=== PATIENT | female | born 1965 | race Caucasian/White ===

== ENCOUNTER → 2017-10-19 16:07 | Outpatient (REF) | payer OTHER, SELFPAY ==
--- NOTE | 2017-10-19 15:45 | SKI_PTH ---
PATIENT: Kayce Posadas LOC: N U#:[id number] AGE/SX: 59/F ROOM: RE10/19/[address]: Riley Yoo DO : 1965 BED: DIS: SPEC #: [id number] RECD: 10/20/17 17:34 STATUS: MAIRA RESharon #: [id number] PEGGY: 10/19/17 15:[address]: Riley Yoo DEPT: Surgical Specimen RECD BY: Afua Navas ENTERED: 10/20/17 17:35 SP TYPE: DESIRE MCKENNA DR: Annita Quiñones Tissues: 1 - SKIN BIOPSY(SHAVE/PUNCH) Procedures: SKIN LEVEL 4 Comments: [id number]
== END ==
LOC: LBN 16:07
PROVIDERS: PCP Nurse Practitioner Family; Visit Provider Otolaryngology Otolaryngology/Facial Plastic Surgery
DX: D22.30 Melanocytic nevi of unspecified part of face (principal)
CPT/HCPCS: 88305

== ENCOUNTER → 2017-10-21 12:27 | Outpatient (CLI) | payer OTHER, SELFPAY ==
[2017-10-21 12:50] LABS: Abs Immature Grans 0.01 k/cumm (0.0-0.09); Absolute Basophil Count 0.03 k/cumm (0.0-0.2); Absolute Lymphocyte Count 2.46 k/cumm (1.2-3.4); Absolute Monocyte Count 0.45 k/cumm (0.11-0.7); Absolute Neutrophil Count 3.53 k/cumm (1.2-6.7); Basophils % 0.4; HCT 44.4 % (36.0-46.0); HGB 14.9 g/dL (12.0-15.5); Immature Grans % 0.1; Lymphocytes % 36.8; Mean Corp. HGB Concentration 33.6 g/dL (32.0-36.0); Mean Corpuscular Hemoglobin 32.2 pg (27.0-33.0); Mean Corpuscular Volume 95.9 fL (80-95); Mean Platelet Volume 11.3 fL (8.0-11.0); Monocytes % 6.7; Platelet Count 220 x1000/uL (130-400); RBC 4.63 m/cumm (4.00-5.20); RBC Distribution Width 13.7 % (11.7-14.6); White Blood Cell Count 6.68 k/cumm (4.4-10.8)
[2017-10-21 13:07] LABS: ALT 18 U/L (12-78); AST 14 U/L (15-37); Albumin 3.9 g/dL (3.4-5.0); Alkaline Phosphatase 65 U/L (46-116); Anion Gap 9.8 mmol/L (3-11); BUN 9 mg/dL (7-18); Bilirubin, Total 0.2 mg/dL (0.2-1.0); CO2 28.2 mmol/L (21.0-32.0); Calcium 8.9 mg/dL (8.5-10.1); Chloride 104 mmol/L (98-107); Creatine Kinase 58 U/L (26-192); Glucose 103 mg/dL (70-100); Potassium 3.7 mmol/L (3.5-5.1); Sodium 142 mmol/L (136-145); Total Protein 7.5 g/dL (6.4-8.2)
[2017-10-21 13:10] LABS: Troponin I < 0.02 ng/mL (0.00-0.06)
== END ==
PROVIDERS: PCP Nurse Practitioner Family; Visit Provider Nurse Practitioner Family
DX: R07.9 Chest pain, unspecified (principal); I95.1 Orthostatic hypotension; R53.83 Other fatigue; J18.9 Pneumonia, unspecified organism; R51 Headache; F41.8 Other specified anxiety disorders; J45.20 Mild intermittent asthma, uncomplicated; R00.2 Palpitations
CPT/HCPCS: 36415; 80053; 82550; 84484; 85025

== ENCOUNTER → 2017-10-24 01:07 | Outpatient (CLI) | payer OTHER, SELFPAY ==
--- NOTE | 2017-10-24 08:57 | DI.REPORT_ITS ---
SYMPTOM/DIAGNOSIS: CHEST PAIN R07.9, PALPITATIONS R00.2, FATIGUE R53.83 PA AND LATERAL CHEST: Comparison is made with 29 September 2017. The cardiac and mediastinal contours have a normal appearance. The lungs are well inflated and clear. No infiltrate, effusion or pneumothorax is seen. There are minimal degenerative changes of the thoracic spine. IMPRESSION: Negative chest x-ray.
== END ==
PROVIDERS: PCP Nurse Practitioner Family; Visit Provider Nurse Practitioner Family
DX: R07.9 Chest pain, unspecified (principal); R00.2 Palpitations; R53.83 Other fatigue
CPT/HCPCS: 71046

== ENCOUNTER → 2017-10-24 02:42 | Outpatient (CLI) | payer OTHER, SELFPAY ==
--- NOTE | 2017-10-28 13:49 | HOLTER_ITS ---
DATE OF DICTATION: October 28, 2017 INDICATION: Chest pain/palpitations. 48-hour monitoring period. Baseline sinus rhythm. Average heart rate 80 bpm. Rare ventricular ectopy. Ventricular ectopy isolated; one ventricular triplet. No non-sustained VT. Rare isolated PAC's. No significant pauses or bradyarrhythmias. Patient diary entries of racing heart and chest pressure all correspond to sinus rhythm.
== END ==
PROVIDERS: PCP Nurse Practitioner Family; Visit Provider Nurse Practitioner Family
DX: R07.89 Other chest pain (principal); R00.2 Palpitations; I49.1 Atrial premature depolarization; I49.3 Ventricular premature depolarization
CPT/HCPCS: 93225

== ENCOUNTER → 2017-10-27 08:36 | Outpatient (CLI) | payer OTHER, SELFPAY | PROVIDERS: PCP Nurse Practitioner Family; Visit Provider Nurse Practitioner Family | DX: R07.89 Other chest pain (principal); R00.2 Palpitations; I49.1 Atrial premature depolarization; I49.3 Ventricular premature depolarization | CPT/HCPCS: 93226 ==

== ENCOUNTER → 2017-10-28 09:15 | Outpatient (CLI) | payer OTHER, SELFPAY | PROVIDERS: PCP Nurse Practitioner Family; Visit Provider Internal Medicine Cardiovascular Disease | DX: R07.89 Other chest pain (principal); R00.2 Palpitations; I49.1 Atrial premature depolarization; I49.3 Ventricular premature depolarization | CPT/HCPCS: 93227 ==

== ENCOUNTER → 2017-11-01 14:15 | Outpatient (CLI) | payer OTHER, SELFPAY | PROVIDERS: PCP Nurse Practitioner Family; Visit Provider Nurse Practitioner Adult Health | DX: G56.01 Carpal tunnel syndrome, right upper limb (principal) | CPT/HCPCS: 99213 ==

== ENCOUNTER 2017-11-18 02:00 | Outpatient (CLI) | payer OTHER, SELFPAY ==
[2017-11-18] MEDS: Inhaler, Assist Device 1 EACH MC (08:41)
[2017-11-18] MEDS: Albuterol HFA 18 GM 200 PUFF INH IH (08:43)
--- NOTE | 2017-11-18 11:30 | PFT_ITS ---
PULMONARY FUNCTION TEST REPORT DATE OF SERVICE: November 18, 2017 REQUESTING PROVIDER: Annita Quiñones APRN Spirometry shows mild obstructive airways disease with no significant bronchodilator response. Lung volumes show no evidence of restriction. Diffusion capacity mildly reduced, even when corrected to alveolar volume. Airways resistance normal. IMPRESSION: Mild obstructive airways disease with no significant bronchodilator response; this is associated with mild diffusion defect. Clinical correlation recommended. EVELINE/roger SEE SCANNED DOCUMENT IN THE EMR FOR DATA AND GRAPHS
== END 2017-11-18 02:20 ==
PROVIDERS: PCP Nurse Practitioner Family; Visit Provider Nurse Practitioner Family
DX: J98.8 Other specified respiratory disorders (principal)
CPT/HCPCS: 94060; 94150; 94726; 94729

== ENCOUNTER 2017-12-01 00:56 | Outpatient (CLI) | payer OTHER, SELFPAY ==
--- NOTE | 2017-12-01 13:15 | DI.MAMMO_ITS ---
SYMPTOM/DIAGNOSIS: SCREENING, MAMMO Z12.31 MAMMOGRAM: Mammograms were interpreted according to the usual protocol including computer analysis with CAD system, tomosynthesis and C view imaging. The breast tissue is extremely radiodense which lowers the sensitivity of the study. There is no evidence of a dominant mass. There are no suspicious calcifications. SUMMARY: No evidence of malignancy, Category 1, breast density category D. SA ASSESSMENT OF FINDINGS: Negative. Category 1. Patient will receive a letter notifying them of these results. BI-RADS category D. The breasts are extremely dense, which lowers the sensitivity of mammography.
== END 2017-12-01 01:16 ==
PROVIDERS: PCP Nurse Practitioner Family; Visit Provider Nurse Practitioner Family
DX: Z12.31 Encounter for screening mammogram for malignant neoplasm of breast (principal)
CPT/HCPCS: 77063; 77067

== ENCOUNTER 2018-07-17 17:44 | Emergency (ER) | payer OTHER, SELFPAY ==
[2018-07-17 18:10] VITALS: BP 150/84; PULSE 66; RESP 16; TEMP 36.6; O2SAT 96
--- NOTE | 2018-07-17 19:25 | W.ED.GENAD ---
Discharge Plan Disposition Patient Disposition: HOME Condition: Improving Discharge Details Chief Complaint: FlankPain Clinical Impression: Colitis, Cystitis Primary Care Provider: Annita Quiñones ED Provider: Keiry Marr Home Meds and New Rx's Prescriptions: New amoxicillin-pot clavulanate [Augmentin] 875-125 mg tablet 1 tab PO BID Qty: 14 RF: 0 Continued albuterol sulfate 8.5 GM HFA aerosol inhaler 1 - 2 puff Inhalation Q4H PRN RF: 0 venlafaxine [Effexor XR] 75 MG capsule,extended release 24hr 75 mg PO DAILY RF: 0 Discharge Instructions Instructions: Amoxicillin/Clavulanate Potassium (By mouth), Colitis (ED), Interstitial Cystitis (ED) Additional Instructions: Continue to encourage hydration. Please stick with clear liquid diet for the next 48 hours until evaluated by her primary care. Please call primary care tomorrow to schedule appointment within the next 2 days. On your CAT scan, you have findings suggestive of colitis, this is also supported by your mucousy bowel movements. There is inflammation of your bladder assist with interstitial. Augmentin will cover for infection. You have findings of cyst on your right kidney, cyst in your right ovary, as well as a small lesion in the liver. Discussed this further with your primary care. You also need follow-up with urology, I have asked her youth care worker to help follow-up with urology. If you develop fever/chills, increased pain, inability stay hydrated or other new/worsening symptoms please seek care urgently once again Referrals: Annita Quiñones [Primary Care Provider] - Gautam Clement MD [ [facility] ST[facility]FF PHYSICIAN] - Discharge Data Discharge Date/Time-TO BE ENTERED AT DEPARTURE: 07/17/18 22:25 Medical Decision Making Patient is a 53-year-old female presenting today with chief complaint of right flank pain and diffuse abdominal pain. She reports the pain began several weeks ago. She reports that she was seen on June 28 in the emergency department in [place] at which time she was diagnosed with a cyst on the kidney with a kidney infection. States she had a CT scan as well as laboratory evaluation. At that point she was put on cefepime. Patient fernando in [place] but is here primarily. It returned on the and has not been evaluated since. She reports that initially the pain has improved but now the pain is back and is worse than it had been previously. She is endorsing dysuria and difficulty peeing. States that she is also having mucousy bowel movements. Endorses nausea and vomiting. Denies any known fevers but states that she has been feeling warm intermittently. At this point, the patient appears nontoxic. Her exam is fairly nonspecific as she has diffuse discomfort without any focal findings. She does endorse right CVA tenderness. no peritoneal findings. Vital signs within normal limits. Patient has history of asthma, depression, hyperlipidemia, chronic pain. She is status post hysterectomy. Concern for possible infection given the patient's history, will get urinalysis, concern for nephritis, cystitis versus other urologic or abdominal complaints. Will obtain CT scan and laboratory evaluation. Discussed splinting the patient is in agreement. Will give Toradol to help with discomfort Labs significant for elevated lipase of 455. This is not correlate clinically. No leukocytosis. UA without suggestion of infection. CT reviewed by radiologist: ABDOMEN: Liver: Sub-5 mm hypoattenuating lesion in the right hepatic lobe, too small to further characterize. The liver is otherwise within normal limits. Gallbladder and bile ducts: The gallbladder is partially distended, within normal limits. Pancreas: Normal. No ductal dilation. Spleen: Normal. No splenomegaly. Adrenals: Normal. No mass. Kidneys and ureters: Right renal cyst measuring 2.1 cm. The kidneys and ureters are within normal limits. Stomach and bowel: No evidence of enteritis or small bowel obstruction. Diverticulosis with no focal inflammation to suggest acute diverticulitis. There is diffuse wall thickening of the colon with sparing of the right colon and most severe in the sigmoid colon that may be due in part to underdistention but is suspicious for nonspecific colitis. Appendix: No evidence of appendicitis. PELVIS: Bladder: Mild wall thickening of the urinary bladder may represent cystitis/UTI. Reproductive: Fat and soft tissue attenuation well-circumscribed ovoid lesion in the right pelvis measuring 4.5 x 2.8 x 3.6 cm (series 4 image 65) in keeping with a ovarian dermoid. The left ovary is within normal limits. Hysterectomy. ABDOMEN and PELVIS: Intraperitoneal space: No free fluid or pneumoperitoneum. Bones/joints: No acute fracture. No dislocation. Soft tissues: Unremarkable. Vasculature: Normal. No abdominal aortic aneurysm. Lymph nodes: Normal. No enlarged lymph nodes. Other findings: No acute findings in the lower chest. IMPRESSION: 1. Diffuse colon wall thickening, possibly due in part to underdistention, but suspicious for nonspecific colitis. Diverticulosis without evidence of acute diverticulitis. 2. Right ovarian dermoid. If there is clinical concern for torsion, ultrasound of the pelvis may be considered. 3. Mild circumferential wall thickening in the urinary bladder can be seen in the setting of cystitis/UTI. Cyst was noted to the patient. I did relate this was again. We also discussed the right ovarian cyst. Denies concern for torsion at this time the pain is been going on for so many weeks and patient is not particularly tender of the right lower side. Pain is more consistent with cystitis she is increasingly tender of the lower central abdomen. Patient has been endorsing mucousy stools. This may go along with the colitis. Her urine does not suggest a UTI, cystitis more likely. Patient has discussed the small finding on the liver and advised follow-up care regarding this. Patient is therefore diagnosed with cystitis enteritis. She does have a slightly elevated lipase at 4435. Patient is not tender in the left upper quadrant. She denies any recent alcohol consumption. No findings to suggest pancreatitis on the CT scan. This elevation is significant enough to suggest pancreatitis given the patient's history and physical exam findings. Discussed case with Dr. Buitrago. She relates that pancreatitis is unlikely given history and physical exam findings. However, she advised treating the patient conservatively and having her be on a clear liquid diet for the next 48 hours until reevaluated by her primary care physician. She has been advised with the patient on Augmentin to cover for the enteritis and any possible urinary action may be contributing to her symptoms. I discussed plan with the patient. She is given very strict return precautions. Advised patient to follow-up with primary care in the next 48 hours, also asked youth care worker to help facilitate this. Patient discharged home with prescription for Augmentin and dietary restrictions. Her questions and concerns were addressed and she is in agreement this plan HPI General Mode of arrival: ambulatory. Date/Time Provider Initiated Documentation: 07/17/18 19:15. Limitations to Documentation: no limitations. Information obtained by: patient and RN notes reviewed. History of Present Illness 53 year old F presents to the emergency department with the chief complaint of Right flank pain, abdominal pain and dysuria, described as moderate, with intensity rated at 8. Quality is described as aching, and is localized to the back and abdomen. Patient reports no radiation. Patient started experiencing this month(s) (1) and it has been constant. No relieving factors improve symptom(s), No exacerbating factors reported . Patient notes loss of appetite and nausea/vomiting; denies chest pain, cough, fever/chills, malaise, rash, shortness of breath and weakness. Patient did receive the following treatments prior to arrival, other (antibiotics for UTI) Related Data Home Medications Medication Instructions Recorded Confirmed albuterol sulfate 1 - 2 puff INHALATION Q4H PRN 07/30/14 08/17/17 inhaler venlafaxine [Effexor XR] 75 mg PO DAILY 10/17/16 08/17/17 amoxicillin-pot clavulanate 1 tab PO BID #14 tab 07/17/18 [Augmentin] Previous Rx's Medication Instructions Recorded amoxicillin-pot clavulanate 1 tab PO BID #14 tab 07/17/18 [Augmentin] Allergies Allergy/AdvReac Type Severity Reaction Status Date / Time hydrocodone bitartrate Allergy Mild Itching Unverified 11/01/17 13:55 [From Vicodin] Sulfa (Sulfonamide Allergy Mild Itching Unverified 11/01/17 13:55 Antibiotics) Bleach (Sodium Hypochlorite) AdvReac Unverified 11/01/17 13:55 hay fever AdvReac Mild Headache Uncoded 08/17/17 19:55 General Stated Complaint: FlankPain SANDHYA: 3 Review of Systems Constitutional Reports as per HPI, Denies chills, Reports fatigue, Denies fever(s) and Denies headache(s) ENT Denies headache(s) Cardiovascular Reports as per HPI, Denies chest pain and Denies dyspnea Respiratory Reports as per HPI, Denies cough and Denies dyspnea Gastrointestinal Reports as per HPI Genitourinary Reports as per HPI, Reports urinary frequency, Denies genital lesions, Reports dysuria, Reports flank pain (right), Denies urinary incontinence, Reports urinary urgency, Denies vaginal discharge, Denies vaginal odor and Reports other (patient s/p hysterectomy) Musculoskeletal Reports as per HPI and Reports back pain (flank pain) Integumentary/Breasts Reports as per HPI and Denies rash Neurologic Reports as per HPI and Denies headache(s) Endocrine Reports fatigue [facility] Medical History Asthma Back pain Depression Dyspareunia Generalized headaches Hyperlipidemia Menorrhagia Neuralgia of left lower extremity Shoulder pain Surgical History Colonoscopy - IV Sedation (11/18/14) Family History Father Colon cancer Social History Smoking/Tobacco Use Status: Current every day Drug use: Never Do you feel safe at home: Yes Do you feel safe in your relationship?: Yes Exam Const General: cooperative, healthy appearing, comfortable, no acute distress and well developed Nutritional Appearance: average body habitus and well nourished Orientation: alert and awake HENCT Head: normal to inspection Mouth: moist mucous membranes Resp Effort & Inspection: normal respiratory effort, able to speak in complete sentences and no respiratory distress Auscultation: clear to auscultation bilaterally, no rales, no rhonchi and no wheezes Cardio Rate: regular rate Rhythm: regular rhythm Heart Sounds: S1 normal and S2 normal GI Inspection: no edema, non-distended, no incisions and no visible herniation Palpation: soft, no hepatosplenomegaly, no aortic enlargement, not firm, no guarding, no hepatosplenomegaly, not rigid and tender (diffusely mildly tender, worse over bladder) with no rebound tenderness Percussion: normal to percussion Auscultation: normal bowel sounds Back/Spine/Pelvis Back: CVA tenderness (right) Skin General skin exam: no rashes or lesions noted Trauma: no lacerations or abrasions Neuro General: alert and awake Cognition: normal cognition Speech: speech normal Gait: normal gait Extrem General: normal to inspection, no pedal edema and no calf tenderness Psych Appearance: grossly normal and well kempt Mental Status: mental status grossly normal Speech and Movement: speech and movement normal Course Vital Signs Temperature 36.6 C 07/17/18 18:10 Pulse 66 07/17/18 18:10 Respiratory Rate 16 07/17/18 18:10 Blood Pressure 150/84 H 07/17/18 18:10 Pulse Oximetry 96 07/17/18 18:10 Temperature 36.6 C 07/17/18 18:10 Temperature Source Skin 07/17/18 18:10 Pulse 66 07/17/18 18:10 Respiratory Rate 16 07/17/18 18:10 Blood Pressure 150/84 H 07/17/18 18:10 Blood Pressure Position Sitting 07/17/18 18:10 Pulse Oximetry 96 07/17/18 18:10 Oxygen Delivery Method Room Air 07/17/18 18:10 Oxygen Flow Rate 0 07/17/18 18:10 Pain Level 8 07/17/18 18:10
[2018-07-17 19:28] LABS: Abs Immature Grans 0.02 k/cumm (0.0-0.09); Absolute Basophil Count 0.04 k/cumm (0.0-0.2); Absolute Eosinophil Count 0.39 k/cumm (0.0-0.7); Absolute Lymphocyte Count 3.05 k/cumm (1.2-3.4); Absolute Monocyte Count 0.93 k/cumm (0.11-0.7); Absolute Neutrophil Count 4.98 k/cumm (1.2-6.7); Basophils % 0.4; Eosinophils % 4.1; HCT 37.9 % (36.0-46.0); HGB 12.8 g/dL (12.0-15.5); Immature Grans % 0.2; Lymphocytes % 32.4; Mean Corp. HGB Concentration 33.8 g/dL (32.0-36.0); Mean Corpuscular Hemoglobin 31.7 pg (27.0-33.0); Mean Corpuscular Volume 93.8 fL (80-95); Monocytes % 9.9; Platelet Count 263 x1000/uL (130-400); RBC 4.04 m/cumm (4.00-5.20); RBC Distribution Width 13.4 % (11.7-14.6); White Blood Cell Count 9.41 k/cumm (4.4-10.8)
--- NOTE | 2018-07-17 19:36 | ED.GENADUL_ITS ---
Discharge Plan Disposition Patient Disposition: HOME Condition: Improving Discharge Details Chief Complaint: FlankPain Clinical Impression: Colitis, Cystitis Primary Care Provider: Annita Quiñones ED Provider: Keiry Marr Home Meds and New Rx's Prescriptions: New amoxicillin-pot clavulanate [Augmentin] 875-125 mg tablet 1 tab PO BID Qty: 14 RF: 0 Continued albuterol sulfate 8.5 GM HFA aerosol inhaler 1 - 2 puff Inhalation Q4H PRN RF: 0 venlafaxine [Effexor XR] 75 MG capsule,extended release 24hr 75 mg PO DAILY RF: 0 Discharge Instructions Instructions: Amoxicillin/Clavulanate Potassium (By mouth), Colitis (ED), Interstitial Cystitis (ED) Additional Instructions: Continue to encourage hydration. Please stick with clear liquid diet for the next 48 hours until evaluated by her primary care. Please call primary care tomorrow to schedule appointment within the next 2 days. On your CAT scan, you have findings suggestive of colitis, this is also supported by your mucousy bowel movements. There is inflammation of your bladder assist with interstitial. Augmentin will cover for infection. You have findings of cyst on your right kidney, cyst in your right ovary, as well as a small lesion in the liver. Discussed this further with your primary care. You also need follow-up with urology, I have asked her date night caregiver to help follow-up with urology. If you develop fever/chills, increased pain, inability stay hydrated or other new/worsening symptoms please seek care urgently once again Referrals: Annita Quiñones [Primary Care Provider] - Gautam Clement MD [ [facility] STAFF PHYSICIAN] - Discharge Data Discharge Date/Time-TO BE ENTERED AT DEPARTURE: 07/17/18 22:25 Medical Decision Making Patient is a 53-year-old female presenting today with chief complaint of right flank pain and diffuse abdominal pain. She reports the pain began several weeks ago. She reports that she was seen on June 28 in the emergency department in [place] at which time she was diagnosed with a cyst on the kidney with a kidney infection. States she had a CT scan as well as laboratory evaluation. At that point she was put on cefepime. Patient fernando in [place] but is here primarily. It returned on the and has not been evaluated since. She reports that initially the pain has improved but now the pain is back and is worse than it had been previously. She is endorsing dysuria and difficulty peeing. States that she is also having mucousy bowel movements. Endorses nausea and vomiting. Denies any known fevers but states that she has been feeling warm intermittently. At this point, the patient appears nontoxic. Her exam is fairly nonspecific as she has diffuse discomfort without any focal findings. She does endorse right CVA tenderness. no peritoneal findings. Vital signs within normal limits. Patient has history of asthma, depression, hyperlipidemia, chronic pain. She is status post hysterectomy. Concern for possible infection given the patient's history, will get urinalysis, concern for nephritis, cystitis versus other urologic or abdominal complaints. Will obtain CT scan and laboratory evaluation. Discussed splinting the patient is in agreement. Will give Toradol to help with discomfort Labs significant for elevated lipase of 455. This is not correlate clinically. No leukocytosis. UA without suggestion of infection. CT reviewed by radiologist: ABDOMEN: Liver: Sub-5 mm hypoattenuating lesion in the right hepatic lobe, too small to further characterize. The liver is otherwise within normal limits. Gallbladder and bile ducts: The gallbladder is partially distended, within normal limits. Pancreas: Normal. No ductal dilation. Spleen: Normal. No splenomegaly. Adrenals: Normal. No mass. Kidneys and ureters: Right renal cyst measuring 2.1 cm. The kidneys and ureters are within normal limits. Stomach and bowel: No evidence of enteritis or small bowel obstruction. Diverticulosis with no focal inflammation to suggest acute diverticulitis. There is diffuse wall thickening of the colon with sparing of the right colon and most severe in the sigmoid colon that may be due in part to underdistention but is suspicious for nonspecific colitis. Appendix: No evidence of appendicitis. PELVIS: Bladder: Mild wall thickening of the urinary bladder may represent cystitis/UTI. Reproductive: Fat and soft tissue attenuation well-circumscribed ovoid lesion in the right pelvis measuring 4.5 x 2.8 x 3.6 cm (series 4 image 65) in keeping with a ovarian dermoid. The left ovary is within normal limits. Hysterectomy. ABDOMEN and PELVIS: Intraperitoneal space: No free fluid or pneumoperitoneum. Bones/joints: No acute fracture. No dislocation. Soft tissues: Unremarkable. Vasculature: Normal. No abdominal aortic aneurysm. Lymph nodes: Normal. No enlarged lymph nodes. Other findings: No acute findings in the lower chest. IMPRESSION: 1. Diffuse colon wall thickening, possibly due in part to underdistention, but suspicious for nonspecific colitis. Diverticulosis without evidence of acute diverticulitis. 2. Right ovarian dermoid. If there is clinical concern for torsion, ultrasound of the pelvis may be considered. 3. Mild circumferential wall thickening in the urinary bladder can be seen in the setting of cystitis/UTI. Cyst was noted to the patient. I did relate this was again. We also discussed the right ovarian cyst. Denies concern for torsion at this time the pain is been going on for so many weeks and patient is not particularly tender of the right lower side. Pain is more consistent with cystitis she is increasingly tender of the lower central abdomen. Patient has been endorsing mucousy stools. This may go along with the colitis. Her urine does not suggest a UTI, cystitis more likely. Patient has discussed the small finding on the liver and advised follow-up care regarding this. Patient is therefore diagnosed with cystitis enteritis. She does have a slightly elevated lipase at 4435. Patient is not tender in the left upper quadrant. She denies any recent alcohol consumption. No findings to suggest pancreatitis on the CT scan. This elevation is significant enough to suggest pancreatitis given the patient's history and physical exam findings. Discussed case with Dr. Buitrago. She relates that pancreatitis is unlikely given history and physical exam findings. However, she advised treating the patient conservatively and having her be on a clear liquid diet for the next 48 hours until reevaluated by her primary care physician. She has been advised with the patient on Augmentin to cover for the enteritis and any possible urinary action may be contributing to her symptoms. I discussed plan with the patient. She is given very strict return precautions. Advised patient to follow-up with primary care in the next 48 hours, also asked date night caregiver to help facilitate this. Patient discharged home with prescription for Augmentin and dietary restrictions. Her questions and concerns were addressed and she is in agreement this plan HPI General Mode of arrival: ambulatory . Date/Time Provider Initiated Documentation: 07/17/18 19:15 . Limitations to Documentation: no limitations . Information obtained by: patient and RN notes reviewed . History of Present Illness 53 year old F presents to the emergency department with the chief complaint of Right flank pain, abdominal pain and dysuria, described as moderate, with intensity rated at 8. Quality is described as aching, and is localized to the back and abdomen. Patient reports no radiation. Patient started experiencing this month(s) (1) and it has been constant. No relieving factors improve symptom(s), No exacerbating factors reported . Patient notes loss of appetite and nausea/vomiting; denies chest pain, cough, fever/chills, malaise, rash, shortness of breath and weakness. Patient did receive the following treatments prior to arrival, other (antibiotics for UTI) Related Data Home Medications Medication Instructions Recorded Confirmed albuterol sulfate 1 - 2 puff INHALATION Q4H PRN 07/30/14 08/17/17 inhaler venlafaxine [Effexor XR] 75 mg PO DAILY 10/17/16 08/17/17 amoxicillin-pot clavulanate 1 tab PO BID #14 tab 07/17/18 [Augmentin] Previous Rx's Medication Instructions Recorded amoxicillin-pot clavulanate 1 tab PO BID #14 tab 07/17/18 [Augmentin] Allergies Allergy/AdvReac Type Severity Reaction Status Date / Time hydrocodone bitartrate Allergy Mild Itching Unverified 11/01/17 13:55 [From Vicodin] Sulfa (Sulfonamide Allergy Mild Itching Unverified 11/01/17 13:55 Antibiotics) Bleach (Sodium Hypochlorite) AdvReac Unverified 11/01/17 13:55 hay fever AdvReac Mild Headache Uncoded 08/17/17 19:55 General Stated Complaint: FlankPain SANDHYA: 3 Review of Systems Constitutional Reports as per HPI, Denies chills, Reports fatigue, Denies fever(s) and Denies headache(s) ENT Denies headache(s) Cardiovascular Reports as per HPI, Denies chest pain and Denies dyspnea Respiratory Reports as per HPI, Denies cough and Denies dyspnea Gastrointestinal Reports as per HPI Genitourinary Reports as per HPI, Reports urinary frequency, Denies genital lesions, Reports dysuria, Reports flank pain (right), Denies urinary incontinence, Reports urinary urgency, Denies vaginal discharge, Denies vaginal odor and Reports other (patient s/p hysterectomy) Musculoskeletal Reports as per HPI and Reports back pain (flank pain) Integumentary/Breasts Reports as per HPI and Denies rash Neurologic Reports as per HPI and Denies headache(s) Endocrine Reports fatigue [facility] Medical History Asthma Back pain Depression Dyspareunia Generalized headaches Hyperlipidemia Menorrhagia Neuralgia of left lower extremity Shoulder pain Surgical History Colonoscopy - IV Sedation (11/18/14) Family History Father Colon cancer Social History Smoking/Tobacco Use Status: Current every day Drug use: Never Do you feel safe at home: Yes Do you feel safe in your relationship?: Yes Exam Const General: cooperative, healthy appearing, comfortable, no acute distress and well developed Nutritional Appearance: average body habitus and well nourished Orientation: alert and awake HENOH Head: normal to inspection Mouth: moist mucous membranes Resp Effort & Inspection: normal respiratory effort, able to speak in complete sentences and no respiratory distress Auscultation: clear to auscultation bilaterally, no rales, no rhonchi and no wheezes Cardio Rate: regular rate Rhythm: regular rhythm Heart Sounds: S1 normal and S2 normal GI Inspection: no edema, non-distended, no incisions and no visible herniation Palpation: soft, no hepatosplenomegaly, no aortic enlargement, not firm, no guarding, no hepatosplenomegaly, not rigid and tender (diffusely mildly tender, worse over bladder) with no rebound tenderness Percussion: normal to percussion Auscultation: normal bowel sounds Back/Spine/Pelvis Back: CVA tenderness (right) Skin General skin exam: no rashes or lesions noted Trauma: no lacerations or abrasions Neuro General: alert and awake Cognition: normal cognition Speech: speech normal Gait: normal gait Extrem General: normal to inspection, no pedal edema and no calf tenderness Psych Appearance: grossly normal and well kempt Mental Status: mental status grossly normal Speech and Movement: speech and movement normal Course Vital Signs Temperature 36.6 C 07/17/18 18:10 Pulse 66 07/17/18 18:10 Respiratory Rate 16 07/17/18 18:10 Blood Pressure 150/84 H 07/17/18 18:10 Pulse Oximetry 96 07/17/18 18:10 Temperature 36.6 C 07/17/18 18:10 Temperature Source Skin 07/17/18 18:10 Pulse 66 07/17/18 18:10 Respiratory Rate 16 07/17/18 18:10 Blood Pressure 150/84 H 07/17/18 18:10 Blood Pressure Position Sitting 07/17/18 18:10 Pulse Oximetry 96 07/17/18 18:10 Oxygen Delivery Method Room Air 07/17/18 18:10 Oxygen Flow Rate 0 07/17/18 18:10 Pain Level 8 07/17/18 18:10
[2018-07-17 19:42] LABS: ALT 25 U/L (12-78); AST 15 U/L (15-37); Albumin 3.5 g/dL (3.4-5.0); Alkaline Phosphatase 72 U/L (46-116); Anion Gap 10.1 mmol/L (3-11); BUN 11 mg/dL (7-18); Bilirubin, Total 0.2 mg/dL (0.2-1.0); CO2 24.9 mmol/L (21.0-32.0); CREATININE 0.79 mg/dL (0.55-1.02); Calcium 8.6 mg/dL (8.5-10.1); Chloride 105 mmol/L (98-107); Glucose 97 mg/dL (70-100); Potassium 3.6 mmol/L (3.5-5.1); Sodium 140 mmol/L (136-145)
[2018-07-17] MEDS: Ketorolac 15 MG/ML VIAL IVP (19:45)
[2018-07-17 19:46] LABS: Bilirubin Negative (Negative); Blood Negative (Negative); Clarity Clear; Glucose Negative (Negative); Ketones Negative (Negative); Leukocyte Esterase Negative (Negative); Nitrite Negative (Negative); Specific Gravity 1.015 (1.005-1.025); Urobilinogen 0.2 EU/dL (Up TO 0.2)
[2018-07-17 19:58] LABS: Lipase 455 U/L (73-393)
--- NOTE | 2018-07-17 20:30 | DI.CT_ITS ---
SYMPTOMS/DIAGNOSIS: DIFFUSE PAIN, WORSE LOWER RIGHT, FLANK PAIN CT OF THE ABDOMEN AND PELVIS: Images were performed from the lung bases through the ischial tuberosities after IV and without oral contrast. The lung bases are clear. The liver shows a few tiny hypodensities, too small to characterize. The gallbladder, spleen, pancreas and adrenals are unremarkable. There is a cyst at the lower pole of the right kidney. There is no evidence of stones or hydronephrosis. There is diverticulosis of the sigmoid region without definite diverticulitis. There is no bowel dilatation. There is a question of mild wall thickening versus underdistention of the descending colon. There is no free air or free fluid. The patient is status post hysterectomy. The bladder is unremarkable. There is a right-sided well-circumscribed ovoid lesion in the pelvis measuring 4.5 x 2.8 x 3.6 cm, containing fat. The findings likely indicate a dermoid. The left ovary appears normal. IMPRESSION: 1. Right ovarian dermoid. There are no findings to suggest torsion. 2. Question of underdistention versus mild wall thickening of the descending colon. 3. Prominent diverticulosis without evidence of diverticulitis.
[2018-07-17] MEDS: Omnipaque 350 MG/ML 100 ML BTL IJ (20:32)
--- NOTE | 2018-07-17 21:14 | DI.VRAD_ITS ---
EXAM: CT Abdomen and Pelvis With Contrast EXAM DATE/TIME: 07/17/2018 7:35 PM CLINICAL HISTORY: 53 years old, female; Abdominal pain; Localized; Right lower quadrant (rlq); Patient HX: Diffuse pain, worse lower right; Additional info: Also endorsing flank pain TECHNIQUE: Imaging protocol: Axial computed tomography images of the abdomen and pelvis with intravenous contrast. Coronal and sagittal reformatted images were created and reviewed. COMPARISON: No relevant prior studies available. FINDINGS: ABDOMEN: Liver: Sub-5 mm hypoattenuating lesion in the right hepatic lobe, too small to further characterize. The liver is otherwise within normal limits. Gallbladder and bile ducts: The gallbladder is partially distended, within normal limits. Pancreas: Normal. No ductal dilation. Spleen: Normal. No splenomegaly. Adrenals: Normal. No mass. Kidneys and ureters: Right renal cyst measuring 2.1 cm. The kidneys and ureters are within normal limits. Stomach and bowel: No evidence of enteritis or small bowel obstruction. Diverticulosis with no focal inflammation to suggest acute diverticulitis. There is diffuse wall thickening of the colon with sparing of the right colon and most severe in the sigmoid colon that may be due in part to underdistention but is suspicious for nonspecific colitis. Appendix: No evidence of appendicitis. PELVIS: Bladder: Mild wall thickening of the urinary bladder may represent cystitis/UTI. Reproductive: Fat and soft tissue attenuation well-circumscribed ovoid lesion in the right pelvis measuring 4.5 x 2.8 x 3.6 cm (series 4 image 65) in keeping with a ovarian dermoid. The left ovary is within normal limits. Hysterectomy. ABDOMEN and PELVIS: Intraperitoneal space: No free fluid or pneumoperitoneum. Bones/joints: No acute fracture. No dislocation. Soft tissues: Unremarkable. Vasculature: Normal. No abdominal aortic aneurysm. Lymph nodes: Normal. No enlarged lymph nodes. Other findings: No acute findings in the lower chest. IMPRESSION: 1. Diffuse colon wall thickening, possibly due in part to underdistention, but suspicious for nonspecific colitis. Diverticulosis without evidence of acute diverticulitis. 2. Right ovarian dermoid. If there is clinical concern for torsion, ultrasound of the pelvis may be considered. 3. Mild circumferential wall thickening in the urinary bladder can be seen in the setting of cystitis/UTI. Dictated and Authenticated by: nAnita Bales MD. Ordering:SHANTA Ricci MD
[2018-07-17 21:53] VITALS: BP 133/76; PULSE 56; RESP 14; TEMP 36.7; O2SAT 98
[2018-07-17] MEDS: Amoxicillin 875/Clav. 125 TAB PO (22:19)
--- NOTE | 2018-07-19 08:32 | PDOC.ERCMPRO ---
Care Management Progress Note 07/18-Dr. Delilah Buitrago requested assistance with a Urology f/u w/in 2 weeks for cystitis/R flank pain. Requested PCP (Ishmael) f/u as soon as possible. Referrals faxed to Urology and C this am.
== END 2018-07-17 22:25 | disposition home or self-care (01) ==
PROVIDERS: Student in an Organized Health Care Education/Training Program; Emergency Provider Physician Assistant; PCP Nurse Practitioner Family
DX: K52.9 Noninfective gastroenteritis and colitis, unspecified (principal); N30.00 Acute cystitis without hematuria; K57.30 Diverticulosis of large intestine without perforation or abscess without bleeding
CPT/HCPCS: 36415; 80053; 83690; 96374; 99285; 74177; 81003; 85025; 99284; J1885; J3490

== ENCOUNTER 2018-07-28 00:43 | Outpatient (CLI) | payer OTHER, SELFPAY ==
--- NOTE | 2018-07-28 07:27 | DI.US_ITS ---
SYMPTOM/DIAGNOSIS: RUQ ABD PAIN, R10.11 ABDOMEN ULTRASOUND: Comparison is made with CT of the abdomen and pelvis dated 07/17/18. The aorta is normal in diameter. There is no evidence of ascites. There is slightly increased liver echogenicity consistent with mild fatty infiltration. The gallbladder is unremarkable. No stones, wall thickening or biliary dilatation is seen. The pancreas and spleen appear normal. There is a small cyst at the lower pole of the right kidney. There is no evidence of hydronephrosis. IMPRESSION: Mild fatty infiltration of the liver. No gallbladder abnormality or biliary dilatation is seen.
== END 2018-07-28 01:03 ==
PROVIDERS: PCP Nurse Practitioner Family; Visit Provider Nurse Practitioner Family
DX: R10.11 Right upper quadrant pain (principal); K76.0 Fatty (change of) liver, not elsewhere classified
CPT/HCPCS: 76700

== ENCOUNTER 2018-08-08 10:21 | Outpatient (REF) | payer OTHER, SELFPAY ==
[2018-08-09 10:49] LABS: Hepatitis A Antibody IgM Negative (NEGAT); Hepatitis B Core Antibody Negative (NEGAT); Hepatitis B surface Ag Negative (NEGAT); Hepatitis C Ab w Rflx HCV PCR Negative (NEGAT)
== END 2018-08-08 10:41 ==
LOC: NCHCN 10:21
PROVIDERS: PCP Nurse Practitioner Family; Visit Provider Nurse Practitioner Family
DX: K76.0 Fatty (change of) liver, not elsewhere classified (principal); R10.31 Right lower quadrant pain; Z87.42 Personal history of other diseases of the female genital tract; R30.0 Dysuria
CPT/HCPCS: 86704; 86709; 86803; 87340

== ENCOUNTER 2018-10-03 07:31 | Emergency (ER) | payer OTHER, SELFPAY ==
[2018-10-03 07:35] VITALS: BP 126/79; PULSE 75; RESP 16; TEMP 36.6; O2SAT 99
[2018-10-03 07:44] LABS: Bilirubin Negative (Negative); Blood Negative (Negative); Clarity Sl Cloudy (Clear); Glucose Negative (Negative); Ketones Negative (Negative); Leukocyte Esterase Negative (Negative); Nitrite Negative (Negative); Specific Gravity 1.015 (1.005-1.025); Urobilinogen 0.2 EU/dL (Up TO 0.2)
--- NOTE | 2018-10-03 07:44 | ED.GENADUL_ITS ---
Discharge Plan Disposition Patient Disposition: HOME Condition: Stable Discharge Details Chief Complaint: FlankPain Clinical Impression: Abdominal pain, Ovarian cyst, Back pain Primary Care Provider: Annita Quiñones ED Provider: Keiry Marr Home Meds and New Rx's Prescriptions: New cyclobenzaprine 10 mg tablet 10 mg PO TID PRN (Reason: muscle spasm) Qty: 5 RF: 0 Continued albuterol sulfate 8.5 GM HFA aerosol inhaler 1 - 2 puff Inhalation Q4H PRN RF: 0 venlafaxine [Effexor XR] 75 MG capsule,extended release 24hr 75 mg PO DAILY RF: 0 ibuprofen 800 mg Tablet 800 mg PO TID RF: 0 ranitidine HCl 150 mg Tablet 150 mg PO DAILY RF: 0 Discharge Instructions Instructions: Ovarian Cyst (ED), Abdominal Pain (ED), Back Pain (ED) Additional Instructions: Your imaging and labs are reassuring today. You have a stable cyst on your right ovary. Please continue with tylenol and/or motrin as needed for discomfort. May try heating pad. You may use the muscle relaxer as prescribed for your muscle tightness, do not drive while taking this medication. You have a follow up appointment with primary care on at 1:15PM. Please keep upcoming appointments with urology and gynecology. If you develop fevers/chills, increased pain, inability to stay hydrated or other new/worsening symptoms please seek care urgently once again. Referrals: Annita Quiñones [Primary Care Provider] - Medical Decision Making Patient is a 53 year old female, known to myself, presenting today with c/c of right flank pain and RLQ pain. States that pain began suddenly this AM when he awoke. Has been here for similar episodes historically, last such episode was 2 months ago. Patient is unclear if this is the same as previous episode. Was previously diagnosed with ovarian cyst, cystitis, colitis. No evidence of UTI at that time, no hx of stones. She has no CVA tenderness today, pain is primarily over the right SI joint and RLQ pain. Pain over McBurney's point. Has been asymptomatic since last episode. Was seen by PCP and has referrals to [facility] and urology. States that these appointment are upcoming. CT reviewed by radiologist, found to be negative Reassessed the patient, she continues to endorse severe pain. States toradol was only minimally helpful. She has no peritoneal findings. With the known cyst, concerned for possible torsion or rupture or cyst, will obtain US. Will give oral Tylenol for pain. US reviewed by radiologist. Patient has a known dermoid cyst unchanged from previous studies, no evidence of acute pathology. Contacted patients PCP and arranged for f/u appointment for reevaluation in 2 days. Discussed findings with patient and family. Advised that she appears to have a stable cyst. I advised that this may be muscular basis it is worse with movement. She is requesting a muscle relaxer as she was also recently diagnosed with a muscular strain at [facility] where she was prescribed Percocet. I will not refill any narcotics. As she has known injury, and this lower back pain may be muscular in nature, will prescribed short course of Flexeril. Encouraged gentle stretching and frequent ambulation. She was given strict return precautions. All of her questions and concerns were addressed, she is in agreement with this plan. HPI General Mode of arrival: ambulatory . Date/Time Provider Initiated Documentation: 10/03/18 07:43 . Limitations to Documentation: no limitations . Information obtained by: patient and RN notes reviewed . History of Present Illness 53 year old F presents to the emergency department with the chief complaint of back and abdominal pain, described as moderate, with intensity rated at 8. Quality is described as stabbing, and is localized to the back and abdomen. Patient started experiencing this hour(s) and it has been constant. No relieving factors improve symptom(s), Movement worsens symptoms . Patient notes loss of appetite and nausea/vomiting (nausea, no vomiting); denies chest pain, cough, fever/chills, headaches, rash, shortness of breath and weakness. Patient did receive the following treatments prior to arrival, none Related Data Home Medications Medication Instructions Recorded Confirmed albuterol sulfate 1 - 2 puff INHALATION Q4H PRN 07/30/14 10/03/18 inhaler venlafaxine [Effexor XR] 75 mg PO DAILY 10/17/16 10/03/18 cyclobenzaprine 10 mg PO TID PRN #5 tab 10/03/18 ibuprofen 800 mg PO TID 10/03/18 10/03/18 ranitidine HCl 150 mg PO DAILY 10/03/18 10/03/18 Previous Rx's Medication Instructions Recorded cyclobenzaprine 10 mg PO TID PRN #5 tab 10/03/18 Allergies Allergy/AdvReac Type Severity Reaction Status Date / Time hydrocodone bitartrate Allergy Mild Itching Unverified 11/01/17 13:55 [From Vicodin] Sulfa (Sulfonamide Allergy Mild Itching Unverified 11/01/17 13:55 Antibiotics) Bleach (Sodium Hypochlorite) AdvReac Unverified 11/01/17 13:55 hay fever AdvReac Mild Headache Uncoded 08/17/17 19:55 General Stated Complaint: FlankPain SANDHYA: 3 Review of Systems Constitutional Reports as per HPI, Denies chills, Denies fatigue, Denies fever(s) and Denies he adache(s) ENT Denies headache(s) Cardiovascular Reports as per HPI, Denies chest pain and Denies dyspnea Respiratory Reports as per HPI, Denies cough and Denies dyspnea Gastrointestinal Reports as per HPI, Reports abdominal pain, Denies melena, Denies diarrhea, Reports nausea, Denies vomiting and Denies hematemesis Genitourinary Denies hematuria, Denies dysuria, Denies pelvic pain, Reports flank pain, Denies urinary incontinence, Denies urinary urgency, Denies vaginal discharge and Denies vaginal odor Musculoskeletal Reports as per HPI and Reports back pain Integumentary/Breasts Reports as per HPI and Denies rash Neurologic Reports as per HPI and Denies headache(s) Endocrine Denies fatigue PFSH Family History Father Colon cancer Social History Smoking/Tobacco Use Status: Current every day Drug use: Never Do you feel safe at home: Yes Do you feel safe in your relationship?: Yes Exam Const General: cooperative, healthy appearing, comfortable, no acute distress and well developed Nutritional Appearance: average body habitus and well nourished Orientation: alert and awake HENMT Head: normal to inspection Mouth: moist mucous membranes Resp Effort & Inspection: normal respiratory effort, able to speak in complete sentences and no respiratory distress Auscultation: clear to auscultation bilaterally, no rales, no rhonchi and no wheezes Cardio Rate: regular rate Rhythm: regular rhythm Heart Sounds: S1 normal and S2 normal GI Inspection: normal to inspection and non-distended Palpation: soft, no hepatosplenomegaly, not firm, no guarding, no hernias, not rigid and tender in the RLQ and at McBurney's point; obturator sign negative, psoas sign negative and with no rebound tenderness Percussion: normal to percussion Auscultation: normal bowel sounds Back/Spine/Pelvis Back: no CVA tenderness Sacroiliac joints: on the right tender to palpation Skin General skin exam: no rashes or lesions noted Trauma: no lacerations or abrasions Neuro General: alert and awake Cognition: normal cognition Speech: speech normal Gait: normal gait Extrem General: normal to inspection, normal capillary refill, no pedal edema, no calf tenderness and normal gait Psych Appearance: grossly normal and well kempt Mental Status: mental status grossly normal Speech and Movement: speech and movement normal Course Vital Signs Temperature 36.6 C 10/03/18 07:35 Pulse 75 10/03/18 07:35 Respiratory Rate 16 10/03/18 07:35 Blood Pressure 126/79 10/03/18 07:35 Pulse Oximetry 99 10/03/18 07:35 Temperature 36.6 C 10/03/18 07:35 Temperature Source Temporal Artery Scan 10/03/18 07:35 Pulse 75 10/03/18 07:35 Respiratory Rate 16 10/03/18 07:35 Respiratory Effort Non-Labored 10/03/18 07:39 Blood Pressure 126/79 10/03/18 07:35 Blood Pressure Position Sitting 10/03/18 07:35 Pulse Oximetry 99 10/03/18 07:35 Oxygen Delivery Method Room Air 10/03/18 07:35 Oxygen Flow Rate 0 10/03/18 07:35 Pain Level 8 10/03/18 07:39
[2018-10-03] MEDS: Normal Saline 1,000 ML 1000 ML IV (08:23)
[2018-10-03] MEDS: Ketorolac 15 MG/ML VIAL IVP (08:23)
[2018-10-03] MEDS: Ondansetron 4 MG/2 ML VIAL IVP (08:24)
[2018-10-03] MEDS: Normal Saline Flush 10 ML SYR IVP (08:24)
[2018-10-03 08:34] LABS: Abs Immature Grans 0.01 k/cumm (0.0-0.09); Absolute Basophil Count 0.03 k/cumm (0.0-0.2); Absolute Eosinophil Count 0.34 k/cumm (0.0-0.7); Absolute Lymphocyte Count 2.13 k/cumm (1.2-3.4); Absolute Monocyte Count 0.52 k/cumm (0.11-0.7); Absolute Neutrophil Count 3.86 k/cumm (1.2-6.7); Basophils % 0.4; Eosinophils % 4.9; HCT 42.3 % (36.0-46.0); HGB 14.2 g/dL (12.0-15.5); Immature Grans % 0.1; Lymphocytes % 30.9; Mean Corp. HGB Concentration 33.6 g/dL (32.0-36.0); Mean Corpuscular Hemoglobin 31.8 pg (27.0-33.0); Mean Corpuscular Volume 94.6 fL (80-95); Mean Platelet Volume 12.1 fL (8.0-11.0); Monocytes % 7.5; Neutrophils % 56.2; Platelet Count 223 x1000/uL (130-400); RBC 4.47 m/cumm (4.00-5.20); RBC Distribution Width 14.2 % (11.7-14.6); White Blood Cell Count 6.89 k/cumm (4.4-10.8)
[2018-10-03 08:50] LABS: ALT 24 U/L (12-78); AST 12 U/L (15-37); Albumin 3.7 g/dL (3.4-5.0); Alkaline Phosphatase 74 U/L (46-116); BUN 16 mg/dL (7-18); Bilirubin, Total 0.1 mg/dL (0.2-1.0); CREATININE 0.67 mg/dL (0.55-1.02); Calcium 8.9 mg/dL (8.5-10.1); Chloride 107 mmol/L (98-107); Glucose 99 mg/dL (70-100); Lipase 127 U/L (73-393); Potassium 4.1 mmol/L (3.5-5.1); Sodium 143 mmol/L (136-145); Total Protein 7.3 g/dL (6.4-8.2)
[2018-10-03] MEDS: Omnipaque 350 MG/ML 50 ML BTL PO (08:57)
[2018-10-03] MEDS: Breeza Beverage 473 ML BTL PO ×2 (08:57→08:58)
--- NOTE | 2018-10-03 10:12 | DI.CT_ITS ---
SYMPTOM/DIAGNOSIS: RLQ PAIN, MAX MCBURNEY'S POINT. CT ABDOMEN AND PELVIS: CT scan of the abdomen and pelvis was performed following oral and intravenous contrast material. Dependent atelectatic changes are seen in the lung bases. The liver is normal in size. There is a tiny hypodensity seen in the inferior aspect of the liver. These are too small for further characterization but likely reflects a small cyst. The portal, superior mesenteric and splenic veins are patent. The gallbladder is negative. There is no biliary ductal dilatation. The pancreas is unremarkable as are the spleen and adrenal glands. The kidneys show normal and symmetric enhancement. There is a simple cyst in the inferior pole of the right kidney. No nephrolithiasis or obstructive uropathy is identified. The urinary bladder is intact. The reproductive organs are unremarkable as visualized. There is diverticulosis in the sigmoid colon but no evidence of acute diverticulitis. The bowel shows no evidence of obstruction or inflammation. No findings to suggest acute appendicitis are present. The abdominal aorta is of normal caliber. No significant abdominal or pelvic adenopathy, ascites or pneumoperitoneum is seen. No acute osseous abnormality is identified. . There is again seen a 4.8 cm fat and soft tissue mass in the right adnexa consistent with the patient's known dermoid. IMPRESSION: No evidence of an acute abdomen to account for the patient's symptoms. The findings were discussed with the Emergency Department on the date of the examination.
[2018-10-03] MEDS: Omnipaque 350 MG/ML 100 ML BTL IJ (10:14)
--- NOTE | 2018-10-03 10:38 | DI.US_ITS ---
SYMPTOM/DIAGNOSIS: RLQ PAIN, KNOWN RT OVARIAN CYSTS, ? TORSION PELVIC ULTRASOUND: Transabdominal and transvaginal examination was performed. The patient is status post hysterectomy. The left ovary was visualized and measures 2.8 x 1.7 x 1.7 cm. There is blood flow noted. No evidence of torsion. A left ovarian cyst is seen and is simple, and measures 2.5 cm maximally. There is a complex right adnexal mass measuring 4.6 x 3.6 x 3.4 cm. This is consistent with the patient's known right ovarian dermoid. Peripheral vascularity is seen in the right ovary. No hydronephrosis is identified. IMPRESSION: Complex right adnexal mass which appears stable and is consistent with the patient's known right ovarian dermoid. 2. Status post hysterectomy The findings were discussed with Keiry Marr in the Emergency Department on the date of the examination
[2018-10-03] MEDS: Acetaminophen 500 MG TAB 1000 MG PO (10:43)
[2018-10-03 12:26] VITALS: BP 129/58; PULSE 84; RESP 14; TEMP 36.7; O2SAT 97
== END 2018-10-03 12:38 | disposition home or self-care (01) ==
PROVIDERS: Emergency Provider Physician Assistant; PCP Nurse Practitioner Family
DX: R10.9 Unspecified abdominal pain (principal); D27.1 Benign neoplasm of left ovary; M54.5 Low back pain
CPT/HCPCS: 80053; 83690; 74177; 76830; 76856; 81003; 85025; J1885; J2405; J3490; Q9967

== ENCOUNTER 2018-10-13 12:07 | Outpatient (REF) | payer OTHER, SELFPAY ==
[2018-10-13 21:59] LABS: Vitamin B12 429 pg/mL (193-986)
== END 2018-10-13 12:27 ==
LOC: NCHCN 12:07
PROVIDERS: PCP Nurse Practitioner Family; Visit Provider Nurse Practitioner Family
DX: G47.00 Insomnia, unspecified (principal); M19.049 Primary osteoarthritis, unspecified hand; K76.0 Fatty (change of) liver, not elsewhere classified; Z87.42 Personal history of other diseases of the female genital tract; G47.62 Sleep related leg cramps; R53.83 Other fatigue; M54.89 Other dorsalgia; K30 Functional dyspepsia; Z00.00 Encounter for general adult medical examination without abnormal findings
CPT/HCPCS: 82607; 83735

== ENCOUNTER → 2018-10-27 08:23 | Outpatient (BNVA) | payer OTHER, SELFPAY | PROVIDERS: PCP Nurse Practitioner Family; Visit Provider Urology | DX: R10.2 Pelvic and perineal pain (principal) | CPT/HCPCS: 99203; 99214 ==

== ENCOUNTER 2020-07-21 10:58 | Outpatient (REF) | payer OTHER, SELFPAY ==
[2020-07-21 13:24] LABS: Abs Immature Grans 0.01 10^3/uL (0.0-0.06); Absolute Basophil Count 0.06 10^3/uL (0.0-0.2); Absolute Eosinophil Count 0.39 10^3/uL (0.0-0.7); Absolute Lymphocyte Count 2.34 10^3/uL (1.2-3.4); Absolute Monocyte Count 0.55 10^3/uL (0.1-0.8); Absolute Neutrophil Count 2.98 10^3/uL (1.2-6.7); Basophils % 0.9; Eosinophils % 6.2; HCT 39.2 % (36.0-46.0); HGB 13.2 g/dL (11.2-15.7); Immature Grans % 0.2; MCH 31.4 pg (27.0-33.0); MCHC 33.7 % (32.0-36.0); MCV 93.3 fL (80-95); MPV 11.9 fL (8.0-11.0); Monocytes % 8.7; Nucleated RBC 0 %; Platelet Count 298 10^3/uL (130-400); RDW 13.4 % (11.7-14.6); RDW-SD 45.8 fL; WBC 6.33 10^3/uL (4.4-10.8)
[2020-07-21 13:42] LABS: Iron 158 ug/dL (50-170); Total Iron Binding Capacity 285 ug/dL (250-450); Transferrin Sat 55 % (15-50)
[2020-07-21 14:06] LABS: ALT 25 U/L (14-59); AST 23 U/L (15-37); Albumin 3.9 g/dL (3.4-5.0); Alkaline Phosphatase 77 U/L (46-116); Anion Gap 11.7 mmol/L (3-11); BUN 21 mg/dL (7-18); Bilirubin, Total 0.4 mg/dL (0.2-1.0); CO2 25.3 mmol/L (21.0-32.0); CREATININE 0.8 mg/dL (0.55-1.02); Calcium 9.1 mg/dL (8.5-10.1); Calculated LDL 158 mg/dL (<100); Chloride 105 mmol/L (98-107); Cholesterol 246 mg/dL (<200); Ferritin 96 ng/mL (8-252); Glucose 94 mg/dL (74-106); HDL Cholesterol 55 mg/dL (40-60); Potassium 4.3 mmol/L (3.5-5.1); Sodium 142 mmol/L (136-145); TSH (W/Ref FT4) 1.14 uIU/mL (0.36-3.74); Total Protein 7.3 g/dL (6.4-8.2); Triglyceride 165 mg/dL (<150); Vitamin B12 346 pg/mL (193-986)
[2020-07-22 09:51] LABS: Hepatitis C Ab w Rflx HCV PCR Negative (Negative)
[2020-07-22 10:07] LABS: HIV-1/2 Ag & Ab Screen Negative (Negative)
== END 2020-07-21 10:59 | disposition home or self-care (01) ==
LOC: NCHCN 10:58
PROVIDERS: PCP Nurse Practitioner Family; Visit Provider Nurse Practitioner Family
DX: Z00.00 Encounter for general adult medical examination without abnormal findings (principal); R07.9 Chest pain, unspecified; K30 Functional dyspepsia; R53.83 Other fatigue; K76.0 Fatty (change of) liver, not elsewhere classified; R06.83 Snoring; Z11.4 Encounter for screening for human immunodeficiency virus [HIV]; Z11.59 Encounter for screening for other viral diseases; G47.62 Sleep related leg cramps; E78.89 Other lipoprotein metabolism disorders
CPT/HCPCS: 80053; 80061; 86803; 87389; 82607; 82728; 83540; 83550; 83735; 84443; 85025

== ENCOUNTER 2020-07-24 03:25 | Outpatient (RCR) | payer OTHER, SELFPAY ==
--- NOTE | 2020-07-24 07:45 | HOLTER_ITS ---
APPROVED REPORT Conclusion This a 48-hour monitor ordered for indication of chest pain. Patient was in normal sinus rhythm for the majority the recording with an average heart rate of 84 bp m. There were no episodes of ventricular tachycardia. There were 3 episodes of supraventricular tachyca rdia with the longest lasting 16 beats. Symptoms were not reported during these events. There were rare episodes of ectopy. There were no episodes of atrial fibrillation, no pauses greater than 3 seconds and no evidence of hi gh degree heart block. There was 1 patient report event which was associated with sinus rhythm.
== END 2020-08-04 23:59 | disposition home or self-care (01) ==
LOC: RT 03:25
PROVIDERS: PCP Nurse Practitioner Family; Visit Provider Nurse Practitioner Family
DX: R07.9 Chest pain, unspecified (principal); I47.1 Supraventricular tachycardia
CPT/HCPCS: 93227; 93225; 93226

== ENCOUNTER 2020-08-07 02:04 | Outpatient (CLI) | payer OTHER, SELFPAY ==
--- NOTE | 2020-08-07 | DI.US_ITS ---
Exam(s) US ABDOMEN EXAM: US ABDOMEN CLINICAL HISTORY: FATTY LIVER DISEASE,K76.0 TECHNIQUE: Ultrasound abdomen performed using standard protocol. COMPARISON: US US ABDOMEN from 07/28/2018 FINDINGS: ABDOMINAL AORTA AND IVC: Visualized portions normal caliber. PANCREAS: Normal where visualized. LIVER: Fatty liver. Hepatopedal flow in the Portal Vein. The liver measures 14.3 cm in length. GALLBLADDER: No evidence of cholelithiasis. No evidence of wall thickening. No pericholecystic fluid identified. BILIARY SYSTEM: Common bile duct measures < 7 mm. No intrahepatic biliary ductal dilation. MORSE'S SIGN: Negative. KIDNEYS: Kidneys are symmetric in size. No evidence of renal calculi. No evidence of hydronephrosis. There is a 2.7 x 2.5 cm simple cyst in the lower pole of the right kidney. SPLEEN: Not enlarged. ASCITES: None seen. IMPRESSION: Fatty liver. DATA REPOSITORY:
--- NOTE | 2020-08-07 08:20 | DI.MAMMO_ITS ---
Exam(s) MAMMO SCREENING EXAM: MAMMO SCREENING CLINICAL HISTORY: SCREENING, Z12.31, TECHNIQUE: Bilateral full field digital CC and MLO mammographic images were obtained with 3D tomosyn thesis and utilizing computer aided detection (CAD). COMPARISON: Available for comparison. FINDINGS: Masses/Architectural Distortion: There is a 4 mm irregular nodule in the upper right breast seen on t he MLO view. This area should be further evaluated with spot compression view and a right breast ult rasound. Microcalcifications: No suspicious pleomorphic-type are seen. Skin Thickening/Nipple Retraction: None. IMPRESSION: 1. 4 mm irregular nodule in the upper right breast on the MLO view. 2. Spot compression view and right breast ultrasound are recommended for further evaluation. BI-RADS Category 0 - Assessment Incomplete: Need additional imaging evaluation Breast Density - Category C - Heterogeneously dense Breast density category C or D implies that the patient has dense breast tissue. Dense breast tissue is very common and is not abnormal but dense breast tissue can make it harder to find cancer on a ma mmogram. Also, dense breast tissue may increase their breast cancer risk. This information about the result of the mammogram report was provided to the patient to raise their awareness. Use this report when you speak with the patient about their risks for breast cancer, which includes their family hist ory. At that time, you may recommend for more screening tests (Ultrasound or MRI) as they might be us eful based on their risk. A negative radiographic report should not delay biopsy if a dominant or clinically suspicious mass is present. Up to ten percent of cancers are not identified on mammography. A negative report may reinforce clinical impression. Adenosis and dense breasts may obscure an underlying neoplasm. False positive reports average 6 to 10%. Patient will receive a letter notifying them of these results.
--- NOTE | 2020-08-07 09:10 | DI.CTLCSR_ITS ---
Exam(s) CT CHEST LUNG CANCER SCREEN EXAM: CT CHEST LUNG CANCER SCREEN CLINICAL HISTORY: SCREENING FOR LUNG CA, TOBACCO USE DISORDER, F17.209,CURRENT SMOKER,F17.210 TECHNIQUE: Imaging Protocol: Axial computed tomography images with coronal and sagittal reformatted images were created and reviewed COMPARISON: No exams were available for comparison FINDINGS: Tracheobronchial tree: Patent where visualized. Pulmonary parenchyma: No consolidation or dominant measurable mass. Mild centrilobular emphysematous changes. Dependent atelectasis is seen in the lung bases. Lung Nodules: There is a 4 mm faint ground-glass nodule in the posterior aspect of the right upper lo be. Mediastinum and [place]: No dominant adenopathy or fluid collection. Pleura: No effusion or pneumothorax. Heart: The heart is not dilated. No coronary artery calcifications are seen. No pericardial effusion . Aorta: Thoracic aorta non-dilated. 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 Upper abdomen: Unremarkable. Soft Tissues: Unremarkable. Thyroid gland: Unremarkable. Bones: Within normal limits. IMPRESSION: 4 mm ground-glass nodule in the posterior aspect of the right upper lobe. Lung RADS Cat 2 - Benign Appearance / Behavior: Nodules with a very low likelihood of becoming a clin ically active cancer due to size or lack of growth Lung-RADS 1.0 CATEGORIES: Category 0 - Prior chest CT exam(s) being located for comparison. Category 1 - Annual screening in 12 months. No nodules or definitely benign nodules. Category 2 - Annual screening in 12 months. Benign appearance. Nodules with low likelihood of becomin g active cancer. Category 3 - 6-month follow-up. Probably benign. Short-term follow-up suggested. Nodules with low lik elihood of becoming active cancer. Category 4A - 3-month follow-up and CT/PET if >8 mm in size. Suspicious finding. Findings which requi re additional testing. Category 4B - Findings which require additional testing and tissue sampling. Suspicious finding. Modifier S- Potentially clinically significant finding. (Non lung cancer) RADIATION DOSE DELIVERED: 81mGy.cm Total DLP 81mGy.cm Total DLP CTDIvol DATA REPOSITORY: All CT scans at this facility are submitted to the National Radiology Data Registry (NRDR) Dose Index Registry (DIR) with the [employer] ([employer]). RADIATION OPTIMIZATION: All CT scans at this facility use at least one of these dose optimization te chniques: automated exposure control; mA and/or kV adjustment per patient size (includes targeted exa ms where dose is matched to clinical indication); or iterative reconstruction.
== END 2020-08-07 02:24 ==
PROVIDERS: PCP Nurse Practitioner Family; Visit Provider Nurse Practitioner Family
DX: Z12.2 Encounter for screening for malignant neoplasm of respiratory organs (principal); F17.210 Nicotine dependence, cigarettes, uncomplicated; R91.1 Solitary pulmonary nodule; Z12.31 Encounter for screening mammogram for malignant neoplasm of breast; R92.8 Other abnormal and inconclusive findings on diagnostic imaging of breast; K76.0 Fatty (change of) liver, not elsewhere classified; N28.1 Cyst of kidney, acquired
CPT/HCPCS: 71271; 77063; 77067; 76700

== ENCOUNTER 2020-08-18 10:26 | Outpatient (REF) | payer OTHER, SELFPAY ==
--- NOTE | 2020-08-18 08:45 | SKI_PTH ---
PATIENT: Kayce Posadas LOC: [facility]#:[id number] AGE/SX: 55/F ROOM: RE08/18/[address]: Annita Quiñones : 1965 BED: DIS: 08/18/2020 SPEC #: [id number] RECD: 08/18/20 17:12 STATUS: MAIRA RESharon #: [id number] PEGGY: 08/18/20 08:[address]: Annita Quiñones DEPT: Surgical Specimen RECD BY: Afua Navas Tissues: 1 - SKIN BIOPSY(SHAVE/PUNCH) Procedures: SKIN LEVEL 4 Comments: [id number]
== END 2020-08-18 10:27 | disposition home or self-care (01) ==
LOC: NCHCN 10:26
PROVIDERS: PCP Nurse Practitioner Family; Visit Provider Nurse Practitioner Family
DX: L82.1 Other seborrheic keratosis (principal)
CPT/HCPCS: 88142; 88305

== ENCOUNTER 2020-08-26 01:58 | Outpatient (CLI) | payer OTHER, SELFPAY ==
--- NOTE | 2020-08-26 | DI.US_ITS ---
Exam(s) MG MAMMO SCREEN CALL BACK UNI US BREAST RT LIMITED EXAM: US BREAST RT LIMITED CLINICAL HISTORY: F/U MAMMO, UPPER BREAST RT IRREGULAR NODULE TECHNIQUE: Ultrasound performed using standard protocol. COMPARISON: US US ABDOMEN from 08/07/2020 FINDINGS: Additional mammographic views of the right breast and right breast ultrasound are interpreted in conj unction. These examinations were obtained to evaluate new possibly spiculated area of nodularity see n in the 12 o'clock position in the right breast on recent mammogram. Spot compression views confirm a small spiculated mass. Breast ultrasound shows a 3 millimeter in diameter indistinct hypoechoic l esion with posterior acoustic shadowing corresponding in location to the mammographically identified abnormality at the 12 o'clock position about 7 cm from the nipple. No gross increased vascularity se en on Doppler evaluation. IMPRESSION: Suspicious right breast mass, biopsy recommended to evaluate the possibility of malignancy. The mass is identified ultrasonographically and biopsy may be accomplished with ultrasound guidance. BI-RADS Cat 4 - Suspicious Abnormality: Biopsy should be considered Breast Density - Category B - Scattered areas of fibroglandular density DATA REPOSITORY:
== END 2020-08-26 02:18 ==
PROVIDERS: PCP Nurse Practitioner Family; Visit Provider Nurse Practitioner Family
DX: Z12.31 Encounter for screening mammogram for malignant neoplasm of breast (principal); R92.8 Other abnormal and inconclusive findings on diagnostic imaging of breast; N63.15 Unspecified lump in the right breast, overlapping quadrants
CPT/HCPCS: 76642; 77063; 77067

== ENCOUNTER 2021-09-23 00:44 | Outpatient (CLI) | payer OTHER, SELFPAY ==
--- NOTE | 2021-09-23 | DI.US_ITS ---
Exam(s) US ABDOMEN LIMITED EXAM: US ABDOMEN LIMITED CLINICAL HISTORY: POST PRANDIAL ABD PAIN AND NAUSEA, R10, K91.0 TECHNIQUE: Ultrasound abdomen performed using standard protocol. COMPARISON: CT CT CHEST LUNG CANCER SCREEN from 08/07/2020 FINDINGS: LIVER: Normal size and echogenicity. No focal liver lesions are seen.. GALLBLADDER: No evidence of cholelithiasis. No evidence of wall thickening. No pericholecystic fluid identified. MORSE'S SIGN: Negative. BILIARY SYSTEM: No intrahepatic or extrahepatic biliary ductal dilation. RIGHT KIDNEY: Normal size. No evidence of renal calculi. No evidence of hydronephrosis. No suspicious renal mass. No cyst identified. PANCREAS: Normal where visualized. ABDOMINAL AORTA AND IVC: Visualized portions normal caliber. ASCITES: None seen. IMPRESSION: Normal sonographic appearance of the right upper quadrant. DATA REPOSITORY:
--- OUTSIDE RECORDS SUMMARY | 2021-09-23 00:46 | XMS_ITS | Clinical Summary ---
:1965 Author Organization [facility] [place] [address] Care Team Providers Name Role Phone Annita Quiñones AMARIS Primary Care Provider [phone] Allergies Active Allergy Reactions Severity Noted Date Comments Bleach (Sodium Hypochlorite) Rash 11/01/2017 Hydrocodone Bitartrate Rash Low 11/01/2017 Hydrocodone-Acetaminophen 10/16/2020 Oxycodone-Acetaminophen Itching 11/02/2012 Sulfa (Sulfonamide Antibiotics) Itching 3 Medications Medication Sig Dispensed Refills Start Date End Date Status albuterol (PROVENTIL Inhale 2 puffs 0 Active HFA;VENTOLIN HFA) 90 into the lungs mcg/actuation HFA every 4 hours as Aerosol Inhaler needed. Use with spacer loratadine (CLARITIN) daily. 0 10/07/2015 Active 10 mg Tablet omeprazole (PRILOSEC) TAKE ONE CAPSULE 3 07/20/2018 Active 20 mg Capsule, Delayed BY MOUTH EVERY DAY Release(E.C.) ibuprofen Take 1 tablet by 0 11/01/2018 Ac tive (ADVIL;MOTRIN) 600 mg mouth every 6 Tablet hours as needed for Pain. Additional Information Patient not taking. Reported on 09/22/2021 acetaminophen (TYLENOL) 325 Take 2 tablets by mouth 30 tablet 1 11/01/2018 Active mg Tablet every 6 hours as needed for Pain. acetaminophen (Tylenol) 500 Take 1,000 mg by mouth 0 Active mg Tablet every 6 hours as needed for Pain. propranoloL (Inderal) 10 mg 20 mg 2 times daily. 0 0 10/23/2020 Active Tablet anastrozole (Arimidex) 1 mg Take 1 mg by mouth 0 Active Tablet daily. losartan (Cozaar) 50 mg Take 50 mg by mouth 0 2021 Active Tablet daily. venlafaxine (EFFEXOR-XR) 150 0 08/25/2021 Active mg Capsule, Sust. Release 24 hr MAGNESIUM ORAL Take by mouth. For leg 0 Active cramps zolpidem (AMBIEN) 10 mg TAKE 1 TABLET BY MOUTH 0 Active Tablet EVERY NIGHT AT BEDTIME NEEDED rosuvastatin (Crestor) 10 mg Take 10 mg by mouth 0 0 04/23/2021 Active Tablet daily. emollient combination no.111 Apply topically. Apply 0 Active (REMEDY PHYTOPLEX MOISTURIZER to area of radiation TOP) twice a day but no less than 2 hours before a treatment. 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 bx 09/05/20 IDCA er/pr 90% + grade 1 09/30/20: MRI 6 mm known malignancy in th e right breast, left neg, nodes neg. Surgery 10/16/20: lumpectomy revealed a 4 mm grade 1 IDCA and sentinel node 0/4 nodes + Moderate post op pain partially controll ed with tramadol. 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 01/22/2015 Peroneal tendonitis 10/28/2014 Left foot pain 10/28/2014 Asthma 11/08/2013 Superficial peroneal nerve neuropathy 11/02/2012 Encounters Date Type Specialty Care Team Description 09/22/2021 Ancillary Radiation Oncology Myra Cali, Malign ant neoplasm Appointment MD of central port ion of right breast in female, estroge n receptor positi ve 09/22/2021 Notes Only Radiation Oncology Justa Garcia, SOIL ENGINEER 09/16/2021 Telephone Radiation Oncology Aldo Pyle 09/15/2021 Orders Only Radiation Oncology Myra Cali, Malign ant neoplasm MD of central port ion of right breast in female, estroge n receptor positi ve 09/08/2021 Ancillary Procedure Radiology Myra Cali, Ira hernandez cancer MD screening by mammogram 08/31/2021 Office Visit Radiation Oncology Myra Cali, Breast cancer screening by mammogram; Hormone recepto r positive malignant neoplasm of right breast 08/07/2021 Telephone Radiation Oncology Erika Wilkins, RN 07/30/2021 Ancillary Procedure Radiology Annita Quiñones APRN from Last 3 Months Family History Patient is adopted Medical History Relation Comments Breast Cancer Cousin maternal cousin; d o f same age 40 Colorectal Cancer Father Relation Status Comments Cousin Father Social History Tobacco Use Types Packs/Day Years Used Date Current Every Day Smoker Cigarettes 0.5 25 Smokeless Tobacco: Never Used Tobacco Cessation: Ready to Quit: Yes; C ounseling Given: No Comments: smoking about a pack a week Alcohol Use Standard Drinks/Week Comments Yes 5 (1 standard drink = 0.6 oz pure alcoho l) Financial Resource Strain Answer Date Recorded How hard is it for you to pay for the very basics like Not v mu hard 08/31/2021 food, housing, medical care, and heating? Food Insecurity Answer Date Recorded Within the past 12 months, you worried that your food would Never true 08/31/2021 run out before you got money to buy more. Within the past 12 months, the food you bought just didn't N ever true 08/31/2021 last and you didn't have money to get more. Transportation Needs Answer Date Recorded In the past 12 months, has lack of transportation kept you f rom No 08/31/2021 medical appointments or from getting medications? In the past 12 months, has lack of transportation kept you f rom No 08/31/2021 meetings, work, or getting things needed for daily living? Housing Stability Answer Date Recorded In the last 12 months, was there a time when you were Patien t refused 08/31/2021 not able to pay the mortgage or rent on time? In the last 12 months, how many places have you lived? 2 08/31/2021 In the last 12 months, was there a time when you did No 08/31/[address] to sleep or slept in a long term (including now)? Sex Assigned at Date Recorded Not on file Last Filed Vital Signs Vital Sign Reading Time Taken Comments Blood Pressure 120/66 08/31/2021 8:55 AM EDT Pulse 57 08/31/2021 8:55 AM EDT Temperature 36.5 ??C (97.7 ??F) 08/31/2021 8:55 AM EDT Respiratory Rate 16 08/31/2021 8:55 AM EDT Oxygen Saturation 95% 08/31/2021 8:55 AM EDT Inhaled Oxygen Concentration - - Weight 69.9 kg (154 lb) 08/31/2021 8:55 AM EDT with edilma es Height 167.6 cm (5' 6) 11/05/2020 2:49 PM EDT Body Mass Index 24.86 11/05/2020 2:49 PM EDT Plan of Treatment Health Maintenance Due Date Last Done Comments Covid-19 Vaccine (#1) 1969 Pneumococcal Vaccine: At-Risk 5-64yrs (1 - PCV) 1970 HIV screen 1982 Hepatitis C Screening 1982 Tdap adult 06/07/1983 Tetanus vaccine 06/07/1983 HPV test 1994 PAP Smear 1994 Breast Cancer Share Decision Needed 2004 Colonoscopy 2009 Breast Cancer screening 2014 Zoster vaccine (1 of 2) 2014 Advance Directive 06/07/2019 Influenza (Flu) vaccine (1 of 1 - Influenza standard 11/05/2021 series) Medical Devices Implanted Type Area Testing Coordinator Device Shelf Model / Serial / Identifier Expiration Lot Date Breast Clip-09/05/2020 Breast Right: / Implanted: 09/05/2020 by Adry Loving MD (Quantity n ot on file) Clip Breast [id number] / Description: [employer]TR[employer] SYED Procedures Procedure Name Priority Date/Time Associated Comments Diagnosis CT RAD ONC CHEST INTERP Routine 09/22/2021 3:09 PM Malignant n eoplasm Results for this ONLY EDT of central portion procedure are in of right breast in the resul ts female, estrogen section. receptor positive REQUEST FOR 2ND READ Routine 09/08/2021 10:08 Breast cancer Re sults for this MAMMO INTERPERTATION AM EDT screening by procedu re are in AND CONSULATATION mammogram the result s section. FILM LIBRARY STORAGE Routine 07/30/2021 12:00 Res ults for this ONLY MAMMO AM EDT procedure are i n the results section. LAB SCAN 07/30/2021 12:00 Results for this AM EDT procedure are i n the results section. SURGICAL PATHOLOGY SCAN 07/30/2021 12:00 Results for this AM EDT procedure are i n the results section. SURGICAL PATHOLOGY SCAN 07/30/2021 12:00 Results for this AM EDT procedure are i n the results section. from Last [address] Rad Onc Chest Interp Only (09/22/2021 3:09 PM EDT) Anatomical Region Laterality Modality Chest Computed Tomography Specimen (Source) Anatomical Location Collection Method / Collectio n Time Received Time / Laterality Volume Impressions 09/22/2021 3:17 PM EDT Limited chest CT for radiation planning. Surgical clips and soft tissue scarring at the right axilla. Clips deep to the right breast with asym metric soft tissue in the region of the clips. Thank you for letting us participate in the care of this patient. ??If you are a health care provider and have any questi ons regarding this report, please contact the number below. ??For patients who have questions please contact the health healthcare science specialist that requested your imaging first. ? Electronically signed by: Sue Merida MD , [facility] ([phone]), at 09/22/2021 3:17 PM Narrative 09/22/2021 3:17 PM EDT EXAMINATION: CT RAD ONC CHEST INTERP ONLY CLINICAL HISTORY: 56 y/o f w/breast ca, R, IDC, low gr, ER+MT+, Her2-, pT1a pN0, s/p lumpectomy & SNB, followed by @ leas t 1 injection of faslodex & then started on anastrozole. TECHNIQUE: Limited CT chest without the use of oral or IV contrast enhancement, performed for the purposes of localizati on for radiation treatment. No sagittal or coronal imaging provided. COMPARISON: None FINDINGS: Chest: Lungs and airways: No nodule. No mass. Soft tissue structures: No pathologicall y enlarged axillary, internal mammary, hilar nor mediastinal lymph nodes. Surgical clips and soft tissue scarring at the right axilla. Clips deep to the right breast with asym metric soft tissue in the region of the clips. No muscular asymmetry. Heart, pleura, pericardium: No pleural e ffusion. No pericardial effusion. Imaged segments of the upper abdomen edilma w no suprarenal masses. Osseous structures: No suspicious lesion s Procedure Note Sue Merida MD - 09/22/2021 EXAMINATION: CT RAD ONC CHEST INTERP ONL Y CLINICAL HISTORY: 56 y/o f w/breast ca, R, IDC, low gr, ER+MT+, Her2-, pT1a pN0, s/p lumpectomy & SNB, followed by @ leas t 1 injection of faslodex & then started on anastrozole. TECHNIQUE: Limited CT chest without the use of oral or IV contrast enhancement, performed for the purposes of localizati on for radiation treatment. No sagittal or coronal imaging provided. COMPARISON: None FINDINGS: Chest: Lungs and airways: No nodule. No mass. Soft tissue structures: No pathologicall y enlarged axillary, internal mammary, hilar nor mediastinal lymph nodes. Surgical clips and soft tissue scarring at the right axilla. Clips deep to the right breast with asym metric soft tissue in the region of the clips. No muscular asymmetry. Heart, pleura, pericardium: No pleural e ffusion. No pericardial effusion. Imaged segments of the upper abdomen edilma w no suprarenal masses. Osseous structures: No suspicious lesion s IMPRESSION Limited chest CT for radiation planning. Surgical clips and soft tissue scarring at the right axilla. Clips deep to the right breast with asym metric soft tissue in the region of the clips. Thank you for letting us participate in the care of this patient. If you are a health care provider and have any questi ons regarding this report, please contact the number below. For patients w ho have questions please contact the health healthcare science specialist that requested your imaging first. Electronically signed by: Sue Merida MD , [facility] ([phone]), at 09/22/2021 3:17 PM Myra Cali MD IMG OUTSIDE INTERPRETATION O RDERABLES Request for 2nd read Mammo Interpertation and Consulatation (09/08/2021 10:08 AM EDT) Anatomical Region Laterality Modality SO Specimen (Source) Anatomical Location Collection Method / Collectio n Time Received Time / Laterality Volume Narrative 09/08/2021 11:17 AM EDT EXAMINATION: REQUEST FOR 2ND READ MAMMO INTERPERTATION AND CONSULATATION CLINICAL HISTORY: S/p Right lumpectomy & SNB Oct 2020. ??Post treatment mmg.; Sending Institution [place], [place]; Date of exam 07-30-2021; Patient unable to have xrt until now. Re eval prior to starting xrt. TECHNIQUE: CC and MLO views were obtaine d of each breast using C-view 2-D mammography as well as 3-D tomosynthesis . Computer aided detection was used. COMPARISON: This is compared with prior images. FINDINGS: The breasts are heterogeneousl y dense, which may obscure small masses. Right: There are expected post treatment changes in the right breast. There are no suspicious microcalcifications, cady s, or areas of distortion. Left : There are no suspicious microcalc ifications, masses, or areas of distortion. The pattern is stable. CONCLUSION: No mammographic evidence of malignancy. RECOMMENDATION: Routine annual screening . BI-RADS CATEGORY 2: BENIGN FINDINGS. Thank you for letting us participate in the care of this patient. ??If you are a health care provider and have any questi ons regarding this report, please contact the number below. ??For patients who have questions please contact the health healthcare science specialist that requested your imaging first. ? Electronically signed by: Katharina Yeung MD, [facility] ([phone]), at 09/08/2021 11:17 AM Procedure Note Katharina Castillo MD - 2 EXAMINATION: REQUEST FOR 2ND READ MAMMO INTERPERTATION AND CONSULATATION CLINICAL HISTORY: S/p Right lumpectomy & SNB Oct 2020. Post treatment mmg.; Sending Institution [place], [place]; Date of exam 07-30-2021; Patient unable to have xrt until now. Re eval prior to starting xrt. TECHNIQUE: CC and MLO views were obtaine d of each breast using C-view 2-D mammography as well as 3-D tomosynthesis . Computer aided detection was used. COMPARISON: This is compared with prior images. FINDINGS: The breasts are heterogeneousl y dense, which may obscure small masses. Right: There are expected post treatment changes in the right breast. There are no suspicious microcalcifications, cady s, or areas of distortion. Left : There are no suspicious microcalc ifications, masses, or areas of distortion. The pattern is stable. CONCLUSION: No mammographic evidence of malignancy. RECOMMENDATION: Routine annual screening . BI-RADS CATEGORY 2: BENIGN FINDINGS. Thank you for letting us participate in the care of this patient. If you are a health care provider and have any questi ons regarding this report, please contact the number below. For patients w ho have questions please contact the health healthcare science specialist that requested your imaging first. Electronically signed by: Katharina Yeung MD, [facility] ([phone]), at 09/08/2021 11:17 AM Myra Cali MD IMG OUTSIDE INTERPRETATION O RDERABLES SCAN DOC: SURGICAL PATHOLOGY (07/30/2021 12:00 AM EDT)Only the most recent of2 resultswithin the time period is included. Narrative This result has an attachment that is no t available. Unknown MEDIA MGR SCAN EXT ORDR/RSLT SCAN DOC: LAB (07/30/2021 12:00 AM EDT) Narrative This result has an attachment that is no t available. Unknown MEDIA MGR SCAN EXT ORDR/RSLT Film Library- Storage Only Mammo (07/30/2021 12:00 AM EDT) Specimen (Source) Anatomical Location Collection Method / Collectio n Time Received Time / Laterality Volume Narrative [facility] - 09/08/2021 10:02 AM EDT This exam is auto-finalizing. It's purpo se is for storage only. Annita Quiñones APRN IMG FILM LIBRARY ORDERABLES Performing Organization Address City/State/ZIP Code Phon e Number RAD [place], [place] from Last 3 Months Insurance Payer Benefit Plan / Subscriber ID Effective Dates Phone Addre ss Type Group [facility] [id number] 2017-Prese [phone] [address] [place] [address] Advance Directives Latest Code Status on File Code Status Date Activated Date Inactivated Comments Full Code 11/01/2018 8:33 AM 11/01/2018 3:54 PM Does patient have capacity to make decision: Yes Care Teams Heavy Equipment Field Mechanic Relationship Specialty Start Date End Date Annita Quiñones APRN PCP - General 01/09/14 [address] [place], [place] [address]
--- OUTSIDE RECORDS SUMMARY | 2021-09-23 00:46 | XMS_ITS | Encounter Summary ---
:1965 Author Organization [facility] [place] [address] Care Team Providers Name Role Phone Annita Quiñones Rory GLEZ Primary Care Provider [phone] Encounter Details Date Type Department Care Team Description 04/29/2021 [facility] [address] [phone] Social History Tobacco Use Types Packs/Day Years Used Date Current Every Day Smoker Cigarettes 0.5 25 Smokeless Tobacco: Never Used Comments: counseling offered 10/3020 she declined. she is slowing down from 1 pack/day Alcohol Use Standard Drinks/Week Comments Yes 5 [...] place to sleep or slept in a half-way (including now)? Sex Assigned at Date Recorded Not on file documented as of this encounter Miscellaneous Notes Telephone Encounter - Cha Abdul RN - 04/29/2021 5:06 PM EST Message left on identifiable voice mail regarding intent of call which is to follow up and confirm that she has connected with radiation oncology as well as medical oncology at [facility] in [place] where she has been referred to. I left our clinic contact information along with request for call back with update regarding statusof this referral. documented in this encounter Plan of Treatment Not on filedocumented as of this encounter Visit Diagnoses Not on filedocumented in this encounter Care Teams Underwriting Clerk Relationship Specialty Start Date End Date Annita Quiñones APRN PCP - General 01/09/14 [address] [place] [address] documented as of this encounter
--- OUTSIDE RECORDS SUMMARY | 2021-09-23 00:46 | XMS_ITS | Encounter Summary ---
:1965 Author Organization [facility] [address] Care Team Providers Name Role Phone Annita Quiñones AMARIS Primary Care Provider [phone] Reason for Referral Consultation (Routine) - Closed Specialty Diagnoses / Procedures Referred By Contact Refer red To Contact Radiation Oncology Diagnoses Malignant neoplasm of central portion of right breast in female, estrogen receptor positive Myra Cali MD [facility] Rad Onc Office Procedures Simulation for Radiation Therapy Planning [address] [place] [phone] Fax: Referral ID Status Reason Start Date Expiration Date Visits V isits Requested Authorized [id number] Closed Consult, 09/22/2021 12/04/2021 1 1 Test & Treat Encounter Details Date Type Department Care Team Description 09/15/2021 Orders Only Radiation Oncology at Yari Cali MD Malignant neoplasm of [facility] central portion of [address] [place] [address] DR right breast in [place], [place] RADIATION ONCOL OGY female, estrogen [phone] [place] [address] receptor positive [phone] Social History Tobacco Use Types Packs/Day Years Used Date Current Every Day Smoker Cigarettes 0.5 25 Smokeless Tobacco: Never Used Comments: smoking about a pack a week [...] place to sleep or slept in a custodial (including now)? Sex Assigned at Date Recorded Not on file documented as of this encounter Plan of Treatment Scheduled Orders Name Type Priority Associated Diagnoses Order S chedule Simulation for Procedures Routine Malignant neoplasm of [place] red: 09/15/2021 Radiation Therapy central portion of Planning right breast in female, estrogen receptor positive documented as of this encounter Visit Diagnoses Diagnosis Malignant neoplasm of central portion of right breast in female, estrogen receptor positive documented in this encounter Care Teams Preprint Analyst Relationship Specialty Start Date End Date Annita Quiñones APRN PCP - General 01/09/14 [address] [place] [address] documented as of this encounter
--- OUTSIDE RECORDS SUMMARY | 2021-09-23 00:46 | XMS_ITS | Encounter Summary ---
:1965 Author Organization [facility] [place] [address] Care Team Providers Name Role Phone Ishmael Annita Valadez APRN Primary Care Provider [phone] Encounter Details Date Type Department Care Team Description 07/30/2021 Ancillary Procedure Radiology Library at [facility], [facility] [address] [place] [address] [place] [address] [phone] Social History Tobacco Use Types Packs/Day Years [...] place to sleep or slept in a halfway (including now)? Sex Assigned at Date Recorded Not on file documented as of this encounter Plan of Treatment Not on filedocumented as of this encounter Procedures Procedure Name Priority Date/Time Associated Diagnosis Comme nts FILM LIBRARY Routine 07/30/2021 12:00 AM Results for this STORAGE ONLY MAMMO EDT procedure are in the results section. documented in this encounter Results Film Library- Storage Only Mammo (07/30/2021 12:00 AM EDT) Specimen (Source) Anatomical Location Collection Method / Collectio n Time Received Time / Laterality Volume Narrative RAD - 09/08/2021 10:02 AM EDT This exam is auto-finalizing. It's purpo se is for storage only. Annita Quiñones APRN IMRadha FILM LIBRARY ORDERABLES Performing Organization Address City/State/ZIP Code Phon e Number [place], [place] documented in this encounter Visit Diagnoses Not on filedocumented in this encounter Care Teams Bank Messenger Relationship Specialty Start Date End Date Annita Quiñones APRN PCP - General 01/09/14 [address] [place] [address] documented as of this encounter
--- OUTSIDE RECORDS SUMMARY | 2021-09-23 00:46 | XMS_ITS | Encounter Summary ---
:[address] [facility] Address [address] [place] [address] Care Team Providers Name Role Phone Vivek Ash MD Primary Care Provider Encounter Details Date Type Department Care Team Description 10/19/[address] [facility] Damian Bruno, [address] [place] [address] (Wo rk) Social History Tobacco Use Types Packs/Day Years Used Date Never Assessed Sex Assigned at Date Recorded Not on file documented as of this encounter Plan of Treatment Not on filedocumented as of this encounter Procedures Procedure Name Priority Date/Time Associated Diagnosis Comme [facility] SURGICAL PATHOLOGY Routine 10/19/2017 21:13 Resul ts for this EDT procedure are i n the results section. documented in this encounter Results SURGICAL PATHOLOGY (10/19/2017 21:13 EDT) Pathology Report: SURGICAL PATHOLOGY REPORT [facility] Reports generated via electronic interface contain daxa ginal data; LABORATORY however they are lacking the format of the original re port. SERVICES Caution should be taken when reading/interpreting unfo rmatted reports. Name: ? KAYCE POSADAS ? Accession #: ? [id number] ? : ? 1965 (Age: 52 ) ??F ? Collect Date: ? 10/19/2017 ? Location: ? [facility] ? Receive Date: ? 10/21/19 18 ? Provider: DAMIAN BRUNO DO Copy to: PAULINE MCKINNON LACE STRIPPER ? Final Pathologic Diagnosis: SKIN OF CHEEK, LEFT LATERAL, SHAVE BIOPSY: - Melanocytic nevus, interdermal type. - Lesion extends to peripheral edge and base of biops y specimen. Document reviewed and electronically signed by: MICH ORTEGA MD Report ??Date: 10/21/2017 16:51 By the signature above, the attending physician certif ies that he/she has personally conducted a gross and/or microscopic examin ation of the described specimens and rendered or confirmed the above diagnosi s. Specimen(s) Received: Left lateral cheek Clinical History: Left lateral cheek, raised skin mass; clinical diagnos is code: ??D49.2 Gross Description: ? Received in formalin labelled with proper patient identification (initials P, S) and left lateral cheek is a shave biopsy of a brown fleshy, granular papule (1.2 x 1.1 x 0.3 cm). The specime n is inked, trisected and submitted in 1. LUCINA Pollock (ASCP) 10/21/2017 8:11 AM End of Report Specimen Performing Organization Address City/State/ZIP Code Phon e Number [facility] [address] [place] [address] SERVICES documented in this encounter Visit Diagnoses Not on filedocumented in this encounter Care Teams Job Developer For Deaf Adults Relationship Specialty Start Date End Date Vivek Ash MD PCP - General 01/04/14 documented as of this encounter
--- OUTSIDE RECORDS SUMMARY | 2021-09-23 00:46 | XMS_ITS | Encounter Summary ---
:1965 Author Organization [facility] [place] [address] Care Team Providers Name Role Phone Annita Quiñones Rory GLEZ Primary Care Provider [phone] Encounter Details Date Type Department Care Team Description 11/21/2020 [facility] [address] [phone] Social History Tobacco Use [...] place to sleep or slept in a jail (including now)? Sex Assigned at Date Recorded Not on file documented as of this encounter Miscellaneous Notes Telephone Encounter - Cha Abdul RN - 11/21/2020 11:57 AM EDT Message left on identifiable voice mail regarding intent of call to discuss if she would like a referral sent to radiation oncology in [place] along with clinic contact information and request for callback. documented in this encounter Plan of Treatment Not on filedocumented as of this encounter Visit Diagnoses Not on filedocumented in this encounter Care Teams Store Clerk Checker Relationship Specialty Start Date End Date Annita Quiñones APRN PCP - General 01/09/14 [address] [place] [address] documented as of this encounter
--- OUTSIDE RECORDS SUMMARY | 2021-09-23 00:46 | XMS_ITS | Encounter Summary ---
:1965 Author Organization [facility] [place] [address] Care Team Providers Name Role Phone Annita Quiñones Rory GLEZ Primary Care Provider [phone] Encounter Details Date Type Department Care Team Description 05/06/2021 [facility] [address] [phone] Social History Tobacco Use [...] place to sleep or slept in a prison (including now)? Sex Assigned at Date Recorded Not on file documented as of this encounter Miscellaneous Notes Telephone Encounter - Cha Abdul RN - 05/06/2021 3:55 PM EST Message left on identifiable voice mail regarding intent of call to confirm that referrals to cancercenter in [place] have been done. I requested call back to confirm or to let us know if she was unable to connect with them along with our clinic contact information. documented in this encounter Plan of Treatment Not on filedocumented as of this encounter Visit Diagnoses Not on filedocumented in this encounter Care Teams Roll Bucker Relationship Specialty Start Date End Date Annita Quiñones APRN PCP - General 01/09/14 [address] [place] [address] documented as of this encounter
--- OUTSIDE RECORDS SUMMARY | 2021-09-23 00:46 | XMS_ITS | Encounter Summary ---
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, estrogen receptor positive Myra Cali MD [facility] Rad Onc Office Procedures Simulation for Radiation Therapy Planning [facility] [address] [place] [address] [place] [phone] Fax: Referral ID Status Reason Start Date Expiration Date Visits V isits Requested Authorized [id number] Closed Consult, 09/22/2021 12/04/2021 1 1 Test & Treat Encounter Details Date Type Department Care Team Description 09/22/2021 Ancillary Radiation Oncology Myra Cali, Malign ant neoplasm [facility]ment at [facility] of central portion [address] [place] [address] [facility] of right breast in [place], [place] CENTER female, estrogen [phone] RADIATION receptor positive [phone] [place] [address] Social History Tobacco Use Types Packs/Day Years [...] place to sleep or slept in a snf (including now)? Sex Assigned at Date Recorded Not on file documented as of this encounter Patient Instructions Patient InstructionsCha Abdul RN - 09/22/2021 2:30 PM EDT Information for Patients receiving radiation therapy to the Breast Approximately two weeks after your first treatment, you may begin to experience side effects caused by the radiation. These effects may continue throughout the treatment period and not start improving until 1-2 weeks after treatment is completed. Your doctor will tell you which side effects you are most likely to experience, when you will notice them and how long they might last. It is important to follow the appropriate instructions to minimize your discomfort. Skin Care Wash skin in the treatment field with lukewarm water and mild or moisturizing, unscented soap daily.Blot skin dry with a soft towel. Do not apply any ointment, salve, deodorant, perfume, cologne, cosmetic or self- remedy to the treatment area while you are undergoing radiation and for 1-2 weeks following treatment. An all natural deodorant with no aluminum can be used if necessary. Moisturizing cream will be provided for you. This may be used in the treatment area once daily beginning on your first treatment day. Do not apply 2 hours before your radiation treatments. As dryness/redness develop you can use this more often. Do not rub or scratch the skin in the treatment field. This includes shaving unless you use an electric razor. If your skin becomes dry or itchy, tell your nurse or doctor. If necessary, your doctor may order a medication specifically for this problem. Do not use hot water bottles, heating lights, electric heating pads, or hot packs to the treatment area. Keep treated areas out of the sun throughout the treatment period. Be careful of sun exposure to thetreatment field for one year following treatment. Please use SPF> 30 to all exposed areas of skinand limit sun exposure. Avoid tight fitting clothes. We would prefer that you wear a cotton t-shirt instead of a bra. If youare unable to go without a bra please wear a soft cotton bra without underwire. Examine your skin in the treatment area daily and watch for changes. If you cannot reach the whole treatment field ask a family member to look at it and apply cream as needed. Be careful to keep the area under your breast clean and dry as this area can get irritated first. You will meet with your nurse and doctor weekly. They will check your skin and help you with any side effects you are having. Please ask to see the nurse if you have concerns in between these days. During the last weeks of treatment you may notice some peeling of skin and/or a moist reaction. Be sure to let us know if this happens so we can provide you with further skin care instructions.. Continue to stay active, walk daily, eat healthy foods and drink several glasses of water each day. Fatigue You may notice that you feel unusually tired towards the end of treatment. This is not unusual. We recommend that you pace your activities and plan for rest periods to avoid becoming over-tired. Feel free to direct any questions or concerns you may have related to your treatment to your nurse or doctor. [facility] Radiation Oncology Our normal business hours are: Tuesday - Tuesday 8 AM to 5 PM [place], [place], [place] For emergent situations after hours please call for either location and ask for the Radiation Oncologist college of education dean. documented in this encounter Progress Notes Myra Cali MD - 09/22/2021 2:30 PM EDT Here for sim. inter 07/30/21 B mmgs: Neg. Sim: Breast bd immobilization; flat bbs on R breast lumpectomy scar; CT through chest; 3D xrt planned. She tolerated sim well, w/o problem. Tx Plan: 3D xrt. Start xrt 1-2 wks. documented in this encounter Plan of Treatment Not on filedocumented as of this encounter Visit Diagnoses Diagnosis Malignant neoplasm of central portion of right breast in female, estrogen receptor positive documented in this encounter Care Teams Burner Shaft Relationship Specialty Start Date End Date Annita Quiñones APRN PCP - General 01/09/14 [address] [place] [address] documented as of this encounter
--- OUTSIDE RECORDS SUMMARY | 2021-09-23 00:46 | XMS_ITS | Encounter Summary ---
:1965 Author Organization [facility] [place] [address] Care Team Providers Name Role Phone Annita Quiñones AMARIS Primary Care Provider [phone] Encounter Details Date Type Department Care Team Description 09/22/2021 Notes Only [facility] [address] [place] [phone] Social History Tobacco Use Types Packs/Day Years [...] place to sleep or slept in a usp (including now)? Sex Assigned at Date Recorded Not on file documented as of this encounter Progress Notes Justa Garcia, SHUTTLE VAN DRIVER - 09/22/2021 3:16 PM EDT Reason for Referral: Brief assessment of social and emotional needs. Met with pt after her sim todayto introduce myself and role of social sciences department chair to assess/address barriers to getting to and through treatments; address support needs and connect with community services and resources as needed. Family/Social Supports: Pt identified her of 12 years as her primary support. Pt has 4 children - 3 daughters and a son. Three children are in the area and a daughter is in [place]. Pt mentioned her lives near her also. Pt indicated she has a good support system. Living Situation/Daily Activities/Transportation: Pt lives in [place] from July to December and [place] in [place]. She and her have done this for a number of years. She manages her daily chores and activities. She does not expect any issues with transportation. Work/Finances/Insurance: Pt works ~ 35 hours in a [employer]. Her works family partner. She indicated they are able to manage their financial obligations. Pt has [facility] for insurance. Advance Directives: Pt has not completed her advance directive and did not want information re this.Her new PCP has asked her about this. Utilization of Community Resources: None at this time. Adjustment to Illness/Mental Health Concerns: Pt indicated she is coping as best she can. She has support from her family and friends. Offered support. Identified Needs: Pt did not identify any specific needs at this time. Referrals: None at this time. Social Work Interventions: Brief assessment Supportive Counseling Plan: Informed pt of SHUTTLE VAN DRIVER availability and contact information. Will follow to assess/address psychosocial needs. JOHN Reyes, HEAD [employer], OSW-C [facility] documented in this encounter Plan of Treatment Not on filedocumented as of this encounter Visit Diagnoses Not on filedocumented in this encounter Care Teams Desktop Support Manager Relationship Specialty Start Date End Date Annita Quiñones APRN PCP - General 01/09/14 [address] [place] [address] documented as of this encounter
--- OUTSIDE RECORDS SUMMARY | 2021-09-23 00:46 | XMS_ITS | Encounter Summary ---
:1965 Author Organization [facility] [place] [address] Care Team Providers Name Role Phone Annita Quiñones Rory GLEZ Primary Care Provider [phone] Encounter Details Date Type Department Care Team Description 08/07/2021 Telephone [place] [facility] [place] Castan[place] RN [address] [phone] Social History Tobacco Use [...] place to sleep or slept in a care home (including now)? Sex Assigned at Date Recorded Not on file documented as of this encounter Miscellaneous Notes Telephone Encounter - Erika Wilkins RN - 08/07/2021 2:59 PM EDT Radiation Oncology Nurse Telephone Note [facility] [place], [place] ----- Message from Lexis Ziegler sent at 08/04/2021 9:22 AM EDT ----- Kayce has a referral to here from [facility] Hemology Onc. She was to go to [place] and start treatment last fall and then there was a problem with her insurance, Joslyn from [facility] Hem/Onc wanted to know what the status of that referral was, I told her that we wouldcheck into this and get back to her as soon as we could. Best call back number [phone] Telephone call to Francie Aragon. She states she is the patient's daughter and also happens to work at Dr Rivas's office. She explained that her mother goes to [place] each winter, usually the beginning of December and thencomes back to [place] for the [place]. She wishes to confirm that our office received the referral for radiation treatments so she can haveradiation treatments this summer. She was informed we did. I also informed her that Dr Cali' primary nurse has tried to call her with no luck in reaching her. She confirmed that [phone] (M) is her correct number. She also sharedher 's number [phone], [place]. I informed her that I will relay this information to Dr Cali and her team. documented in this encounter Plan of Treatment Not on filedocumented as of this encounter Visit Diagnoses Not on filedocumented in this encounter Care Teams Assembly Riveter Relationship Specialty Start Date End Date Annita Quiñones APRN PCP - General 01/09/14 [address] [place] [address] documented as of this encounter
--- OUTSIDE RECORDS SUMMARY | 2021-09-23 00:46 | XMS_ITS | Encounter Summary ---
:1965 [place] [address] Care Team Providers Name Role Phone Annita Quiñones AMARIS Primary Care Provider [phone] Encounter Details Date Type Department Care Team Description 09/08/2021 Ancillary Procedure Radiology Library Myra Cali, Breast cancer [place] [facility] [place] screening by [facility] mammogra [facility] [address] [place] RADIATION [id number] ONCOLOGY [phone] [place] [address] Social History Tobacco Use Types Packs/Day Years [...] place to sleep or slept in a group home (including now)? Sex Assigned at Date Recorded Not on file documented as of this encounter Plan of Treatment Not on filedocumented as of this encounter Procedures Procedure Name Priority Date/Time Associated Comments Diagnosis REQUEST FOR 2ND READ Routine 09/08/2021 10:08 Breast cancer Re sults for this MAMMO INTERPERTATION AM EDT screening by procedu re are in AND CONSULATATION mammogram the result s section. documented in this encounter Results Request for 2nd read Mammo Interpertation and Consulatation (09/08/2021 10:08 AM EDT) Anatomical Region Laterality Modality SO Specimen (Source) Anatomical Location Collection Method / Collectio n Time Received Time / Laterality Volume Narrative 09/08/2021 11:17 AM EDT EXAMINATION: REQUEST FOR 2ND READ MAMMO INTERPERTATION AND CONSULATATION CLINICAL HISTORY: S/p Right lumpectomy & SNB Oct 2020. ??Post treatment mmg.; [facility] [place], [place]; Date of exam 07-30-2021; Patient unable [...] who have questions please contact the health manager long term care that requested your imaging first. ? Electronically signed by: Katharina Yeung MD, [facility] ([phone]), at 09/08/2021 11:17 AM Procedure Note Katharina Castillo MD - 2 EXAMINATION: REQUEST FOR 2ND READ MAMMO INTERPERTATION AND CONSULATATION CLINICAL HISTORY: S/p Right lumpectomy & SNB Oct 2020. Post treatment mmg.; [facility] [place], [place]; Date of exam 07-30-2021; Patient unable [...] ho have questions please contact the health manager long term care that requested your imaging first. Electronically signed by: Katharina Yeung MD, [facility] ([phone]), at 09/08/2021 11:17 AM Myra Cali MD IMG OUTSIDE INTERPRETATION O RDERABLES documented in this encounter Visit Diagnoses Diagnosis Breast cancer screening by mammogram documented in this encounter Care Teams Pump Tender Relationship Specialty Start Date End Date Annita Quiñones APRN PCP - General 01/09/14 [address] [place] [address] documented as of this encounter
--- OUTSIDE RECORDS SUMMARY | 2021-09-23 00:46 | XMS_ITS | Encounter Summary ---
:1965 Author Organization [facility] [place] [address] Care Team Providers Name Role Phone Annita Quiñones AMARIS Primary Care Provider [phone] Reason for Referral Consultation (Routine) - Closed Specialty Diagnoses / Procedures Referred By Contact Refer red To Contact Radiation Oncology Diagnoses Hormone receptor positive malignant neoplasm of right breast Myra Cali MD [facility] [place] [address] Referral ID Status Reason Start Date Expiration Date Visits V isits Requested Authorized [id number] Closed Consult, 11/25/2020 05/24/2021 1 1 Test & Treat Encounter Details Date Type Department Care Team Description 11/25/2020 Orders Only Radiation Oncology at Yari Cali MD Hormone receptor [facility] [place] [address] neoplasm of right [place], [place] RADIATION ONCOL OGY breast [address] [place] [address] [phone] Social History Tobacco Use Types Packs/Day Years [...] of this encounter Plan of Treatment Scheduled Referrals Name Type Priority Associated Diagnoses Order S chedule Referral to Outpatient Referral Routine Hormone receptor Orde red: Radiation Oncology positive malignant neoplasm of right breast documented as of this encounter Visit Diagnoses Diagnosis Hormone receptor positive malignant neop lasm of right breast documented in this encounter Care Teams Extrusion Die Corrector Relationship Specialty Start Date End Date Annita Quiñones APRN PCP - General 01/09/14 [address] [place] [address] documented as of this encounter
--- OUTSIDE RECORDS SUMMARY | 2021-09-23 00:46 | XMS_ITS | Encounter Summary ---
:1965 Author Organization [facility] Address [address] [place] [address] Care Team Providers Name Role Phone Vivek Ash MD Primary Care Provider Encounter Details Date Type Department Care Team Description 08/18/2020 Lab Requisition [facility] Annita Quiñones En counter for other Pathology & H, ROTATING EQUIPMENT SPECIALIST general examination Laboratory Medicine [address] [facility] [address] [place] [phone] Social History Tobacco Use Types Packs/Day Years Used Date Never Assessed Sex Assigned at Date Recorded Not on file documented as of this encounter Plan of Treatment Not on filedocumented as of this encounter Procedures Procedure Name Priority Date/Time Associated Diagnosis Comme nts SURGICAL PATHOLOGY Today 08/18/2020 8:45 EDT Encounter for o ther Results for this general examination procedur e are in the results section. documented in this encounter Results SURGICAL PATHOLOGY (08/18/2020 8:45 EDT) Final Diagnosis A. SKIN OF BACK, MID UPPER, PUNCH BIOPSY: [facility] - Seborrheic keratosis. CENTER LABORATORY SERVICES Attestation By the signature [facility] Electronica lly below, the attending CENTER signed by Jed, physician certifies LABORATORY Brook Caal MD on that they have 1) SERVICES 08/19/2020 at 1459 personally conducted a gross and/or microscopic examination of the described specimen(s), and/or personally interpreted the results of laboratory testing of the described specimen(s), and 2) personally rendered or confirmed the above diagnosis. Microscopic The stratum corneum [facility] Description is thickened by CENTER laminated LABORATORY orthohyperkeratosis. SERVICES The epidermis is hyperplastic with papillomatosis and acanthosis. There is formation of horn pseudocysts. The keratinocytes have a basaloid appearance with round regular nuclei and a moderate amount of cytoplasm. Clinical History Skin lesion; 4 mm [facility] size; itches; pain CENTER upper midback LABORATORY SERVICES Gross Description A. [facility] Received in formalin kannan d with proper patient identification (initials P, S) and skin Bx mid upper back is an ovoid 0.5 cm skin excised to depth of 0.4 cm. The skin surface is dusky brown jade. Th CENTER e margin is inked. Bisected and entirely submitted in A1. LABORATORY SERVICES LUCINA RODGERS(ASCP) 08/19/2020 7:57 Performing Lab [facility] Scanned Images [facility] Specimen Tissue - Skin (tissue) specimen (specime n) Performing Organization Address City/State/ZIP Code Phon e Number [facility] [address] [place] [address] SERVICES documented in this encounter Visit Diagnoses Diagnosis Encounter for other general examination documented in this encounter Care Teams Machinist Mechanic Relationship Specialty Start Date End Date Vivek Ash MD PCP - General 01/04/14 documented as of this encounter
--- OUTSIDE RECORDS SUMMARY | 2021-09-23 00:46 | XMS_ITS | Encounter Summary ---
:1965 Author Organization [facility] Address [address] [place] [address] Care Team Providers Name Role Phone Vivek Ash MD Primary Care Provider Encounter Details Date Type Department Care Team Description 07/21/2020 Lab Requisition [facility] Outr Resulting Lab, Pathology & Laboratory Provider [facility] [address] [place] [address] Social History Tobacco Use Types Packs/Day Years Used Date Never Assessed Sex Assigned at Date Recorded Not on file documented as of this encounter Plan of Treatment Not on filedocumented as of this encounter Procedures Procedure Name Priority Date/Time Associated Diagnosis Comme nts HEPATITIS C AB W Routine 07/21/2020 10:30 Results for this REFLEX TO HCV RNA EDT procedure are in BY PCR the results section. documented in this encounter Results HEPATITIS C AB W REFLEX TO HCV RNA BY PCR (07/21/2020 10:30 EDT) Pathologist Sig nature Hep C Antibody Negative Negative [facility] SERVICES Specimen Blood - Venous blood (substance) Performing Organization Address City/State/ZIP Code Phon e Number [facility] [address] [place] [address] SERVICES documented in this encounter Visit Diagnoses Not on filedocumented in this encounter Care Teams Contact Center Team Lead Relationship Specialty Start Date End Date Vivek Ash MD PCP - General 01/04/14 documented as of this encounter
--- OUTSIDE RECORDS SUMMARY | 2021-09-23 00:46 | XMS_ITS | Encounter Summary ---
:1965 Author Organization [facility] [place] [address] Care Team Providers Name Role Phone Annita Quiñones AMARIS Primary Care Provider [phone] Encounter Details Date Type Department Care Team Description 11/05/2020 Notes Only Care Management Anitra Bahena, ENGINEER [place] [address] Social History Tobacco Use Types Packs/Day Years [...] place to sleep or slept in a fpc (including now)? Sex Assigned at Date Recorded Not on file documented as of this encounter Progress Notes Shruti Anitra Escobar, ENGINEER OF SYSTEM DEVELOPMENT - 11/05/2020 3:10 PM EDT I'm able to meet with pt for brief check in today while she is present for consultation with Dr. Keating. Pt is again accompanied by , Lay[place]. Pt presents with stable mood and some tense, tired affect. She is alert and conversant with normal speech and volume. She makes intermittent eye contact and engages in conversation, providing hesitant, concise answers to questions about her psychosocial health. Pt reports post-op pain wasn't adequately managed with tylenol or tramadol, and that while she was able to push through it she felt uncomfortable and distressed. 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 Her boss has been understanding about her rec overy and restricted her to cook cashier food prep work only, but she has been pushing it a little with cleaning and stocking and has noticed consequent fatigue. Pt again reports that she works only because she goescrazy without it -- in other words, there is no pressing financial needs that compels her to do it. Pt also reports that she continues to experience difficulty sleeping, sometimes getting up to 4-5 hours a night with frequent awakenings. She finds this exhausting but does not know what could help. This issue pre-existed bc dx. Pt has now informed both daughters about dx and reports the daughter she was worried about has takenthe news better than pt expected. This was a relief for pt. Pt continues to deny having concerns regarding any issues such as income/finances, insurance, transportation, or basic needs that could impact her ability to fully engage with next steps for treatment.She continues to decline connection to counseling resources for stress and mental health related to a djustment to illness, though voices interest in collateral support, specifically massage. I will continue to be available to pt throughout course of treatment, and she is encouraged to contact me with any changes to psychosocial status for which I can be of service. Completed today: Brief assessment Supportive Counseling Other: holistic health support (massage) documented in this encounter Plan of Treatment Not on filedocumented as of this encounter Visit Diagnoses Not on filedocumented in this encounter Care Teams Diver Helper Relationship Specialty Start Date End Date Annita Quiñones APRN PCP - General 01/09/14 [address] [place] [address] documented as of this encounter
--- OUTSIDE RECORDS SUMMARY | 2021-09-23 00:46 | XMS_ITS | Encounter Summary ---
:1965 Author Organization [facility] [place] [address] Care Team Providers Name Role Phone Annita Quiñones Rory GLEZ Primary Care Provider [phone] Reason for Visit Reason Onset Date Comments Other 02/12/2021 AI start Encounter Details Date Type Department Care Team Description 02/12/2021 Telephone Hematology and Oncology Elsa Hoffman, Other (AI start) [place] [facility] [place] [facility] [place] [address] Social History Tobacco Use Types Packs/Day [...] place to sleep or slept in a fdc (including now)? Sex Assigned at Date Recorded Not on file documented as of this encounter Miscellaneous Notes Telephone Encounter - Elsa Hoffman RN - 02/12/2021 7:43 AM EST Kerri Keating MD Sent: TueFebruary 12, 2021 ??7:30 AM To: [facility] [place], [place] Hem Onc Triage Breast Letrozole Thanks ordered, and can be taken once/ day, no drug interactions with her other meds. Calcium 1500 mg daily, vit D 1000 IU/ day and 150 min/ week of moderate exercise recommended to preserve bone density. Sent: TueFebruary 12, 2021 ??7:40 PM To: Elsa Hoffman RN; Ad[facility] Bell Yes, as long as she gets a dexa within the next year, here or there, she's ok. Thank you Call placed to patient and message left. Follow up with [facility] message. documented in this encounter Plan of Treatment Not on filedocumented as of this encounter Visit Diagnoses Not on filedocumented in this encounter Care Teams Sort Line Worker Relationship Specialty Start Date End Date Annita Quiñones APRN PCP - General 01/09/14 [address] [place] [address] documented as of this encounter
--- OUTSIDE RECORDS SUMMARY | 2021-09-23 00:46 | XMS_ITS | Encounter Summary ---
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 Myra Cali MD [facility] [place] [address] Referral ID Status Reason Start Date Expiration Date Visits V isits Requested Authorized [id number] Closed Consult, 02/20/2021 08/19/2021 1 1 Test & Treat Encounter Details Date Type Department Care Team Description 02/20/2021 Orders Only Radiation Oncology at [facility]Yari fajardo MD Hormone receptor [facility] positive malignant [facility] DR neoplasm of right [facility] [place] [address] [place] [address] [phone] Social History Tobacco Use Types Packs/Day Years [...] Treatment Scheduled Referrals Name Type Priority Associated Order Schedule Diagnoses Referral to Outpatient Referral Routine Hormone receptor Orde red: Hematology and positive malignant 021 Oncology neoplasm of right breast documented as of this encounter Visit Diagnoses Diagnosis Hormone receptor positive malignant neop lasm of right breast documented in this encounter Care Teams Dietary Assistant Relationship Specialty Start Date End Date Annita Quiñones, AMARIS PCP - General 01/09/14 [address] [place] [address] documented as of this encounter
--- OUTSIDE RECORDS SUMMARY | 2021-09-23 00:46 | XMS_ITS | Encounter Summary ---
:[address] [facility] Address [address] [place] [address] Care Team Providers Name Role Phone Unavailable Primary Care Provider Unavailable Encounter Details Date Type Department Care Team Description 08/08/2000 Results Only [facility] [place] Pedro MD conversion [address] [place] [address] Social History Tobacco Use Types Packs/Day Years Used Date Never Assessed Sex Assigned at Date Recorded Not on file documented as of this encounter Plan of Treatment Not on filedocumented as of this encounter Procedures Procedure Name Priority Date/Time Associated Diagnosis Comme nts CYTOPATHOLOGY Routine 08/08/2000 0:00 EDT Results for this procedure are i n the results section . documented in this encounter Results CYTOPATHOLOGY (08/08/2000 0:00 EDT) Pathology Report: CYTOPATHOLOGY REPORT [facility] Reports generated via electronic interface contain daxa ginal data; however they are lacking the format of the original re port. Caution should be taken when reading/interpreting unfo rmatted reports. Name: ? KAYEC PICKARD ? Accession #: ? [id number] : ? 1965 (Age: 35) ??F ?Collect Date: ? 06/2000 Location: ? [facility] ? Receive Date : ? 08/10/2000 Provider: ?NILTON FULLER MD Copy to: ? Specimen/Source: ?ThinPrep Pap Test, Cervix/ Endocervix Last Menstrual Period: ? 06/06/99 ? SPECIMEN ADEQUACY ? Satisfactory for evaluation. GENERAL CATEGORIZATION ? Within Normal Limits ? Document reviewed and electronically signed by: ? LIBRA Meza(ASCP) ? Report Date: ??08/11/2000 15:01 End of Report Specimen Performing Organization Address City/State/ZIP Code Phon e Number [facility] [address] [phone] SERVICES [facility] [address] [place] [address] documented in this encounter Visit Diagnoses Not on filedocumented in this encounter
--- OUTSIDE RECORDS SUMMARY | 2021-09-23 00:46 | XMS_ITS | Encounter Summary ---
:1965 Author Organization [facility] Address [address] [place] [address] Care Team Providers Name Role Phone Vivek Ash MD Primary Care Provider Encounter Details Date Type Department Care Team Description 01/01/2014 Results Only [facility] [place] Pauline Reese, [facility] [address] [place], [place] [phone] (Wo rk) Social History Tobacco Use Types Packs/Day Years Used Date Never Assessed Sex Assigned at Date Recorded Not on file documented as of this encounter Plan of Treatment Not on filedocumented as of this encounter Procedures Procedure Name Priority Date/Time Associated Diagnosis Comme nts PAP TEST- RESULT Routine 01/01/2014 0:00 EDT Resu lts for this ONLY procedure are i n the results section. documented in this encounter Results PAP TEST- RESULT ONLY (01/01/2014 0:00 EDT) Pathology Report: CYTOPATHOLOGY REPORT [facility] Reports generated via electronic interface contain daxa ginal data; SERVICES however they are lacking the format of the original re port. Caution should be taken when reading/interpreting unfo rmatted reports. Name: ? KAYCE POSADAS ? Accession #: ? [id number] ? : ? 1965 (Age: 48) ??F ?Collect Da te: ? 01/01/2014 ? Location: ? [facility] ? Receive Date: ? 014 ? Provider: PAULINE MCKINNON [facility] Copy to: ? Final Report SPECIMEN ADEQUACY ? Satisfactory for Evaluation - transformation zone component absent GENERAL CATEGORIZATION ? Negative for Intraepithelial Lesion or Malignan cy INTERPRETATION ? Shift in fei present suggestive of bacterial vaginosis. Treatment History: Hysterectomy: Partial r/t dyspareun ia Specimen/Source: ??Pap Test, Source Not Provided, [employer] Imaging System with manual evaluation Document reviewed and electronically signed by: ? Henrry Torres, CT(ASCP) ? Report ??Date: 01/09/2014 10:33 HPV with Pap Test ? Date Ordered: ? 01/09/2014 ? Status: ?? Signed Out ?Date Complete: ? 01/11/2014 ? By: ??S [email or web address] Interface ? Date Reported: ? 01/11/2014 ? Interpretation RESULT: Negative for HPV. No E6 or E7 mRNA is detected from HPV types 16,18,31,3 3,35, 39,45,51,52,56,58,59,66, and 68 by forensic accountant media kike amplification. Test not validated for this type of specimen or collec tion method. The sensitivity and specificity of the test in this situation are unknown. The results should be interpret ed with caution. Comments Document reviewed and electronically signed by: ? System Interface ? Report date: 01/11/2014 By the signature above, the attending physician certif ies that he/she has personally conducted a gross and/or microscopic examin ation of the described specimens and rendered or confirmed the above diagnosi s. End of Report Specimen Performing Organization Address City/State/ZIP Code Phon e Number [facility] [address] [place] [address] SERVICES documented in this encounter Visit Diagnoses Not on filedocumented in this encounter Care Teams Silk Blocker Relationship Specialty Start Date End Date Vivek Ash MD PCP - General 01/04/14 documented as of this encounter
--- OUTSIDE RECORDS SUMMARY | 2021-09-23 00:47 | XMS_ITS | Encounter Summary ---
:1965 Author Organization [facility] [place] [address] Care Team Providers Name Role Phone Annita Quiñones AMARIS Primary Care Provider [phone] Reason for Visit Auth/Cert Specialty Diagnoses / Procedures Referred By Contact Refer red To Contact Diagnoses ovarian mass Procedures PRO LAP, RMV ADNEXAL STRUCTURE LAPAROSCOPY, REMOVAL OF ADNEXA (WRVU 11.35) Referral ID Status Reason Start Date Expiration Date Visits Requ ested Visits Authorized [id number] 1 1 Encounter Details Date Type Department Care Team Description 11/01/2018 Hospital Encounter Same Day Program at Malika Mercer MD Simple ovarian cyst [facility] [address] [place] [phone] Social History Tobacco Use Types Packs/Day Years Used Date Current Every Day Smoker Cigarettes 0.5 25 Smokeless Tobacco: Never Used Alcohol Use Standard Drinks/Week Comments Yes 5 [...] place to sleep or slept in a mcc (including now)? Sex Assigned at Date Recorded Not on file documented as of this encounter Last Filed Vital Signs Vital Sign Reading Time Taken Comments Blood Pressure 135/75 11/01/2018 1:15 PM EDT Pulse 70 11/01/2018 12:00 PM EDT Temperature 36.4 ??C (97.5 ??F) 11/01/2018 11:00 AM EDT Respiratory Rate 16 11/01/2018 1:15 PM EDT Oxygen Saturation 98% 11/01/2018 1:15 PM EDT Inhaled Oxygen Concentration - - Weight - - Height - - Body Mass Index - - documented in this encounter Discharge Instructions Patient InstructionsNela Matthews MD - 11/01/2018 11:35 AM EDT Images from the original note were not included. PATIENT DISCHARGE INSTRUCTIONS Appointments: You will be called to schedule a post-operative appointment Gynecology phone number: [phone] Call your doctor if you develop: --A fever over 101 degrees --Severe pain --Heavy vaginal bleeding --Increasing pain, redness, or discharge at your incisions Activity level: No heavy lifting, pushing or pulling for 2 weeks. You should be able to resume your usual activities of daily living (eating, drinking, washing and walking). You can walk or climb stairs as long as you are not straining. You should avoid more vigorous exercise for at least 6 weeks. Complete recover may take 3-6 weeks, and sometimes longer. Diet: You may resume your regular diet. Be sure you drink plenty of fluids. Please use colace 100-200mg twice daily for the entire time that you are taking pain medication to keep your bowel movements soft and regular. If you are constipated or have not had a bowel movement in 3 days, please use milk of magnesia (or miralax) as directed over the counter. Driving: Do not drive until you are off of all narcotic medications and you are not feeling pain Shower/Bath: You may take a shower anytime. Do not soak in a tub for 2 weeks, this may cause your stitches to dissolve too early. Wound Care: You can take the bandage off of your belly button tomorrow. Your skin incisions are closed with stitches that dissolve over about 4 weeks and skin glue, which will wash off after several days. Please do not peal the glue off before that time. Special Physician Instructions: Pain medications include ibuprofen (brand names include Motrin or Advil), Tylenol and oxycodone. 1. Please use ibuprofen 600 mg every 6 hours with food and Tylenol 650 mg every 6 hours around the clock for the next several days and then after that use it only as needed. Please use the oxycodone every 4-6 hours as needed for pain that breaks through the ibuprofen and Tylenol documented in this encounter Medications at Time of Discharge Medication Sig Dispensed Refills Start Date End Date ibuprofen (ADVIL;MOTRIN) Take 1 tablet by 0 11/01 600 mg Tablet mouth every 6 hours as needed for Pain. acetaminophen (TYLENOL) Take 2 tablets by 30 tablet 1 11/01 325 mg Tablet mouth every 6 hours as needed for Pain. omeprazole (PRILOSEC) 20 TAKE ONE CAPSULE BY 3 mg Capsule, Delayed MOUTH EVERY DAY Release(E.C.) loratadine (CLARITIN) 10 daily. 0 10/07/2015 mg Tablet albuterol (PROVENTIL Inhale 2 puffs into 0 HFA;VENTOLIN HFA) 90 the lungs every 4 mcg/actuation HFA Aerosol hours as needed. Inhaler Use with spacer oxyCODONE (ROXICODONE) 5 Take 1 tablet by 10 tablet 0 11/0110/01/2020 mg Tablet mouth every 4 hours as needed for Pain. ranitidine (ZANTAC) 150 mg TAKE ONE TABLET BY 3 0 07/20/2018 10/01/2020 Tablet MOUTH EVERY DAY venlafaxine (EFFEXOR-XR) daily. 0 10/07/2015 08/31/2021 75 mg Capsule, Sust. Release 24 hr documented as of this encounter Progress Notes Shanon Hurley RN - 11/01/2018 1:52 PM EDT Pt reports previously reported itching has almost completely subsided. Shanon Hurley RN - 11/01/2018 1:49 PM EDT Pt reports narcotic related itching. Denies any difficulty breathing. No facial swelling or changes to VS. Pt reports itching subsides when she takes PO benadryl with narcotics in the past. documented in this encounter H&P Notes Neva Mercer MD - 11/01/2018 8:32 AM EDT Inpatient [facility] - Admission Interval Note I have reviewed the pre-procedure H&P completed by Nela Matthews on 10/09/2018. (X) Condition unchanged since H&P originally performed. Interval Note: S: Kayce Posadas feels well today. No complaints / concerns. Has continued to have intermittent pain O: BP 115/61 (BP Location (NBP): Left arm) Pulse 60 Temp 36.3 ??C (97.3 ??F) (Temporal) Resp 15 SpO2 100% Gen: Sitting in bed, appears comfortable CV: Normal rate, regular rhythm, normal S1 and S2, no murmurs / rubs / gallops Resp: Clear to auscultation bilaterally, no wheezes / crackles Abd: Soft, nontender, nondistended Ext: Warm, well perfused, nontender A/P: 53 y.o. female presents for planned laparoscopic BSO and removal of adnexal mass for adnexal mass. No interval changes in history or physical exam. Will proceed with planned procedure. Nela Matthews MD PGY4 11/01/2018 I have seen the patient, discussed the plan of care with the resident as well as the patient, and agree with documentation as above. The plan for surgery was reviewed, all questions were answered, and patient indicated that she feels comfortable proceeding with the planned procedure, laparoscopic BSO.We reviewed her informed consent and specifically discussed: 1) Possibility of needing to convert to an open procedure if scar tissue is extensive and encasing her ovary 2) I recommend against incurring significant extra time or surgical risk to remove her left ovary, which is normal. She agrees with this approach. 3) In the unlikely event that cancer is found, she would want a full staging surgery if that were available. Neva Mercer MD documented in this encounter Miscellaneous Notes Op Note - Neva Mercer MD - 11/01/2018 12:13 PM EDT [facility] [place] Patient Name: Kayce Posadas : [id number] MR#: [id number] Case Date: 11/01/2018 Surgeon: Surgeon(s) and Role: * Neva Mercer MD - Primary * Nela Matthews MD - Resident * Debbie Cho MD - Resident ?? Preoperative diagnosis: 1) Right ovarian mass ?? Postoperative diagnosis: 1) Right ovarian mass 2) Significant intraabdominal adhesions ?? Procedure(s) (LRB): LAPAROSCOPY, REMOVAL OF ADNEXA (WRVU 11.35) (N/A) Laparoscopic right salpingo-oophorectomy ?? Anesthesia: General ?? Findings: 1) Right ovary enlarged by benign-appearing mass containing yellow, mucinous cyst fluid 2) Sigmoid colon adherent to the left pelvic sidewall and left lateral vaginal cuff. Omentum adherent to sigmoid, pelvic sidewall, and vaginal cuff. 3) Unable to visualize left ovary 4) Uterus surgically absent 5) No other intraabdominal pathology seen ?? Complications: none Intake: IV Fluids: 400 cc ?? Output: Estimated Blood Loss: 5 mL Urine Output:: 350 mL Drains: dye to gravity, removed at case close ?? Specimens removed during surgery: Right ovary and tube containing cystic mass Order Name Source Comment Collection Info Order Time SPECIMEN TO PATHOLOGY ? ovarian mass Right Ovary excision 11/01/2018 10:54 AM Time specimen removed from patient: 10:54 AM ? Number of tissue samples (in container) 1 ? Disposition: awakened from anesthesia, extubated and taken to the recovery room in a stable condition, having suffered no apparent untoward event. ?? Condition: doing well without problems ?? (Please see the Surgical Encounter Summary for any Implant and Specimen details pertinent to this patient.) HPI/Surgical Indications: 53 yo woman with complex right adnexal mass, likely dermoid on imaging. She was symptomatic with intermittent pain and desired surgical removal. Plan for BSO as long as left adnexa was easily surgically accessible given its normal appearance on ultrasound. Procedure Description: She was taken to the OR where general anesthesia was obtained without difficulty. The patient was placed in the dorsal lithotomy position with Yellofin Stirrups. The patient was prepared and draped in the usual sterile fashion. A Time Out was performed and all members of the team were in agreement to proceed. A Dye catheter was inserted and a spongestick was placed in the vagina. Sterile gloves were changed and attention was then turned to the abdomen. A vertical skin incision was made across the umbilical folds. A 5 mm Optiview trocar was inserted into the abdomen under directvisualization with the laparoscope. The pneumoperitoneum was established with CO2 gas to a pressure of 15 mmHg. An intraabdominal survey revealed surgically absent uterus, adhesions of the colon to the left pelvic side-wall, a right adnexal mass and otherwise normal appearing abdomen. A 12 mm trochar was inserted into the LLQ and a 5mm trocar into the RLQ under direct visualization with laparoscope. Trendelenburg position was obtained to facilitate pelvic exposure. The right ovary and fallopian tube was elevated away from the pelvic sidewall with an atraumatic grasper. The right ureter was clearly identified. The right infundibulopelvic ligament was grasped adjacent to the ovary, and the LigaSure was used to ligate and divide the left IP ligament. Vascular pedicles were noted to be dry. The adnexa was placed in the pelvis and attention turned to the left side. The left ovary was not visible due to adhesions of the bowel to the pelvic sidewall. Some adhesions between the sigmoid colon and left pelvic sidewall were taken down with laparoscopic scissors and Ligasure but the ovary still was not visible. It had appeared normal on ultrasound and CT scan. It was determined that extensive lysis of adhesions with increased risk of bowel injury would have to be undertaken to remove the left ovary and as it was thought to be normal, and according to discussion with patient preoperatively, the decision was made to leave it in situ. The right ovary and tube were placed in a laparoscopic bag and brought out through the 12 mm port. The cyst was punctured and drained in the bag and the bag was removed intact. There was no spillage ofcyst contents into the abdomen. The fascia of the 12 mm port was closed with a 0-Vicryl using the Savage- Samira. The pneumoperitoneum was deflated and all instruments removed from the abdomen and the vagina. The skin was closed with 4-0 Monocryl and Dermabond. The umbilical incision was oozing and a pressure dressing was applied. The patient tolerated the procedure well. The dye was removed at the end of the procedure. Counts were correct times two. The patient was taken to the Recovery Room in stable condition. Dr. Mercer, attending vp compliance was present and scrubbed for the entire procedure without intervening responsibility. Nela Matthews MD PGY4 11/01/2018 Infection Bundle used? N/A I was present and I participated during the entire procedure. Neva Mercer MD Brief Op Note - Neva Mercer MD - 11/01/2018 11:15 AM EDT Brief Operative Note Patient Name: Kayce Posadas : [id number] MR#: [id number] Case Date: 11/01/2018 Surgeon: Surgeon(s) and Role: * Neva Mercer MD - Primary * Nela Matthews MD - Resident * Debbie Cho MD - Resident Preoperative diagnosis: 1) Right ovarian mass Postoperative diagnosis: 1) Right ovarian mass 2) Significant intraabdominal adhesions Procedure(s) (LRB): LAPAROSCOPY, REMOVAL OF ADNEXA (WRVU 11.35) (N/A) Laparoscopic right salpingo-oophorectomy Anesthesia: General Findings: 1) Right ovary enlarged by benign-appearing mass containing yellow, mucinous cyst fluid 2) Sigmoid colon adherent to the left pelvic sidewall and left lateral vaginal cuff. Omentum adherent to sigmoid, pelvic sidewall, and vaginal cuff. 3) Unable to visualize left ovary 4) No other intraabdominal pathology seen Complications: none Intake: IV Fluids: 400 cc Output: Estimated Blood Loss: 5 mL Urine Output:: 350 mL Drains: dye to gravity, removed at case close Specimens removed during surgery: Right ovary and tube containing cystic mass Order Name Source Comment Collection Info Order Time SPECIMEN TO PATHOLOGY ovarian mass Right Ovary excision 11/01/2018 10:54 AM Time specimen removed from patient: 10:54 AM Number of tissue samples (in container) 1 Disposition: awakened from anesthesia, extubated and taken to the recovery room in a stable condition, having suffered no apparent untoward event. Condition: doing well without problems Attestation: Case Date: 11/01/2018 I was present and I participated during the entire procedure (does not need to include opening and closing). (Please see the Surgical Encounter Summary for any Implant and Specimen details pertinent to this patient.) Neva Mercer MD documented in this encounter Plan of Treatment Not on filedocumented as of this encounter Procedures Procedure Name Priority Date/Time Associated Diagnosis Comme nts SURGICAL PATHOLOGY Routine 11/01/2018 10:54 AM Re sults for this REPORT EDT procedure are i n the results section. SPECIMEN TO Routine 11/01/2018 10:54 AM Results for this PATHOLOGY EDT procedure are i n the results section. LAPAROSCOPY, 11/01/2018 9:43 AM Adnexal mass REMOVAL OF ADNEXA EDT (WRVU 11.35) documented in this encounter Results Surgical Pathology Report (11/01/2018 10:54 AM EDT) Component Value Ref Test Analysis Performed At [facility] Method Time Signature Surgical [id number] ? Location: [facility]; [facility]; [facility] Pathology [place] Report The signing pathologist has (i) examined the relevant preparation(s) for the [facility] specimen(s) and (ii) rendered or confirmed the diagnosis(es) . H[facility] . ?Surgic al Pathology DIAGNOSIS Right ovary, salpingo-oophorectomy: - Mature cystic teratoma with struma. - Benign fallopian tube. Electronically signed by: ??Mavis MARINELLI, Alva Bishop Verified: ??11/08/2018 ?Pathologist Performed at: ??-[facility] [place], [place], [place] CLINICAL INFORMATION Specimen Submitted: A - Right Ovary Clinical History and Diagnosis: Ovarian mass SPECIMEN PROCESSING A - Labeled/Fixative: Right ovary, fresh. Quantity/Size/Weight: ??Multiple, 3 x 2.5 x 2.5 cm, 15 g (ov erall). Tissue Description: Incised, collapsed cystic ovary and attached fallopian tube. RIGHT OVARY ?? Size: 3.5 x 2.5 x 2.2 cm. ?? Outer Surface: [place], disrupted, smooth. ?? Cut Surface: The largest cystic compartment is variably smooth and velvety and contains abundant grumous white materia l. At one aspect is a firm multicystic structure variably white, p ink, red-brown and yellow in color, measuring 2.5 x 1.8 x 1.5 cm; cut sections reve al more grumous material, opaque gelatinous material, and yellow adipose-like tissue. Right Fallopian Tube: 3 x 0.5 cm, fimbriated, purple, tortuo us. Sections/Processing: [employer] sections in 10 cassettes as follows: ?A1: ??Fallopian tube ?A2-A5: ??Cystic ovarian tissue ?A6-A9: ??Solid ovarian tissue ?A10: ??Remaining ovarian tissue ??ams Specimen (Source) Anatomical Collection Method Collection Time Re ceived Time Location / / Volume Laterality 11/01/2018 10:54 AM EDT Neva E Sylvie MD PATHOLOGY/CYTOLOGY ORDERABLE S Performing Organization Address City/State/[place] [address] Specimen to Pathology (11/01/2018 10:54 AM EDT) Specimen Anatomical Collection Method Collection Time Receive d Time (Source) Location / / Volume Laterality AP Specimen 11/01/2018 10:54 11/01/2018 AM EDT 10:54 AM EDT Narrative [facility] - 11/01/2018 10:54 AM EDT Specimen requisition ordered. ??Separate Pathology report to follow Neva Mercer MD PATHOLOGY/CYTOLOGY ORDERABLE S Performing Organization Address City/[facility]/[place] [address] documented in this encounter Visit Diagnoses Diagnosis Simple ovarian cyst Other and unspecified ovarian cyst documented in this encounter Administered Medications Inactive Administered Medications - up to 3 most recent administrations Medication Order MAR Action Action Date Dose Rate Site acetaminophen (TYLENOL) tablet Given 11/01/2018 11:46 AM EDT 650 mg 650 mg 650 mg, Oral, EVERY 6 HOURS PRN, Starting on Tue11/01/18 at 1140, Until Tue11/01/18 at 1554, Pain, If multiple pain medications ordered, use acetaminophen first., Routine diphenhydrAMINE (BENADRYL) 25 mg capsule Given 11/01/2018 12:15 PM EDT 25 mg 1 dose, Starting on Tue11/01/18 at 1205, Until Tue11/01/18 at 1215, Shanon Hurley.: cabinet override HYDROmorphone (DILAUDID) injection 0.2 m g Given 11/01/2018 12:20 PM EDT 0.2 mg 0.2 mg, Intravenous, ONCE PRN, 1 dose, Starting on Tue11/01/18 at 1140, Until Tue11/01/18 at 1220, Pain, Severe pain (7-10), - If not controled by oral pain medication., Routine lactated ringers infusion New Bag 11/01/2018 9:11 AM EDT 1,000 mL, at 100 mL/hr, Intravenous, CONTINUOUS, Starting on Tue11/01/18 at 0815, Until Tue11/01/18 at 1341, Day of Surgery (Day of Procedure) New Bag 11/01/2018 8:45 AM EDT 1,000 mLs 100 mL/hr ondansetron (ZOFRAN) injection 4 mg Given 11/01/2018 12:38 PM EDT 4 mg 4 mg, Intravenous, EVERY 30 MIN PRN, Starting on Tue11/01/18 at 1143, Until Tue11/01/18 at 1341, Nausea, May repeat 4 mg once in 30 minutes. If multiple antiemetics ordered, use ondansetron first and if ineffective use prochlorperazine second and if ineffective use promethazine, PACU Recovery oxyCODONE (ROXICODONE) immediate release Given 11/01/2018 12:17 PM EDT 5 mg tablet 5 mg 5 mg, Oral, EVERY 3 HOURS PRN, Starting on Tue11/01/18 at 1140, Until Tue11/01/18 at 1554, Pain, - If multiple pain medications ordered, use acetaminophen first. - If pain not relieved by acetaminophen first, administer oxycodone. - Initial dose 5 mg. - If pain control not adequate in 60 minutes, give additional 5 mg., Routine phenazopyridine (PYRIDIUM) tablet 200 mg Given 11/01/2018 7:58 AM EDT 200 mg 200 mg, Oral, ONCE, On Tue11/01/18 at 0815, 1 dose, Day of Surgery (Day of Procedure) documented in this encounter Active and Recently Administered Medications Times are shown in EDT. Scheduled Medication Order 10/30/2018 10/31/2018 11/01/2018 phenazopyridine (PYRIDIUM) tablet 200 mg (COMPLETED) 0758 (Given - Provider: Kathy Limon, MARTITA) 200 mg, Oral, ONCE, 1 dose, Tue11/01/18 at 0815, Day of Surgery (Day of Procedure), Routine Continuous Medication Order 10/30/2018 10/31/2018 11/01/2018 lactated ringers infusion (CANCELED) 0845 (New Bag - Provider: Kathy Limon, RN)0911 (New Bag - Provider: Laura Wang CRNA)1135 (Stopped - Provider: Laura Wang CRNA) 1,000 mL, at 100 mL/hr, Intravenous, CON TINUOUS, Starting Tue11/01/18 at 0815, Until Tue11/01/18 at 1341, Day of Surgery (Day of Procedure) lactated ringers infusion 1200 ( Due) 1,000 mL, at 100 mL/hr, Intravenous, CON TINUOUS, Starting Tue11/01/18 at 1200, Until Tue11/01/18 at 1554 PRN Medication Order 10/30/2018 10/31/2018 11/01/2018 acetaminophen (TYLENOL) tablet 650 mg 1146 (Given - Provider: Alley Penn RN) 650 mg, Oral, EVERY 6 HOURS PRN, Startin g Tue11/01/18 at 1140, Until Tue11/01/18 at 1554, Pain, If multiple pain medications ordered, use acetaminophen first., Routine BUpivacaine (PF) (MARCAINE) 0.25 % (2.5 mg/mL) injection (CANCEL ED) 1116 (Given - Provider: Neva Mercer MD) ONCE PRN, Starting Tue11/01/18 at 1116, Until Tue11/01/18 at 1554, Intra- Operative (Intra-Procedure), Routine HYDROmorphone (DILAUDID) injection 0.2 mg (COMPLETED) 1220 (Given - Provider: Shanon Hurley RN) 0.2 mg, Intravenous, ONCE PRN, 1 dose, S tarting Tue11/01/18 at 1140, Until Discontinued, Pain, Severe pain (7-10), - If not controled by oral pain medication., Routine ondansetron (ZOFRAN) injection 4 mg (CANCELED) 1238 (Given - Provider: Shanon Hurley RN) 4 mg, Intravenous, EVERY 30 MIN PRN, Sta rting Tue11/01/18 at 1143, Until Tue11/01/18 at 1341, Nausea, May repeat 4 mg once in 30 minutes. If multiple antiemetics ordered, use ondansetron first and if ineffective use prochlorperazine second and if ineffective use promethazine, PACU Recovery oxyCODONE (ROXICODONE) immediate release tablet 5 mg 1217 (Given - Provider: Shanon Hurley RN) 5 mg, Oral, EVERY 3 HOURS PRN, Starting Tue11/01/18 at 1140, Until Tue11/01/18 at 1554, Pain, - If multiple pain medications ordered, use acetaminophen first. - If pain not relieved by acetaminophen fir st, administer oxycodone. - Initial dose 5 mg. - If pain control not adequate in 60 minutes, give additional 5 mg., Routine No Frequency Medication Order 10/30/2018 10/31/2018 11/01/2018 diphenhydrAMINE (BENADRYL) 25 mg capsule (COMPLETED) 1215 (Given - Provider: Shanon Hurley RN) 1 dose, Starting 11/01/18 at 1205, Un til Susanne 11/02/18 at 0014, Shanon Hurley.: cabinet override documented in this encounter Care Teams Head Silverman Relationship Specialty Start Date End Date Annita Quiñnoes, [employer] MACHINE OPERATOR PCP - General 01/09/14 [address] [place] [address] documented as of this encounter
--- OUTSIDE RECORDS SUMMARY | 2021-09-23 00:47 | XMS_ITS | Encounter Summary ---
:1965 Author Organization [facility] [place] [address] Care Team Providers Name Role Phone Annita Quiñones AMARIS Primary Care Provider [phone] Encounter Details Date Type Department Care Team Description 10/01/2020 Patient Outreach Hematology and Oncology Nicolle Guerrero[facility] [place] [address] Social History Tobacco Use Types Packs/Day [...] documented as of this encounter Progress Notes Chacha Guerrero RN - 10/01/2020 1:54 PM EDT Comprehensive Breast Program (CBP) Nurse Navigator Note Kayce Posadas is a 55 y.o. female with right breast cancer. I met with the patient and her , Layton, before her surgical oncology consultation. Cheyenne is interested in partial mastecotmy and understands radiation usually follows. They plan to return to [place] (they live in [place] ) around 12/10. 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 SPECIFIC TEACHIN. Breast Cancer Treatment Handbook (Marely Jurado, 2017) was sent via mail. 2. Information from our Shared Decision-Marking Program on Early-Stage Breast Cancer previously provided. 3. She understands she will meet with a medical oncologist and a radiation oncologist after surgery. 4. Contact phone number for questions or concerns in the immediate post- operative period. 5. Comprehensive Breast Program Binder provided. 6. Post Breast Surgery Exercises handout created by physical therapists at [facility] to begin after partial mastectomy and continue until she is back to her baseline. 7. Breast Cancer Treatment Process care map provided and reviewed. 8. Things to Consider...What I Wish I Knew advice from breast cancer patients handout provided. 9. Contact information for the General Surgery Clinic Nurses was given and the Doctor dispute resolution specialist systemexplained. Fifteen minutes was spent in education and providing support. Cheyenne has our contact information. She may schedule surgery on way out (in 4L) today. Pre-op MRI: Yes Abnormalities detected No (other than index lesion) documented in this encounter Plan of Treatment Not on filedocumented as of this encounter Visit Diagnoses Not on filedocumented in this encounter Care Teams Sanding Machine Operator Or Tender Relationship Specialty Start Date End Date Annita Quiñones APRN PCP - General 01/09/14 [address] [place] [address] documented as of this encounter
--- OUTSIDE RECORDS SUMMARY | 2021-09-23 00:47 | XMS_ITS | Encounter Summary ---
:1965 Author Organization [place] [address] Care Team Providers Name Role Phone Annita Quiñones AMARIS Primary Care Provider [phone] Reason for Referral Diagnostic Test (Routine) - Closed Specialty Diagnoses / Procedures Referred By Contact Refer red To Contact Radiology Diagnoses Malignant neoplasm of right female breast, unspecified estrogen receptor status, unspecified site of breast Mata Mcduffie MD [facility] Rad Mri Procedures MRI Breast wwo Contrast [place], [place] [id number] [place] [id number] Referral ID Status Reason Start Date Expiration Date Visits V isits Requested Authorized [id number] Closed Specialty 09/24/2020 03/23/2021 1 1 Service Requested Reason for Visit Diagnostic Test (Routine) - Closed Specialty Diagnoses / Procedures Referred By Contact Refer red To Contact Radiology Diagnoses Malignant neoplasm of right female breast, unspecified estrogen receptor status, unspecified site of breast Mata Mcduffie MD [facility] Rad Mri Procedures MRI Breast wwo Contrast [facility] [place] [address] [place] [address] Referral ID Status Reason Start Date Expiration Date Visits V isits Requested Authorized [id number] Closed Specialty 09/24/2020 03/23/2021 1 1 Service Requested Encounter Details Date Type Department Care Team Description 09/30/2020 Hospital Encounter MRI at [facility] FroyVincew Malignant neoplasm [facility] MD Ortiz of right female [facility] breast, unspecified [place], [place] Center estrogen receptor [id number] [place], [place] status, unspecified [phone] site of breast Social History Tobacco Use Types Packs/Day Years [...] on file documented as of this encounter Medications at Time of Discharge [...] Take 1 tablet by 10 tablet 0 11/0310/01/2020 mg Tablet mouth every 4 hours as needed for Pain. oxyCODONE (ROXICODONE) 5 Take 1 tablet by 10 tablet 0 11/0110/01/2020 mg Tablet mouth every 4 hours as needed for Pain. ranitidine (ZANTAC) 150 mg TAKE ONE TABLET BY 3 0 07/20/2018 10/01/2020 Tablet MOUTH EVERY DAY venlafaxine (EFFEXOR-XR) daily. 0 10/07/2015 08/31/2021 75 mg Capsule, Sust. Release 24 hr documented as of this encounter Progress Notes Tere Douglass RN - 09/25/2020 7:59 AM EDT MRI PRE-SEDATION ASSESSMENT NOTE NAME: Kayce Posadas AGE: 55 y.o. : 1965 [address] [facility] [address] Female [phone] (home) Telephone Information: Annita Quiñones APRN No primary care provider on file. Allergies Allergen Reactions ??? Percocet [Oxycodone-Acetaminophen] Itching ??? Sulfa (Sulfonamide Antibiotics) Itching Date/Time of call: September 25, 2020/8:00 AM/ PREVIOUS MRI SCAN? yes HEIGHT: WEIGHT: 65.8kg SCHEDULED SCAN: MRI BREAST WWO CONTRAST BILAT [[id number]] Order Questions Answers Where will study be performed? [facility] Radiology [120] Reason for exam and clinical history: new breast cancer Stat read required? No Does patient require sedation? None SUBJECTIVE: claustrophobia CAN YOU LAY FLAT? yes AIRWAY/BREATHING ISSUES? no DO YOU HAVE ANY INVOLUNTARY MOVEMENTS? No DO YOU HAVE ANY PAIN? no DO YOU TAKE PAIN MED ON A DAILY BASIS? no ASSESSMENT: apprpriate for PO sedation PLAN: valium 5-10mg PO ( LH ) You must have a dedicated driver present when you check in. This patient has been informed that they require a dedicated driver to drive them home after this procedure. In the absence of a dedicated driver, IR will not be able to sedate for your scan. Pt verbalized understanding of these instructions during the pre-procedure education via phone. XX Yes [place] of dedicated driver: Phone number: PRIOR SCAN DATE/S SEDATION TYPE SUCCESSFUL 09/05/14 non-DH MRI Valium per pt ?10 mg Per pt, yes I was out 12/05/14 MRI L-spine Valium 10 mg PO yes ? Revised 08/02/17 documented in this encounter Plan of Treatment Not on filedocumented as of this encounter Procedures Procedure Name Priority Date/Time Associated Diagnosis Comme nts MRI BREAST WWO Routine 09/30/2020 5:53 PM Malignant neoplasm R esults for this CONTRAST BILAT EDT of right female procedure are in breast, unspecified the resu lts estrogen receptor section. status, unspecified site of breast documented in this encounter Results MRI Breast wwo Contrast Bilat (09/30/2020 5:53 PM EDT) Anatomical Region Laterality Modality Breast N/A Magnetic Resonance Specimen (Source) Anatomical Location Collection Method / Collectio n Time Received Time / Laterality Volume Impressions 10/01/2020 8:16 AM EDT Known malignancy 12:00 radian 8.5 cm from the nipple measuring 0.6 cm with no evidence of multifocal, contralateral di sease and no evidence of adenopathy. RECOMMENDATION: Follow-up with surgical and oncologic referral. LEFT BREAST BIRADS BI-RADS Category 2: B enign Findings RIGHT BREAST BIRADS BI-RADS Category 6: Known Biopsy-Proven Malignancy I have personally reviewed the image(s) and the resident's interpretation and agree with the findings, Adry calderon MD at 10/01/2020 8:16 AM Thank you for letting us participate in the care of this patient. ??If you are a health care provider and have any questi ons regarding this report, please contact the number below. ??For patients who have questions please contact the health early breastfeeding care specialist that requested your imaging first. ? Narrative 10/01/2020 8:16 AM EDT BILATERAL BREAST MRI CLINICAL INDICATION: Breast staging. Right breast 0.5 cm mass at 12:00 and 7 cm from the nipple. TECHNIQUE: Multiplanar sequences were obtained pre- and post- Dotarem enhancement, to include SPGR weighted dynamic run-off an d subtraction sequences obtained after the intravenous administration of 13 ccs of Dotarem. Computer algorithm analysis for lesion detection and kinetic contras t enhancement curve analysis was performed, using [employer] software. COMPARISON STUDIES: Compared and/or correlated with prior st udies. FINDINGS: Background Enhancement Pattern (first po st Dotarem image): None/Minimal (<25% breast) Amount of Fibroglandular Tissue: Extreme fibroglandular tissue LEFT Breast: Scattered enhancing foci co rresponding to T2 hyperintense areas within the left breast. Small 1 cm cyst in the central breast at 12:00 and 6 cm from the nipple. RIGHT Breast: Known malignancy in the ri ght upper central breast measuring 0.6 cm at 12:00 and 8.5 cm from the nipple , with clip and postbiopsy enhancement seen 1 cm anterior to the mass. Addition al scattered enhancing foci corresponding to a T2 hyperintense areas within the right breast. RIGHT BREAST LESION #1: 0.6 cm Mass Upper central 12 O'Clock 8.5 cm from the nipple by MRI Mass/post surgical change: Shape: Irregu lar Margins: Not circumscribed - Irregular Enhancement: Heterogeneous Kin etics: Initial upslope: Slow Delayed phase: [place]out Lymph Node Basins/Other: There is no iwona dence of internal mammary or axillary adenopathy.. No significant abnormalitie s are seen in the chest wall or skin.. Mata Mcduffie MD IMG MRI ORDERABLES documented in this encounter Visit Diagnoses Diagnosis Malignant neoplasm of right female breas t, unspecified estrogen receptor status, unspecified site of breast documented in this encounter Administered Medications Inactive Administered Medications - up to 3 most recent administrations Medication Order MAR Action Action Date Dose Rate Site diazePAM (Valium) tablet 5 mg Given 09/30/2020 4:19 PM EDT 5 mg 5 mg, Oral, EVERY 30 MIN PRN, 2 doses, Starting on Tue09/30/20 at 1125, Until Tue10/01/20 at 0435, Anxiety, Angio/IR (Day of Procedure), Routine documented in this encounter Care Teams Web Feeder Relationship Specialty Start Date End Date Annita Quiñones APRN PCP - General 01/09/14 [address] [place] [address] documented as of this encounter
--- OUTSIDE RECORDS SUMMARY | 2021-09-23 00:47 | XMS_ITS | Encounter Summary ---
:1965 Author Organization [facility] [place] [address] Care Team Providers Name Role Phone Annita Quiñones Rory GLEZ Primary Care Provider [phone] Reason for Visit Diagnostic Test (Routine) - Closed Specialty Diagnoses / Procedures Referred By Contact Refer red To Contact Radiology Diagnoses Malignant neoplasm of right female breast, unspecified estrogen receptor status, unspecified site of breast Mata Mcduffie MD [facility] Rad Mri Procedures [facility] [place] [address] [place] [address] Referral ID Status Reason Start Date Expiration Date Visits V isits Requested Authorized [id number] Closed Specialty 09/24/2020 03/23/2021 1 1 Service Requested Encounter Details Date Type Department Care Team Description 09/30/2020 Hospital Encounter MRI at [facility] Mata Mcduffie [facility] [place] [address] [place], [place] [address] (Wo rk) Social History Tobacco Use Types [...] place to sleep or slept in a chcf (including now)? Sex Assigned at Date Recorded [...] 24 hr documented as of this encounter Plan of Treatment Not on filedocumented as of this encounter Procedures Procedure Name Priority Date/Time Associated Diagnosis Comme nts MRI BREAST WWO Routine 09/30/2020 5:53 PM Malignant neoplasm R esults for this CONTRAST BILAT EDT of right female procedure are in breast, unspecified the resu lts estrogen receptor section. status, unspecified site of breast documented in this encounter Visit Diagnoses Not on filedocumented in this encounter Administered Medications Inactive Administered Medications - up to 3 most recent administrations Medication Order MAR Action Action Date Dose Rate Site gadoterate meglumine (Dotarem) Given 09/30/2020 5:26 PM EDT 13 m Ls (0.5 mMol/mL) injection solution 0-100 mL 0-100 mL, Intravenous, ONCE PRN, 1 dose, Starting on Tue09/30/20 at 1726, Until Tue09/30/20 at 1726, Per Protocol, Radiology Contrast, Routine documented in this encounter Care Teams Produce Specialist Relationship Specialty Start Date End Date Annita Quiñones APRN PCP - General 01/09/14 [address] [place] [address] documented as of this encounter
--- OUTSIDE RECORDS SUMMARY | 2021-09-23 00:47 | XMS_ITS | Encounter Summary ---
:1965 Author Organization [facility] [place] [address] Care Team Providers Name Role Phone Annita Quiñones AMARIS Primary Care Provider Reason for Visit Auth/Cert Specialty Diagnoses / Procedures Referred By Contact Refer red To Contact Diagnoses right breast cancer Procedures PRO MASTECTOMY PARTIAL PRO BX/REMV, LYMPH NODE, DEEP AXILL PRO INTRAOP SENTINEL LYMPH ID W/DYE INJECTION MASTECTOMY PARTIAL (WRVU 10.13) BIOPSY OR EXCISION OF LYMPH NODE(S), OPEN, DEEP AXILLARY NODE(S) (WRVU 6.43) INTRAOPERATIVE ID (MAPPING) SENTINEL LYMPH NODE,INCLUDES INJECTION (WRVU 2.5) MODIFIER WITH NEEDLE LOC., LESION #1 MODIFIER SENTINEL NODE EXCISION Referral ID Status Reason Start Date Expiration Date Visits Requ ested Visits Authorized [id number] 1 1 Encounter Details Date Type Department Care Team Description 10/16/2020 Hospital Encounter Mammography at [facility] Mata Mcduffie Malignant neoplasm [facility] MD Ortiz of right female Drive [facility] breast, unspecified [place], [place] Center estrogen receptor [address] [place], [place] status, unspecified [phone] site of breast Social History Tobacco Use Types Packs/Day Years Used Date Current Every Day Smoker Cigarettes 0.5 25 Smokeless Tobacco: Never Used Alcohol Use Standard Drinks/Week Comments Yes 5 (1 standard drink = 0.6 oz pure alcoho l) Financial Resource Strain Answer Date Recorded How hard is it for you to pay for the very basics like Not jj dobbins hard 08/31/2021 food, housing, medical care, and [...] place to sleep or slept in a senior care (including now)? Sex Assigned at Date Recorded [...] hours as needed. Inhaler Use with spacer venlafaxine (EFFEXOR-XR) daily. 0 10/07/2015 08/31/2021 75 mg Capsule, Sust. Release 24 hr documented as of this encounter Plan of Treatment Not on filedocumented as of this encounter Procedures Procedure Name Priority Date/Time Associated Diagnosis Comme nts MAMMO SENTINEL NODE Routine 10/16/2020 11:17 AM Malignant neop lasm Results for this INJECTION EDT of right female procedure ar e in breast, unspecified the resu lts estrogen receptor section. status, unspecified site of breast documented in this encounter Results Mammo [place] Node Injection (10/16/2020 11:17 AM EDT) Anatomical Region Laterality Modality Breast N/A Mammography Specimen (Source) Anatomical Location Collection Method / Collectio n Time Received Time / Laterality Volume Impressions 10/16/2020 11:47 AM EDT Successful needle localization of the right breast surgical clip which is located between the middle and distal th ick with mass at the middle thick. SENTINEL LYMPH NODE INJECTION: Technique: Using sterile technique the r ight breast was injected with less than 1.5 microCuries of Tc-99m ??sulfur collo id administered as split intra-dermal and parenchymal injections. No images were o btained. Impression: Injection for sentinel node biopsy without imaging. The radiotracer injection was administer ed under the supervision of authorized user Dr. Vivek Toney. I have personally reviewed the image(s) and the resident's interpretation and agree with the findings, Karen Marley MD at 10/16/2020 11:47 AM Thank you for letting us participate in the care of this patient. ??If you are a health care provider and have any questi ons regarding this report, please contact the number below. ??For patients who have questions please contact the health point of care specialist that requested your imaging first. ? Electronically signed by: Luz Flower, [facility] ([phone]), at 10/16/2020 11:47 AM Narrative 10/16/2020 11:47 AM EDT NEEDLE LOCALIZATION OF ??RIGHT CLINICAL HISTORY: PLEASE EEDLE LOCALIZE RIGHT BREAST CANCER Mass 12:00 radian 7 cm from the nipple Technique:Informed consent was confirmed and a timeout procedure was performed per protocol. Using sterile technique and local anesth etic ??(less than 5 cc's of 1% lidocaine) a needle localization of the clip and ma ss in the Right breast was performed from the cranial approach with mammograp hic guidance. The wire was deployed. After confirming satisfactory positionin g in orthogonal views the wire was deployed and a final image was obtained. There were no complications. Images were annotated on PACS for the op erating surgeon. Procedural attestation: Resident: Sravanthi Roberts MD Mata Mcduffie MD IMG MAMMO ORDERABLES documented in this encounter Visit Diagnoses Diagnosis Malignant neoplasm of right female breas t, unspecified estrogen receptor status, unspecified site of breast documented in this encounter Administered Medications Inactive Administered Medications - up to 3 most recent administrations Medication Order MAR Action Action Date Dose Rate Site technetium (Tc-99m) sulfur Given 10/16/2020 11:15 AM EDT 1.5 mCi colloid injection 0-18 mCi 0-18 mCi, Intradermal, ONCE PRN, 1 dose, Starting on Susanne 10/16/20 at 1125, Until Susanne 10/16/20 at 1115, Per Protocol, Radiology Contrast, Routine documented in this encounter Care Teams Cellar Pumper Relationship Specialty Start Date End Date Annita Quiñones APRN PCP - General 01/09/14 [address] [place] [address] documented as of this encounter
--- OUTSIDE RECORDS SUMMARY | 2021-09-23 00:47 | XMS_ITS | Encounter Summary ---
:1965 Author Organization [facility] [place] [address] Care Team Providers Name Role Phone Annita Quiñones APRN Primary Care Provider [phone] Encounter Details Date Type Department Care Team Description 08/26/2020 Ancillary Procedure Radiology Library at [place], [facility] PRESS OPERATOR [employer] [facility] [address] [place] [address] [place] [address] [phone] Social History Tobacco Use Types Packs/Day Years [...] place to sleep or slept in a mcfp (including now)? Sex Assigned at Date Recorded Not on file documented as of this encounter Plan of Treatment Not on filedocumented as of this encounter Procedures Procedure Name Priority Date/Time Associated Diagnosis Comme nts FILM LIBRARY Routine 08/26/2020 12:05 AM Results for this STORAGE ONLY MAMMO EDT procedure are in the results section. documented in this encounter Results Film Library- Storage Only Mammo (08/26/2020 12:05 AM EDT) Specimen (Source) Anatomical Location Collection Method / Collectio n Time Received Time / Laterality Volume Narrative NIKO - 08/27/2020 2:12 PM EDT This exam is auto-finalizing. It's purpo se is for storage only. Annita Quiñones APRN IMRadha FILM LIBRARY ORDERABLES Performing Organization Address City/State/ZIP Code Phon e Number [place], [place] documented in this encounter Visit Diagnoses Not on filedocumented in this encounter Care Teams Moto Mix Operator Relationship Specialty Start Date End Date Annita Quiñones APRN PCP - General 01/09/14 [address] [place] [address] documented as of this encounter
--- OUTSIDE RECORDS SUMMARY | 2021-09-23 00:47 | XMS_ITS | Encounter Summary ---
:1965 Author Organization [facility] [place] [address] Care Team Providers Name Role Phone IshmaelJazzmine loerahryn Rory GLEZ Primary Care Provider [phone] Reason for Visit Reason Onset Date Comments Breast Pain 10/17/2020 Encounter Details Date Type Department Care Team Description 10/17/2020 Telephone General Surgery at [facility] Shanon Hurley, [place] [address] Social History Tobacco Use Types Packs/Day [...] place to sleep or slept in a [place] (including now)? Sex Assigned at Date Recorded Not on file documented as of this encounter Miscellaneous Notes Telephone Encounter - Shanon Hurley RN - 10/17/2020 1:21 PM EDT Ms. Posadas is s/p right partial mastectomy 10/16/[address] Mata Mcduffie. Nursing Triage - Phone Note CALLER: Kayce Cuauhtemoc Learning Needs Assessment Reviewed: CHIEF COMPLAINT: Right axilla pain and nausea SUBJECTIVE- Ms. Posadas called the General Surgery Clinic today, reporting severe incisional pain at the right axilla. She reports mild swelling. Denies redness. Denies fever. For post operative pain management, she has been alternating 600mg of ibuprofen and 500-650mg tylenol. She is using ice packsto the right axilla, as well, per discharge instructions. Ms. Posadas also reports she has not been able to eat or drink since surgery. She has been taking sips of water and eating crackers, but continues to feel nauseous. She has not taken her prescribed omeprazole today. I explained she may be feeling nauseous due to taking ibuprofen on an empty stomach. PERTINENT PAST SURGICAL HISTORY: Right breast cancer System Review: Fever: Denies GI/: Nausea Symptom onset: Location: Right breast pain Duration: Ongoing since surgery Characteristics: Burning and aching Severity: Severe INTERVENTION/PLAN/ FOLLOW UP: Disposition: Called prescription for tramadol to patient's pharmacy Teaching: Encouraged patient to take her prescribed omeprazole and to slowly advance diet with sips of water and light bland diet. Continue ice packs PRN. May call environmental compliance officer General Surgery resident or go to the ER with worsening symptoms. Patient able to verbalize teaching plan: Yes Worsening symptoms: Increasing pain, redness, fever, drainage. Patient able to verbalize worsening symptom plan: Yes Resource in decision making: Discussed plan with Dr. Mcduffie PCP: Annita Quiñones APRN documented in this encounter Plan of Treatment Not on filedocumented as of this encounter Visit Diagnoses Not on filedocumented in this encounter Care Teams Law Enforcement Officer Relationship Specialty Start Date End Date Annita Quiñones APRN PCP - General 01/09/14 [address] [place] [address] documented as of this encounter
--- OUTSIDE RECORDS SUMMARY | 2021-09-23 00:47 | XMS_ITS | Encounter Summary ---
:1965 Author Organization [facility] [place] [address] Care Team Providers Name Role Phone Annita Quiñones AMARIS Primary Care Provider Reason for Visit Reason Comments Radiation Consult Consultation (Routine) - Closed Specialty Diagnoses / Procedures Referred By Contact Refer red To Contact Radiation Oncology Diagnoses Breast cancer S/P R PART MAST SURG 10/16 Mata Mcduffie MD Fariss, Myra Mazariegos MD [place] [address] [place] [address] [place] [address] Phone: Fax: Referral ID Status Reason Start Date Expiration Date Visits Requ ested Visits Authorized [id number] Closed 10/08/2020 10/08/2021 1 1 Encounter Details Date Type Department Care Team Description 11/03/2020 Office Visit Radiation Oncology at Yari Cali MD Malignant neoplasm of [facility] central portion of [facility] [address] right female breast, [place], [place] RADIATION ONCOL OGY unspecified estrogen [id number] [place] [address] receptor status [phone] Social History Tobacco Use Types Packs/Day Years Used Date Current Every Day Smoker Cigarettes 0.5 25 Smokeless Tobacco: Never Used Tobacco Cessation: Ready to Quit: Yes; C ounseling Given: No Comments: counseling offered 10/3020 she declined. she [...] place to sleep or slept in a skilled nursing (including now)? Sex Assigned at Date Recorded Not on file documented as of this encounter Last Filed Vital Signs Vital Sign Reading Time Taken Comments Blood Pressure 132/88 11/03/2020 8:00 AM EDT Pulse 62 11/03/2020 8:00 AM EDT Temperature 36.1 ??C (97 ??F) 11/03/2020 8:00 AM EDT Respiratory Rate 16 11/03/2020 8:00 AM EDT Oxygen Saturation 99% 11/03/2020 8:00 AM EDT Inhaled Oxygen Concentration - - Weight 67.3 kg (148 lb 6.4 oz) 11/03/2020 8:00 AM EDT Height - - Body Mass Index 25.47 10/16/2020 11:52 AM EDT documented in this encounter Patient Instructions Patient InstructionsMyra Cali MD - 11/03/2020 9:00 AM EDT If you decide to pursue radiotherapy in [place], you can call to request referral to a radiation oncologist. documented in this encounter Progress Notes Erika Wilkins RN - 11/03/2020 9:00 AM EDT RADIATION ONCOLOGY NURSING INITIAL NURSING ASSESSMENT IDENTIFICATION: Kayce Posadas is a 55 y.o. year-old female with breast ca PRESENTING SYMPTOMS/CHIEF COMPLAINT: pain right axilla/flank region : 09/13 REVIEW OF SYSTEMS: Review of Systems - Oncology REVIEW OF SYSTEMS 11/03/2020 Constitutional Fatigue, lack of energy, Hot flashes, Drowsiness, Pain Ear / nose / throat / mouth None of the above Eyes None of the above Respiratory None of the above Cardiovascular Chest pain, Swelling of arms Gastrointestinal Nausea, vomiting, Appetite problems, Feeling bloated Skin, hair None of the above Musculoskeletal Back pain, Reduced range of motion Neurological None of the above Hematologic / Lymphatic Sore or swollen lymph nodes, glands, Night sweats Genitourinary None of the above C/O swelling & pain right axilla/flank region Some nausea, no vomiting. Some improvement since the surgery. Back pain is chronic. 3 compacted discs reduced ROM related to right arm S/P breast surgery. IN THE PAST 12 MONTHS HAVE YOU: Fallen more than one time? No Injured yourself as result of the fall? No Experienced difficulty with walking/problems with balance? No Do you use any assistive devices? No Any history of collagen vascular diseases:No Any Implanted Devices/Hardware: No If yes please put alert in ARIA patient summary Prior Radiotherapy: No Prior Chemotherapy: No Prior Hormone Therapy: No Other: Patient denies history of Scleroderma and Lupus LEARNING ASSESSMENT REVIEWED: No ADVANCED DIRECTIVE: Not discussed today. PAIN ASSESSMENT: [7] out of 10 *eD-H Adult PCS Flow Sheet if 4 or above See above explanation SOCIAL ASSESSMENT: See EDH social assessment information entered. Support Systems: lives with , [place] Barriers to treatment: lives locally in [place] Referrals/Interventions: neonatal social worker visit on per routine. RADIATION SPECIFIC TEACHING: [facility] Radiation Therapy and You Provided by Dr Cali Site specific teaching :breast PLAN: Per Dr Cali Myra Cali MD - 11/03/2020 9:00 AM EDT Images from the original note were not included. CC: Referred by Dr. Mcduffie for eval for xrt for breast ca. HPI: Cheyenne is a 55 y/o f who presented w/R breast abnlty on screening mmg. DH interp 08/07/20 B screening mmg & 08/26/20 dx'ic R mmg & R breast US: 0.5 cm R breast mass @12:00, 7 cm from nipple. 09/05/20 US guided core needle bx R breast mass @ 12:00, 7 cm from nipple. Path: IDC, DCIS, ER+SC+, Her2-. 09/30/20 MRI B breasts: Known malignancy 12:00 radian 8.5 cm from the nipple measuring 0.6 cm with no evidence of multifocal, contralateral disease and no evidence of adenopathy. 10/16/20 NLOC R breast lumpectomy w/incision @ 12:00, specimen mmg, clip placement into cavity & SNB. Path: IDC, gr 1, 4 mm, RM-, 4 R axillary sentinel lymph nodes (all neg, 0/4), pT1a pN0. Subjective: + residual soreness R axilla despite tramadol & tylenol. Swelling in R axilla @ surgsite lessening w/use of warm compresses. No hand/arm swelling. ROM R arm around shoulder improving. 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 Accompanied by . Past Medical History: Diagnosis Date ??? Allergic state ??? Anxiety ??? Asthma ??? Depression ??? Headache(784.0) ??? Malignant neoplasm of right breast in female, estrogen receptor positive 09/10/2020 ??? Spondylosis of lumbar region without myelopathy or radiculopathy 01/22/2015 No lupus/scleroderma. No prior xrt. Past Surgical History: Procedure Laterality Date ??? HYSTERECTOMY ??? LAPAROSCOPY diagnostic, lysis of adhesions ??? MAMMO US BIOPSY RIGHT Right 09/05/2020 Mammo Us Biopsy Right 09/05/2020 Adry Loving MD [facility] RAD MAMMOGRAPHY ??? PRO BX/REMV, LYMPH NODE, DEEP AXILL Right 10/16/2020 BIOPSY OR EXCISION OF LYMPH NODE(S), OPEN, DEEP AXILLARY NODE(S) (WRVU 6.43) performed by Mata Mcduffie MD at [facility] OSC ??? PRO INTRAOP SENTINEL LYMPH ID W/DYE INJECTION Right 10/16/2020 INTRAOPERATIVE ID (MAPPING) SENTINEL LYMPH NODE,INCLUDES INJECTION (WRVU 2.5) performed by Mata Mcduffie MD at [facility] ??? PRO LAP, RMV ADNEXAL STRUCTURE N/A 11/01/2018 LAPAROSCOPY, REMOVAL OF ADNEXA (WRVU 11.35) performed by Neva Mercer MD at [facility] MAIN OR ??? PRO MASTECTOMY PARTIAL Right 10/16/2020 MASTECTOMY PARTIAL (WRVU 10.13) performed by Mata Mcduffie MD at [facility] Your Medications Accurate as of November 03, 2020 9:15 AM. If you have any questions, ask your nurse or doctor. Continued medications, unchanged Dose Details * acetaminophen 500 mg Tab Commonly known as: Tylenol Take 1,000 mg by mouth every 6 hours as needed for Pain. 1,000 mg Refills: 0 * acetaminophen 325 mg Tab Commonly known as: Tylenol Take 2 tablets by mouth every 6 hours as needed for Pain. 650 mg Quantity: 30 tablet Refills: 1 albuteroL 90 mcg/actuation Hfaa Inhale 2 puffs into the lungs every 4 hours as needed. Use with spacer 2 puff Refills: 0 ibuprofen 600 mg Tab Commonly known as: Advil Take 1 tablet by mouth every 6 hours as needed for Pain. 600 mg Refills: 0 lidocaine 5 % Oint Commonly known as: Xylocaine as needed (to right axilla region for pain). Refills: 0 loratadine 10 mg Tab Commonly known as: Claritin daily. Refills: 0 melatonin 3 mg Tab Take by mouth nightly. Refills: 0 omeprazole 20 mg Cpdr Commonly known as: PriLOSEC TAKE ONE CAPSULE BY MOUTH EVERY DAY Refills: 3 propranoloL 10 mg Tab Commonly known as: Inderal 2 times daily. Refills: 0 traMADoL 50 mg Tab Commonly known as: Ultram Take 1 tablet by mouth every 6 hours as needed for Pain. 50 mg Quantity: 20 tablet Refills: 0 traZODone 50 mg Tab Commonly known as: Desyrel Take 50 mg by mouth nightly. 50 mg Refills: 0 venlafaxine XR 75 mg Cp24 Commonly known as: Effexor-XR daily. Refills: 0 * This list has 2 medication(s) that are the same as other medications prescribed for you. Read thedirections carefully, and ask your doctor or other care provider to review them with you. FHx: + ca - melanoma & blood ca in fa P&SHx: + cigs - decreased to half ppd & trying to stop Physical Exam Constitutional: General: She is not in acute distress. Comments: BP 132/88 Pulse 62 Temp 36.1 ??C (97 ??F) Resp 16 Wt 67.3 kg (148 lb 6.4 oz) SpO2 99% BMI 25.47 kg/m?? HENT: Head: Normocephalic. Eyes: General: No scleral icterus. Right eye: No discharge. Left eye: No discharge. Extraocular Movements: Extraocular movements intact. Conjunctiva/sclera: Conjunctivae normal. Pulmonary: Effort: Pulmonary effort is normal. No respiratory distress. Breath sounds: No stridor. Chest: Breasts: Right: No inverted nipple, mass, nipple discharge, skin change or tenderness. Left: No inverted nipple, mass, nipple discharge, skin change or tenderness. Abdominal: General: There is no distension. Palpations: Abdomen is soft. There is no mass. Tenderness: There is no abdominal tenderness. There is no guarding or rebound. Musculoskeletal: General: Normal range of motion. Cervical back: Normal range of motion and neck supple. No tenderness. Right lower leg: No edema. Left lower leg: No edema. Lymphadenopathy: Head: Right side of head: No submental, submandibular, preauricular, posterior auricular or occipital adenopathy. Left side of head: No submental, submandibular, preauricular, posterior auricular or occipital adenopathy. Cervical: No cervical adenopathy. Upper Body: Right upper body: No supraclavicular or axillary adenopathy. Left upper body: No supraclavicular or axillary adenopathy. Skin: General: Skin is warm and dry. Neurological: Mental Status: She is alert and oriented to person, place, and time. Coordination: Coordination normal. Gait: Gait normal. Psychiatric: Mood and Affect: Mood normal. Behavior: Behavior normal. Thought Content: Thought content normal. Judgment: Judgment normal. A: Breast ca, R, IDC, gr 1, ER+SC+, Her2-, s/p lumpectomy & SNB, pT1a pN0. P: Xrt to R breast rec'd to increase likelihood of cure. Xrt would be given in 20 fxs. Possible side effects of xrt to breast discussed, w/acute/immediate side effects including: Pinkening, soreness & peeling of skin in treated area; swelling of treated breast; soreness of treated breast; cough; shortness of breath; tiredness. Acute/immediate side effects usually temporary. Late/fci side effects to breast discussed include: Treated breast may shrink, become firmer & sit higher on chest; achiness/stiffness of chest wall on treated side; rib fracture on treated side; CT after xrt may show scarring w/in small volume of lung on treated side; very small risk of radio therapy associated 2nd malignancy. Risk of occurrence of late/roasterman side effects small. Need for CTsim prior to xrt discussed. She likely will proceed w/xrt, however, plans to return to [place] of December for the winter & is considering pursuing xrt in [place]. She will let me know if she would like referral to a radiation oncologist in [place]. 11/05/20 Dr. Keating, eval for systemic tx. 11/05/20 Dr. Mcduffie, postop check. 75 mins in encounter. documented in this encounter Plan of Treatment Not on filedocumented as of this encounter Visit Diagnoses Diagnosis Malignant neoplasm of central portion of right female breast, unspecified estrogen receptor status documented in this encounter Care Teams Aerophysics Engineer Relationship Specialty Start Date End Date Annita Quiñones APRN PCP - General 11/5/14 [address] [place] [address] documented as of this encounter
--- OUTSIDE RECORDS SUMMARY | 2021-09-23 00:47 | XMS_ITS | Encounter Summary ---
:1965 Author Organization [facility] [place] [address] Care Team Providers Name Role Phone Annita Quiñones AMARIS Primary Care Provider [phone] Encounter Details Date Type Department Care Team Description 09/05/2020 Hospital Encounter Mammography at [facility] Diflorio Abnormal finding on [facility] breast [address] Barbie Escobar MD [facility] [id number] CENTER [phone] DIAGNOSTIC RADIOLOGY [place], [place] [address] Social History Tobacco Use Types Packs/Day Years [...] to sleep or slept in a senior living (including now)? Sex Assigned at Date Recorded [...] Procedure Name Priority Date/Time Associated Comments Diagnosis MAMMO DIAGNOSTIC Routine 09/05/2020 3:08 PM Abnormal finding o n Results for this WITHOUT CAD RIGHT EDT breast imaging procedur e are in the results section. documented in this encounter Results Mammo Diagnostic Without Cad Right (09/05/2020 3:08 PM EDT) Anatomical Region Laterality Modality Breast Right Mammography Specimen (Source) Anatomical Location Collection Method / Collectio n Time Received Time / Laterality Volume Impressions 09/09/2020 10:53 AM EDT Concordant malignant result RECOMMENDATION: Definitive surgical management and breas t MRI to exclude multifocal disease. I phoned these results and recommendations to the patient on 09/09/2020 at 1050 hours. REVIEW PATH CONFERENCE?: No Thank you for letting us participate in the care of this patient. ??If you are a health care provider and have any questi ons regarding this report, please contact the number below. ??For patients who have questions please contact the health rn acute care that requested your imaging first. ? Electronically signed by: Adry richards MD, [facility] ([phone]), at 09/09/2020 10:53 AM Narrative 09/09/2020 10:53 AM EDT RIGHT BREAST ULTRASOUND GUIDED AUTOMATED CORE BIOPSY CLINICAL HISTORY: abnormal u/s. Right br east mass 12:00 radian 7 cm from the nipple measuring 0.5 cm PROCEDURAL DETAILS: Informed consent was obtained and a time out procedure was performed per protocol. Using local anesthetic (less t fonseca 5 cc of 1% lidocaine), sterile technique, and ultrasound guidance the l esion in the left breast was localized and sampled. Multiple satisfactory core biopsy specim ens were obtained using a 14-gauge automated device. A [employer]green 14G marker clip was jonathan vito. The clip was in correct position based on the true lateral view, projecti ng 8 cm from the nipple. The craniocaudal view, however, is slightly rotated and is under compressed due to mild post procedure bleeding. COMPLICATIONS: None. PROCEDURAL ATTESTATION: Resident: None I performed the procedure without a resi dent. IMAGING DIFFERENTIAL DIAGNOSIS: Invasive ductal carcinoma PATHOLOGIC DIAGNOSIS: Invasive ductal carcinoma Barbie Rubio MD IMG MAMMO ORDERABLES documented in this encounter Visit Diagnoses Diagnosis Abnormal finding on breast imaging Other (abnormal) findings on radiologica l examination of breast documented in this encounter Care Teams Exhibit Artist Relationship Specialty Start Date End Date Annita Quiñones, DIRECTOR ENTERPRISE DATA ARCHITECTURE PCP - General 01/09/14 [address] [place] [address] documented as of this encounter
--- OUTSIDE RECORDS SUMMARY | 2021-09-23 00:47 | XMS_ITS | Encounter Summary ---
:1965 Author Organization [facility] Address [facility] [place] [address] Care Team Providers Name Role Phone Annita Quiñones AMARIS Primary Care Provider [phone] Reason for Visit Auth/Cert Specialty Diagnoses / [...] Expiration Date Visits Requ ested Visits Authorized [id number] 1 1 Encounter Details Date Type Department Care Team Description 10/16/2020 Hospital Encounter Outpatient Surgery Mata Mcduffie, [place] Kerri Ervin MD [facility] [place] [address] [place] [address] [phone] Social History Tobacco Use Types Packs/Day Years [...] place to sleep or slept in a residential (including now)? Sex Assigned at Date Recorded Not on file documented as of this encounter Last Filed Vital Signs Vital Sign Reading Time Taken Comments Blood Pressure 118/74 10/16/2020 6:04 PM EDT Pulse 74 10/16/2020 6:04 PM EDT Temperature 36.3 ??C (97.3 ??F) 10/16/2020 5:15 PM EDT Respiratory Rate 20 10/16/2020 6:04 PM EDT Oxygen Saturation 96% 10/16/2020 6:04 PM EDT Inhaled Oxygen Concentration - - Weight 65.8 kg (145 lb) 10/16/2020 11:52 AM EDT Height 162.6 cm (5' 4) 10/16/2020 11:52 AM EDT Body Mass Index 24.89 10/16/2020 11:52 AM EDT documented in this encounter Discharge Instructions Patient InstructionsLisset Quezada MD - 10/16/2020 2:34 PM EDT Instructions following Breast Surgery Wound Care: Your incisions were closed with skin glue and dissolvable stitches. You may shower tomorrow morning. Do not scrub area vigorously for the next 1 week. Do not soak incision(s) under water for the next 2 weeks (i.e. soaking in bath or swimming) as this may promote a wound infection. You may remove dressing if it becomes saturated/wet and replace with dry gauze as needed for seepage/comfort. ICE: You may apply ice to incision during the first 48 hours following surgery to help limit swelling, bruising, and discomfort. You may also find wearing a bra for the first two days following surgerywill help with discomfort, although this is not absolutely necessary. Your stitches will dissolve and do not need to be removed. Activity: As tolerated by your comfort level. Call Doctor for: Please call if you notice worsening redness or drainage from incision(s) lasting longer than 5 days after your surgery, any foul-smelling drainage from the incision, pain not controlled by pain medications, persistent nausea and vomiting, or for any fevers greater than 101.3 F. The number for questions is [phone] before 5 PM week. Pain Medication: Please use ibuprofen (motrin, advil) 600 mg three times per day with food and tylenol 650 mg every 8 hours between the ibuprofen doses. Follow-up: Follow-up appointment will be scheduled with in 1-2 weeks. Scheduled Appointments: The following appointment with Dr. Raymond has been scheduled on your behalf: Future Appointments Date Time Provider Department Center 11/03/2020 8:[address] D[facility] Tran [facility] 11/03/2020 9:00 AM Myra Cali MD [facility] 11/05/2020 3:00 PM Kerri Keating MD [facility] 11/05/2020 4:30 PM Mata Mcduffie MD [facility] SURG [facility] Please call [phone] (clinic number) if any changes need to be made to your appointment time. documented in this encounter Medications at Time [...] documented as of this encounter Progress Notes Terrence Jimenez RN - 10/16/2020 6:05 PM EDT Discharge instructions reviewed with pt and , verbalized understanding and has no questions at present. has her dc instructions. 1811-- pt ambulated to the bathroom then out to private car, assisted by nursing staff Kayce Rivera RN - 10/14/2020 4:11 PM EDT During this call the patient was questioned regarding any international travel or travel on a cruiseship in the last 14 days. Patient denies fever, cough, SOB or other illness in the last 14 days. Patient also questioned regarding any exposure to a COVID positive person, a person awaiting results from testing or a person in quarantine. Patient denies any positive responses to the above questions forthemselves or their escort for the day of procedure. Patient informed of procedure to be followed upon arrival to the [facility]. That being, COVID questions will be asked again, temperature will be taken, patient and caregiver/driver/sales workers will be given a mask to wear the entire time they are in the [facility] building. documented in this encounter H&P Notes Lisset Quezada MD - 10/16/2020 2:32 PM EDT Patient Name: Kayce Posadas Patient Age: 55 y.o. Birthdate: 1965 Admit date: 10/16/2020 Attending Physician: Mata Mcduffie MD Surgical Oncology Preoperative H&P: Patient Name: Kayce Posadas Patient : 1965 Today's Date: 10/16/2020 Kayce Posadas is a 55 y.o. female with right breast cancer who presents today for right lumpectomy and SLNB. No changes since last seen. Past Medical History: Diagnosis Date ??? Allergic state ??? Anxiety ??? Asthma ??? Depression ??? Headache(784.0) ??? Malignant neoplasm of right breast in female, estrogen receptor positive 09/10/2020 ??? Spondylosis of lumbar region without myelopathy or radiculopathy 01/22/2015 Past Surgical History: Procedure Laterality Date ??? HYSTERECTOMY ??? LAPAROSCOPY diagnostic, lysis of adhesions ??? MAMMO US BIOPSY RIGHT Right 09/05/2020 Mammo Us Biopsy Right 09/05/2020 Adry Loving MD [facility] RAD MAMMOGRAPHY ??? PRO LAP, RMV ADNEXAL STRUCTURE N/A 11/01/2018 LAPAROSCOPY, REMOVAL OF ADNEXA (WRVU 11.35) performed by Neva Mercer MD at [facility] MAIN OR Family History Adopted: Yes Problem Relation Age of Onset ??? Colorectal Cancer Father ??? Breast Cancer Cousin 40 maternal cousin; d of same age 40 Social History Socioeconomic History ??? Marital status: Spouse name: Not on file ??? Number of children: Not on file ??? Years of education: Not on file ??? Highest education level: Not on file Occupational History ??? Not on file Tobacco Use ??? Smoking status: Current Every Day Smoker Packs/day: 0.50 Years: 25.00 Pack years: 12.50 Types: Cigarettes ??? Smokeless tobacco: Never Used Vaping Use ??? Vaping Use: Every day Substance and Sexual Activity ??? Alcohol use: Yes Alcohol/week: 5.0 standard drinks Types: 5 Cans of beer per week ??? Drug use: No ??? Sexual activity: Yes Partners: Male Other Topics Concern ??? Do You live alone? Not Asked ??? Tobacco in Home Not Asked Social History Narrative ??? Not on file Social Determinants of Health Financial Resource Strain: ??? Difficulty of Paying Living Expenses: Not on file Food Insecurity: ??? Worried About Running Out of Food in the Last Year: Not on file ??? Ran Out of Food in the Last Year: Not on file Transportation Needs: No Transportation Needs ??? Lack of Transportation (Medical): No ??? Lack of Transportation (Non-Medical): No Physical Activity: ??? Days of Exercise per Week: Not on file ??? Minutes of Exercise per Session: Not on file Allergies Allergen Reactions ??? Bleach (Sodium Hypochlorite) ??? Hydrocodone-Acetaminophen ??? Percocet [Oxycodone-Acetaminophen] Itching ??? Sulfa (Sulfonamide Antibiotics) Itching ??? Hydrocodone Bitartrate Rash Review of systems: As per HPI, otherwise non-contributory. Exam: General: NAD Resp: CTAB CV: normal rate, regular rhythm A/P: Kayce Posadas is a 55 y.o. female with breast cancer who presents for right lumpectomy and SLNB. - Proceed to OR. The risks, benefits and indications were reviewed with the patient and there remains an indication for surgery. Consent signed. - Preoperative abx ordered Lisset Quezada MD Plastic Surgery Resident P# [id number] documented in this encounter Miscellaneous Notes Op Note - Mata Mcduffie MD - 10/16/2020 3:12 PM EDT [facility] Operative Note Patient Name: Kayce Posadas : [id number] MR#: [id number] Case Date: 10/16/2020 Surgeon: Surgeon(s) and Role: * Mata Mcduffie MD - Primary * Lisset Quezada MD - Resident Preoperative diagnosis: right breast cancer Postoperative diagnosis: right breast cancer Procedure(s) (LRB): MASTECTOMY PARTIAL (WRVU 10.13) (Right) BIOPSY OR EXCISION OF LYMPH NODE(S), OPEN, DEEP AXILLARY NODE(S) (WRVU 6.43) (Right) INTRAOPERATIVE ID (MAPPING) SENTINEL LYMPH NODE,INCLUDES INJECTION (WRVU 2.5) (Right) MODIFIER WITH NEEDLE LOC., LESION #1 (Right) MODIFIER SENTINEL NODE EXCISION (Right) Anesthesia: General Estimated Blood Loss: 5 mL Specimens removed during surgery: Order Name Source Comment Collection Info Order Time SPECIMEN TO PATHOLOGY right breast cancer Right Breast Partial Mastectomy excision Yes 10/16/2020 3:14 PM Time specimen removed from patient: 3:13 PM Number of tissue samples (in container) 1 SPECIMEN TO PATHOLOGY Count [id number] RIGHT breast cancer Right Axillary [place] Lymph Node #1 excision 10/16/2020 3:57 PM Time specimen removed from patient: 3:56 PM Number of tissue samples (in container) 1 SPECIMEN TO PATHOLOGY Count 7000 RIGHT Breast Cancer Right Axillary [place] Lymph Node #2 excision 10/16/2020 4:02 PM Time specimen removed from patient: 4:02 PM Number of tissue samples (in container) 1 SPECIMEN TO PATHOLOGY Count 824 RIGHT Breast Cancer Right Axillary [place] Lymph Node #3 excision 10/16/2020 4:13 PM Time specimen removed from patient: 4:13 PM Number of tissue samples (in container) 1 SPECIMEN TO PATHOLOGY Count 758 Background 73 RIGHT Breast Cancer Right Axillary [place] Lymph Node #4 excision 10/16/2020 4:25 PM Time specimen removed from patient: 4:24 PM Number of tissue samples (in container) 1 SPECIMEN TO PATHOLOGY Blue gutierrez true superficial margin [place] gutierrez true cranial margin RIGHT Breast Cancer Right Breast Superficial/Cranial margin excision 10/16/2020 4:39 PM Time specimen removed from patient: 4:38 PM Number of tissue samples (in container) 1 Drains: * No LDAs found * Surgical Closure: Primary Closure - skin incision is completely closed without any wires, lea, drains or other devices Disposition: awakened from anesthesia, extubated and taken to the recovery room in a stable condition, having suffered no apparent untoward event. Condition: doing well without problems (Please see the Surgical Encounter Summary for any Implant and Specimen details pertinent to this patient.) HPI/Surgical Indications: Patient with RIGHT breast IDC and negative clinical nodes. Procedure Description: Kayce Posadas was admitted through Same-Day Surgery. She was brought up to Radiology where wire localization was performed and technesium was injected in the RIGHT breast. She was then brought to the Operating Room and laid supine on the operating table. The correct site and allergies were reviewedwith the patient prior to sedation. Venodynes were placed on bilateral lower extremities for DVT prophylaxis. Anesthesia was administered and a LMA was placed. The RIGHT breast was prepped and draped in sterile fashion. Time-out confirmed the patient's identity, the correct surgical site, and the administration of prophylactic antibiotics. Once this had been confirmed, attention was turned to the RIGHT breast. 10cc Lidocaine 1% and Marcaine 0.5% mixed 1:1 was injected into the area and an incision was made at 12:00 along Amber lines. Skin flaps were raised circumferentially. The wire was brought into the wound and a core of tissue circumferential was widely excised. The tissue was inked on the anatomic margins and sent to Radiology where the lesion and clip were confirmed to be in the surgical specimen. Given radiographically close margin, we took an additional [id number] surperficial/cranial margin The wound was irrigated and hemostasis was achieved with electrocautery. Clips were placed in in all anatomic areas of the excision cavity in order to identify it's boundaries. 10cc Lidocaine 1% and Marcaine 0.5% mixed 1:1 was put into the cavity. The wound was closed in 2 layers: 3-0 vicryl interrupted deep dermal sutures followed by 4-0 running monocryl. Attention was then turned to the axilla. 8cc Lidocaine 1% and Marcaine 0.5% mixed 1:1 was injected into the area. A transverse incision was made and the tissue was dissected down through the clavipectoral fascia. Multiple sentinel lymph nodes were identified by the gamma probe. This was excised and clips were placed on the lymphatic channels to prevent seroma formation. These sentinel nodes had ex vivo counts listed above. The remaining count within the axilla was less than 10% of hottest node. Satisfied that all sentinel nodes were removed, the wound was irrigated and hemostasis was achieved with electrocautery. The wound was closed in 2 layers: 3-0 vicryl interrupted deep dermal sutures followedby 4-0 running monocryl. The surgical areas were cleaned and dried. Surgical glue was applied to the wounds and allowed to dry. A sterile compressive dressing was applied. All counts were correct. The patient awoke from anesthesia, was extubated and brought the recovery room in stable condition. There were no apparent complications. Infection Bundle used? No Attestation: Case Date: 10/16/2020 I was present and I participated during the entire procedure (does not need to include opening and closing). Mata Mcduffie MD 10/16/2020 documented in this encounter Plan of Treatment Not on filedocumented as of this encounter Procedures Procedure Name Priority Date/Time Associated Comments Diagnosis SPECIMEN TO PATHOLOGY Routine 10/16/2020 4:39 PM Results for this EDT procedure are i n the results section. SPECIMEN TO PATHOLOGY Routine 10/16/2020 4:25 PM Results for this EDT procedure are i n the results section. SPECIMEN TO PATHOLOGY Routine 10/16/2020 4:14 PM Results for this EDT procedure are i n the results section. SPECIMEN TO PATHOLOGY Routine 10/16/2020 4:02 PM Results for this EDT procedure are i n the results section. SPECIMEN TO PATHOLOGY Routine 10/16/2020 3:57 PM Results for this EDT procedure are i n the results section. SURGICAL PATHOLOGY Routine 10/16/2020 3:14 PM Res ults for this REPORT EDT procedure are i n the results section. SPECIMEN TO PATHOLOGY Routine 10/16/2020 3:14 PM Results for this EDT procedure are i n the results section. MODIFIER SENTINEL NODE 10/16/2020 2:44 PM right breast EXCISION EDT cancer MODIFIER WITH NEEDLE 10/16/2020 2:44 PM right breast LOC., LESION #1 EDT cancer INTRAOPERATIVE ID 10/16/2020 2:44 PM right breast (MAPPING) SENTINEL EDT cancer LYMPH NODE,INCLUDES INJECTION (WRVU 2.5) BIOPSY OR EXCISION OF 10/16/2020 2:44 PM right breast LYMPH NODE(S), OPEN, EDT cancer DEEP AXILLARY NODE(S) (WRVU 6.43) MASTECTOMY PARTIAL 10/16/2020 2:44 PM right breast (WRVU 10.13) EDT cancer documented in this encounter Results Specimen to Pathology (10/16/2020 4:39 PM EDT) Specimen Anatomical Collection Method Collection Time Receive d Time (Source) Location / / Volume Laterality AP Specimen 10/16/2020 4:39 PM 1 4:39 EDT PM EDT Narrative [facility] [place] 10/16/2020 4:39 PM EDT Specimen requisition ordered. ??Separate Pathology report to follow Mata Mcduffie MD PATHOLOGY/CYTOLOGY ORDERABLE S Performing Organization Address City/[facility]/[place] [address] Specimen to Pathology (10/16/2020 4:25 PM EDT) Specimen Anatomical Collection Method Collection Time Receive d Time (Source) Location / / Volume Laterality AP Specimen 10/16/2020 4:25 PM 1 4:25 EDT PM EDT Narrative [facility] 10/16/2020 4:25 PM EDT Specimen requisition ordered. ??Separate Pathology report to follow Mata Mcduffie MD PATHOLOGY/CYTOLOGY ORDERABLE S Performing Organization Address City/[facility]/[place] [address] Specimen to Pathology (10/16/2020 4:14 PM EDT) Specimen Anatomical Collection Method Collection Time Receive d Time (Source) Location / / Volume Laterality AP Specimen 10/16/2020 4:14 PM 1 4:14 EDT PM EDT Narrative [facility] 10/16/2020 4:14 PM EDT Specimen requisition ordered. ??Separate Pathology report to follow Mata Mcduffie MD PATHOLOGY/CYTOLOGY ORDERABLE S Performing Organization Address City/[facility]/[place] [address] Specimen to Pathology (10/16/2020 4:02 PM EDT) Specimen Anatomical Collection Method Collection Time Receive d Time (Source) Location / / Volume Laterality AP Specimen 10/16/2020 4:02 PM 1 4:02 EDT PM EDT Narrative [facility] [place] 10/16/2020 4:02 PM EDT Specimen requisition ordered. ??Separate Pathology report to follow Mata Mcduffie MD PATHOLOGY/CYTOLOGY ORDERABLE S Performing Organization Address City/[facility]/[place] [address] Specimen to Pathology (10/16/2020 3:57 PM EDT) Specimen Anatomical Collection Method Collection Time Receive d Time (Source) Location / / Volume Laterality AP Specimen 10/16/2020 3:57 PM 3:57 EDT PM EDT Narrative [facility] OR - 10/16/2020 3:57 PM EDT Specimen requisition ordered. ??Separate Pathology report to follow Mata Mcduffie MD PATHOLOGY/CYTOLOGY ORDERABLE S Performing Organization Address City/[facility]/[place] [address] Surgical Pathology Report (10/16/2020 3:14 PM EDT) Component Value Ref Test Analysis Performed At [facility] Range Method Time Signature Surgical [id number] ? Location: [facility] The signing pathologist has (i) examined the relevant preparation(s) for the [facility] specimen(s) and (ii) rendered or confirmed the diagnosis(es) . HOSPITAL LABORATORY . ?Surgic al Pathology DIAGNOSIS A - Right breast, partial mastectomy: ??- No residual invasive or in-situ carcinoma in this ?specimen (see Synoptic Report and Discussion). ??- Biopsy site ??changes ??and clip present. B - Right axillary sentinel lymph node #1, excision: ??- One lymph node negative for malignancy (0/1). C - Right ??axillary sentinel lymph node #2, excision: ??- One lymph node negative for malignancy (0/1). D - ??Right axillary sentinel lymph node #3, excision: ??- One lymph node negative for malignancy (0/1). E - ??Right axillary sentinel lymph node #4, excision: ??- One lymph node negative for malignancy (0/1). F - ??Right breast superficial/cranial margin, excision: ??- Benign breast tissue. Electronically signed by: ?Abigail Duval DO Verified: ??10/24/2020 14:21 ??Pathologist Performed at: ??-[facility] Dept. of Pathology, [place], [place] SYNOPTIC Specimen ? Procedure: ??Excision (less than total mastecto my) ? Specimen Laterality: ??Right Tumor ? Histologic Type: ??Invasive ductal carcinoma ? Glandular (Acinar) / Tubular Differentiation: ? ?Score 1 ? Nuclear Pleomorphism: ??Score 1 ? Mitotic Rate: ??Score 1 ? Overall Grade: ??Grade 1 (scores of 3, 4 or 5) ? Tumor Size: ??4 Millimeters (mm) ? Ductal Carcinoma In Situ (DCIS): ??Not identifi ed ? Lymphovascular Invasion: ??Not identified ? Treatment Effect in the Breast: ??No known pr esurgical therapy Margins ? Invasive Carcin bina Margins: ??Cannot be assessed - No residual invasive ?carcinoma in this specimen Lymph Nodes ? Regional Lymph Nodes: ??Uninvolved by tumor juan ls ?Total Number of Lymph Nodes Examined: ??4 ?Number of [place] Nodes Examined: ??4 Pathologic Stage Classification (pTNM, AJCC 8th Edition) ? Primary Tumor (pT): ??pT1a ? Regional Lymph Nodes Modifier: ??(sn): [place] node(s) evaluated. ? Regional Lymph Nodes (pN): ??pN0 ? [facility] e[facility] April 2019 Annual Release [place], [place], and HER2 studies (performed on prior biopsy, [id number]): . SYNOPTIC [place]: Positive (>90%, strong) [place]: Positive (>90%, strong) HER2 FISH: Negative DISCUSSION The prior biopsy is reviewed ( ??[id number]) ??which shows a 0.4 cm low grade invasive ductal carcinoma. Findings from the prior biopsy are used for staging purposes in the Synoptic Report. SPECIMEN(S) SUBMITTED A - Right Breast Partial Mastectomy, excision (1) B - Right axillary sentinel lymph node #1 C - Right ??axillary sentinel lymph node #2 D - ??Right axillary sentinel lymph node #3 E - ??Right axillary sentinel lymph node #4 F - ??Right breast superficial/cranial margin CLINICAL INFORMATION Right breast cancer SPECIMEN PROCESSING A - Labeled/Fixative: Right breast partial mastectomy, fresh . Quantity/Size/Weight: Single, 6.3 x 5.9 x 1.6 cm ,36 g. SPECIMEN DESCRIPTION Resection Specimen: Intact, partial mastectomy. Specimen radiograph: Radiograph shows bi opsy clip, localized wire, and a small adjacent mammographic density/residual mass. Specimen Description: Accord ing to the established protocol the ink designations are red (medial), yellow (l ateral), orange (superior), green (inferior), black (posterior) and blue (anterior). Tissue Sections: The specimen is serially sectio yeimi perpendicular to the long axis from lateral-yellow to medial-red into IX slices, each averaging 0.4 cm in thickness. LESION ??Description: 2.9 x 2.8 x 2.5 cm hemorrhagic biopsy site. A discrete mass is not appreciated grossly. ??Location: I through VII. ??Nearest Margin(s): Less than 0.1 cm, posterior-black. ??Other Margin(s): Less than 0.1 cm, anterior ?-blue. ??Other Margin(s): Less than 0.1 cm, inferior-green. ??Other Margin(s): Less than 0.1 cm, lateral-yellow. ??Other Margin(s): 1.0 cm, superior-orange. ??Other Margin(s): To 0.8 cm, medial-red. ??Wire/clip: Wire present in slice clip identified in sl ice V Other: By 1.0 x 0.8 area of hemorrhage is located directly adjacent to the mass and slices I through IV Parenchyma: Yellow orange fibroadipose tissue Sections/Processing: Consumer Experience Consultant sections in 6 cassettes as follows: ?A1: ??Slice I, lesion, labor service representative, closest lateral /yellow margin ?A2: ??Slice II lesion, labor service representative, closest posterior/black and inferior/green ? margins ?A3: ??Slice III, lesion, labor service representative, closest ant erior/glue margin ?A4: ??Slice III, lesion, labor service representative, area of hemor rhage ?A5: ??Slice V, lesion, labor service representative, area of hemorrhage and adjacent mass ?A6: ??Slice IX, no lesion, labor service representative ?A7-A8: IV, lesion, labor service representative ?A9-A10: Slice V, lesion, labor service representative ?A11-A12:Slice , lesion, labor service representative ?A12-A14: Slice VII, lesion, labor service representative ?A15-A16: Slice VIII, lesion, bisected and submitted en tirely Ischemic Time: 2.0 hours . SPECIMEN PROCESSING B - Labeled/Fixative: Right axillary sentinel lymph node #1, fresh. Quantity/Size: Single, 3.0 x 2.0 x 0.6 cm. Tissue Description: Fatty ti ssue containing a single lymph node. Lymph node measures 2.0 x 1.0 x 0.5 cm Sections/Processing: Lymph node submitted whole in 1 cassette labeled B1. C - Labeled/Fixative: Right axillary sentinel lymph node #2, fresh. Quantity/Size: Single, 3.0 x 1.2 x 0.9 cm. Tissue Description: [place] lymph node with attached orange-yellow adipose tissue Sections/Processing: Serially sectioned and entirely submitted in 2 cassettes lab eled C1-C2. D - Labeled/Fixative: Right axillary sentinel lymph node #3, fresh. Quantity/Size: Single, 2.8 x 1.7 x 1.0 cm. Tissue Description: [place] lymph node with attached orange-yellow adipose tissue Sections/Processing: Submitted en toto in 3 cassettes labeled D1-D3. E - Labeled/Fixative: Right axillary sentinel lymph node #4, fresh. Quantity/Size: Single, 2.2 x 1.0 x 0.4 cm. Tissue Description: Red-pink lymph node and attached orange-yellow adipose tissue Sections/Processing: Submitted en toto in 2 cassettes labeled E1-E2. F - Labeled/Fixative: Right breast superficial/cranial macey n, fresh. Quantity/Size: Single, 3.2 x 1.8 x 0.8 cm. Tissue Description: Small pi brian of yellow-orange fibroadipose tissue with blue orange and red inked surfaces. No grossly apparent lesions or defects present on outer cut surfaces. Sections/Processing: Serially sectioned perpendic ular to long axis and submitted entirely in 6 cassettes labeled F1-F6. ??baa Specimen (Source) Anatomical Collection Method Collection Time Re ceived Time Location / / Volume Laterality 10/16/2020 3:14 PM EDT Mata Mcduffie MD PATHOLOGY/CYTOLOGY ORDERABLE S Performing Organization Address City/State/[place] [address] Specimen to Pathology (10/16/2020 3:14 PM EDT) Specimen Anatomical Collection Method Collection Time Receive d Time (Source) Location / / Volume Laterality AP Specimen 10/16/2020 3:14 PM 3:14 EDT PM EDT Narrative [facility] - 10/16/2020 3:14 PM EDT Specimen requisition ordered. ??Separate Pathology report to follow Mata Mcduffie MD PATHOLOGY/CYTOLOGY ORDERABLE S Performing Organization Address City/[facility]/ZIP [facility] [place] [address] documented in this encounter Visit Diagnoses Not on filedocumented in this encounter Administered Medications Inactive Administered Medications - up to 3 most recent administrations Medication Order MAR Action Action Date Dose Rate Site acetaminophen (Tylenol) tablet Given 10/16/2020 5:47 PM EDT 1,00 0 mg 1,000 mg 1,000 mg, Oral, ONCE, 1 dose, On Susanne 10/16/20 at 1800, Maximum dose of acetaminophen is 4000 mg from all sources in 24 hours. When ordered for pain, acetaminophen should be given even when other ordered pain medications are indicated. , Routine acetaminophen (Tylenol) tablet 650 mg Given 10/16/2020 12:01 PM EDT 650 mg 650 mg, Oral, ONCE, 1 dose, On Susanne 10/16/20 at 1215, Maximum dose of acetaminophen is 4000 mg from all sources in 24 hours. When ordered for pain, acetaminophen should be given even when other ordered pain medications are indicated. , Day of Surgery (Day of Procedure), Routine oxyCODONE (Roxicodone) tablet 2.5 mg Given 10/16/2020 5:47 PM EDT 2.5 mg 2.5 mg, Oral, EVERY 4 HOURS PRN, Starting on Susanne 10/16/20 at 1741, Until Susanne 10/16/20 at 2014, Pain, Routine documented in this encounter Active and Recently Administered Medications Times are shown in EDT. Scheduled Medication Order 10/14/2020 10/15/2020 10/16/2020 acetaminophen (Tylenol) tablet 1,000 mg (COMPLETED) 1747 (Given - Provider: Terrence Jimenez RN) 1,000 mg, Oral, ONCE, 1 dose, On Susanne 10/05 04/27 at 1800, Maximum dose of acetaminophen is 4000 mg from all sources in 24 hours. When ordered for pain, acetaminophen should be given even when other ordered pain medications are indicated. , Routine acetaminophen (Tylenol) tablet 650 mg (COMPLETED) 1201 (Given - Provider: Edelmira Miranda RN) 650 mg, Oral, ONCE, 1 dose, On Susanne at 1215, Maximum dose of acetaminophen is 4000 mg from all sources in 24 hours. When ordered for pain, acetaminophen should be given even when other ordered pa in medications are indicated. , Day of Surgery (Day of Procedure ), Routine ceFAZolin (Ancef) 2 g in dextrose 5% 100 mL infusion (COMPLETED) 1452 (Given - Provider: Lelo Hill CRNA) 2 g, Intravenous, EVERY 3 HOURS, 1 dose, First dose on Susanne 10/16/20 at 1215, Administer over 30 Minutes, Intra-Operative (Intra-Procedure), Indication for (Active or Suspected): Prophylaxis Continuous Medication Order 10/14/2020 10/15/2020 10/16/2020 lactated ringers infusion (CANCELED) 1445 (New Bag - Provider: Lelo Hill CRNA)1650 (Anesthesia Volume Adjustment - Provider: Lelo Hill CRNA) 1,000 mL, at 100 mL/hr, Intravenous, CON TINUOUS, Starting on Susanne 10/16/20 at 1215, Until Susanne 10/16/20 at 1808, Day of Surgery (Day of Procedure) PRN Medication Order 10/14/2020 10/15/2020 10/16/2020 BUpivacaine (pf) (Marcaine) (5 mg/mL) 0.5% injection (CANCELED) 151 (Given - Provider: Mata Mcduffie MD - Comment: 0.5% Bupivacaine plain mixed 1:1 with 1% Lidocaine plain, 3 ml total given)1542 (Given - Provider: Mata Mcduffie MD - Comment: 0.5% Bupivacaine plain mixed 1:1 with 1% Lido ONCE PRN, Starting on Susanne 10/16/20 at 151 1, Until Susanne 10/16/20 at 2013, Intra- Operative (Intra-Procedure), Routine joanne ne plain, 5 ml total given) lidocaine (pf) (Xylocaine) (10 mg/mL) 1% injection (CANCELED) 151 (Given - Provider: Mata Mcduffie MD - Comment: 0.5% Bupivacaine plain mixed 1:1 with 1% Lidocaine plain, 3 ml total given)1542 (Given - Provider: Mata Mcduffie MD - Comment: 0.5% Bupivacaine plain mixed 1:1 with 1% Lido ONCE PRN, Starting on Susanne 10/16/20 at 151 1, Until Susanne 10/16/20 at 2013, Intra- Operative (Intra-Procedure), Routine joanne ne plain, 5 ml total given) oxyCODONE (Roxicodone) tablet 2.5 mg 174 (Given - Provider: Terrence Jimenez RN) 2.5 mg, Oral, EVERY 4 HOURS PRN, Startin g on Susanne 10/16/20 at 1741, Until Susanne 10/16/20 at 2013, Pain, Routine documented in this encounter Care Teams Braille Duplicating Machine Operator Relationship Specialty Start Date End Date Annita Quiñones APRN PCP - General 01/09/14 [address] [place] [address] documented as of this encounter
--- OUTSIDE RECORDS SUMMARY | 2021-09-23 00:47 | XMS_ITS | Encounter Summary ---
:1965 Author Organization [facility] [address] Care Team Providers Name Role Phone Annita Quiñones AMARIS Primary Care Provider [phone] Encounter Details Date Type Department Care Team Description 10/28/2020 Telephone General Surgery at [facility] Kecia Khan, [place] [address] Social History Tobacco Use Types Packs/Day [...] place to sleep or slept in a longterm (including now)? Sex Assigned at Date Recorded Not on file documented as of this encounter Miscellaneous Notes Telephone Encounter - Kecia Kahn RN - 10/28/2020 11:31 AM EDT Nursing Triage - Phone Note CALLER: Kayce Mcdonnell RN CHIEF COMPLAINT: swelling SUBJECTIVE- I am having some swelling where my lymph nodes were removed the size of a golf ball PERTINENT PAST SURGICAL HISTORY: Case Date: 10/16/2020 ?? Surgeon: Surgeon(s) and Role: * Mata Mcduffie MD - Primary * Lisset Quezada MD - Resident ?? Preoperative diagnosis: right breast cancer ?? Postoperative diagnosis: right breast cancer ?? Procedure(s) (LRB): MASTECTOMY PARTIAL (WRVU 10.13) (Right) BIOPSY OR EXCISION OF LYMPH NODE(S), OPEN, DEEP AXILLARY NODE(S) (WRVU 6.43) (Right) INTRAOPERATIVE ID (MAPPING) SENTINEL LYMPH NODE,INCLUDES INJECTION (WRVU 2.5) (Right) MODIFIER WITH NEEDLE LOC., LESION #1 (Right) MODIFIER SENTINEL NODE EXCISION (Right) ? Anesthesia: General ?? Estimated Blood Loss: 5 mL ?? NURSING ASSESSMENT: Called and spoke with Cheyenne. She states that on Tuesday night she started to develop some swelling in her right axilla where lymph nodes were removed. She denies fevers,SOB, chest pain,chills or nausea. She notes some mild redness around the are and it is the size of a baseball. She has some mild redness around her incision. No discharge and her pain is low and manageable. She says otherwise her incision looks well. INTERVENTION/PLAN/ FOLLOW UP: I asked Cheyenne if she would be willing to come into for evaluation today or tomorrow and she is unable to to due to work. I asked her to send us a photo of the area and to apply warm compresses's for 15 minutes at a time. I instructed her to go to the ED if she develops fever, chills, nausea, increasing pain and redness in the area. She agrees to this plan. Patient able to verbalize teaching plan: Y Patient able to verbalize worsening symptom plan: Y Resource in decision making: PCP: Annita Quiñones APRN documented in this encounter Plan of Treatment Not on filedocumented as of this encounter Visit Diagnoses Not on filedocumented in this encounter Care Teams Admissions Specialist Relationship Specialty Start Date End Date Annita Quiñones APRN PCP - General 01/09/14 [address] [place] [address] documented as of this encounter
--- OUTSIDE RECORDS SUMMARY | 2021-09-23 00:47 | XMS_ITS | Encounter Summary ---
:1965 Author Organization [facility] [place] [address] Care Team Providers Name Role Phone Annita Quiñones AMARIS Primary Care Provider [phone] Encounter Details Date Type Department Care Team Description 09/05/2020 Hospital Encounter Mammography at [facility] Jonathan Abnormal finding on [facility] , MD Katharina breast imaging [facility] [id number] DIAGNOSTIC [phone] [place] [address] Social History Tobacco Use Types Packs/Day Years [...] Priority Date/Time Associated Diagnosis Comme nts MAMMO US BIOPSY Routine 09/05/2020 2:47 PM Abnormal finding on Results for this RIGHT EDT breast imaging procedure are in the results section. SURGICAL PATHOLOGY Routine 09/05/2020 2:40 PM Res ults for this REPORT EDT procedure are i n the results section. SPECIMEN TO Routine 09/05/2020 2:40 PM Results f or this PATHOLOGY EDT procedure are i n the results section. documented in this encounter Results Mammo Us Biopsy Right (09/05/2020 2:47 PM EDT) Anatomical Region Laterality Modality Breast Right Mammography Specimen (Source) Anatomical Location Collection Method / Collectio n Time Received Time / Laterality Volume Impressions 09/09/2020 10:52 AM EDT Concordant malignant result RECOMMENDATION: Definitive [...] who have questions please contact the health plant health care technician that requested your imaging first. ? Narrative 09/09/2020 10:52 AM EDT RIGHT BREAST ULTRASOUND GUIDED AUTOMATED [...] obtained using a 14-gauge automated device. A [employer] [place] 14G marker clip was jonathan vito. The [...] ductal carcinoma PATHOLOGIC DIAGNOSIS: Invasive ductal carcinoma Katharina Castillo MD Radha MAMMO ORDERABLES Surgical Pathology Report (09/05/2020 2:40 PM EDT) Component Value Ref Test Analysis Performed At [facility] Range Method Time Signature Surgical [id number] ? Location: [address] [place] [address] Pathology IDAMAY Report The signing pathologist has (i) examined the relevant preparation(s) for the [facility] specimen(s) and (ii) rendered or confirmed the diagnosis(es) . HOSPITAL LAB[facility]ORY . ?[facility] [employer] RESULTS TEST: HER2 (ERBB2) FISH and Immunohistochemistry (IHC), Felipa zavaleta (A1) Immunohistochemistry Studies HER2 immunoreactivity: Negative (score 1+) FISH Studies: METHOD: Fluorescence in situ hybridization (FISH) with chromosome 17 centromere (17p11.1-q11.1) probe and a locus specific probe for the HER2 gene locus (17q11.2- q12). SAMPLE ANALYZED: A1-6 RESULT: ?NEGATIVE FOR HER2/ZOË AMPLIFICATION ? TOTAL # SIGNALS/TOTAL # NUCLEI COUNTED FOR H ER2 PROBE = 81 ? TOTAL # SIGNALS/TOTAL # NUCLEI COUNTED FOR CEP-17 PROBE = 79 ? HER2 TO CEP- 17 RATIO = 1.0 ?(NORMAL RANGE <2.0) ? TOTAL # NUCLEI COUNTED = 40 ? AVERAGE # HER2 signals/cell = 2.0 Interpretation: ??Paraffin-embedded tissue sections were s ubmitted for HER2 (ERBB2) gene amplification analysis by FISH. ??Direct analysis was performed using the Path[employer] The[employer]ion Kit. ??Slide adequacy and signal enumeration were evaluated and satisfactory for both contr ol and patient slides. ??A signal ratio derived from the HER2 probe and the CEP-17 c entromere probe of ?2.0 is considered positive for HER2 gene amplification. The 2013 ASCO/CAP guideline recommendation for HER2 testing in breast cancer states that samples with a HER2 to CEP-17 ratio of les s than 2.0 are non-amplified. Specimens with a HER2 to CE P-17 range of ?2.0 are considered amplified. This test is approved by the U.S. FDA for clinical diagnosti c use. Reference: Delma HASSAN, et al. Recommendations for human epidermal growth factor receptor 2 testing in breas t cancer: [place] Society of Clinical Oncology/College of [employer] Pathologists cl inical practice guideline update. J Clin Oncol. 2013 Jan 05. Delma HASSAN et al. Human Epide rmal Growth Factor Receptor 2 Testing in Breast Cancer: [place] Society of Clinica l Oncology/College of [employer] Pathologists Clinical Practice Guideline Focused Update. Arch Pathol Lab Med. 2018 August 03/J Clin Oncol. 2017August 03. . RESULTS ? *Diagnostic linton for hormone receptors (ASCO/CAP GUIDELINES, 2020): ?Negative immunoreactivity: <1% tumor cells with immuno staining ?Positive immunoreactivity: >=1% tumor cells with immun ostaining ??Low Positive: 1-10% tumor cells with immunostaining* *There are limited data on t he overall benefit of endocrine therapies for patients with low level (1-10%) ER e xpression, but they currently suggest possible benefit, so patients are considered eligible for endocrine treatment. There are data that suggest invasive cancers wi th these results are heterogeneous in both behavior and biology and often have gene expression profiles more similar to ER-negative cancers. [id number] Overexpression Assessment ?------- ?----- Interpretation ?Score ?Criteria ?------- ?----- Negative ?(0) ?No staining observe d or membrane ? staining that is incomplete and is ? faint/barely perceptible and within ?10% ? of tumor cells Negative ?(1+) ? Incomplete mem brane staining that is ? faint/barely perceptible and within >10% ? of tumor cells Equivocal ? (2+ ) ? Weak to moderate complete membrane staining ? observed within >10% of tumor cells Positive ?(3+) ? Circumferential membrane staining that ? is complete, intense, and within >10% of ? tumor cells Diagnostic categories have b een adjusted to reflect treatment guidelines (ASCO/CAP guidelines 2018) Immunohistochemical assays w ere performed on paraffin-embedded tissue sections fixed in 10% neutral buffered for branden for 6-72 hours using the polymer system technique with appropriate positive a nd negative controls. The assays were performed according to the crop roller ' s ins tructions using Anti-ER (SP1), Anti-NE (16), and Anti-HER2 (4B5) antibodies. These tests were developed and their per formance characteristics determined by [facility]. They may not have been cleared or approved by the US Food and Drug Adm inistration. The FDA does not require such tests to go through premarket FDA revie w. These tests are used for clinical purposes and should not be regarded as investig ational or for research. This laboratory is certified under the Clinical Laborato ry Improvement Amendments (CLIA) as qualified to perform high complexity clinical laboratory testing. Reviewed by: Michael Cerna MD Electronically signed by: ?Eryn MARINELLI, Michael Perez Verified: ??09/16/2020 9:20 ?? Pathologist Performed at: ??-[facility] Dept. of Pathology, [place], [place] ? Addendum ADDENDUM DISCUSSION Immunohistochemistry Studies Specimen: Right breast, core needle biopsy (A1) . ADDENDUM DISCUSSION ER immunoreactivity: Positive (>90% cancer cells with immuno staining) Stain intensity: Strong NE immunoreactivity: Positive (>90% cancer cells with immuno staining) Stain intensity: Strong HER2 FISH: separate report to follow ? *Diagnostic linton for hormone receptors (ASCO/CAP GUIDELINES, 2020): ?Negative immunoreactivity: <1% tumor cells with immuno staining ?Positive immunoreactivity: >=1% tumor cells with immun ostaining ??Low Positive: 1-10% tumor cells with immunostaining* *There are limited data on t he overall benefit of endocrine therapies for patients with low level (1-10%) ER e xpression, but they currently suggest possible benefit, so patients are considered eligible for endocrine treatment. There are data that suggest invasive cancers wi th these results are heterogeneous in both behavior and biology and often have gene expression profiles more similar to ER-negative cancers. Immunohistochemical assays w ere performed on paraffin-embedded tissue sections fixed in 10% neutral buffered for branden for 6-72 hours using the polymer system technique with appropriate controls. The assays were performed according to the crop roller ? 's instructions using Anti-ER (SP1) and Anti-NE (16) antibodie s. These tests were developed and their per formance characteristics determined by [facility]. They may not have been cleared or approved by the US Food and Drug Adm inistration. The FDA does not require such tests to go through premarket FDA revie w. These tests are used for clinical purposes and should not be regarded as investig ational or for research. This laboratory is certified under the Clinical Laborato ry Improvement Amendments (CLIA) as qualified to perform high complexity clinical laboratory testing. Electronically signed by: ?Eryn MARINELLI, Michael Perez Verified: ??09/10/2020 9:58 ?? Pathologist Performed at: ??-[facility] Dept. of Pathology, [place], [place] ?Surgic al Pathology DIAGNOSIS Needle biopsies: ?Right breast Diagnosis: ?- Invasive ductal carcinoma ? 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 of Pathology, [place], [place] DISCUSSION Studies for ER, NE, and HER2 have been ordered; result s will be issued in an addendum. SPECIMEN(S) SUBMITTED A - Right breast needle core biopsy CLINICAL INFORMATION Mass 1. IDC 2. ILC . SPECIMEN PROCESSING A - Labeled/Fixative: Right breast needle core biopsy, forma elina. Quantity/Size: Three, 0.6-1.0 x 0.2 x 0.2 cm Tissue Description: Yellow-white fibrofatty needle core biop sies. Sections/Processing: Entirely submitted in 1 cassette labele d A1. Ischemic Time: 3 minutes ??sona Specimen (Source) Anatomical Collection Method Collection Time Re ceived Time Location / / Volume Laterality 09/05/2020 2:40 PM EDT Adry Loving MD PATHOLOGY/CYTOLOGY ORDERABLE S Performing Organization Address City/State/[place] [address] Specimen to Pathology (09/05/2020 2:40 PM EDT) Specimen Anatomical Collection Method Collection Time Receive d Time (Source) Location / / Volume Laterality AP Specimen 09/05/2020 2:40 PM 2:40 EDT PM EDT Narrative [facility] - 09/05/2020 2:40 PM EDT Specimen requisition ordered. ??Separate Pathology report to follow Adry Loving MD PATHOLOGY/CYTOLOGY ORDERABLE S Performing Organization Address City/[facility]/[place] [address] documented in this encounter Visit Diagnoses Diagnosis Abnormal finding on breast imaging Other (abnormal) findings on radiologica l examination of breast documented in this encounter Administered Medications Inactive Administered Medications - up to 3 most recent administrations Medication Order MAR Action Action Date Dose Rate Site lidocaine (Xylocaine) 1% (10 mg/mL) Given 09/05/2020 2:30 PM EDT 10 mg injection 10 mg 10 mg, Intradermal, ONCE, 1 dose, On Tue09/05/20 at 1500, Routine documented in this encounter Care Teams Sociology Adjunct Instructor Relationship Specialty Start Date End Date Annita Quiñones APRN PCP - General 01/09/14 [address] [place] [address] documented as of this encounter
--- OUTSIDE RECORDS SUMMARY | 2021-09-23 00:47 | XMS_ITS | Encounter Summary ---
:1965 [place] [address] Care Team Providers Name Role Phone Annita Quiñones AMARIS Primary Care Provider [phone] Reason for Visit Auth/Cert Specialty Diagnoses / Procedures Referred By Contact Refer red To Contact Diagnoses ovarian mass Procedures PRO LAP, RMV ADNEXAL STRUCTURE LAPAROSCOPY, REMOVAL OF ADNEXA (WRVU 11.35) Referral ID Status Reason Start Date Expiration Date Visits Requ ested Visits Authorized [id number] 1 1 Encounter Details Date Type Department Care Team Description 11/01/2018 Anesthesia Event Main Operating Room Gualberto Sinclair MD [facility] [place] [address] [place] [address] [phone] Anesthesia Record Procedure Summary Procedure Name Responsible Anesthesia Start Anesthesia Stop Time Anesthesiologist Time Chad ALVAREZ Kiran, MD 11/01/18 0942 11/01/18 1 142 REMOVAL OF ADNEXA (WRVU 11.35) (N/A Uterus) Events Date Time Event Comment 11/01/2018 0825 0942 AN Verify 0942 Start 0942 An Start Data 0943 An Induction 0955 An Intubation 0956 Anesthesia Ready 0957 Quick Note OG placed for de compression, D/C at end of case 0958 Quick Note NO antibiotics p er surgical team 1129 Extubation/LMA Out Extubation cr iteria met. Extubated to O2 1130 an stop data 1142 Recovery or ICU Handoff Patient care was transferred to the destination unit staff after review of the patient's medica l history, current anesthetic/surgi francisco javier status and plan, according to the Provider Handoff Checklist. 1142 Stop Name Total Midazolam 2 mg fentaNYL 200 mcg IV Lidocaine 60 mg Propofol 200 mg Rocuronium 50 mg Ondansetron 4 mg Dexamethasone 4 mg Neostigmine 3 mg Glycopyrrolate 0.6 mg Ketorolac 30 mg lactated ringers infusion 400 mL Agents Name O2 Air N2O Sevoflurane (et) Blood No blood administrations on file. Lines, Drains, and Airways Type Details Placement Removal Incision 11/01/18; 1013; abdomen; 11/01/18 1013 by laparoscopic puncture; Wendy Valles, multiple trocar sites to RN abdomen PIV 11/01/18; 0844; median 11/01/18 0844 by 11/01/18 1319 by cubital vein (antecubital Kathy Hackett RN O lsonShanon RN fossa), left; [id number] catheter system; 20 gauge, 1 in length; distraction, tolerated well, appears comfortable; no longer indicated; 11/01/18; 1319 ETT Mask Ventilation: Easy 11/01/18 0955 by 11/01/18 1129 by (1); ETT Type: Cuffed, Laura Wang Marshal l, Laura, Oral; ETT Size: 7 mm; CREW CAR DRIVER CREW CAR DRIVER Arriaga Blade: 2; Notes: Asleep, Stylette; Attempts: 1; Laryngoscopy Grade: 1; ETT Placement Verified By: Auscultation, Capnometry, Visual; Secured at Teeth: 22 cm; Inserted by: CREW CAR DRIVER PIV 11/01/18; 0957; metacarpal 11/01/18 0957 by 10/06 10/23 1319 by vein (top of hand), right; Laura Wang Ols onShanon, RN 18 gauge; no longer CREW CAR DRIVER indicated; 11/01/18; 1319 Urethral Catheter 11/01/18; 1012; Need for 11/01/18 1012 by 10/06 10/23 1112 by intraoperative urine Wendy Valles, Alie Busch output monitoring; RN E, RN Physician order; indwelling double lumen coude tip catheter; latex, silicone coated; 14; inserted at this facility; 1; 10; 1; none; drainage bag to dependent drainage; urethral catheter removed; inserted on sterile field by Debbie Cho MD ; 11/01/18; 1112 documented in this encounter Social History Tobacco Use Types Packs/Day Years [...] on file documented as of this encounter OR Notes Anesthesia Postprocedure Evaluation - Gualberto Bonilla MD - 11/01/2018 3:44 PM EDT Department of Anesthesiology Post-procedure Note Patient: Kayce Posadas Procedure Summary Date: 11/01/18 Room / Location: [facility] OR [address] [place] [address] MAIN OR Anesthesia Start: 941 Anesthesia Stop: 1142 Procedure: LAPAROSCOPY, REMOVAL OF ADNEXA (WRVU 11.35) (N/A Uterus) Diagnosis: Adnexal mass (ovarian mass) Surgeon: Neva Mercer MD Responsible Provider: Gualberto Bonilla MD Anesthesia Type: general ASA Status: 2 All Anesthesia Providers: Anesthesiologist: Gualberto Bonilla MD CREW CAR DRIVER: Laura Wang CRNA Vitals Value Taken Time BP 135/75 11/01/2018 1:15 PM Temp Pulse 70 11/01/2018 12:00 PM Resp 16 11/01/2018 1:15 PM SpO2 98 % 11/01/2018 1:15 PM Pain Level 3 11/01/2018 1:30 PM Patient Location: PACU/[facility] Level of Consciousness: Awake and Alert Pain Management: Satisfactory Analgesia PONV: None Cardiovascular Status: At Baseline and Hemodynamically Stable Respiratory Status: At Baseline and Room Air Postoperative Fluid Status: Intravascular EUvolemia Possible Anesthetic Complications: NONE apparent at time of evaluation Final Primary Anesthesia Type: General (The anesthetic type performed was the same as planned.) Comments: Some itching from IV pain medications, PO benadryl ordered. Gualberto Bonilla MD Anesthesia Preprocedure Evaluation - Gualberto Bonilla MD - 10/31/2018 5:34 PM EDT Images from the original note were not included. Pre-Anesthesia Evaluation for: Kayce Keyquette a 53 y.o. female. Procedure(s): LAPAROSCOPY, REMOVAL OF ADNEXA (WRVU 11.35) Patient Active Problem List Diagnosis ??? Spondylosis of lumbar region without myelopathy or radiculopathy ??? Peroneal tendonitis ??? Left foot pain ??? Asthma ??? Superficial peroneal nerve neuropathy Past Medical History: Diagnosis Date ??? Allergic state ??? Anxiety ??? Asthma ??? Depression ??? Headache(784.0) ??? Spondylosis of lumbar region without myelopathy or radiculopathy 01/22/2015 Past Surgical History: Procedure Laterality Date ??? HYSTERECTOMY ??? LAPAROSCOPY diagnostic, lysis of adhesions Social History Tobacco Use ??? Smoking status: Current Every Day Smoker Packs/day: 0.50 Years: 25.00 Pack years: 12.50 Types: Cigarettes ??? Smokeless tobacco: Never Used Substance Use Topics ??? Alcohol use: Yes Alcohol/week: 5.0 standard drinks Types: 5 Cans of beer per week Social History Substance and Sexual Activity Drug Use No Allergies Allergen Reactions ??? Percocet [Oxycodone-Acetaminophen] Itching ??? Sulfa (Sulfonamide Antibiotics) Itching Medications: MAR and/or home medications have been reviewed. Physical Exam: There were no vitals filed for this visit. There is no height or weight on file to calculate BMI. Airway Assessment: Mallampati: II TM distance: >3 FB Neck ROM: full Cardiovascular Assessment: Rhythm: regular Rate: normal Pulmonary Assessment: breath sounds clear to auscultation Dental Assessment: Misc Assessment: Patient is wearing No contact(s). IV access: Peripheral line Anesthesia Plan: ASA 2 general, with a(n) intravenous induction Kayce Posadas is a 53 y.o. 67 kg female presenting for laparoscopy and removal of RIGHT adnexa. Pt has a PMH of asthma (mild intermittent), current 1 pk/d smoker, GERD (well- controlled on PPI), and depression. Symptomatic right adnexal cyst recently found. Anesthetic History: No prior anesthetic documentation available. Labs were reviewed. Type and Screen: No results found for: ABORH Allergies: -- Percocet (Oxycodone-Acetaminophen) -- Itching -- Sulfa (Sulfonamide Antibiotics) -- Itching NPO Status: Appropriate Anesthetic Plan: GA with ETT Standard ASA monitoring Adequate IV access Gualberto Bonilla MD PhD #[id number] Region - Other Informed Consent: Anesthetic plan and risks discussed with patient. Plan discussed with CREW CAR DRIVER. PAT Clinic Note documented in this encounter Plan of Treatment Not on filedocumented as of this encounter Visit Diagnoses Not on filedocumented in this encounter Administered Medications Inactive Administered Medications - up to 3 most recent administrations Medication Order MAR Action Action Date Dose Rate Site dexamethasone (DECADRON) injection Given 11/01/2018 10:01 AM EDT 4 mg PRN, Starting on Tue11/01/18 at 1001, Until Tue11/01/18 at 1142, Anesthesia Intra-op, Routine fentaNYL 50 mcg/mL multi-dose injection Given 11/01/2018 11:32 AM EDT 50 mcg PRN, Starting on Tue11/01/18 at 0945, Until Tue11/01/18 at 1142, Anesthesia Intra-op, Routine Given 11/01/2018 10:21 AM EDT 50 mcg Given 11/01/2018 9:45 AM EDT 100 mcg glycopyrrolate (ROBINUL) multi-dose Given 11/01/2018 11:13 AM ED T 0.6 mg injection PRN, Starting on Tue11/01/18 at 1113, Until Tue11/01/18 at 1142, Anesthesia Intra-op, Routine ketorolac (TORADOL) injection Given 11/01/2018 11:15 AM EDT 30 mg PRN, Starting on Tue11/01/18 at 1115, Until Tue11/01/18 at 1142, Anesthesia Intra-op, Routine lactated ringers infusion New Bag 11/01/2018 9:11 AM EDT 1,000 mL, at 100 mL/hr, Intravenous, CONTINUOUS, Starting on Tue11/01/18 at 0815, Until Tue11/01/18 at 1341, Day of Surgery (Day of Procedure) New Bag 11/01/2018 8:45 AM EDT 1,000 mLs 100 mL/hr lidocaine (PF) (XYLOCAINE) 100 mg/5 mL (2 %) Given 9 9:51 AM EDT 60 mg injection PRN, Starting on Tue11/01/18 at 0951, Until Tue11/01/18 at 1142, Anesthesia Intra-op, Routine midazolam (PF) (VERSED) multi-dose injec tion Given 11/01/2018 9:37 AM EDT 2 mg PRN, Starting on Tue11/01/18 at 0937, Until Tue11/01/18 at 1142, Anesthesia Intra-op, Routine neostigmine (BLOXIVERZ) injection Given 11/01/2018 11:13 AM EDT 3 mg PRN, Starting on Tue11/01/18 at 1113, Until Tue11/01/18 at 1142, Anesthesia Intra-op, Routine ondansetron (ZOFRAN) injection Given 11/01/2018 10:01 AM EDT 4 mg PRN, Starting on Tue11/01/18 at 1001, Until Tue11/01/18 at 1142, Anesthesia Intra-op, Routine propofol (DIPRIVAN) 10 mg/mL bolus injection Given 9:51 AM EDT 200 mg (Anesthesia) PRN, Starting on Tue11/01/18 at 0951, Until Tue11/01/18 at 1142, Anesthesia Intra-op rocuronium (ZEMURON) multi-dose injectio n Given 11/01/2018 9:51 AM EDT 50 mg PRN, Starting on Tue11/01/18 at 0951, Until Tue11/01/18 at 1142, Anesthesia Intra-op, Routine documented in this encounter Care Teams Wheel Alignment Technician Relationship Specialty Start Date End Date Annita Quiñones, MUSCULOSKELETAL PHYSIOTHERAPIST PCP - General 01/09/14 [address] [place] [address] documented as of this encounter
--- OUTSIDE RECORDS SUMMARY | 2021-09-23 00:47 | XMS_ITS | Encounter Summary ---
:1965 Author Organization [facility] [place] [address] Care Team Providers Name Role Phone Annita Quiñones APRN Primary Care Provider [phone] Encounter Details Date Type Department Care Team Description 08/07/2020 Ancillary Procedure Radiology Library Annita Quiñones Canceled (D-SCHED at [facility] ERROR / CORRECTION ) [facility] [address] [place] [phone] Social History Tobacco Use Types Packs/Day Years [...] place to sleep or slept in a nursing home (including now)? Sex Assigned at Date Recorded Not on file documented as of this encounter Plan of Treatment Not on filedocumented as of this encounter Visit Diagnoses Not on filedocumented in this encounter Care Teams Master Fisher Relationship Specialty Start Date End Date Annita Quiñones APRN PCP - General 01/09/14 [address] [place] [address] documented as of this encounter
--- OUTSIDE RECORDS SUMMARY | 2021-09-23 00:47 | XMS_ITS | Encounter Summary ---
:1965 Author Organization [facility] Address [facility] [place] [address] Care Team Providers Name Role Phone Annita Quiñones AMARIS Primary Care Provider [phone] Encounter Details Date Type Department Care Team Description 09/05/2020 Notes Only Radiology at [facility] Audra Thomas MD [facility], [place] [address] DIAGNOSTIC RADIOLOGY [phone] [place] [id number] (Wo rk) Social History Tobacco Use Types [...] place to sleep or slept in a fci (including now)? Sex Assigned at Date Recorded Not on file documented as of this encounter Progress Notes Audra Thomas MD - 09/05/2020 9:29 AM EDT Pre-procedure note for needle breast biopsies performed in radiology. Procedure date: Today Procedure type: right breast ultrasound guided biopsy Allergies: Percocet [oxycodone-acetaminophen] and Sulfa (sulfonamide antibiotics) Medications: Current Outpatient Medications: ??? oxyCODONE (ROXICODONE) 5 mg Tablet, Take 1 tablet by mouth every 4 hours as needed for Pain., Disp: 10 tablet, Rfl: 0 ??? oxyCODONE (ROXICODONE) 5 mg Tablet, Take 1 tablet by mouth every 4 hours as needed for Pain., Disp: 10 tablet, Rfl: 0 ??? ibuprofen (ADVIL;MOTRIN) 600 mg Tablet, Take 1 tablet by mouth every 6 hours as needed for Pain., Disp: , Rfl: ??? acetaminophen (TYLENOL) 325 mg Tablet, Take 2 tablets by mouth every 6 hours as needed for Pain., Disp: 30 tablet, Rfl: 1 ??? omeprazole (PRILOSEC) 20 mg Capsule, Delayed Release(E.C.), TAKE ONE CAPSULE BY MOUTH EVERY DAY,Disp: , Rfl: 3 ??? ranitidine (ZANTAC) 150 mg Tablet, TAKE ONE TABLET BY MOUTH EVERY DAY, Disp: , Rfl: 3 ??? venlafaxine (EFFEXOR-XR) 75 mg Capsule, Sust. Release 24 hr, , Disp: , Rfl: ??? loratadine (CLARITIN) 10 mg Tablet, , Disp: , Rfl: ??? albuterol (PROVENTIL HFA;VENTOLIN HFA) 90 mcg/actuation HFA Aerosol Inhaler, Inhale 2 puffs intothe lungs every 4 hours as needed. Use with spacer, Disp: , Rfl: Anticoagulation status: none stopped on: N/A Imaging reviewed and procedural plan approved by Dr. AUDRA THOMAS MD documented in this encounter Plan of Treatment Not on filedocumented as of this encounter Visit Diagnoses Not on filedocumented in this encounter Care Teams Inbound Telemarketer Relationship Specialty Start Date End Date Annita Quiñones APRN PCP - General 01/09/14 [address] [place] [address] documented as of this encounter
--- OUTSIDE RECORDS SUMMARY | 2021-09-23 00:47 | XMS_ITS | Encounter Summary ---
:1965 Author Organization [facility] [place] [address] Care Team Providers Name Role Phone Annita Quiñones SECTION CHIEF Primary Care Provider [phone] Reason for Visit Reason Comments Follow-up Consultation (Routine) - Closed Specialty Diagnoses / Procedures Referred By Contact Refer red To Contact General Surgery Diagnoses Breast cancer R IDC (MRI done 09/30) (DC) Annita Quiñones, Mata Mcduffie MD Procedures [facility] SECTION CHIEF [facility] Dr JOSE G HAGAN [address] [address] Referral ID Status Reason Start Date Expiration Date Visits Requ ested Visits Authorized [id number] Closed 10/01/2020 10/01/2021 1 1 Encounter Details Date Type Department Care Team Description 10/01/2020 Office Visit General Surgery at [facility] Mal ignant neoplasm of [facility] right breast in [facility] fem danyell, estrogen [address] Dr receptor positive, [place] [phone] [place] [id number] breast Social History Tobacco Use Types Packs/Day [...] Sign Reading Time Taken Comments Blood Pressure 144/90 10/01/2020 1:16 PM EDT Pulse 66 10/01/2020 1:16 PM EDT Temperature - - Respiratory Rate 16 10/01/2020 1:16 PM EDT Oxygen Saturation 100% 10/01/2020 1:16 PM EDT Inhaled Oxygen Concentration - - Weight 66.2 kg (146 lb) 10/01/2020 1:16 PM EDT Height 165 cm (5' 4.96) 10/01/2020 1:16 PM EDT Body Mass Index 24.32 10/01/2020 1:16 PM EDT documented in this encounter H&P Notes Mata Mcduffie MD - 10/01/2020 1:45 PM EDT Surgical Oncology New Visit Note Reason for Visit: Kayce Posadas is a 55 y.o. female seen at the request Annita Quñiones for evaluation of RIGHT breast cancer . HPI: Patient presents for evaluation of recently discovered RIGHT breast cancer found on screening mammogram. She denies any palpable masses, nipple discharge. Overall she feels quite well. Weight is stable and appetite is good. Denies fatigue. No headaches. No chest pain or SOB. No abd pain or blood in the stool. No new bony pain or tenderness. Is active with house and yard work. No regular scheduled exercise. Active Ambulatory Problems Diagnosis Date Noted ??? Superficial peroneal nerve neuropathy 11/02/2012 ??? Asthma 11/08/2013 ??? Peroneal tendonitis 10/28/2014 ??? Left foot pain 10/28/2014 ??? Spondylosis of lumbar region without myelopathy or radiculopathy 01/22/2015 ??? Malignant neoplasm of right breast in female, estrogen receptor positive 09/10/2020 Resolved Ambulatory Problems Diagnosis Date Noted ??? No Resolved Ambulatory Problems Past Medical History: Diagnosis Date ??? Allergic state ??? Anxiety ??? Depression ??? Headache(784.0) Past Surgical History: Procedure Laterality Date ??? HYSTERECTOMY ??? LAPAROSCOPY diagnostic, lysis of adhesions ??? MAMMO US BIOPSY RIGHT Right 09/05/2020 Mammo Us Biopsy Right 09/05/2020 Adry Loving MD [facility] RAD MAMMOGRAPHY ??? PRO LAP, RMV ADNEXAL STRUCTURE N/A 11/01/2018 LAPAROSCOPY, REMOVAL OF ADNEXA (WRVU 11.35) performed by Neva Mercer MD at [facility] MAIN OR Current Outpatient Medications: ??? acetaminophen (TYLENOL) 325 mg Tablet, Take 2 tablets by mouth every 6 hours as needed for Pain., Disp: 30 tablet, Rfl: 1 ??? omeprazole (PRILOSEC) 20 mg Capsule, Delayed Release(E.C.), TAKE ONE CAPSULE BY MOUTH EVERY DAY,Disp: , Rfl: 3 ??? venlafaxine (EFFEXOR-XR) 75 mg Capsule, Sust. Release 24 hr, , Disp: , Rfl: ??? loratadine (CLARITIN) 10 mg Tablet, , Disp: , Rfl: ??? albuterol (PROVENTIL HFA;VENTOLIN HFA) 90 mcg/actuation HFA Aerosol Inhaler, Inhale 2 puffs intothe lungs every 4 hours as needed. Use with spacer, Disp: , Rfl: ??? ibuprofen (ADVIL;MOTRIN) 600 mg Tablet, Take 1 tablet by mouth every 6 hours as needed for Pain.(Patient not taking: Reported on 10/01/2020), Disp: , Rfl: DRUG ALLERGIES: Allergies as of 10/01/2020 - Review Complete 10/01/2020 Allergen Reaction Noted ??? Percocet [oxycodone-acetaminophen] Itching 11/02/2012 ??? Sulfa (sulfonamide antibiotics) Itching 11/02/2012 SOCIAL HISTORY: Social History Socioeconomic History ??? Marital status: [...] of Exercise per Session: Not on file Family History Adopted: Yes Problem Relation Age of Onset ??? Colorectal Cancer Father ??? Breast Cancer Cousin 40 maternal cousin; d of same age 40 REVIEW OF SYSTEMS: A 12 point complete review of systems was obtained from the patient and confirmedby me. It was negative except for what was stated in the HPI. She otherwise denies high blood pressure, heart disease, lung disease, diabetes, and infectious diseases. PHYSICAL EXAMINATION: Constitutional: This is a 55 y.o. female in no apparent distress BP 144/90 (BP Location (NBP): Right arm) Pulse 66 Resp 16 Ht 165 cm (5' 4.96) Wt 66.2 kg (146 lb) SpO2 100% BMI 24.32 kg/m?? Body mass index is 24.32 kg/m??. Eyes: anicteric, extra ocular movements are intact Neuro: No focal deficits. Hearing and speech intact Psych: the patient is alert and oriented. Normal affect. Breast Exam: breasts appear normal, no suspicious masses, no skin or nipple changes or axillary nodes. Heart: Regular rate and rhythm, S1 S2. No peripheral edema Lungs: Clear bilaterally with good air intake Nodes: No palpable lymph nodes in the groin or neck. Abdomen: Soft, non-tender, non-distended. There are normal active bowel sounds, no hepatosplenomegaly. Musculoskeletal: The patient has normal gait, range of motion, and muscle strength Skin: warm, dry, good turgor, non-icteric. DATA REVIEWED: 1) Imaging reviewed by me with the radiologist: MRI: IMPRESSION Known malignancy 12:00 radian 8.5 cm from the nipple measuring 0.6 cm with no evidence of multifocal, contralateral disease and no evidence of adenopathy. ?? RECOMMENDATION: Follow-up with surgical and oncologic referral. 2) Pathology DIAGNOSIS Needle biopsies: ?Right breast Diagnosis: ?- Invasive ductal carcinoma ?Low grade, modified SBR score = 4 ? 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 female with RIGHT breast IDC, 0.6cm lesion, ER+/WY+/HER2 negative We discussed the treatment options of her cancer which include partial mastectomy with radiation versus mastectomy. We discussed the differences and local recurrence as well as the postoperative recovery. The patient is interested in partial mastectomy. We also discussed staging with sentinel lymph node biopsy. The patient had multiple questions which were answered to their satisfaction. The patient would like to proceed with plan as follows: Plan: 1) RIGHT breast partial mastectomy with needle loc, lymphatic mapping, SLNB. I explained the implications, indications and alternatives to the proposed treatment plan as well as the risks, including infection, bleeding/hematoma, need for additional surgery, lymphedema, DVT/PE. Consent form has been signed. Same day surgery, out patient. 2) Imaging ordered 3) Medical clearances 4) Consultations (e.g. med/rad onc) 5) Other fup plan details, such as present at DMT, discuss with referring MD, etc Mata Mcduffie MD, MPH Surgical Oncology documented in this encounter Plan of Treatment Not on filedocumented as of this encounter Visit Diagnoses Diagnosis Malignant neoplasm of right breast in fe male, estrogen receptor positive, unspecified site of breast documented in this encounter Care Teams Editor Farm Journal Relationship Specialty Start Date End Date Annita Quiñones APRN PCP - General 01/09/14 [address] [place] [address] documented as of this encounter
--- OUTSIDE RECORDS SUMMARY | 2021-09-23 00:47 | XMS_ITS | Encounter Summary ---
:1965 Author Organization [facility] [place] [address] Care Team Providers Name Role Phone Annita Quiñones Rory GLEZ Primary Care Provider [phone] Reason for Visit Reason Onset Date Comments Medication Refill 11/03/2018 Encounter Details Date Type Department Care Team Description 11/03/2018 Telephone Obstetrics and Gynecology Leigh Dyer Medication [place] [facility] [place] [place] [phone] Social History Tobacco Use Types Packs/Day [...] this encounter Miscellaneous Notes Telephone Encounter - Adry Dyer RN - 11/03/2018 10:28 AM EDT Patients daughter Radha called, verbal authorization to speak with her by patient. Patient is havingcontinued pain that is not being relieved by tylenol and ibuprofen and coming into the long holiday weekend patient does not want to be without additional pain medication just in case she needs it. Patient would like to request additional oxycodone for pain relief. Advised that I would forward this information to the provider and get back to her. documented in this encounter Plan of Treatment Not on filedocumented as of this encounter Visit Diagnoses Not on filedocumented in this encounter Care Teams Title I Director Relationship Specialty Start Date End Date Annita Quiñones APRN PCP - General 01/09/14 [address] [place] [address] documented as of this encounter
--- OUTSIDE RECORDS SUMMARY | 2021-09-23 00:47 | XMS_ITS | Encounter Summary ---
:1965 Author Organization [facility] [place] [address] Care Team Providers Name Role Phone Annita Quiñones APRN Primary Care Provider [phone] Encounter Details Date Type Department Care Team Description 08/26/2020 Ancillary Procedure Radiology Library [place], [facility] [place] FIELD ARTILLERY OPERATIONS SPECIALIST [facility] [address] [place] [address] [place] [address] [phone] Social History Tobacco Use Types Packs/Day Years [...] Priority Date/Time Associated Diagnosis Comme nts FILM Routine 08/26/2020 12:00 AM Results for this LIBRARY-STORAGE EDT procedure ar e in ONLY US BREAST the results section. documented in this encounter Results Film Library Storage Only US Breast (08/26/2020 12:00 AM EDT) Specimen (Source) Anatomical Location Collection Method / Collectio n Time Received Time / Laterality Volume Narrative [facility] - 08/27/2020 2:10 PM EDT This exam is auto-finalizing. It's purpo se is for storage only. Annita Quiñones APRN IMRadha FILM LIBRARY ORDERABLES Performing Organization Address City/State/ZIP Code Phon e Number [place], [place] documented in this encounter Visit Diagnoses Not on filedocumented in this encounter Care Teams Ripshear Operator Relationship Specialty Start Date End Date Annita Quiñones APRN PCP - General 01/09/14 [address] [place] [address] documented as of this encounter
--- OUTSIDE RECORDS SUMMARY | 2021-09-23 00:47 | XMS_ITS | Encounter Summary ---
:1965 Author Organization [facility] [place] [address] Care Team Providers Name Role Phone Pauline Mckinnon AMARIS Primary Care Provider [phone] Encounter Details Date Type Department Care Team Description 08/27/2020 Telephone Hematology and Oncol ligia [place] [facility] [place] [address] Social History Tobacco Use Types Packs/Day [...] this encounter Miscellaneous Notes Telephone Encounter - Diana Santizo - 08/27/2020 10:11 AM EDT Kayce Posadas 1965 [id number] Referring provider: PAULINE MCKINNON Date of Referral: 08/27/20 Please review outside breast imaging dated: 08/26/20 Reason for exam and clinical history: RIGHT BREAST MASS Category:4 Questions to be answered:BX, MORE IMAGING Sending Institution: [facility] Patient would like treatment at:[facility] Call pt at: documented in this encounter Plan of Treatment Not on filedocumented as of this encounter Visit Diagnoses Not on filedocumented in this encounter Care Teams Refrigerating Engineer Head Relationship Specialty Start Date End Date Pauline Mckinnon APRN PCP - General 01/09/14 [address] [place] [address] documented as of this encounter
--- OUTSIDE RECORDS SUMMARY | 2021-09-23 00:47 | XMS_ITS | Encounter Summary ---
:1965 Author Organization [facility] [place] [address] Care Team Providers Name Role Phone Annita Quiñones AMARIS Primary Care Provider [phone] Reason for Visit Auth/Cert Specialty Diagnoses / [...] Expiration Date Visits Requ ested Visits Authorized [id number] 1 1 Encounter Details Date Type Department Care Team Description 10/16/2020 Surgery Outpatient Surgery [facility] Kerri Ervin MD (WRVU 10.13) [facility] [place] [address] [place] [address] [phone] Social History Tobacco Use Types Packs/Day Years [...] Sign Reading Time Taken Comments Blood Pressure 123/77 10/16/2020 11:52 AM EDT Pulse 71 10/16/2020 11:52 AM EDT Temperature 35.8 ??C (96.4 ??F) 10/16/2020 11:52 AM EDT Respiratory Rate 18 10/16/2020 11:52 AM EDT Oxygen Saturation 96% 10/16/2020 11:52 AM EDT Inhaled Oxygen Concentration - - [...] 101.3 F. The number for questions is [phone] before 5 PM week. Pain Medication: Please [...] AM [facility] 11/03/2020 9:00 AM Myra Cali MD [facility] 11/05/2020 3:00 PM Kerri Keating MD [facility] 11/05/2020 4:30 PM Mata Mcduffie MD [facility] Please call [phone] (clinic number) if any changes need to [...] again, temperature will be taken, patient and caregiver/cdl truck driver will be given a mask to wear [...] Us Biopsy Right 09/05/2020 Adry Loving MD [facility] RAD MAMMOGRAPHY ??? PRO LAP, RMV ADNEXAL STRUCTURE N/A 11/01/2018 LAPAROSCOPY, REMOVAL OF ADNEXA (WRVU 11.35) performed by Neva Mercer MD at [facility] MAIN OR Family History Adopted: Yes Problem [...] Lisset Quezada MD Plastic Surgery Resident P# [phone] documented in this encounter Miscellaneous Notes Op Note - Mata Mcduffie MD - 10/16/2020 3:12 PM EDT [facility] Operative Note Patient Name: Kayce Posadas : [id number] MR#: [id number] Case Date: 10/16/2020 Surgeon: Surgeon(s) and Role: [...] Count 2817 RIGHT breast cancer Right Axillary [place] Lymph Node #1 excision 10/16/2020 3:57 PM Time specimen removed from patient: 3:56 PM Number of tissue samples (in container) 1 SPECIMEN TO PATHOLOGY Count 7000 RIGHT Breast Cancer Right Axillary [place] Lymph Node #2 excision 10/16/2020 4:02 PM Time specimen removed from patient: 4:02 PM Number of tissue samples (in container) 1 SPECIMEN TO PATHOLOGY Count 824 RIGHT Breast Cancer Right Axillary [place] Lymph Node #3 excision 10/16/2020 4:13 PM Time specimen removed from patient: 4:13 PM Number of tissue samples (in container) 1 SPECIMEN TO PATHOLOGY Count 758 Background 73 RIGHT Breast Cancer Right Axillary [place] Lymph Node #4 excision 10/16/2020 4:25 PM Time specimen removed from patient: 4:24 PM Number of tissue samples (in container) 1 SPECIMEN TO PATHOLOGY Blue gutierrez true superficial margin Ellerbe gutierrez true cranial margin RIGHT Breast Cancer [...] and negative clinical nodes. Procedure Description: Kayce M Cuauhtemoc was admitted through Same-Day Surgery. She was [...] radiographically close margin, we took an additional [id number] surperficial/cranial margin The wound was irrigated and [...] PM 1 4:39 EDT PM EDT Narrative [facility] - 10/16/2020 4:39 PM EDT Specimen requisition ordered. ??Separate Pathology report to follow Mata Mcduffie MD PATHOLOGY/CYTOLOGY ORDERABLE S Performing Organization Address City/State/[place] [address] Specimen to Pathology (10/16/2020 4:25 PM EDT) Specimen Anatomical Collection Method Collection Time Receive d Time (Source) Location / / Volume Laterality AP Specimen 10/16/2020 4:25 PM 1 4:25 EDT PM EDT Narrative [facility] - 10/16/2020 4:25 PM EDT Specimen requisition ordered. ??Separate Pathology report to follow Mata Mcduffie MD PATHOLOGY/CYTOLOGY ORDERABLE S Performing Organization Address City/State/[place] [address] Specimen to Pathology (10/16/2020 4:14 PM EDT) Specimen Anatomical Collection Method Collection Time Receive d Time (Source) Location / / Volume Laterality AP Specimen 10/16/2020 4:14 PM 1 4:14 EDT PM EDT Narrative [facility] - 10/16/2020 4:14 PM EDT Specimen requisition ordered. ??Separate Pathology report to follow Mata Mcduffie MD PATHOLOGY/CYTOLOGY ORDERABLE S Performing Organization Address City/[facility]/[place] [address] Specimen to Pathology (10/16/2020 4:02 PM EDT) Specimen Anatomical Collection Method Collection Time Receive d Time (Source) Location / / Volume Laterality AP Specimen 10/16/2020 4:02 PM 1 4:02 EDT PM EDT Narrative [facility] - 10/16/2020 4:02 PM EDT Specimen requisition ordered. ??Separate Pathology report to follow Mata Mcduffie MD PATHOLOGY/CYTOLOGY ORDERABLE S Performing Organization Address [facility]/[place] [address] Specimen to Pathology (10/16/2020 3:57 PM EDT) Specimen Anatomical Collection Method Collection Time Receive d Time (Source) Location / / Volume Laterality AP Specimen 10/16/2020 3:57 PM 3:57 EDT PM EDT Narrative [facility] - 10/16/2020 3:57 PM EDT Specimen requisition ordered. ??Separate Pathology report to follow Mata Mcduffie MD PATHOLOGY/CYTOLOGY ORDERABLE S Performing Organization Address City/[facility]/[place] [address] Surgical Pathology Report (10/16/2020 3:14 PM EDT) Component Value Ref Test Analysis Performed At [facility] Range Method Time Signature Surgical [id number] ? Location: [facility] Report The signing pathologist has (i) examined the relevant preparation(s) for the [facility] specimen(s) and (ii) rendered or confirmed [...] DO Verified: ??10/24/2020 14:21 ??Pathologist Performed at: ??-[facility] Dept. of Pathology, [place], [place] SYNOPTIC Specimen ? Procedure: ??Excision (less [...] of Lymph Nodes Examined: ??4 ?Number of [place] Nodes Examined: ??4 Pathologic Stage Classification (pTNM, AJCC 8th Edition) ? Primary Tumor (pT): ??pT1a ? Regional Lymph Nodes Modifier: ??(sn): [place] node(s) evaluated. ? Regional Lymph Nodes (pN): ??pN0 ? CAP eCC April 2019 Annual Release ER, WY, and HER2 studies (performed on prior biopsy, [id number]): . SYNOPTIC ER: Positive (>90%, strong) WY: Positive (>90%, strong) HER2 FISH: Negative DISCUSSION The prior biopsy is reviewed ( ??[id number]) ??which shows a 0.4 cm low grade [...] IV Parenchyma: Yellow orange fibroadipose tissue Sections/Processing: [employer] sections in 6 cassettes as follows: ?A1: ??Slice I, lesion, account service representative, closest lateral /yellow margin ?A2: ??Slice II lesion, account service representative, closest posterior/black and inferior/green ? margins ?A3: ??Slice III, lesion, account service representative, closest ant erior/glue margin ?A4: ??Slice III, lesion, account service representative, area of hemor rhage ?A5: ??Slice V, lesion, account service representative, area of hemorrhage and adjacent mass ?A6: ??Slice IX, no lesion, account service representative ?A7-A8: IV, lesion, account service representative ?A9-A10: Slice V, lesion, account service representative ?A11-A12:Slice , lesion, account service representative ?A12-A14: Slice VII, lesion, account service representative ?A15-A16: Slice VIII, lesion, bisected [...] x 1.2 x 0.9 cm. Tissue Description: [place]-narayan lymph node with attached orange-yellow adipose tissue Sections/Processing: Serially sectioned and entirely submitted in 2 cassettes lab eled C1-C2. D - Labeled/Fixative: Right axillary sentinel lymph node #3, fresh. Quantity/Size: Single, 2.8 x 1.7 x 1.0 cm. Tissue Description: [place]-narayan lymph node with attached orange-yellow adipose tissue [...] MD PATHOLOGY/CYTOLOGY ORDERABLE S Performing Organization Address City/[facility]/[place] [address] Specimen to Pathology (10/16/2020 3:14 PM EDT) Specimen Anatomical Collection Method Collection Time Receive d Time (Source) Location / / Volume Laterality AP Specimen 10/16/2020 3:14 PM 3:14 EDT PM EDT Narrative [facility] - 10/16/2020 3:14 PM EDT Specimen requisition ordered. ??Separate Pathology report to follow Mata Mcduffie MD PATHOLOGY/CYTOLOGY ORDERABLE S Performing Organization Address City/[facility]/ZIP [facility] [place] [address] documented in this encounter [...] Day of Surgery (Day of Procedure), Routine BUpivacaine (pf) (Marcaine) (5 Given 10/16/2020 3:42 PM 2.5 mLs 19- Surgical Site mg/mL) 0.5% injection EDT ONCE PRN, Starting on Susanne 10/16/20 at 1511, Until Susanne 10/16/20 at 2013, Intra-Operative (Intra-Procedure), Routine Given 10/16/2020 3:11 PM EDT 1.5 mLs 19- S urgical Site lidocaine (pf) (Xylocaine) (10 Given 10/16/2020 3:42 PM 2.5 mLs 19- Surgical Site mg/mL) 1% injection EDT ONCE PRN, Starting on Susanne 10/16/20 at 1511, Until Susanne 10/16/20 at 2013, Intra-Operative (Intra-Procedure), Routine Given 10/16/2020 3:11 PM EDT 1.5 mLs 19- S urgical Site oxyCODONE (Roxicodone) tablet 2.5 mg Given 10/16/2020 5:47 PM EDT 2.5 mg 2.5 mg, Oral, EVERY 4 HOURS PRN, Starting on Susanne 10/16/20 at 1741, Until Susanne 10/16/20 at 2013, Pain, Routine documented in this encounter Active [...] (pf) (Marcaine) (5 mg/mL) 0.5% injection (CANCELED) 1511 (Given - Provider: Mata Mcduffie MD - Comment: 0.5% Bupivacaine plain mixed 1:1 with 1% Lidocaine plain, 3 ml total given)1542 (Given - Provider: Mata Mcduffie MD - Comment: 0.5% Bupivacaine plain mixed 1:1 with 1% Lido ONCE PRN, Starting on Susanne 10/16/20 at 151 1, Until Susanne 10/16/20 at 2014, Intra- Operative (Intra-Procedure), Routine joanne ne plain, 5 ml total given) lidocaine (pf) (Xylocaine) (10 mg/mL) 1% injection (CANCELED) 1511 (Given - Provider: Mata Mcduffie MD - [...] total given) oxyCODONE (Roxicodone) tablet 2.5 mg 1747 (Given - Provider: Terrence Jimenez RN) 2.5 mg, Oral, EVERY 4 HOURS PRN, Startin g on Susanne 10/16/20 at 1741, Until Susanne 10/16/20 at 2013, Pain, Routine documented in this encounter Care Teams Welder Metal Fab Relationship Specialty Start Date End Date Annita Quiñones, SHELL TRIM TOOL SETTER PCP - General 01/09/14 [address] [place] [address] documented as of this encounter
--- OUTSIDE RECORDS SUMMARY | 2021-09-23 00:47 | XMS_ITS | Encounter Summary ---
:1965 Author Organization [facility] Address [facility] [place] [address] Care Team Providers Name Role Phone Annita Quiñones AMARIS Primary Care Provider [phone] Encounter Details Date Type Department Care Team Description 10/02/2020 Orders Only General Surgery at M[facility] Mc[facility]ffie Mal ignant neoplasm of [facility] [place] female breast, [facility] uns pecified estrogen Drive Dr receptor status, [place] [address] [place] [address] unspecified site of [phone] breast (Primary Dx) (Work) Social History Tobacco Use Types Packs/Day Years [...] place to sleep or slept in a detention (including now)? Sex Assigned at Date Recorded Not on file documented as of this encounter Progress Notes Lolita Mcguire - 10/02/2020 7:18 AM EDT [id number] documented in this encounter Plan of Treatment Not on filedocumented as of this encounter Results Mammo Specimen Right (10/16/2020 3:40 PM EDT) Anatomical Region Laterality Modality Breast Right Mammography Specimen (Source) Anatomical Location Collection Method / Collectio n Time Received Time / Laterality Volume Impressions 10/16/2020 4:04 PM EDT Positive specimen x-ray as described. Results phoned to the operating surgeon intraoperatively. Thank you for letting us participate in the care of this patient. ??If you are a health care provider and have any questi ons regarding this report, please contact the number below. ??For patients who have questions please contact the health customer care coordinator that requested your imaging first. ? Narrative 10/16/2020 4:04 PM EDT EXAMINATION: Specimen x-ray INDICATION: Intraoperative specimen imag e for adequacy of lesion and/or clip removal TECHNIQUE: A single projection specimen x-ray from the right breast is obtained superimposed on alphanumeric grid COMPARISON: This is correlated with preo perative imaging FINDINGS: The biopsy clip, localization wire, and small adjacent mammographic density/residual mass are within the spe cimen. The 2D margin approximates the mammographic asymmetry/residual mass. Mata Mcduffie MD IMG MAMMO ORDERABLES Mammo [place] Node Injection (10/16/2020 11:17 AM EDT) Anatomical [...] who have questions please contact the health customer care coordinator that requested your imaging first. ? Narrative 10/16/2020 11:47 AM EDT NEEDLE LOCALIZATION [...] MD Mata Mcduffie MD IMG MAMMO ORDERABLES Mammo Needle Localization Right (10/16/2020 11:16 AM EDT) Anatomical Region Laterality Modality Breast Right [...] who have questions please contact the health customer care coordinator that requested your imaging first. ? Narrative 10/16/2020 11:47 AM EDT NEEDLE LOCALIZATION [...] estrogen receptor status, unspecified site of breast - Primary Malignant neoplasm of right female breas t, unspecified estrogen receptor status, unspecified site of breast Malignant neoplasm of right female breas t, unspecified estrogen receptor status, unspecified site of breast Malignant neoplasm of right female breas t, unspecified estrogen receptor status, unspecified site of breast documented in this encounter Care Teams Monument Setter Relationship Specialty Start Date End Date Annita Quiñones APRN PCP - General 01/09/14 [address] [place] [address] documented as of this encounter
--- OUTSIDE RECORDS SUMMARY | 2021-09-23 00:47 | XMS_ITS | Encounter Summary ---
:1965 Author Organization [facility] [place] [address] Care Team Providers Name Role Phone Annita Quiñones AMARIS Primary Care Provider [phone] Reason for Visit Reason Comments Follow-up Encounter Details Date Type Department Care Team Description 11/05/2020 Office Visit General Surgery at [facility] Mal ignant neoplasm of [facility] [place] breast in [facility] fem danyell, estrogen Drive Dr receptor positive, [place] [phone] [place] [phone] breast Social History Tobacco Use Types Packs/Day [...] documented as of this encounter Progress Notes Mata Mcduffie MD - 11/05/2020 4:30 PM EDT Patient returns for postoperative follow-up after RIGHT PM + SLNB. She reports doing well without complications. Pain controlled. Incision intact without erythema. Seroma in axilla. Pathology reviewed - DIAGNOSIS A - Right breast, partial mastectomy: ?? - No residual invasive or in-situ carcinoma in this ? specimen (see Synoptic Report and Discussion). ?? - Biopsy site ??changes ??and clip present. B - Right axillary sentinel lymph node #1, excision: ?? - One lymph node negative for malignancy (0/1). C - Right ??axillary sentinel lymph node #2, excision: ?? - One lymph node negative for malignancy (0/1). D - ??Right axillary sentinel lymph node #3, excision: ?? - One lymph node negative for malignancy (0/1). E - ??Right axillary sentinel lymph node #4, excision: ?? - One lymph node negative for malignancy (0/1). F - ??Right breast superficial/cranial margin, excision: ?? - Benign breast tissue. 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 Negative margins and negative sentinel nodes - Referral radiation oncology - Medical oncology - discussion endocrine therapy and chemo - RTC in 6month with new baseline RIGHT documented in this encounter Plan of Treatment Scheduled Orders Name Type Priority Associated Diagnoses Order S chedule Mammo Diagnostic Cad Imaging Routine Malignant neoplasm o f Expected: 05/14/2021 and Elías Right right breast in female, (A pproximate), estrogen receptor Expires: 0 11/13/2021 positive, unspecified site of breast documented as of this encounter Visit Diagnoses Diagnosis Malignant neoplasm of right breast in 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
--- OUTSIDE RECORDS SUMMARY | 2021-09-23 00:47 | XMS_ITS | Encounter Summary ---
:1965 Author Organization [facility] [place] [address] Care Team Providers Name Role Phone Annita Quiñones AMARIS Primary Care Provider [phone] Reason for Visit Auth/Cert Specialty Diagnoses / [...] Expiration Date Visits Requ ested Visits Authorized [id number] 1 1 Encounter Details Date Type Department Care Team Description 10/16/2020 Hospital Encounter [facility]ammography [place] [facility]ata Mcduffie Malignant neoplasm [facility] MD Ortiz of right female Drive [facility] breast, unspecified [place], [place] Center estrogen receptor [phone] [place], [place] status, unspecified [phone] site of breast Social History Tobacco Use [...] Priority Date/Time Associated Diagnosis Comme nts MAMMO SPECIMEN Routine 10/16/2020 3:40 PM Malignant neoplasm R esults for this RIGHT EDT of right female procedure ar e in breast, unspecified the resu lts estrogen receptor section. status, unspecified site of breast documented in this encounter Results Mammo Specimen Right (10/16/2020 [...] who have questions please contact the health date night caregiver that requested your imaging first. ? Electronically signed by: Barbie holm MD, [facility] ([phone]), at 10/16/2020 4:04 PM Narrative 10/16/2020 4:04 PM EDT EXAMINATION: Specimen [...] mass. Mata Mcduffie MD IMG MAMMO ORDERABLES documented in this encounter Visit Diagnoses Diagnosis Malignant neoplasm of right female breas t, unspecified estrogen receptor status, unspecified site of breast documented in this encounter Care Teams Tobacco Sizer Relationship Specialty Start Date End Date Annita Quiñones APRN PCP - General 01/09/14 [address] [place] [address] documented as of this encounter
--- OUTSIDE RECORDS SUMMARY | 2021-09-23 00:47 | XMS_ITS | Encounter Summary ---
:1965 Author Organization [facility] [address] Care Team Providers Name Role Phone Annita Quiñones AMARIS Primary Care Provider [phone] Encounter Details Date Type Department Care Team Description 09/10/2020 Telephone Gastroenterology at [facility] Zelda Spann [facility] [place] [address] Social History Tobacco Use Types Packs/Day [...] this encounter Miscellaneous Notes Telephone Encounter - Zelda Spann - 09/10/2020 2:09 PM EDT Left VM for patient to call GI clinic to schedule appt from referral Sending letter, unable to contact pt documented in this encounter Plan of Treatment Not on filedocumented as of this encounter Visit Diagnoses Not on filedocumented in this encounter Care Teams Health Plan Advisor Relationship Specialty Start Date End Date Annita Quiñones APRN PCP - General 01/09/14 [address] [place] [address] documented as of this encounter
--- OUTSIDE RECORDS SUMMARY | 2021-09-23 00:47 | XMS_ITS | Encounter Summary ---
:1965 Author Organization [facility] [place] [address] Care Team Providers Name Role Phone Annita Quiñones AMARIS Primary Care Provider [phone] Reason for Referral Diagnostic Test (Routine) - Closed Specialty Diagnoses / Procedures Referred By Contact Refer red To Contact Radiology Diagnoses Malignant neoplasm of right female breast, unspecified estrogen receptor status, unspecified site of breast Mata Mcduffie MD [facility] Rad Mri Procedures MRI Breast wwo Contrast Bilat [facility] [place] [address] [place] [address] Referral ID Status Reason Start Date Expiration Date Visits V isits Requested Authorized [id number] Closed Specialty 09/24/2020 03/23/2021 1 1 Service Requested Encounter Details Date Type Department Care Team Description 09/09/2020 Orders Only General Surgery at Mata Mcduffie Mal ignant [place] [facility], Replaced By [facility] uns pecified estrogen Drive receptor status, [place] [address] [place] [address] unspecified site of [phone] breast (Work) Social History Tobacco Use Types Packs/Day [...] on filedocumented as of this encounter Results MRI Breast wwo Contrast [...] who have questions please contact the health skin care therapist that requested your imaging first. ? Narrative [...] t enhancement curve analysis was performed, using [email or web address] software. COMPARISON STUDIES: Compared and/or correlated with [...] skin.. Mata Mcduffie MD IMG MRI ORDERABLES (ABNORMAL) Comprehensive metabolic panel (non-fasting) (09/30/2020 3:02 PM EDT) athologist Signature Glucose Lvl 97 65 - 199 [facility] mg/dL [facility] Comment: Diabetes: >=200 mg/dL plus symp toms BUN 13 8 - 18 mg/dL [facility] Creatinine 0.64 (L) 0.70 - 1.20 mg/dL [facility] Sodium 142 135 - 145 mmol/L [facility] Potassium 4.0 3.5 - 5.0 mmol/L [facility] Comment: Please note: ??Patients with WBC >100,00 0 may have falsely elevated Potassium levels. ??For accurate Potassium quantif ication in these patients send serum separator tube (gold top) for subsequent determinations. ??Contact the Clinical Chemistry Laboratory if there are any qu estions. Chloride 107 98 - 107 mmol/L [facility] CO2 22 22 - 31 mmol/L [facility] Anion Gap 13 5 - 15 mmol/L [facility] Calcium 9.4 8.5 - 10.5 mg/dL [facility] Total Protein 7.0 6.1 - 8.0 gm/dL [facility] Albumin 4.4 3.2 - 5.2 gm/dL [facility] AST 15 0 - 30 unit/L [facility] ALT 13 0 - 30 unit/L [facility] Alk Phos 73 35 - 105 unit/L [facility] Total Bilirubin <0.2 (L) 0.2 - 1.3 mg/dL [facility] Estimated GFR 100 >=60 mL/min/1.73 m?? [facility] Comment: This patient? s estimated glomerular filtration rate (eGFR) is between 100 mL/min/1.73 m2 (patients with less muscl e mass) and 116 mL/min/1.73 m2 (patients with more muscle mass) as dete rmined by the CKD-EPI equation. Assessment of eGFR is not appropriate wh en creatinine concentrations are rapidly changing. For clinical decisions where creatinine clearance will affect therapy, a 24-hour urine creatinine melly genoveva may be advised. Assignment of CKD stage 1 - 5 for patien ts with an eGFR near the transition point between stages may be based on cli nical assessment of muscle mass and symptoms in addition to eGFR. Specimen Anatomical Collection Method Collection Time Receive d Time (Source) Location / / Volume Laterality Blood 09/30/2020 3:02 PM 3:11 EDT PM EDT Resulting Agency Comment Spec In Lab Mata Mcduffie MD CHEMISTRY ORDERABLES Performing Organization Address City/State/ZIP [place] [address] documented in this encounter Visit Diagnoses Diagnosis Malignant neoplasm of right female breas t, unspecified estrogen receptor status, unspecified site of breast Malignant neoplasm of right female breas t, unspecified estrogen receptor status, unspecified site of breast documented in this encounter Care Teams Rehabilitation Case Coordinator Relationship Specialty Start Date End Date Annita Quiñones APRN PCP - General 01/09/14 [address] [place] [address] documented as of this encounter
--- OUTSIDE RECORDS SUMMARY | 2021-09-23 00:47 | XMS_ITS | Encounter Summary ---
:1965 [place] [address] Care Team Providers Name Role Phone Annita Quiñones AMARIS Primary Care Provider [phone] Reason for Visit Auth/Cert Specialty Diagnoses / [...] Expiration Date Visits Requ ested Visits Authorized [id number] 1 1 Encounter Details Date Type Department Care Team Description 10/16/2020 Anesthesia Event Outpatient Surgery Bere England MD [facility] [place] [address] [place] Kerri NoelRhea Lelo Hill CRNA [facility] [place] [address] [facility] [place] [address] Anesthesia Record Procedure Summary Procedure Name Responsible Anesthesia Start Anesthesia Stop Anesthesiologist Time Time MASTECTOMY PARTIAL Bernice England MD 10/16/20 1445 10/16/20 1720 (WRVU 10.13) (Right Breast) Events Date Time Event Comment 10/16/2020 1328 1445 AN Verify 1445 Start 1445 An Start Data 1449 An Induction 1451 An Intubation 1452 Anesthesia Ready 1539 Break/Relief In I assumed care f or Break Relief before which we: 1. Identifie d the patient 2. Identified the responsible provider(s) 3. Reviewed the pertinent medica l history 4. Discussed the surgical plan an d course 5. Reviewed intra-op anesthesia manag ement and issues during anesthesia 6. Se t expectations for the relief (and/or post-pro cedure) period 7. Allowed opportunity for questions and acknowledgement of understanding Lelo Hill CRNA 1540 Quick Note ETCO2 sample elina argentina switched ETCO2 went from 22 to 49 - 1600 Break/Relief Out 1706 Extubation/LMA Out 1713 an stop data 1714 Recovery or ICU Handoff Patient care was transferred to the destination unit staff after review of the patient's medica l history, current anesthetic/surgi francisco javier status and plan, according to the Provider Handoff Checklist. 1720 Stop Name Total Midazolam 2 mg fentaNYL 200 mcg IV Lidocaine 50 mg Propofol 270 mg ePHEDrine 40 mg Ondansetron 8 mg Dexamethasone 8 mg ceFAZolin (Ancef) 2 g in dextrose 5% 100 mL infusion 2 g Dexmedetomidine 14 mcg Propofol INF 348.74 mg ketorolac (Toradol) (30 mg/mL) injection 15 mg lactated ringers infusion 900 mL Agents Name O2 Air N2O Sevoflurane (et) Blood No blood administrations on file. Lines, Drains, and Airways Type Details Placement Removal Incision 11/01/18; 1013; abdomen; 11/01/18 1013 by laparoscopic puncture; Wendy Valles RN multiple trocar sites to abdomen Incision 10/16/20; 1512; Right; 10/16/20 1512 by breast Gwen Keating RN Incision 10/16/20; 1530; Right; 10/16/20 1530 by axilla Gwen Keating RN PIV 10/16/20; 1226; cephalic 10/16/20 1226 by 1805 by vein (lateral side of arm), Miranda, Edelmira M, RN Jimenez, Genice F, RN left; [id number] catheter system; 20 gauge; Miranda; intradermal injection; no longer indicated, catheter/device intact; 10/16/20; 180 Supraglottic Mask Ventilation: Not 10/16/20 1451 by 10/16/20 1706 by Attempted (0); LMA Type: Lelo Hill L, FISH FRYER Lelo Hill, iGel; LMA Size: 3; Inserted FISH FRYER by: CHRISTOPHER Hill documented in this encounter Social History Tobacco [...] encounter OR Notes Anesthesia Postprocedure Evaluation - Bernice England MD - 10/16/2020 5:20 PM EDT Department of Anesthesiology Post-procedure Note Patient: Kayce Posadas Procedure Summary Date: 10/16/20 Room / Location: [address] [facility] Anesthesia Start: 1445 Anesthesia Stop: 1720 Procedures: MASTECTOMY PARTIAL (WRVU 10.13) (Right Breast) BIOPSY OR EXCISION OF LYMPH NODE(S), OPEN, DEEP AXILLARY NODE(S) (WRVU 6.43) (Right Axilla) INTRAOPERATIVE ID (MAPPING) SENTINEL LYMPH NODE,INCLUDES INJECTION (WRVU 2.5) (Right ) MODIFIER WITH NEEDLE LOC., LESION #1 (Right ) MODIFIER SENTINEL NODE EXCISION (Right ) Diagnosis: (right breast cancer) Surgeons: Mata Mcduffie MD Responsible Provider: Bernice England MD Anesthesia Type: general ASA Status: 2 All Anesthesia Providers: Anesthesiologist: Michael Montgomery MD; Bernice England MD FISH FRYER: Lelo Hill CRNA Vitals Value Taken Time BP 118/86 10/16/20 1715 Temp 36.3 ??C (97.3 ??F) 10/16/20 1715 Pulse 81 10/16/20 1715 Resp 16 10/16/20 1715 SpO2 99 % 10/16/20 1715 Pain Level Patient Location: PACU/[facility] Level of Consciousness: Awake and Alert Pain Management: Satisfactory Analgesia PONV: None Cardiovascular Status: At Baseline and Hemodynamically Stable Respiratory Status: At Baseline and Room Air Postoperative Fluid Status: Intravascular EUvolemia Possible Anesthetic Complications: NONE apparent at time of evaluation Final Primary Anesthesia Type: General (The anesthetic type performed was the same as planned.) Comments: BERNICE ENGLAND MD Anesthesia Preprocedure Evaluation - Michael Montgomery MD - 10/16/2020 1:26 PM EDT Pre-Anesthesia Evaluation for: Kayce Posadas a 55 y.o. female. Procedure(s): MASTECTOMY PARTIAL (WRVU 10.13) BIOPSY OR EXCISION OF LYMPH NODE(S), OPEN, DEEP AXILLARY NODE(S) (WRVU 6.43) INTRAOPERATIVE ID (MAPPING) SENTINEL LYMPH NODE,INCLUDES INJECTION (WRVU 2.5) MODIFIER WITH NEEDLE LOC., LESION #1 MODIFIER SENTINEL NODE EXCISION Patient Active Problem List Diagnosis ??? Malignant neoplasm of right breast in female, estrogen receptor positive 09/05/20 dx [place]: ER/AL+/HER2- right breast IDC and DCIS ??? Spondylosis of lumbar region without myelopathy [...] Us Biopsy Right 09/05/2020 Adry Loving MD [facility] RAD MAMMOGRAPHY ??? PRO LAP, RMV ADNEXAL STRUCTURE N/A 11/01/2018 LAPAROSCOPY, REMOVAL OF ADNEXA (WRVU 11.35) performed by Neva Mercer MD at [facility] MAIN OR Social History Tobacco Use ??? Smoking status: Current Every Day Smoker Packs/day: 0.50 Years: 25.00 Pack years: 12.50 Types: Cigarettes ??? Smokeless tobacco: Never Used Substance Use Topics ??? Alcohol use: Yes Alcohol/week: 5.0 standard drinks Types: 5 Cans of beer per week Social History Substance and Sexual Activity Drug Use No Allergies Allergen Reactions ??? Bleach (Sodium Hypochlorite) ??? Hydrocodone-Acetaminophen ??? Percocet [Oxycodone-Acetaminophen] Itching ??? Sulfa (Sulfonamide Antibiotics) Itching ??? Hydrocodone Bitartrate Rash Medications: MAR and/or home medications have been reviewed. Physical Exam: Preprocedure Vitals Current as of 10/16/20 1326 BP: 123/77 Pulse: 71 Resp: 18 SpO2: 96 Temp: 35.8 ??C (96.4 ??F) Height: 162.6 cm (5' 4) (10/16/20) Weight: 65.8 kg (145 lb) (10/16/20) BMI: 24.89 IBW: 54.7 kg (120 lb 10.7 oz) Last edited 10/16/20 1152 by AQ Airway Assessment: Mallampati: II TM distance: >3 FB Neck ROM: full Cardiovascular Assessment: system normal Pulmonary Assessment: unlabored breathing Dental Assessment: Misc Assessment: IV access: Peripheral line Last Filed Perioperative Cognitive Screening None Anesthesia Plan: ASA 2 general, with a(n) intravenous induction Kayce Posadas is a 55 y.o. female who presents for Right partial mastectomy w/ lymph node biopsy PMH: asthma, + smoker, breast ca Anesth Hx: slow wakeup, no other issues METS > 4 Pt is appropriately NPO Labs: 09/30/20 1502 WBC 7.4 HGB 13.2 HCT 38.5 PLATELET 248 09/30/20 1502 NA 142 K 4.0 CL 107 CO2 22 BUN 13 CREATININE 0.64* 09/30/20 1502 AST 15 ALT 13 ALKPHOS 73 BILITOT <0.2* No results for input(s): PT, INR, PTT in the last 168 hours. No results found for: ABORH Anesthetic Plan GA with LMA Standard ASA monitors, IV access Region - Other Informed Consent: Anesthetic plan and risks discussed with patient. Plan discussed with FISH FRYER. Anesthesia Screening documented in this encounter Miscellaneous Notes Addendum Note - Bernice England MD - 10/16/2020 5:42 PM EDT Addendum created 10/16/20 174 by Bernice England MD Order list changed documented in this encounter Plan of Treatment Not on filedocumented as of this encounter Visit Diagnoses Not on filedocumented in this encounter Administered Medications Inactive Administered Medications - up to 3 most recent administrations Medication Order MAR Action Action Date Dose Rate Site ceFAZolin (Ancef) 2 g in dextrose 5% Given 10/16/2020 2:52 PM ED T 2 g 100 mL infusion 2 g, Intravenous, EVERY 3 HOURS, 1 dose, First dose on Susanne 10/16/20 at 1215, Administer over 30 Minutes, Intra-Operative (Intra-Procedure), Indication for (Active or Suspected): Prophylaxis dexamethasone (Decadron) injection Given 10/16/2020 2:56 PM EDT 8 mg Intravenous, PRN, Starting on Susanne 10/16/20 at 1456, Until Susanne 10/16/20 at 1720, Anesthesia Intra-op, Routine dexmedetomidine (Precedex) (4 mcg/mL) bolus Given 10/16/2020 3:4 2 PM EDT 6 mcg injection (Anesthsia) Intravenous, PRN, Starting on Susanne 10/16/20 at 1456, Until Susanne 10/16/20 at 1720, Anesthesia Intra-op, Routine Given 10/16/2020 2:56 PM EDT 8 mcg ePHEDrine sulfate (5 mg/mL) multi-dose Given 10/16/2020 4:04 PM EDT 10 mg injection Intravenous, PRN, Starting on Susanne 10/16/20 at 1509, Until Susanne 10/16/20 at 1720, Anesthesia Intra-op, Routine Given 10/16/2020 3:45 PM EDT 10 mg Given 10/16/2020 3:32 PM EDT 10 mg fentaNYL (pf) (50 mcg/mL) multi-dose Given 10/16/2020 5:13 PM ED T 25 mcg injection Intravenous, PRN, Starting on Susanne 10/16/20 at 1456, Until Susanne 10/16/20 at 1720, Anesthesia Intra-op, Routine Given 10/16/2020 5:02 PM EDT 25 mcg Given 10/16/2020 4:56 PM EDT 25 mcg ketorolac (Toradol) (30 mg/mL) injection Given 10/16/2020 4:44 PM EDT 15 mg Intravenous, PRN, Starting on Susanne 10/16/20 at 1644, Until Susanne 10/16/20 at 1720, Anesthesia Intra-op, Routine lactated ringers infusion New Bag 10/16/2020 2:45 PM EDT 1,000 mL, at 100 mL/hr, Intravenous, CONTINUOUS, Starting on Susanne 10/16/20 at 1215, Until Susanne 10/16/20 at 1808, Day of Surgery (Day of Procedure) lidocaine (pf) (Xylocaine) (20 mg/mL) 2% Given 10/16/2020 2:49 P M EDT 50 mg injection syringe Intravenous, PRN, Starting on Susanne 10/16/20 at 1449, Until Susanne 10/16/20 at 1720, Anesthesia Intra-op, Routine midazolam (pf) (Versed) (1 mg/mL) multi-dose Given 10/16/2020 2: 45 PM EDT 2 mg injection Intravenous, PRN, Starting on Susanne 10/16/20 at 1445, Until Susanne 10/16/20 at 1720, Anesthesia Intra-op, Routine ondansetron (pf) (Zofran) (2 mg/mL) inje ction Given 10/16/2020 4:44 PM EDT 4 mg Intravenous, PRN, Starting on Susanne 10/16/20 at 1456, Until Susanne 10/16/20 at 1720, Anesthesia Intra-op, Routine Given 10/16/2020 2:56 PM EDT 4 mg propofoL (Diprivan) 10 mg/mL bolus injection Given 3:49 PM EDT 20 mg (Anesthesia) Intravenous, PRN, Starting on Susanne 10/16/20 at 1449, Until Susanne 10/16/20 at 1720, Anesthesia Intra-op Given 10/16/2020 2:50 PM EDT 50 mg Given 10/16/2020 2:49 PM EDT 200 mg propofoL (Diprivan) infusion New Bag 10/16/2020 2:56 PM 50 mcg/kg/min 19.74 mL/hr Intravenous, CONTINUOUS PRN, EDT Starting on Susanne 10/16/20 at 1456, Until Susanne 10/16/20 at 1720, Anesthesia Intra-op, Routine documented in this encounter Care Teams Legal Activity Adjudicator Relationship Specialty Start Date End Date Annita Quiñones APRN PCP - General 01/09/14 [address] [place] [address] documented as of this encounter
--- OUTSIDE RECORDS SUMMARY | 2021-09-23 00:47 | XMS_ITS | Encounter Summary ---
:1965 Author Organization [facility] [place] [address] Care Team Providers Name Role Phone Annita Quiñones AMARIS Primary Care Provider [phone] Reason for Visit Auth/Cert Specialty Diagnoses [...] Expiration Date Visits Requ ested Visits Authorized [id number] 1 1 Encounter Details Date Type Department Care Team Description 10/16/2020 Hospital En[place] [facility]ata Mcduffie Malignant neoplasm [facility] MD Ortiz of right female Drive [facility] breast, unspecified [place], [place] Center estrogen receptor [id number] [place], [place] status, unspecified [phone] site of breast Social History Tobacco Use [...] documented as of this encounter Progress Notes Sravanthi Roberts - 10/15/2020 10:37 AM EDT Pre-procedure note for needle breast biopsies performed in radiology. Procedure date: Tomorrow Procedure type: right breast NLOC and sentinel node injection Allergies: Percocet [oxycodone-acetaminophen] and Sulfa (sulfonamide antibiotics) Medications: Current Outpatient Medications: ??? ibuprofen (ADVIL;MOTRIN) 600 mg Tablet, Take 1 tablet by mouth every 6 hours as needed for Pain.(Patient not taking: Reported on 10/01/2020), Disp: , Rfl: ??? acetaminophen (TYLENOL) 325 [...] reviewed and procedural plan approved by Dr. Sravanthi Roberts MD documented in this encounter Plan of Treatment Not on filedocumented as of this encounter Procedures Procedure Name Priority Date/Time Associated Diagnosis Comme nts MAMMO NEEDLE Routine 10/16/2020 11:16 Malignant neoplasm Resul ts for this LOCALIZATION RIGHT AM EDT of right female proced ure are in breast, unspecified the resu lts estrogen receptor section. status, unspecified site of breast documented in this encounter Results Mammo Needle Localization Right (10/16/2020 11:16 AM [...] who have questions please contact the health respiratory care specialist that requested your imaging first. [...] Dose Rate Site lidocaine (Xylocaine) 1% (10 Given 10/16/2020 11:10 AM EDT 10 mg mg/mL) injection 10 mg 10 mg, Intradermal, ONCE, 1 dose, On Susanne 10/16/20 at 1145, Routine documented in this encounter Care Teams Flower Grader Relationship Specialty Start Date End Date Annita Quiñones APRN PCP - General 01/09/14 [address] [place] [address] documented as of this encounter
--- OUTSIDE RECORDS SUMMARY | 2021-09-23 00:47 | XMS_ITS | Encounter Summary ---
:1965 Author Organization [facility] [place] [address] Care Team Providers Name Role Phone Annita Quiñones AMARIS Primary Care Provider [phone] Encounter Details Date Type Department Care Team Description 11/10/2018 Telephone Obstetrics and Gynecology at [facility] Nela rowell MD [facility] Ana galo OBSTETRICS & [place] [address] [place] [address] [phone] (Wo rk) Social History Tobacco Use Types [...] this encounter Miscellaneous Notes Telephone Encounter - Nela Matthews MD - 11/10/2018 12:32 PM EDT Telephone Note I attempted to call [place] to discuss benign pathology results from recent surgery. No answer. Message left. Nela Matthews MD documented in this encounter Plan of Treatment Not on filedocumented as of this encounter Visit Diagnoses Not on filedocumented in this encounter Care Teams Lime Kiln Tender Relationship Specialty Start Date End Date Annita Quiñones APRN PCP - General 01/09/14 [address] [place] [address] documented as of this encounter
--- OUTSIDE RECORDS SUMMARY | 2021-09-23 00:47 | XMS_ITS | Encounter Summary ---
:1965 Author Organization [facility] Address [address] [place] [address] Care Team Providers Name Role Phone Annita Quiñones AMARIS Primary Care Provider [phone] Encounter Details Date Type Department Care Team Description 09/30/2020 Laboratory Appointment Lab 3L [facility] Malignant neoplasm of [facility] right female breast, [facility] unspecifi ed estrogen Drive receptor status, [place], [place] [id number] breast [phone] Social History Tobacco Use Types Packs/Day Years [...] Name Priority Date/Time Associated Diagnosis Comme nts HEMOGRAM Routine 09/30/2020 3:02 PM Malignant neoplasm Res ults for this EDT of right female procedure ar e in breast, unspecified the resu lts estrogen receptor section. status, unspecified site of breast DIFFERENTIAL, Routine 09/30/2020 3:02 PM Malignant neoplasm Re sults for this AUTOMATED EDT of right female procedure ar e in breast, unspecified the resu lts estrogen receptor section. status, unspecified site of breast HC CBC,PLT & AUTO Routine 09/30/2020 3:02 PM Malignant neoplas m DIFF EDT of right female breast, unspecified estrogen receptor status, unspecified site of breast HC VENIPUNCTURE Routine 09/30/2020 3:02 PM Malignant neoplasm Results for this EDT of right female procedure ar e in breast, unspecified the resu lts estrogen receptor section. status, unspecified site of breast documented in this encounter Results Differential, Automated (09/30/2020 3:02 PM EDT) P athologist Signature Neutrophils % 51.5 % [facility] Neutr Abs (ANC) 3.79 1.70 - [place] 6.10 [facility] x10(3)/[facility] LABORATORY Lymphocytes % 34.6 % [facility] Lymphocytes Abs 2.5 0.9 - 3.2 [place] x10(3)/[facility] LABORATORY Monocytes % 8.3 % [facility] Monocyte Abs 0.6 0.3 - 0.9 [place] x10(3)/[facility] LABORATORY Eosinophils % 4.5 % [facility] Eosinophils Abs 0.3 0.0 - 0.4 [place] x10(3)/[facility] LABORATORY Basophils % 0.8 % [facility] Basophils Abs 0.1 0.0 - 0.1 [place] x10(3)/[facility] LABORATORY Immature Gran % 0.30 % [facility] Comment: Immature granulocytes(IG's)percentage an d absolute count will include metamyelocytes, myelocytes, and promyelo cytes. Blood smears from CBCs yielding IG's will be scanned manually for concor dance. If this scan disagrees with the automated IG or if promyelocytes are not ed, a manual differential will be performed. Camille Gran Abs 0.02 0.00 - 0.04 x10(3)/[facility] Specimen Anatomical Collection Method Collection Time Receive d Time (Source) Location / / Volume Laterality Blood 09/30/2020 3:02 PM 3:11 EDT PM EDT Resulting Agency Comment Spec In Lab Mata Mcduffie MD HEMATOLOGY ORDERABLES Performing Organization Address City/State/[place] [address] Hemogram (09/30/2020 3:02 PM EDT) athologist Signature WBC 7.4 4.0 - 9.5 [place] x10(3)/[facility] LABORATORY RBC 4.16 4.00 - [facility]21 [facility] x10(6)/[facility]ORY Hemoglobin 13.2 11.7 - [facility] 15.[facility] gm/dL [facility] Hematocrit 38.5 35.7 - [facility] 45.8 % [facility] MCV 92.5 82.6 - [facility] 94.4 fL [facility] MCH 31.7 27.1 - [place] 32.0 pg [facility] MCHC 34.3 31.7 - [facility] 35.0 gm/dL [facility] Platelets 248 145 - 357 [place] x10(3)/[facility] LABORATORY RDWSD 45.3 37.0 - [place] 46.0 [facility] LABORATORY RDWCV 13.4 11.5 - [place] 14.1 % [facility] MPV 11.8 7.6 - 12.9 [facility] LABORATORY nRBC % Auto 0.0 % [facility] nRBC Abs Auto 0.000 0.000 - [place] 0.000 [facility] x10(3)/[facility] LABORATORY Specimen Anatomical Collection Method Collection Time Receive d Time (Source) Location / / Volume Laterality Blood 09/30/2020 3:02 PM 3:11 EDT PM EDT Resulting Agency Comment Spec In Lab Mata Mcduffie MD HEMATOLOGY ORDERABLES Performing Organization Address City/State/[place] [address] (ABNORMAL) Comprehensive metabolic panel (non-fasting) (09/30/2020 3:02 PM EDT) athologist Signature Glucose Lvl 97 65 - 199 [place] mg/dL [facility] Comment: Diabetes: >=200 mg/dL plus symp toms BUN 13 8 - 18 mg/dL [facility] Creatinine 0.64 (L) 0.70 - 1.20 mg/dL [facility] Sodium 142 135 - 145 mmol/L [facility] Potassium 4.0 3.5 - 5.0 mmol/L [facility] Comment: Please note: ??Patients with WBC >100,00 0 may have falsely elevated Potassium levels. ??For accurate Potassium quantif ication in these patients send serum separator tube (gold top) for subsequent determinations. ??Contact the Clinical Chemistry Laboratory if there are any qu estions. Chloride 107 98 - 107 mmol/L [facility] CO2 22 22 - 31 mmol/L [facility] Anion Gap 13 5 - 15 mmol/L [facility] Calcium 9.4 8.5 - 10.5 mg/dL [facility] Total Protein 7.0 6.1 - 8.0 gm/dL [facility] Albumin 4.4 3.2 - 5.2 gm/dL [facility] AST 15 0 - 30 unit/L [facility] ALT 13 0 - 30 unit/L [facility] Alk Phos 73 35 - 105 unit/L [facility] Total Bilirubin <0.2 (L) 0.2 - 1.3 mg/dL [facility] Estimated GFR 100 >=60 mL/min/1.73 m?? [facility] Comment: This patient? s estimated [...] Organization Address City/State/[place] [address] documented in this encounter Visit Diagnoses Diagnosis Malignant neoplasm of right female breas t, unspecified estrogen receptor status, unspecified site of breast documented in this encounter Care Teams Sharepoint Web Developer Relationship Specialty Start Date End Date Annita Quiñones APRN PCP - General 01/09/14 [address] [place] [address] documented as of this encounter
--- OUTSIDE RECORDS SUMMARY | 2021-09-23 00:47 | XMS_ITS | Encounter Summary ---
:1965 [place] [address] Care Team Providers Name Role Phone Annita Quiñones AMARIS Primary Care Provider [phone] Reason for Visit Auth/Cert Specialty Diagnoses / Procedures Referred By Contact Refer red To Contact Diagnoses ovarian mass Procedures PRO LAP, RMV ADNEXAL STRUCTURE LAPAROSCOPY, [facility] Referral ID Status Reason Start Date Expiration Date Visits Requ ested Visits Authorized [id number] 1 1 Encounter Details Date Type Department Care Team Description 11/01/2018 Surgery Main Operating Room Neav Mercer MD [facility], [facility] OBSTETRICS AND [facility] [place] [address] [place] [address] [phone] (Wo rk) Social History Tobacco Use Types [...] Sign Reading Time Taken Comments Blood Pressure 138/70 11/01/2018 12:00 PM EDT Pulse 70 11/01/2018 12:00 PM EDT Temperature 36.4 ??C (97.5 ??F) 11/01/2018 11:00 AM EDT Respiratory Rate 18 11/01/2018 12:00 PM EDT Oxygen Saturation 98% 11/01/2018 12:00 PM EDT Inhaled Oxygen Concentration - - Weight - - Height - - Body Mass Index - - documented in this encounter Discharge Instructions Patient InstructionsNela Matthews MD - 11/01/2018 11:35 AM EDT Images from the original note were not included. PATIENT DISCHARGE INSTRUCTIONS Appointments: You will be called to schedule a post-operative appointment Gynecology phone number: [phone] Call your doctor if you develop: --A [...] MD - 11/01/2018 8:32 AM EDT Inpatient VICE PRESIDENT MEDIA RELATIONS - Admission Interval Note I have reviewed [...] Mercer MD - 11/01/2018 12:13 PM EDT [facility] Operative Note Patient Name: Kayce Posadas : [id number] MR#: [id number] Case Date: 11/01/2018 Surgeon: Surgeon(s) and Role: [...] Room in stable condition. Dr. Mercer, attending administrative staff supervisor was present and scrubbed for the entire procedure without intervening responsibility. Nela Matthews MD PGY4 11/01/2018 Infection Bundle used? N/A I was present and I participated during the entire procedure. Neva Mercer MD Brief Op Note - Neva Mercer MD - 11/01/2018 11:15 AM EDT Brief Operative Note Patient Name: Kayce Posadas : [id number] MR#: [id number] Case Date: 11/01/2018 Surgeon: Surgeon(s) and Role: [...] Component Value Ref Test Analysis Performed At [facility] Method Time Signature Surgical [id number] ? Location: [facility]; A [facility] Pathology HONOLULU Report The signing pathologist has (i) examined the relevant preparation(s) for the [facility] specimen(s) and (ii) rendered or confirmed the diagnosis(es) . HOSPITAL LABORATORY . ?Surgic al Pathology DIAGNOSIS Right ovary, salpingo-oophorectomy: - Mature cystic teratoma with struma. - Benign fallopian tube. Electronically signed by: ??Mavis MARINELLI, Alva Bishop Verified: ??11/08/2018 ?Pathologist Performed at: ??-[facility] Dept. of Pathology, [place], [place] CLINICAL INFORMATION Specimen Submitted: A - Right Ovary Clinical History and Diagnosis: Ovarian mass SPECIMEN PROCESSING A - Labeled/Fixative: Right ovary, fresh. Quantity/Size/Weight: ??Multiple, 3 x 2.5 x 2.5 cm, 15 g (ov erall). Tissue Description: Incised, collapsed cystic ovary and attached fallopian tube. RIGHT OVARY ?? Size: 3.5 x 2.5 x 2.2 cm. ?? Outer Surface: Thruston, disrupted, smooth. ?? Cut Surface: The largest [...] 0.5 cm, fimbriated, purple, tortuo us. Sections/Processing: Art Director sections in 10 cassettes as follows: ?A1: ??Fallopian tube ?A2-A5: ??Cystic ovarian tissue ?A6-A9: ??Solid ovarian tissue ?A10: ??Remaining ovarian tissue ??ams Specimen (Source) Anatomical Collection Method Collection Time Re ceived Time Location / / Volume Laterality 11/01/2018 10:54 AM EDT Neva Mercer MD PATHOLOGY/CYTOLOGY ORDERABLE S Performing Organization Address City/State/[place] [address] Specimen to Pathology (11/01/2018 10:54 AM EDT) Specimen Anatomical Collection Method Collection Time Receive d Time (Source) Location / / Volume Laterality AP Specimen 11/01/2018 10:54 11/01/2018 AM EDT 10:54 AM EDT Narrative [facility] - 11/01/2018 10:54 AM EDT Specimen requisition ordered. ??Separate Pathology report to follow Neva Mercer MD PATHOLOGY/CYTOLOGY ORDERABLE S Performing Organization Address City/[facility]/[place] [address] documented in this encounter Visit Diagnoses Diagnosis Simple ovarian cyst Other and unspecified ovarian cyst Adnexal mass Other specified symptom associated with female genital organs documented in this encounter Administered Medications Inactive [...] use acetaminophen first., Routine BUpivacaine (PF) (MARCAINE) Given 11/01/2018 11:16 AM 30 mLs 19- Surgical Site 0.25 % (2.5 mg/mL) injection EDT ONCE PRN, Starting on Tue11/01/18 at 1116, Until Tue11/01/18 at 1554, Intra-Operative (Intra-Procedure), Routine diphenhydrAMINE (BENADRYL) 25 mg capsule Given [...] mg (COMPLETED) 0758 (Given - Provider: Kathy Limon RN) 200 mg, Oral, ONCE, 1 dose, Tue11/01/18 at 0815, Day of Surgery (Day of Procedure), Routine Continuous Medication Order 10/30/2018 10/31/2018 11/01/2018 lactated ringers infusion (CANCELED) 0845 (New Bag - Provider: Kahty Limon RN)0911 (New Bag - Provider: Laura Wang [...] mg (COMPLETED) 1220 (Given - Provider: Shanon Hurley, MARTITA) 0.2 mg, Intravenous, ONCE PRN, 1 dose, S tarting Tue11/01/18 at 1140, Until Discontinued, Pain, Severe pain (7-10), - If not controled by oral pain medication., Routine ondansetron (ZOFRAN) injection 4 mg (CANCELED) 1238 (Given - Provider: Shanon Hurley, MARTITA) 4 mg, Intravenous, EVERY 30 MIN PRN, Sta rting Tue11/01/18 at 1143, Until Tue11/01/18 at 1341, Nausea, May repeat 4 mg once in 30 minutes. If multiple antiemetics ordered, use ondansetron first and if ineffective use prochlorperazine second and if ineffective use promethazine, PACU Recovery oxyCODONE (ROXICODONE) immediate release tablet 5 mg 1217 (Given - Provider: Shanon Hurley, RN) 5 mg, Oral, EVERY 3 HOURS [...] capsule (COMPLETED) 1215 (Given - Provider: Shanon Hurley, RN) 1 dose, Starting 11/01/18 at 1205, Un til Susanne 11/02/18 at 0014, Shanon Hurley.: cabinet override documented in this encounter Care Teams Heat Treat Inspector Relationship Specialty Start Date End Date Annita Quiñones APRN PCP - General 01/09/14 [address] [place] [address] documented as of this encounter
--- OUTSIDE RECORDS SUMMARY | 2021-09-23 00:47 | XMS_ITS | Encounter Summary ---
:1965 Author Organization [facility] [place] [address] Care Team Providers Name Role Phone Annita Quiñones AMARIS Primary Care Provider [phone] Encounter Details Date Type Department Care Team Description 10/17/2020 Orders Only General Surgery at [facility] Shanon Hurley, [place] [address] Social History Tobacco Use Types Packs/Day [...] on filedocumented in this encounter Care Teams Credit Review Officer Relationship Specialty Start Date End Date Annita Quiñones APRN PCP - General 01/09/14 [address] [place] [address] documented as of this encounter
--- OUTSIDE RECORDS SUMMARY | 2021-09-23 00:48 | XMS_ITS | Encounter Summary ---
:1965 Author Organization [facility] [address] Care Team Providers Name Role Phone IshmaelAnnita loera Rory GLEZ Primary Care Provider [phone] Encounter Details Date Type Department Care Team Description 12/25/2014 Telephone Pain Management at [facility], [place] [address] Social History Tobacco Use Types Packs/Day [...] this encounter Miscellaneous Notes Telephone Encounter - Jazmin Roldan LPN - 12/25/2014 3:33 PM EDT [facility] Post-Procedure Phone Note Patient: Kayce Posadas [id number] Post-procedure phone call from patient to report her response to the Bilateral lumbar medial branch block procedure performed on 12/05/14 in the Pain Management Center by Feroz Blackmon MD. This is patient's : first medial branch block Patient reports that after the procedure she experienced: _x_ Patient reported post-block numeric pain scale: 2 /10 (average pain since procedure) _x_ If relief > 80% with ability to perform painful maneuvers; sched 2nd MBB: yes __ Post-procedure pain has been reduced by 90%. (> 50% all other insurers) _x_ Pain relief: moderate If pain is reduced, it lasted: Yes 4 hours or greater Based on the information provided above and after discussion with the patient, the following actionswill be taken: _x_ Patient meets criteria to proceed to second Bilateral lumbar medial branch block _x_ Patient will be contacted by field secretary in Pain Management Center as described above. _x_ Patient was given general information about the procedure and all their questions were answered to their satisfaction. Patient on anticoagulant medication: No Patient has pacemaker/defibrillator: No Patient has the appropriate phone number and understands that she may contact the Pain Management Center at any time with questions or concerns. MADI Wu documented in this encounter Plan of Treatment Not on filedocumented as of this encounter Visit Diagnoses Not on filedocumented in this encounter Care Teams Infection Prevention Practitioner Relationship Specialty Start Date End Date Annita Quiñones APRN PCP - General 11/5/14 [address] [place] [address] documented as of this encounter
--- OUTSIDE RECORDS SUMMARY | 2021-09-23 00:48 | XMS_ITS | Encounter Summary ---
:1965 Author Organization [place] [address] Care Team Providers Name Role Phone IshmaelAnnita loera Rory GLEZ Primary Care Provider [phone] Encounter Details Date Type Department Care Team Description 12/04/2014 Telephone Pain Management at [facility], [employer] [place] [address] Social History Tobacco Use Types Packs/Day Years Used Date Current Every Day Smoker Cigarettes 0.5 25 Alcohol Use Standard Drinks/Week Comments Yes 5 [...] Telephone Encounter - Jazmin Roldan LPN - 12/04/2014 8:53 AM EDT Kayce Posadas :1965 Message left: I left a message on answering machine Ms. Posadas at 8:53 AM regarding her upcoming Bilateral lumbar medial branch block with Dr. Feroz Blackmon MD. Message included the followin. Patient instructed to arrive at 8 AM (30 minutes prior to procedure start time) on 12/05/14 (date of procedure) with their dolly driver. 2. Following instructions left in the message: - Bring Updated list of medications including dosage and reason for taking. - Call the Pain Clinic Nurse at for: ~Procedure instructions. ~If you are taking antibiotics. ~If you have any signs or symptoms of infection, cold or flu. ~If you have any skin breakdown (rashes, cysts, or abscess.) ~If you are taking anticoagulants / blood thinners (Plavix, Pletal, Lovenox, Coumadin, etc). ~If you had any steroid injections anywhere in your body within the last two weeks? MADI Wu documented in this encounter Plan of Treatment Not on filedocumented as of this encounter Visit Diagnoses Not on filedocumented in this encounter Care Teams Clerical And Office Support Workers Relationship Specialty Start Date End Date Annita Quiñones APRN PCP - General 01/09/14 [address] [place] [address] documented as of this encounter
--- OUTSIDE RECORDS SUMMARY | 2021-09-23 00:48 | XMS_ITS | Encounter Summary ---
:1965 Author Organization [facility] [place] [address] Care Team Providers Name Role Phone Annita Quiñones LOOM CHANGER Primary Care Provider [phone] Encounter Details Date Type Department Care Team Description 10/03/2018 Ancillary Procedure Radiology Library at [facility], [facility] LOOM CHANGER [facility] [address] [place] [address] [place] [address] [phone] Social History Tobacco Use Types Packs/Day Years [...] place to sleep or slept in a penitentiary (including now)? Sex Assigned at Date Recorded Not on file documented as of this encounter Plan of Treatment Not on filedocumented as of this encounter Procedures Procedure Name Priority Date/Time Associated Comments Diagnosis FILM LIBRARY STORAGE Routine 10/03/2018 12:00 AM Results for this ONLY ULTRASOUND EDT procedure ar e in STUDY the results section. documented in this encounter Results Film Library- Storage Only Ultrasound Study (10/03/2018 12:00 AM EDT) Specimen (Source) Anatomical Location Collection Method / Collectio n Time Received Time / Laterality Volume Narrative ELIDA POPE - 10/09/2018 9:28 AM EDT This exam is auto-finalizing. It's purpo se is for storage only. Annita Quiñones APRN IMRadha FILM LIBRARY ORDERABLES Performing Organization Address City/State/ZIP Code Phon e Number NIKO NIKO [place], [place] documented in this encounter Visit Diagnoses Not on filedocumented in this encounter Care Teams Creative Technologist Relationship Specialty Start Date End Date Annita Quiñones APRN PCP - General 01/09/14 [address] [place] [address] documented as of this encounter
--- OUTSIDE RECORDS SUMMARY | 2021-09-23 00:48 | XMS_ITS | Encounter Summary ---
:1965 Author Organization [facility] [place] [address] Care Team Providers Name Role Phone Luisa Yolanda Bishop APRN Primary Care Provider [phone] Reason for Visit Reason Comments Back Pain Encounter Details Date Type Department Care Team Description 11/08/2013 Emergency Emergency Department Kerri cedeno, Riley Phillips, LUCINA [address] [place] [address] Low back pain [facility] Chantell Hussein MD [address] [place] [address] [place] [address] [place] [address] Social History Tobacco Use Types Packs/Day Years Used Date Current Every Day Smoker Cigarettes 1 25 Alcohol Use Standard Drinks/Week Comments Yes 0 (1 standard drink = 0.6 oz pure [...] place to sleep or slept in a assisted (including now)? Sex Assigned at Date Recorded Not on file documented as of this encounter Last Filed Vital Signs Vital Sign Reading Time Taken Comments Blood Pressure 127/69 11/08/2013 5:04 PM EDT Pulse 57 11/08/2013 5:04 PM EDT Temperature 36.8 ??C (98.2 ??F) 11/08/2013 5:04 PM EDT Respiratory Rate 18 11/08/2013 5:04 PM EDT Oxygen Saturation 98% 11/08/2013 5:04 PM EDT Inhaled Oxygen Concentration - - Weight - - Height - - Body Mass Index - - documented in this encounter Discharge Instructions Discharge InstructionsChantell Hilario MD - 11/08/2013 4:56 PM EDT Images from the original note were not included. Your neurological exam was normal. Your urine test was normal. Take motrin 600mg every 6 hours for pain. You can take the oxycodone as needed for break through pain. Continue physical therapy. Follow-up with your doctor on Tuesday. Follow-up with the pain clinic attheir next available appointment. Return to the ED if you have difficulty urinating, lose control of your bowels, have difficulty walking, or any other concerns. [facility] Back Stretches: Exercises Your Care Instructions Here are some examples of exercises for stretching your back. Start each exercise slowly. Ease off the exercise if you start to have pain. Your doctor or physical therapist will tell you when you can start these exercises and which ones will work best for you. How to do the exercises Overhead stretch 1. Stand comfortably with your feet shoulder-width apart. 2. Looking straight ahead, raise both arms over your head and reach toward the ceiling. Do not allowyour head to tilt back. 3. Hold for 15 to 30 seconds, then lower your arms to your sides. 4. Repeat 2 to 4 times. Side stretch 1. Stand comfortably with your feet shoulder-width apart. 2. Raise one arm over your head, and then lean to the other side. 3. Slide your hand down your leg as you let the weight of your arm gently stretch your side muscles.Hold for 15 to 30 seconds. 4. Repeat 2 to 4 times on each side. Press-up 1. Lie on your stomach, supporting your body with your forearms. 2. Press your elbows down into the floor to raise your upper back. As you do this, relax your stomach muscles and allow your back to arch without using your back muscles. As your press up, do not let your hips or pelvis come off the floor. 3. Hold for 15 to 30 seconds, then relax. 4. Repeat 2 to 4 times. Relax and rest 1. Lie on your back with a rolled towel under your neck and a pillow under your knees. Extend your arms comfortably to your sides. 2. Relax and breathe normally. 3. Remain in this position for about 10 minutes. 4. If you can, do this 2 or 3 times each day. Follow-up care is a linton part of your treatment and safety. Be sure to make and go to all appointments, and call your doctor if you are having problems. It's also a good idea to know your test results and keep a list of the medicines you take. Where can you learn more? Visit our [employer] information library at [email or web address] You can also view health information on [employer], your personal patient account. Log in or sign up today. Enter Y090 in the search box to learn more about Back Stretches: Exercises. ?? [id number] [facility]. Care instructions adapted under license by [facility]. This care instruction is for use with your licensed healthcare professional. If you have questionsabout a medical condition or this instruction, always ask your healthcare professional. [facility] disclaims any warranty or liability for your use of this information. Content Version: 9.9.540638; Last Revised: January 19, 2011 [facility] Getting Back to Normal After Low Back Pain: After Your Visit Your Care Instructions Almost everyone has low back pain at some time. The good news is that most low back pain will go away in a few days or weeks with some basic self-care. Some people are afraid that doing too much may make their pain worse. In the past, people stayed in bed, thinking this would help their backs. Now doctors think that, in most cases, getting back to your normal activities is good for your back, as long as you avoid doing things that make your pain worse. Follow-up care is a linton part of your treatment and safety. Be sure to make and go to all appointments, and call your doctor if you are having problems. It???s also a good idea to know your test resultsand keep a list of the medicines you take. How can you care for yourself at home? Ease back into daily activities ?? For the first day or two of pain, take it easy. But as soon as possible, get back to your normal daily life and activities. ?? Get gentle exercise, such as walking. Movement keeps your spine flexible and helps your muscles stay strong. ?? If you are an athlete, return to your activity carefully. Choose a low-impact option until your pain is under control. Avoid or change activities that cause pain ?? Try to avoid too much bending, heavy lifting, or reaching. These movements put extra stress on your back. ?? In bed, try lying on your side with a pillow between your knees. Or lie on your back on the floorwith a pillow under your knees. ?? When you sit, place a small pillow, a rolled-up towel, or a lumbar roll in the curve of your backfor extra support. ?? Try putting one foot up on a stool or changing positions every few minutes if you have to stand still for a period of time. Pay attention to body mechanics and posture Body mechanics are the way you use your body. Posture is the way you sit or stand. ?? Take extra care when you lift. When you must lift, bend your knees and keep your back straight. Avoid twisting, and keep the load close to your body. ?? Stand or sit tall, with your shoulders back and your stomach pulled in to support your back. Get support when you need it ?? Let people know when you need a helping hand. Get family members or friends to help out with tasks you cannot do right now. ?? Be honest with your doctor about how the pain affects you. ?? If you have had to take time off work, talk to your doctor and boss about a gradual eghpvs-jw-ghiz plan. Find out if there are other ways you could do your job to avoid hurting your back again. Reduce stress Worrying about the pain can cause you to tense the muscles in your lower back. This in turn causes more pain. Here are a few things you can do to relax your mind and your muscles: ?? Take 10 to 15 minutes to sit quietly and breathe deeply. Try to focus only on your breathing. If you cannot keep thoughts away, think about things that make you feel good. ?? Get involved in your favorite hobby, or try something new. ?? Talk to a friend, read a book, or listen to your favorite music. ?? Find a counselor you like and trust. Talk openly and honestly about your problems. Be willing to make some changes. When should you call for help? Call 911 anytime you think you may need emergency care. For example, call if: ?? You lose bladder or bowel control. ?? You suddenly cannot walk or stand. ?? You have sudden numbness or weakness in one or both legs. Call your doctor now or seek immediate medical care if: ?? You have new pain, numbness, tingling, or weakness, especially in the rear end (buttocks) or genital area, legs, or feet. ?? Your back pain gets worse or more frequent. ?? You start to feel depressed or anxious. Watch closely for changes in your health, and be sure to contact your doctor if: ?? You start to take more medicine for pain. ?? You do not get better as expected. Where can you learn more? Visit our health information library at [email or web address] You can also view health information on [employer], your personal patient account. Log in or sign up today. Enter N687 in the search box to learn more about Getting Back to Normal After Low Back Pain: After Your Visit. ?? [id number] [facility]. Care instructions adapted under license by [facility]. This care instruction is for use with your licensed healthcare professional. If you have questionsabout a medical condition or this instruction, always ask your healthcare professional. [facility] disclaims any warranty or liability for your use of this information. Content Version: 9.9.576610; Last Revised: March 23, 2011 documented in this encounter Medications at Time of Discharge Medication Sig Dispensed Refills Start Date End Date albuterol (PROVENTIL Inhale 2 puffs 0 HFA;VENTOLIN HFA) 90 into the lungs mcg/actuation HFA Aerosol every 4 hours as Inhaler needed. Use with spacer traMADol (ULTRAM) 50 mg Take 50 mg by 0 10/10/2014 Tablet mouth every 6 hours as needed. cyclobenzaprine (FLEXERIL) Take 5 mg by mouth 0 10/10/2014 5 mg Tablet 3 times daily as needed. oxyCODONE (ROXICODONE) 5 mg Take 1 tablet by 15 tablet 0 10/10/2014 Tablet mouth every 6 hours as needed for Pain for up to 15 doses. ibuprofen (ADVIL;MOTRIN) Take 1 tablet by 30 tablet 0 11/0810/10/2014 600 mg Tablet mouth every 6 hours as needed for Pain. documented as of this encounter ED Notes Chantell Hilario MD - 11/08/2013 4:44 PM EDT Chief Complaint Patient presents with ??? Back Pain HPI Comments: 48y/o relatively healthy woman presents with low back pain. It is bilateral, but L>R. It started gradually 10 days ago without an inciting injury. She has difficulty characterizing thepain and describes it as burning, sharp, achey, etc. It is definitely worse with activity and certain positions. It is better with rest. No hx of cancer or IVDU. No hx of back surgery. She saw her PCP 1 week ago who prescribed motrin. She went to the ED at [facility] twice in the past week and is now on Flexeril and Tramadol. She is surprised that her pain is not gone at this point. She is not taking any motrin as she thought there was an interaction with Tramadol. She gets similar back pain every 1-2 years and has been diagnosed with degenerative disc disease. This episode of pain is more constant and worse in the amount of pain, but is similar in the quality of pain. She denies urinary retention, but does endorse mild discomfort with urination. She denies perineal numbness and loss of control of stool. Today she has had a few brief episodes of tingling on her entire left side (face, arm, and leg). She does not have that now. Patient is a 48 y.o. female presenting with back pain. Back Pain This is a recurrent problem. The current episode started more than 1 week ago. The problem occurs constantly. The problem has not changed since onset.The pain is associated with no known injury. The pain is present in the lumbar spine. The quality of the pain is described as stabbing, shooting, achingand burning. The pain does not radiate. The pain is at a severity of 10/10. The pain is severe. The symptoms are aggravated by bending and certain positions. The pain is worse during the day. Associated symptoms include numbness (intermittent tingling on her entire left side). Pertinent negatives include no chest pain, no fever, no headaches, no abdominal pain, no abdominal swelling, no bowel incontinence, no perianal numbness, no dysuria, no pelvic pain, no leg pain, no paresis, no tingling and no weakness. She has tried NSAIDs for the symptoms. The treatment provided no relief. Allergies Allergen Reactions ??? Percocet (Oxycodone-Acetaminophen) Itching ??? Sulfa (Sulfonamide Antibiotics) Itching Review of Systems Constitutional: Positive for fatigue. Negative for fever and diaphoresis. HENT: Negative. Negative for sore throat. Eyes: Negative. Respiratory: Negative. Negative for cough and shortness of breath. Cardiovascular: Negative. Negative for chest pain. Gastrointestinal: Negative. Negative for nausea, vomiting, abdominal pain and bowel incontinence. Genitourinary: Negative. Negative for dysuria and pelvic pain. Musculoskeletal: Positive for back pain. Negative for joint swelling and gait problem. Skin: Negative. Negative for rash. Neurological: Positive for numbness (intermittent tingling on her entire left side). Negative for tingling, tremors, syncope, facial asymmetry, speech difficulty, weakness and headaches. Hematological: Negative. Psychiatric/Behavioral: Negative. BP 119/60 Pulse 61 Temp 36.7 ??C (98.1 ??F) (Oral) Resp 16 SpO2 100% Physical Exam Nursing note and vitals reviewed. Constitutional: She is oriented to person, place, and time. She appears well- developed and well-nourished. No distress. HENT: Head: Normocephalic and atraumatic. Right Ear: External ear normal. Left Ear: External ear normal. Nose: Nose normal. Mouth/Throat: Oropharynx is clear and moist. Eyes: Conjunctivae normal and EOM are normal. Pupils are equal, round, and reactive to light. Neck: Normal range of motion. Neck supple. No JVD present. Cardiovascular: Normal rate, regular rhythm, normal heart sounds and intact distal pulses. Exam reveals no gallop and no friction rub. No murmur heard. Pulmonary/Chest: Effort normal and breath sounds normal. No respiratory distress. She has no wheezes. She has no rales. She exhibits no tenderness. Abdominal: Soft. Bowel sounds are normal. She exhibits no distension. There is no tenderness. There is no rebound and no guarding. Musculoskeletal: Normal range of motion. She exhibits tenderness. She exhibits no edema. Diffuse tenderness of the lower half of the thoracic spine, the entire lumbar and sacral spine. Shealso has tenderness at the bilateral SI joints and the paraspinal area in the bilateral lumbar area.No focal point tenderness. Neurological: She is alert and oriented to person, place, and time. No cranial nerve deficit. Coordination normal. CN: II-XII intact. Speech: Fluent. Strength: 5/5 in bilateral upper and lower extremities in the proximal and distal muscle groups. Sensation: Intact to light touch throughout. Coordination: Finger to nose intact bilaterally. Gait: Stable, narrow based. Reflexes: 2+ bilateral biceps and patella. Skin: Skin is warm and dry. No rash noted. She is not diaphoretic. Psychiatric: She has a normal mood and affect. Procedures MDM I reviewed the patients records. Post-void residual bladder scan: 19 mL. Urine: Normal dip. Assessment and Plan: 48y/o woman with 10 days of back pain. Negative straight leg raise and completely normal neuro exam including gait. She has a normal post void residual of 19 mL and no other findings to raise the possibility of spinal cord compression. There are no red flags on history or physical for epidural abscess or hematoma. She was given Toradol 30mg IM and oxycodone 5mg PO in the ED. She will be discharged home with f/u with her PCP and the pain clinic and scripts for motrin and oxycodone. I encouraged her to participate in physical therapy (referall placed by her PCP). Impression: Low back pain. Dispo: Discharged home with PCP follow-up. Chantell Hilario MD 11/08/13 2779 Jordana Roldan RN - 11/08/2013 3:00 PM EDT Assumed pt care. Pt. A/O x3. RR even and nonlabored. Lungs course bilat. C/o back pain from thoracicdown to sacral with intermittent numbness and tingling in legs. Denies bowel or bladder problems documented in this encounter Miscellaneous Notes Discharge Summary - Provider, Sujey - 11/09/2013 8:45 AM EDT Miscellaneous - Provider, Scanning - 11/08/2013 7:18 PM EDT ED Triage - Miroslava Frye RN - 11/08/2013 1:30 PM EDT Pt presents to ED with c/o B/L LBP radiating up middle of back. Also reports slight tingling/numbness in L arm and L leg when she moves. Pt seen at OSH 2 days ago, given pain Rx with no relief. Denies bladder/bowel incontinence. Rates pain 10/10 on pain scale. Skin w/p/d, noticeably uncomfortable whenshe sits. RR even and unlabored. documented in this encounter Plan of Treatment Not on filedocumented as of this encounter Procedures Procedure Name Priority Date/Time Associated Diagnosis Comme nts POCT URINE DIPSTICK STAT 11/08/2013 4:48 PM Re sults for this EDT procedure are i n the results section. documented in this encounter Results POCT urine dipstick (11/08/2013 4:48 PM EDT) Analysis Performed At Patho logist Time Signature POC Sp [place] 1.005 1.002 - 1.030 POC pH, UA 7 5.0 - 8.5 POC Leuk, UA Neg Negative - Negative POC Nitrite, Neg Negative - UA Negative POC Protein, neg Negative - UA Negative mg/dL POC Glucose, normal Normal - UA Normal mg/dL POC Ketone, UA neg Negative - Negative POC Urobil, UA 0.2 0.2 - 1.0 mg/dL POC Bili, UA neg Negative - Negative POC Blood, UA neg Negative - Negative mu/uL Chantell Hilario MD POINT OF CARE TEST ORDERABLE S documented in this encounter Visit Diagnoses Diagnosis Low back pain Lumbago Asthma Unspecified asthma documented in this encounter Administered Medications Inactive Administered Medications - up to 3 most recent administrations Medication Order MAR Action Action Date Dose Rate Site ketorolac (TORADOL) Given 11/08/2013 4:45 PM EDT 30 mg Right Gluteal injection 30 mg 30 mg, Intramuscular, ONCE, 1 dose, On Susanne 11/08/13 at 1700, Routine oxyCODONE (ROXICODONE) immediate release tablet Given 11/08/2013 4:45 PM EDT 5 mg 5 mg 5 mg, Oral, ONCE, 1 dose, On Susanne 11/08/13 at 1700, Routine documented in this encounter Active and Recently Administered Medications Times are shown in EDT. Scheduled Medication Order 11/06/2013 11/07/2013 11/08/2013 ketorolac (TORADOL) injection 30 mg (COMPLETED) 0931 (Given - Provider: Jordana Roldan RN) 30 mg, Intramuscular, ONCE, 1 dose, Susanne 11/08/13 at 1700, Routine oxyCODONE (ROXICODONE) immediate release tablet 5 mg (COMPLETED) 1785 (Given - Provider: Jordana Roldan RN) 5 mg, Oral, ONCE, 1 dose, [facility] 11/08/13 at 1700, Routine documented in this encounter Care Teams Pipeline Technician Relationship Specialty Start Date End Date Yolanda Moran APRN PCP - General 09/06/12 01/08/14 documented as of this encounter
--- OUTSIDE RECORDS SUMMARY | 2021-09-23 00:48 | XMS_ITS | Encounter Summary ---
:1965 Author Organization [facility] [address] Care Team Providers Name Role Phone Yaneli Cruz AMARIS Primary Care Provider Encounter Details Date Type Department Care Team Description 05/03/2011 Ancillary Procedure Radiology Library at [facility], Ashley magdiel Valadez, [facility] [address] [place] [address] [place] [address] [phone] Social History Tobacco Use Types Packs/Day Years Used Date Never Assessed Financial Resource Strain Answer Date Recorded How [...] Date/Time Associated Diagnosis Comme nts FILM Routine 05/03/2011 12:00 AM Results for this LIBRARY-STORAGE EST procedure ar e in ONLY US BREAST the results section. documented in this encounter Results Film Library Storage Only US Breast (05/03/2011 12:00 AM EST) Specimen (Source) Anatomical Location Collection Method / Collectio n Time Received Time / Laterality Volume Narrative RAD - 08/28/2020 8:37 AM EDT This exam is auto-finalizing. It's purpo se is for storage only. Annita Quiñones APRN IMRadha FILM LIBRARY ORDERABLES Performing Organization Address City/State/ZIP Code Phon e Number [place], [place] documented in this encounter Visit Diagnoses Not on filedocumented in this encounter Care Teams Silver Solderer Relationship Specialty Start Date End Date Yaneli Cruz APRN PCP - General 01/27/10 09/05/12 [address] [place] [address] documented as of this encounter
--- OUTSIDE RECORDS SUMMARY | 2021-09-23 00:48 | XMS_ITS | Encounter Summary ---
:1965 Author Organization [facility] Address [facility] [place] [address] Care Team Providers Name Role Phone Pauline Mckinnon AMARIS Primary Care Provider [phone] Reason for Visit Reason Comments Pain Management Encounter Details Date Type Department Care Team Description 12/25/2014 Office Visit Pain Management at Herve Kapoor Spon dylosis of lumbar [facility] region [facility] myelopath or [facility] radiculopathmelchor [place], [place] [facility] [address] [place] [address] [phone] Social History Tobacco Use Types Packs/Day Years [...] Sign Reading Time Taken Comments Blood Pressure 117/73 12/25/2014 2:46 PM EDT Pulse 59 12/25/2014 2:46 PM EDT Temperature - - Respiratory Rate - - Oxygen Saturation 99% 12/25/2014 2:46 PM EDT Inhaled Oxygen Concentration - - Weight 65.8 kg (145 lb) 12/25/2014 2:46 PM EDT Height 165.1 cm (5' 5) 12/25/2014 2:46 PM EDT Body Mass Index 24.13 12/25/2014 2:46 PM EDT documented in this encounter Progress Notes Herve Kapoor, RECORD FILING CLERK - 12/25/2014 3:06 PM EDT PAIN CLINIC FOLLOW-UP Kayce Posadas [id number] Reason for follow-up: Medical management Chief Complaint: LBP Identification: Ms. Posadas is a 49 y.o.-year-old female with a 3-4 year Hx of LBP. Treatment history includes: multiple NSAIDs, muscle relaxant, short course of PT with a HEP, LESI, ultram, vicodin History of Present Illness/Interval History Pain Location: LBP, left buttock pain now daily, left lateral leg, no left foot pain after LESI Pain Quality is described as throbbing Pain Exacerbating/relieving activities: worse with movement, ice can help temporarily Rated as 7-8/10 Depression: none Anxiety: none Sleep: poor Smokin/2 ppd Alcohol: 1-2 a week Functional Status: able to care for self, able to care for home, works FT now Recent treatments: has MBB The [place] Prescription Monitoring Program was checked and no issues were found. Chronic Opioid Therapy Pain Management Plan has not been signed UDT: hs not been done Review of Systems Constitutional Denies weight loss or gain, fevers, chills, nightsweats Cardiovascular Denies chest pain, palpitations. Respiratory Denies cough, SOB, BENTLEY. GI/ Denies constipation, diarrhea, nausea, vomiting, GERD, incontinence Musculoskeletal No weakness, falling Neurologic Denies fainting spells, seizures, memory loss. Denies numbness or paresthesia Physical Exam Blood pressure 117/73, pulse 59, height 165.1 cm (5' 5), weight 65.772 kg (145 lb), SpO2 99 %. Constitutional Kayce Posadas is seen today with her spouse. Dressed appropriately for the weatherwith good hygiene. No pain behaviors. No Milagros signs. Psychiatric He has good eye contact and a full range of affect. Musculoskeletal Moves easily in the exam room with a non antalgic gait. No ambulatory aids used. Assessment Chronic LBP Recommendations/Plan aKyce Posadas and I reviewed her symptoms and care to date. She is here to review her images. Shehad complete resolution of her pain for several days and is interested in taking the next steps. Sheleft messages here but no one got back with her. Her images show degenerative changes. They were reviewed at some length and all questions were answered. Will arrange the next injection. HERVE KAPOOR APRN cc: PAULINE MCKINNON APRN (General) None (Regular Care Provider) documented in this encounter Plan of Treatment Not on filedocumented as of this encounter Visit Diagnoses Diagnosis Spondylosis of lumbar region without mye lopathy or radiculopathy Lumbosacral spondylosis without myelopat hy documented in this encounter Care Teams Classifications Officer Cc/Cm Relationship Specialty Start Date End Date Pauline Mckinnon APRN PCP - General 01/09/14 [address] [place] [address] documented as of this encounter
--- OUTSIDE RECORDS SUMMARY | 2021-09-23 00:48 | XMS_ITS | Encounter Summary ---
:1965 Author Organization [facility] [place] [address] Care Team Providers Name Role Phone Annita Quiñones APRN Primary Care Provider [phone] Reason for Visit Reason Comments Renal Mass Consultation (Routine) - Closed Specialty Diagnoses / Procedures Referred By Contact Refer red To Contact Urology Diagnoses RIGHT FLANK PAIN, RIGHT RENAL CYST Annita Quiñones APRN [facility] [address] [place] [address] [place] [address] Fax: Referral ID Status Reason Start Date Expiration Date Visits V isits Requested Authorized [id number] Closed Consult, Test 07/21/2018 07/21/2019 [facility] PCP Updated and/or Approved Encounter Details Date Type Department Care Team Description 08/31/2018 Office Visit Hematology and Don Arizmendi MD Renal cyst, acquired Oncology at [facility] [place] [address] [place] [address] [phone] Social History Tobacco Use Types Packs/Day Years [...] Sign Reading Time Taken Comments Blood Pressure 138/83 08/31/2018 10:40 AM EDT Pulse 72 08/31/2018 10:40 AM EDT Temperature 36.5 ??C (97.7 ??F) 08/31/2018 10:40 AM EDT Respiratory Rate 18 08/31/2018 10:40 AM EDT Oxygen Saturation 97% 08/31/2018 10:40 AM EDT Inhaled Oxygen Concentration - - Weight 65.4 kg (144 lb 2.9 oz) 08/31/2018 10:40 AM EDT Height 165 cm (5' 4.96) 08/31/2018 10:40 AM EDT Body Mass Index 24.02 08/31/2018 10:40 AM EDT documented in this encounter Progress Notes Don Arizmendi MD - 08/31/2018 10:30 AM EDT Images from the original note were not included. Patient Name: Kayce Posadas Date of Service: 08/31/2018 Primary Care Provider: Annita Quiñones APRN Reason for Visit: Kayce Posadas is a 53 y.o. female who is referred for evaluation of a renal cyst. The patient had lower abdominal pains with frequency, dysuria, urge. She was treated with antibiotics. Currently the patient has no irritative symptoms with minimal frequencyand nocturia x 4. The urinarystream is OK and the bladder is emptied completely. There is no hematuria. Appetite is OK weight is stable. Patient Active Problem List Diagnosis ??? Spondylosis of lumbar region without myelopathy or radiculopathy ??? Peroneal tendonitis ??? Left foot pain ??? Asthma ??? 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 The patient has been for 9 years with 4 children. The patient drinks 1-3 per day. Tobacco: 1/2 ppd. Systems review: No regular. Can walk stairs, can walk a mile HEENT: Denies problems with vision, hearing, runny nose, epistaxis, sore throat, hoarseness Cardiovascular: Denies Chest pain, palpitations, shortness of breath, ankle swelling, claudication Respiratory: Denies hemoptysis,wheeze, Cough with phlegm Gastrointestinal: Denies nausea, difficulty swallowing, vomiting, hematemesis, constipation, diarrhea, Has some constipation and blood on and off in bowels Neurological: Denies dizziness, double vision, headache, weakness of one side of the body or the other,sudden loss of vision in one eye, Bones and muscles: Denies bone pain, radiating pain, muscle weakness or sore ness. Long hx of lower back pain All other systems negative. Physical Exam: Vital Signs are reviewed. The patient appears healthy and in no distress. Examination of the hands, head neck, eyes ears nose and throat is normal. The skin is normal. There is no lymphadenopathy or thyroidomegaly The abdomen is benign. There are no masses or organomegaly. External genitalia, rectal and vaginal exam are not performed. Examination of the extremities and neurological examination is grossly normal. Lab values are reviewed 07/2018 U/A Negative 07/2018 Cr 0.79, eGFR >60, LFT's nromal, Hb 12.8, Plt 263 08/31/2018 U/A Negative X-rays are reviewed ~ 4cm right lower pole bosniak I renal cyst 07/2018 Renal U/S Impression: #1: Bosniak I simple renal cyst #2: Recent UTI #3: Pain unrelated to renal cyst Plan: I discussed that 30% of the population have renal cysts. I discussed that her cysts characteristics are such that this is benign. I recommend no further evaluation She should f/u with her PCP for her other issues I will see her on an as needed basis. Don Arizmendi documented in this encounter Plan of Treatment Not on filedocumented as of this encounter Visit Diagnoses Diagnosis Renal cyst, acquired Acquired cyst of kidney documented in this encounter Care Teams Press Feeder Relationship Specialty Start Date End Date Annita Quiñones APRN PCP - General 01/09/14 [address] [place] [address] documented as of this encounter
--- OUTSIDE RECORDS SUMMARY | 2021-09-23 00:48 | XMS_ITS | Encounter Summary ---
:1965 Author Organization [facility] [place] [address] Care Team Providers Name Role Phone Yolanda Moran APRN Primary Care Provider [phone] Encounter Details Date Type Department Care Team Description 11/25/2011 Orders Only Pain Management at [facility] Feroz Blackmon, [facility] [place] [address] [facility] [phone] PAIN CLINIC [place] [address] (Wo rk) Social History Tobacco Use Types [...] Associated Diagnosis Comme nts FILM LIBRARY Routine 11/25/2011 7:37 AM Results f or this STORAGE ONLY DX EDT procedure ar e in KNEE the results section. documented in this encounter Results Film Library- Storage only DX Knee (11/25/2011 7:37 AM EDT) Specimen (Source) Anatomical Collection Method Collection Time Re ceived Time Location / / Volume Laterality 11/25/2011 7:37 AM EDT Narrative RAD - 10/30/2013 11:46 PM EDT This is a non-reportable exam. Procedure Note Elfego Galeas - 10/30/2013Formatti ng of this note might be different from the original. This is a non-reportable exam. Feroz Blackmon MD Radha FILM LIBRARY ORDERABLES Performing Organization Address City/State/ZIP Code Phon e Number [facility] [address] [facility] [place] [address] documented in this encounter Visit Diagnoses Not on filedocumented in this encounter Care Teams Apparatus Cleaner Relationship Specialty Start Date End Date Yolanda Moran APRN PCP - General 09/06/12 01/08/14 documented as of this encounter
--- OUTSIDE RECORDS SUMMARY | 2021-09-23 00:48 | XMS_ITS | Encounter Summary ---
:1965 Author Organization [facility] [place] [address] Care Team Providers Name Role Phone Yolanda Moran APRN Primary Care Provider Encounter Details Date Type Department Care Team Description 05/23/2012 Orders Only Pain Management at [facility] Feroz Blackmon, [facility] [place] [address] [facility] [phone] PAIN CLINIC [place] [address] (Wo rk) Social History Tobacco Use Types [...] Associated Diagnosis Comme nts FILM LIBRARY Routine 05/23/2012 7:32 AM Results f or this STORAGE ONLY DX EDT procedure ar e in FOOT the results section. documented in this encounter Results Film Library- Storage only DX Foot (05/23/2012 7:32 AM EDT) Specimen (Source) Anatomical Collection Method Collection Time Re ceived Time Location / / Volume Laterality 05/23/2012 7:32 AM EDT Narrative RAD - 10/30/2013 11:46 PM EDT This is a non-reportable exam. Procedure Note Elfego Galeas - 10/30/2013Formatti ng of this note might be different from the original. This is a non-reportable exam. Feroz Blackmon MD Radha FILM LIBRARY ORDERABLES Performing Organization Address City/State/ZIP Code Phon e Number [facility] [address] [facility] [place] [address] documented in this encounter Visit Diagnoses Not on filedocumented in this encounter Care Teams Tire Fabric Inspector Relationship Specialty Start Date End Date Yolanda Moran APRN PCP - General 09/06/12 01/08/14 documented as of this encounter
--- OUTSIDE RECORDS SUMMARY | 2021-09-23 00:48 | XMS_ITS | Encounter Summary ---
:1965 Author Organization [facility] [place] [address] Care Team Providers Name Role Phone Yolanda Moran TEACHER OF THE DEAF/HARD OF HEARING Primary Care Provider [phone] Encounter Details Date Type Department Care Team Description 07/02/2013 Ancillary Procedure [facility] Valadez, [facility] TEACHER OF THE DEAF/HARD OF HEARING [facility] [address] [place] [address] [place] [address] [phone] Social History Tobacco Use Types Packs/Day Years Used Date Current Every Day Smoker Cigarettes 1 25 Financial Resource Strain Answer Date Recorded How [...] Associated Diagnosis Comme nts FILM LIBRARY Routine 07/02/2013 12:05 AM Results for this STORAGE ONLY MAMMO EDT procedure are in the results section. documented in this encounter Results Film Library- Storage Only Mammo (07/02/2013 12:05 AM EDT) Specimen (Source) Anatomical Location Collection Method / Collectio n Time Received Time / Laterality Volume Narrative [facility] - 08/27/2020 4:19 PM EDT This exam is auto-finalizing. It's purpo se is for storage only. Annita Quiñones APRN IMRadha FILM LIBRARY ORDERABLES Performing Organization Address City/State/ZIP Code Phon e Number [place], [place] documented in this encounter Visit Diagnoses Not on filedocumented in this encounter Care Teams Pretzel Twister Relationship Specialty Start Date End Date Yolanda Moran APRN PCP - General 09/06/12 01/08/14 documented as of this encounter
--- OUTSIDE RECORDS SUMMARY | 2021-09-23 00:48 | XMS_ITS | Encounter Summary ---
:1965 Author Organization [facility] [place] [address] Care Team Providers Name Role Phone Ishmael Annita Valadez APRN Primary Care Provider [phone] Reason for Referral Physical Therapy (Routine) - Closed Specialty Diagnoses / Procedures Referred By Contact Refer red To Contact Physical Therapy Diagnoses Chronic LBP Justa Kapoor APRN [facility] [place] [address] Referral ID Status Reason Start Date Expiration Date Visits V isits Requested Authorized [id number] Closed Evaluate and 10/10/2014 04/08/2015 12 12 Treat Encounter Details Date Type Department Care Team Description 10/10/2014 Follow-Up Pain Management at Justa Kapoor Chro michael LBP (Primary [place] PREP ROOM SUPERVISOR Dx) [facility] [place] [address] PAIN CLINIC [phone] [place], [place] [address] (Wo rk) Social History Tobacco [...] Sign Reading Time Taken Comments Blood Pressure 115/85 10/10/2014 8:20 AM EDT Pulse 65 10/10/2014 8:20 AM EDT Temperature - - Respiratory Rate - - Oxygen Saturation - - Inhaled Oxygen Concentration - - Weight 66.6 kg (146 lb 12.8 oz) 10/10/2014 8:20 AM EDT Height 163.8 cm (5' 4.5) 10/10/2014 8:20 AM EDT Body Mass Index 24.81 10/10/2014 8:20 AM EDT documented in this encounter Progress Notes Justa Kapoor, PREP ROOM SUPERVISOR - 10/10/2014 9:28 AM EDT CHIEF COMPLAINT: Low back pain. HISTORY OF PRESENT ILLNESS: Ms. Posadas's symptoms started two to three years ago without initiating event and seems to be getting worse over time. She has been seen in the pain clinic in the past on 12/03/[address] Blackmon for a foot injury, these notes are in epic. Symptoms today include low back pain, this radiates into the left buttock, left lateral thigh and left lateral calf, but not into her foot. She can have numbness in her lateral left leg several times a week, but no weakness. She has more back pain than leg pain. Her pain is worse with sitting, standing, and being in a car, nothing seems to make it better. She describes this pain as a constant dull ache, it can affect her sleep. She denies any weakness. She rates her pain at 6/10 today, it was 10/10 this morning, and 4/10 to 5/10 several days ago. Over time, she has been treated with physical therapy, the last being a year ago; has had two steroid injections at [facility], the first helped for four to five months, the second only helped for a matter of weeks, these were done approximately two years ago. She has been on meloxicam, tried gabapentin, Cymbalta, tried Lyrica, tried ibuprofen. Has also been on tramadol in the past. Last imaging was several years ago. I have those images available. Review of systems is positive for an increase in 20 pounds in the past year, no other GI, , or constitutional symptoms. 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 She smokes half to one pack a day, is a nondrinker, and is accompanied by her spouse. Opioid risk assessment is positive only for her depression. OBSERVATION: She is pleasant, has good eye contact and full range of affect. She has level shoulders, hips, and knees, ambulates in the clinic with a normal gait, can heel walk and toe walk. From her waist, can flex forward to about midcalf, she extends about 25 degrees. There is increased lower back pain on extension, lateral rotation, and twisting. She also has an area of musculoskeletal pain at approximately T6. Exam of her head, neck, and shoulder shows that she has good range of motion of her head, neck, and shoulder. She does have some discomfort with movement of her head, particularly this causing pain that radiates down her spine. She has no Spurling's, normal reflexes, and a positive Nae's on the left only. In her lower extremity, she has normal sensation, reflexes, and strengths, although touching her legs causes her to have some paresthesia. In lower extremities she has normal reflexes,no Babinski, no clonus. Her skin is pink, warm, and dry. She has palpable pulses in the upper and lower extremities. Heart rate is regular. Lungs are clear to auscultation. When prone, she has more pain with pressure over the lumbar area than over the sacrum with pressure. She also has no increased pain in SI joints with pressure applied over the pelvic wings when supine. She has negative straight leg raise, negative femoral tension stretch, DEANGELO maneuvers are also negative. IMPRESSION: Mechanical back pain. PLAN: Kayce Posadas is a 49-year-old female who describes approximately two to three years of mechanical back pain. The pain is mostly in her back and I can Exacerbate her pain on movement, however, she can have times where it radiates down the lateral thigh which would be in a L5 pattern. Old images from 2012 suggest that she did have a central disk herniation with some disk degenerative changes. Most of her pain is back today. She has normal sensation, reflexes, and strength; she does have a positive Nae's on the left which was unusual. She does not really have any fine motor coordination changes or any difficulty with ambulation. She does not appear myelopathic and I did review these symptoms. We discussed treatment options for chronic pain and we treat pain in four ways. One is behaviorally and we discussed a visit with Dr. Tripp, two, we treat it with interventions and this would be potentially injections, I did give her the brochures for medial branch blocks with radiofrequency ablation. Three, we treat with movement and I did give her the book Treat Your Own Back and have referred her to our local [place] therapist. Four, we discussed medications and we are going to try diclofenac twice a day. I did give her a script for Robaxin and Ultram that when taken in combination might help her with her pain and possibly sleep. I am planning on seeing her back next month. If she is not improved, we will give some consideration to getting standing flexion and extension views of her lumbar spine as well as an MRI to see if we are looking at there being other areas of herniation or more extensive narrowing in the left L5 nerve root. Thank you very much for allowing us to participate in her care. documented in this encounter Plan of Treatment Scheduled Referrals Name Type Priority Associated Diagnoses Order S chedule Referral to Outpatient Referral Routine Chronic LBP Ordered: Physical Therapy 10/10/2014 documented as of this encounter Visit Diagnoses Diagnosis Chronic LBP - Primary Lumbago documented in this encounter Care Teams Dairy And Food Laboratory Assistant Relationship Specialty Start Date End Date Annita Quiñones APRN PCP - General 01/09/14 [address] [place] [address] documented as of this encounter
--- OUTSIDE RECORDS SUMMARY | 2021-09-23 00:48 | XMS_ITS | Encounter Summary ---
:1965 Author Organization [facility] [place] [address] Care Team Providers Name Role Phone Yolanda Moran APRN Primary Care Provider [phone] Encounter Details Date Type Department Care Team Description 07/11/2012 Orders Only Pain Management [place] [facility] Feroz Blackmon, [facility] [place] [address] [facility] [phone] PAIN CLINIC [place] [address] (Wo rk) Social History Tobacco Use Types [...] Associated Diagnosis Comme nts FILM LIBRARY Routine 07/11/2012 7:35 AM Results f or this STORAGE ONLY MR EDT procedure ar e in LOWER EXTREMITY the results section. documented in this encounter Results Film Library- Storage only MR Lower Extremity (07/11/2012 7:35 AM EDT) Specimen (Source) Anatomical Collection Method Collection Time Re ceived Time Location / / Volume Laterality 07/11/2012 7:35 AM EDT Narrative RAD - 10/30/2013 11:46 PM EDT This is a non-reportable exam. Procedure Note Elfego Galeas - 10/30/2013Formatti ng of this note might be different from the original. This is a non-reportable exam. Feroz Blackmon MD Radha FILM LIBRARY ORDERABLES Performing Organization Address City/State/ZIP Code Phon e Number [facility] [address] [facility] [place] [address] documented in this encounter Visit Diagnoses Not on filedocumented in this encounter Care Teams Marketing Clerk Relationship Specialty Start Date End Date Yolanda Moran APRN PCP - General 09/06/12 01/08/14 documented as of this encounter
--- OUTSIDE RECORDS SUMMARY | 2021-09-23 00:48 | XMS_ITS | Encounter Summary ---
:1965 Author Organization [facility] [place] [address] Care Team Providers Name Role Phone Annita Quiñones APRN Primary Care Provider [phone] Reason for Referral Physical Therapy (Routine) - Closed Specialty Diagnoses / Procedures Referred By Contact Refer red To Contact Physical Therapy Diagnoses Peroneal tendonitis, left Left foot pain Superficial peroneal nerve neuropathy, left Anthony Fontaine DPM [facility] D R ORTHOPAEDIC SURGERY [place] [id number] Referral ID Status Reason Start Date Expiration Date Visits V isits Requested Authorized [id number] Closed Evaluate and 11/08/2014 05/07/2015 12 12 Treat Reason for Visit Reason Comments Left Foot Pain Encounter Details Date Type Department Care Team Description 11/08/2014 [place] [facility] [place]aine, Peroneal tendonitis, left (P rimary Dx); [facility] DP Left foot pain; [facility] Superficial peroneal nerve n [place]athy, [place] [address] CENTER [phone] ORTHOPAEDIC SURGERY [place], [place] [address] Social History Tobacco Use Types [...] Sign Reading Time Taken Comments Blood Pressure 109/65 11/08/2014 9:56 AM EDT Pulse 53 11/08/2014 9:56 AM EDT Temperature - - Respiratory Rate - - Oxygen Saturation - - Inhaled Oxygen Concentration - - Weight 63.5 kg (140 lb) 11/08/2014 9:56 AM EDT Height 162.6 cm (5' 4) 11/08/2014 9:56 AM EDT Body Mass Index 24.03 11/08/2014 9:56 AM EDT documented in this encounter Patient Instructions Patient InstructionsToAnthony kang DPM - 11/08/2014 10:45 AM EDT Try physical therapy. Wear the boot when possible, the more the better. Avoid hot tub for at least 24 hours. documented in this encounter Progress Notes Anthony Fontaine DPM - 11/08/2014 10:49 AM EDT Outpatient Podiatry Clinic Note Name: Kayce Posadas Age:49 y.o. MR#: [id number] Date of Service: 11/08/2014 Chief Complaint: left foot/ankle pain HPI: Kayce Posadas is a 49 y.o. year old relatively healthy female who presents today for follow up of her left foot/ankle pain. Patient states she attempted to wear the boot for about 1 week and was finding it to be uncomfortable. Patient states she noticed some swelling on the top of her left foot as well. Patient states she currently works to 6 hour night shifts where she is mostly sitting and 18 hour day shift where she is on her feet standing and walking quite a bit. Patient states she noticed shooting pain and throbbing pain that woke her up last night. She notices some pain with activity.Patient also has been doing quite a bit of chores in and around the house over the past week. Patient states in the past she has received steroid injections to help with her nerve problem in her left leg. Patient did present today in sneakers. She rates her pain at 8/10 today. ROS: Denies F/C/N/V/CP/SOB/cough. + left 5th toe pain. + history of steroid injections to left foot. Patient's medications, allergies, past medical, surgical, social and family histories were reviewed and updated as appropriate. Physical Exam: Vitals: Blood pressure 109/65, pulse 53, height 162.6 cm (5' 4), weight 63.504 kg (140 lb). Gen: WD, alert, oriented. NAD. Derm: Skin is warm, dry and supple. No interdigital macerations, open lesions, ecchymosis or erythema noted. Vasc: DP/PT pulses palpable. CFT < 3 seconds digits 1-5 bilateral. Hair present to digits bilateral. Feet warm to touch. No appreciable edema. Neuro: Epicritic sensation intact to light touch bilateral. + Pain with strumming of superficial peroneal nerve. MSK: No gross deformities noted. + Pain with direct palpation to the plantar and lateral aspect of the fifth metatarsal phalangeal joint/metatarsal head. Some pain with direct palpation of the anteriortalofibular ligament as well as along the course of peroneal tendons, especially at the base of the fifth metatarsal. There is also pain with active eversion against resistance. + Pain with direct palpation to tibialis anterior, extensor hallucis longus, extensor digitorum longus and somewhat posterior tibial tendon. No pain specifically with plantar flexion against resistance of the digits of the left foot. No pain to Achilles or posterior tibial tendons. Muscle strength 4/5 peroneal and anterior muscle group, left secondary to pain. Muscle mass WNL bilateral. Assessment/Plan: Kayce Posadas is a 49 y.o. year old relatively healthy female who presents todaywith more global tendinitis of the left foot and ankle. Patient is now having tenderness to palpation and with range of motion of her anterior muscle group as well as her posterior tibial tendon in addition to her peroneal tendons from last week. Patient is also having significant sensitivity from hersuperficial peroneal nerve. We have discussed further treatment options including injection for her nerve as well as physical therapy and continued immobilization. Patient is in agreement with this plan and I have performed superficial peroneal nerve injection, see procedure below. I've also given a pr escription for physical therapy to assist with her probable tendinitis and neuritis. If patient doesnot achieve adequate relief with physical therapy we can proceed with further imaging including an MRI. Advised patient that if she can immobilize in the boot that would also likely alleviate some of her discomfort. Patient does not specifically recall any incident or activity that would've caused herother tendons to flare, and she will try to take it a little easier over the next few weeks. Patientstates that it is very difficult for her to sit still and not be active doing something around or inthe house. Patient and her relate understanding and will follow-up in the next 6-8 weeks, sooner if problems arise. Procedure: Kayce Posadas was appropriately identified, allergies reviewed and confirmed prior to procedure and the appropriate interspace was identified. Kayce Posadas has elected to have a steroid injection to the superficial peroneal nerve of the left foot for the treatment of her neuritis. Superficial peroneal nerve was identified by plantar flexing inverting the foot. This area was prepped with alcohol and 0.5mg of dexamethasone phosphate and 1 mL of 0.25% marcaine plain was injected. The patient identified a moment where shooting/nerve sensations occurred and the injection was given at this time. Patient tolerated the procedure very well. Hemostasis achieved and bandaid applied. documented in this encounter Plan of Treatment Scheduled Referrals Name Type Priority Associated Diagnoses Order S chedule Referral to Outpatient Referral Routine Peroneal tendonitis, Ordered: Physical Therapy left 11/08/2014 Left foot pain Superficial peroneal nerve neuropathy, left documented as of this encounter Visit Diagnoses Diagnosis Peroneal tendonitis, left - Primary Left foot pain Pain in limb Superficial peroneal nerve neuropathy, l eft documented in this encounter Care Teams Superintendent Operating Relationship Specialty Start Date End Date Annita Quiñones APRN PCP - General 01/09/14 [address] [place] [address] documented as of this encounter
--- OUTSIDE RECORDS SUMMARY | 2021-09-23 00:48 | XMS_ITS | Encounter Summary ---
:1965 Author Organization [facility] [place] [address] Care Team Providers Name Role Phone Annita Quiñones AMARIS Primary Care Provider [phone] Encounter Details Date Type Department Care Team Description 01/20/2015 Telephone Pain Management at Don Cintron, RN [facility] [place] [address] Social History Tobacco Use Types Packs/Day [...] this encounter Miscellaneous Notes Telephone Encounter - GrahamDon LPN - 01/20/2015 2:43 PM EST Kayce Posadas :1965 Contact made with patient: I spoke to Ms. Posadas at 2:47 PM regarding her upcoming Bilateral lumbar radiofrequency scheduled on 01-22-15 (date) scheduled at 730am (time) with Dr. Scout Abdi DO. Medication and Allergy reconciliation: 1. Changes were made in the telephone encounter per patient; marked as reviewed, and closed. 2. Patient confirmed no IVP dye allergy. 3. Have you had any steroid injections anywhere in your body within the last two weeks? no Arrival time: The patient was instructed to arrive at 7am (30 minutes prior to procedure start time - 60 minutes prior for RF patients with a pacemaker) on 01-22 (date of procedure). Gold Leaf Printer: The patient was reminded that they need to have a corporate driver accompany them to her procedure who will remain onsite. Antibiotics/Skin assessment/Illness symptoms/Pain level assessment : 1. The patient confirmed that she is not taking antibiotics at this time. 2. The patient confirmed that she does not have any rashes, blisters, or skin breakdown on their body. 3. The patient confirmed that she does not have any active infections. 4. The patient confirmed that she does not have any symptoms of illness: fever, chills, cold, flu, nausea, vomiting. 5. The patient confirmed that she isstill experiencing significant pain. (Significant pain is defined as interfering with performing ADL.) Pain and Anti-anxiety Medications: 1. Nerve Block Procedure Patients: Patient was instructed NOT to take their pain medications on the day of the procedure and anti-anxiety medications are part of their daily medication regiment; they can and should continue taking that medication. 2. All Other Procedure Patients: The patient was instructed that if they take daily pain or anti-anxiety medications, they can and should continue taking on the day of the procedure. Does patient have history of any diagnosed bleeding disorders: No Anticoagulants: No NPO instructions given to patient: 1. Last solid food intake until 1:30am (6 hours prior to procedure). 2. Clear liquids (christiano danyell, tea, black coffee, water, grape juice, apple juice, or cranberry juice) only intake until 5:30am (2 hours prior to procedure). Diabetic instructions: Patient was advised to inform their PCP regarding safe fasting and the NPO requirements for their upcoming procedure and given the [facility] Management [facility] Nurse Triage Line . Implant: Patient has pacemaker/defibrillator: No Prior to checking in at [employer] Worker, please be sure to empty your bladder. Patient confirmed understanding that if they do not follow the above their instructions, their procedure is likely to be cancelled. Don Graham LPN documented in this encounter Plan of Treatment Not on filedocumented as of this encounter Visit Diagnoses Not on filedocumented in this encounter Care Teams Player Development Manager Relationship Specialty Start Date End Date Annita Quiñones APRN PCP - General 01/09/14 [address] [place] [address] documented as of this encounter
--- OUTSIDE RECORDS SUMMARY | 2021-09-23 00:48 | XMS_ITS | Encounter Summary ---
:1965 Author Organization [facility] [place] [address] Care Team Providers Name Role Phone Annita Quiñones FOUNDATION ENGINEER Primary Care Provider [phone] Encounter Details Date Type Department Care Team Description 12/01/2017 Ancillary Procedure Radiology Library at [place], [facility] FOUNDATION ENGINEER [facility] [address] [place] [address] [place] [address] [phone] Social History Tobacco Use Types Packs/Day Years [...] Associated Diagnosis Comme nts FILM LIBRARY Routine 12/01/2017 12:00 AM Results for this STORAGE ONLY MAMMO EDT procedure are in the results section. documented in this encounter Results Film Library- Storage Only Mammo (12/01/2017 12:00 AM EDT) Specimen (Source) Anatomical Location Collection Method / Collectio n Time Received Time / Laterality Volume Narrative ELIDA POPE - 08/27/2020 2:11 PM EDT This exam is auto-finalizing. It's purpo se is for storage only. Annita Quiñones APRN IMRadha FILM LIBRARY ORDERABLES Performing Organization Address City/State/ZIP Code Phon e Number [place], [place] documented in this encounter Visit Diagnoses Not on filedocumented in this encounter Care Teams Sports Team Marketing Intern Relationship Specialty Start Date End Date Annita Quiñones APRN PCP - General 01/09/14 [address] [place] [address] documented as of this encounter
--- OUTSIDE RECORDS SUMMARY | 2021-09-23 00:48 | XMS_ITS | Encounter Summary ---
:1965 Author Organization [place] [address] Care Team Providers Name Role Phone Annita Quiñones AMARIS Primary Care Provider [phone] Encounter Details Date Type Department Care Team Description 12/30/2014 Telephone Pain Management at Don Cintron, RN [facility] [place] [address] Social History Tobacco Use Types Packs/Day [...] this encounter Miscellaneous Notes Telephone Encounter - Don Graham LPN - 12/30/2014 4:51 PM EDT Pain Management Center Post-Procedure Phone Note Patient: Kayce Posadas [id number] Post-procedure phone call from patient to report her response to the bilateral lumbar medial branch block procedure performed on 12/26/14 in the Pain Management Center by Scout Abdi DO. This is patient's : second medial branch block Patient reports that after the procedure she experienced: __ Patient reported post-block numeric pain scale: 6 /10 (average pain since procedure) __ Post-procedure pain has been reduced by 95%. (> 80% Medicare/MVP/Medicaid) __ If relief > 80% with ability to perform painful maneuvers; sched 2nd MBB: yes __ Post-procedure pain has been reduced by 95%. (> 50% all other insurers) __ Pain relief: complete __ Increased pain. __Confused or unable to differential between procedure pain and regular pain. If pain is reduced, it lasted: Yes 24 hours or greater. Based on the information provided above and after discussion with the patient, the following actionswill be taken: __ Patient meets criteria to proceed to second Bilateral lumbar radiofrequency __ Patient meets criteria for radiofrequency treatment and would like to proceed with a lumbar Radiofrequency procedure with Scout Abdi DO. __ Patient will be contacted by private secretary in Pain Management Center as described above. __ Patient was given general information about the procedure and all their questions were answered to their satisfaction. __ Patient does not meet criteria for radiofrequency and will follow-up with their referring provider, Annita Quiñones APRN , to discuss other options for treatment of their pain. Patient on anticoagulant medication: No Patient has the appropriate phone number and understands that she may contact the Pain Management Center at any time with questions or concerns. Don Graham LPN Telephone Encounter - Don Graham LPN - 12/30/2014 4:49 PM EDT Pt called and left message with nursing per AVS to leave results of LMBB. documented in this encounter Plan of Treatment Not on filedocumented as of this encounter Visit Diagnoses Not on filedocumented in this encounter Care Teams Forest Officer Relationship Specialty Start Date End Date Annita Quiñones APRN PCP - General 01/09/14 [address] [place] [address] documented as of this encounter
--- OUTSIDE RECORDS SUMMARY | 2021-09-23 00:48 | XMS_ITS | Encounter Summary ---
:1965 Author Organization [facility] [place] [address] Care Team Providers Name Role Phone Pauline Mckinnon AMARIS Primary Care Provider Encounter Details Date Type Department Care Team Description 12/05/2014 Hospital Encounter MRI at [facility] [place] [place] Feroz Blackmon, [facility] [place] [address] [place] [address] [place] [address] (Wo rk) Social History Tobacco Use Types [...] End Date albuterol (PROVENTIL Inhale 2 puffs into 0 HFA;VENTOLIN HFA) 90 the lungs every 4 mcg/actuation HFA Aerosol hours as needed. Inhaler Use with spacer hydrOXYzine (ATARAX) 25 mg 50 mg every 8 hours 0 06/03/2014 12/25/2014 Tablet as needed. naproxen (EC NAPROSYN) 500 Take 1 tablet by 20 tablet 0 12/25/2014 mg Tablet, Delayed Release mouth 2 times daily (E.C.) (with meals). methocarbamol (ROBAXIN) Take 1 tablet by 20 tablet 3 201412/25/2014 750 mg Tablet mouth 4 times daily as needed. documented as of this encounter Progress Notes Hillary Veloz RN - 12/02/2014 2:19 PM EDT VIR MRI PRE-SEDATION ASSESSMENT NOTE NAME: Kayce Posadas AGE: 49 y.o. : [address] [place] [id number] Female [phone] (home) No relevant phone numbers on file. PAULINE MCKINNON APRN (General) None (Regular Care Provider) Allergies Allergen Reactions ??? Percocet [Oxycodone-Acetaminophen] Itching ??? Sulfa (Sulfonamide Antibiotics) Itching Date/Time of call: December 02, 2014/2:19 PM/ PREVIOUS MRI SCAN? Yes HEIGHT: 5' 5 ' WEIGHT:144 lbs SCHEDULED SCAN: MRI L-spine wo contrast SUBJECTIVE: I freak out and can't stay in the tube CAN YOU LAY FLAT? Yes, with knee wedge DO YOU HAVE ANY PAIN ISSUES? Back pain. Will be getting injection at pain clinic before MRI. ASSESSMENT: Appropriate for po sedation PLAN: Valium 5-10 mg PO Guidelines for MRI Pre-Procedures Laboratory Studies: 1. Creatinine studies (GFR level needed) within 90 days of scan ??? 70 yo or older if they are getting contrast ??? 50 years and older if they are diabetic and getting contrast ??? GFR Date of lab draw ( AA ) You must have a route sales driver present when you check in. This patient has been informed that they require a route sales driver to drive them home after this procedure. In the absence of a route sales driver, IR will not be able to sedate for your scan. Pt verbalized understanding of these instructions during the pre-procedure education via phone. Yes Name of route sales driver: Josue Posadas Phone number PRIOR SCAN DATE/S SEDATION TYPE SUCCESSFUL 09/05/14 non-DH MRI Valium per pt ?10 mg Per pt, yes I was out 12/05/14 MRI L-spine Valium 10 mg PO yes PT STATED TO SURGICAL COORDINATOR THAT THE SEDATION WAS EFFECTIVE FOR SCAN: [id number] COMMENTS: documented in this encounter Plan of Treatment Not on filedocumented as of this encounter Procedures Procedure Name Priority Date/Time Associated Diagnosis Comme nts MRI LUMBAR SPINE Routine 12/05/2014 6:17 PM Chronic LBP Resul ts for this WITHOUT CONTRAST EDT procedure a re in the results section. documented in this encounter Results MRI Lumbar Spine Without Contrast (12/05/2014 6:17 PM EDT) Anatomical Region Laterality Modality L-spine Magnetic Resonance Specimen (Source) Anatomical Location Collection Method / Collectio n Time Received Time / Laterality Volume Impressions 12/05/2014 6:37 PM EDT IMPRESSION: Mild degenerative disc disease and facet arthropathy of the lumbar spine. No visible nerve root impingement. Comment: The following findings are so c ommon in people without low back pain that while we report there presence, the y must be interpreted with caution and in context of the clinical situation (Re gian- Ye et al, Spine 2001). Findings: (Prevalence in patients withou t low back pain), disc degeneration (decreased T2 signal, height loss, bulge ) (91%), disc T2-signal loss (83%), disc height loss (56%), disc bulge (64%), dis c protrusion (32%), annular fissure (38%). Narrative 12/05/2014 6:37 PM EDT EXAMINATION: MRI LUMBAR SPINE WITHOUT CONTRAST CLINICAL HISTORY: LBP, prior Hx of HNP, more back pain than leg pain TECHNIQUE: MRI of the lumbar spine was o btained without use of intravenous contrast. COMPARISON: None FINDINGS: Vertebral height, alignment, a nd marrow signal are normal. There is loss of T2 bright signal within the disc at L4-5. The conus medullaris is of normal contour and signal characteristic s terminating at the level of L1. There is a cyst within the upper pole the righ t kidney. At L1-2 there is a small broad left-side d posterior paracentral and foraminal disc protrusion. This produces mild narr owing of the left subarticular recess and of the neural foramen. There is no o vert nerve root impingement. At L2-3 there is a circumferential disc bulge producing minor relative narrowing of the spinal canal and neural foramina. At L3-4 there is mild bilateral hypertro phic facet arthropathy and minor bilateral neural foramen narrowing. At L4-5 there is a broad central posteri or disc protrusion slightly larger on the right. This produces mild bilateral narrowing of the subarticular recess. There is mild bilateral hypertrophic fac et arthropathy and mild-moderate bilateral neural foramen narrowing. At L5-S1 there is mild bilateral hypertr ophic facet arthropathy and mild-moderate bilateral narrowing of the neural foramina. Procedure Note Johnson Montemayor MD - 11/03/2015Format ting of this note might be different from the original. EXAMINATION: MRI LUMBAR SPINE WITHOUT CO NTRAST CLINICAL HISTORY: LBP, prior Hx of HNP, more back pain than leg pain TECHNIQUE: MRI of the lumbar spine was o btained without use of intravenous contrast. COMPARISON: None FINDINGS: Vertebral height, alignment, a nd marrow signal are normal. There is loss of T2 bright signal within the disc at L4-5. The conus medullaris is of normal contour and signal characteristic s terminating at the level of L1. There is a cyst within the upper pole the righ t kidney. At L1-2 there is a small broad left-side d posterior paracentral and foraminal disc protrusion. This produces mild narr owing of the left subarticular recess and of the neural foramen. There is no o vert nerve root impingement. At L2-3 there is a circumferential disc bulge producing minor relative narrowing of the spinal canal and neural foramina. At L3-4 there is mild bilateral hypertro phic facet arthropathy and minor bilateral neural foramen narrowing. At L4-5 there is a broad central posteri or disc protrusion slightly larger on the right. This produces mild bilateral narrowing of the subarticular recess. There is mild bilateral hypertrophic fac et arthropathy and mild-moderate bilateral neural foramen narrowing. At L5-S1 there is mild bilateral hypertr ophic facet arthropathy and mild-moderate bilateral narrowing of the neural foramina. IMPRESSION IMPRESSION: Mild degenerative disc disease and facet arthropathy of the lumbar spine. No visible nerve root impingement. Comment: The following findings are so c ommon in people without low back pain that while we report there presence, the y must be interpreted with caution and in context of the clinical situation (Re jersey Belcher et al, Spine 2001). Findings: (Prevalence in patients withou t low back pain), disc degeneration (decreased T2 signal, height loss, bulge ) (91%), disc T2-signal loss (83%), disc height loss (56%), disc bulge (64%), dis c protrusion (32%), annular fissure (38%). Feroz Blackmon MD IMG MRI ORDERABLES documented in this encounter Visit Diagnoses Not on filedocumented in this encounter Administered Medications Inactive Administered Medications - up to 3 most recent administrations Medication Order MAR Action Action Date Dose Rate Site diaZEPam (VALIUM) tablet 5-10 mg Given 12/05/2014 1:00 PM EDT 5 mg 5-10 mg, Oral, EVERY 30 MIN PRN, 2 doses, Starting on Susanne 12/05/14 at 0714, Until Susanne 12/05/14 at 1300, Anxiety, Angio/IR (Day of Procedure), STAT Given 12/05/2014 12:53 PM EDT 5 mg documented in this encounter Care Teams Clamshell Engineer Relationship Specialty Start Date End Date Pauline Mckinnon, AMARIS PCP - General 01/09/14 [address] [place] [address] documented as of this encounter
--- OUTSIDE RECORDS SUMMARY | 2021-09-23 00:48 | XMS_ITS | Encounter Summary ---
:1965 Author Organization [facility] [place] [address] Care Team Providers Name Role Phone Annita Quiñones RIB TRIM SEPARATOR Primary Care Provider [phone] Encounter Details Date Type Department Care Team Description 10/03/2018 Ancillary Procedure Radiology Library at [place], [facility] RIB TRIM SEPARATOR [facility] [address] [place] [address] [place] [address] [phone] Social History Tobacco Use Types Packs/Day Years [...] Associated Diagnosis Comme nts FILM LIBRARY Routine 10/03/2018 12:05 AM Results for this STORAGE ONLY CT EDT procedure ar e in ABDOMEN the results section. documented in this encounter Results Film Library- Storage Only CT Abdomen (10/03/2018 12:05 AM EDT) Specimen (Source) Anatomical Location Collection Method / Collectio n Time Received Time / Laterality Volume Narrative ELIDA POPE - 10/09/2018 9:29 AM EDT This exam is auto-finalizing. It's purpo se is for storage only. Annita Quiñones APRN IMRadha FILM LIBRARY ORDERABLES Performing Organization Address City/State/ZIP Code Phon e Number [facility] NIKO [place], [place] documented in this encounter Visit Diagnoses Not on filedocumented in this encounter Care Teams Marketing Strategy Analyst Relationship Specialty Start Date End Date Annita Quiñones APRN PCP - General 01/09/14 [address] [place] [address] documented as of this encounter
--- OUTSIDE RECORDS SUMMARY | 2021-09-23 00:48 | XMS_ITS | Encounter Summary ---
:1965 Author Organization [facility] [place] [address] Care Team Providers Name Role Phone IshmaelJazzmine loerahryn Rory GLEZ Primary Care Provider [phone] Reason for Referral Surgical (Routine) - Closed Specialty Diagnoses / Procedures Referred By Contact Refer red To Contact Pain Management Diagnoses Spondylosis of lumbar region without myelopathy or radiculopathy Joann Boudreaux DO [facility] M[facility] Pain Procedures RADIOFREQUENCY-LUMBAR/SACRAL [facility] [place] [address] [place] [address] Phone: Fax: Referral ID Status Reason Start Date Expiration Date Visits V isits Requested Authorized [id number] Closed Consult, 01/22/2015 01/22/2016 1 1 Test & Treat Reason for Visit Reason Comments Back Pain Encounter Details Date Type Department Care Team Description 01/22/2015 Procedure visit Pain Management at Joann Boudreaux Spon dylosis of lumbar [facility] region [facility] [place] [facility] [id number] [place] [address] [facility] Social History Tobacco Use Types Packs/Day Years [...] Sign Reading Time Taken Comments Blood Pressure 120/81 01/22/2015 8:40 AM EST Pulse 64 01/22/2015 8:40 AM EST Temperature - - Respiratory Rate 20 01/22/2015 7:50 AM EST Oxygen Saturation 96% 01/22/2015 8:40 AM EST Inhaled Oxygen Concentration - - Weight 65.3 kg (144 lb) 01/22/2015 7:23 AM EST Height 165.1 cm (5' 5) 01/22/2015 7:23 AM EST Body Mass Index 23.96 01/22/2015 7:23 AM EST documented in this encounter Patient Instructions Patient InstructionsDon Graham LPN - 01/22/2015 7:51 AM EST Pain Management Center Discharge Instructions: You were seen by Dr. Joann Boudreaux DO who performed bilateral lumbar radiofrequency. It is normal that the injection site will be sore for up to 48 hours. You may also experience mild stiffness in the joint near the injection site. [x] You may resume your normal activities: tomorrow. You may shower today. DO NOT tub bathe, use whirlpools, hot tubs or pool therapy for 2 days. Remove Band-Aid(s) later today/tomorrow. Do not drive until tomorrow. Use caution walking/climbing stairs as you may be unsteady on your feet. You may use your usual medications, including pain medications, as directed, unless otherwise instructed. You may use an ice pack as needed for the first 24 hours, on for 20 minutes then off for 20 minutes.Do not apply heat today. [x] You received Fentanyl Citrate 75mcg mcg through an intravenous line, to lessen the anxiety/pain of your procedure. DO NOT operate heavy or dangerous equipment/tools, or sign important papers today. Attempt to empty your bladder 4-6 hours after your procedure. You received the following medications: Lidocaine. During regular business hours, please phone the Pain Management Center at for appointments or with any questions or if the following or other troubling symptoms develop: 1) Prolonged dizziness or weakness (more than 1 day). 2) Localized swelling, redness or drainage at the injection site(s). 3) Temperature of 101 degrees that lasts for more than 4 hours. After 5 PM or on weekends, call and ask for Pain Clinic provider on-call. If you are unable to reach the Pain Management Center and have a complication, please call your Primary Care Provider or proceed to your local emergency department. Don Graham LPN Special instructions documented in this encounter Progress Notes Don Graham LPN - 01/22/2015 7:26 AM EST Pre-Procedure Screening Questions: 1. Status: No 2. Patient states they have a route sales driver to transport after procedure? Yes 3. Patient taking antibiotics at present? No 4. NPO per Pain Management Center protocol? Yes 5. Patient diabetic: No 6. Patient routinely taking anticoagulants ? No Anticoagulant: Date Stopped: Current INR: Patient Vital Signs documented in Doc Flowsheets associated with this encounter. Patient Discharge Instructions were reviewed with patient and copy provided to patient. IV anxiolysis: Yes IV placement: ??? Location of IV Insertion: left [ x ] hand [ ] anterior forearm [ ] posterior forearm [ ] AC [ ] upper arm [ ] other: ??? IV Gauge: [x ] 24G [ ] 22G [ ] 20G After IV insertion completed, IV was secured with occlusive transparent dressing. IV site is patent and intact. Patient is without complaint upon completion of IV insertion. ??? Started by: Dr. Lo Vaughn Initiated by: Don Graham LPN ??? IV Solution: LR 1000ml - rate as directed by proceduralist ??? Total Volume Intravenous Fluid infused documented in the Medication Administration Record (MAR) Site condition at IV removal: [x ] Clear [ ] Bruised [ ] other: Administration of IV anxiolysis procedural medications documented in MAR as ordered by proceduralist documented in this encounter Procedure Notes Joann Boudreaux DO - 01/22/2015 8:48 AM ESTAssociated Order(s): RADIOFREQUENCY-LUMBAR/SACRAL Procedure(s): RADIOFREQUENCY-LUMBAR/SACRAL Pre-Procedure Diagnose(s): Spondylosis of lumbar region without myelopathy or radiculopathy LUMBAR/SACRAL MEDIAL BRANCH RADIOFREQUENCY Date of Service: 01/22/2015 Patient: Kayce Posadas Provider: JOANN BOUDREAUX DO Kayce Posadas has been referred to the Pain Management Center for radiofrequency treatment of chronic axial back pain. Ms. Posadas has had long standing back pain which is facet joint generated andwhich has been refractory to other therapies. Local anesthetic medial branch blocks resulted in Ms. Ortiz fernandez reporting a significant reduction of the usual axial component of pain for at least the duration of the local anesthetic effect. COMMENTS: Bilateral lower back pain Ms. Posadas was interviewed and the medical record reviewed. There were no medical, pharmacologic, radiographic or other structural contraindications to attempting fluoroscopically guided radiofrequency treatment. Risks and expected side effects as well as potential benefit of the procedure were reviewed with Ms. Posadas, and she voiced concerns addressed. The printed consent form was signed and witnessed. Standard time-out procedure was performed. Ms. Posadas was placed in the prone position on the fluoroscopy table and automated blood pressure cuff and pulse oximeter applied. The skin entry points for approaching the anatomic target points of the segmental medial branches of bilateral L3, L4 and L5-DR were identified with fluoroscopy and marked. Following thorough Chlorhexadine preparation of the skin and draping and 1% lidocaine infiltration of the skin entry points and subcutaneous tissues, a single 10 cm 18 guage curved needle with a 10mm active tip radiofrequency cannula was placed under fluoroscopic guidance along or across the anatomic course of each respective segmental medial branch. Each placement was stimulated at 2Hz without any evidence of distal myotomal stimulation. At each placement a continuous mode radiofrequency treatment was done at 80 degrees C for 90 secs and then rotated 180degrees and then repeated. This radiofrequency treatment should result in the denervation of the bilateral L4-L5 and L5-S1. A total of 4 facets were expected to be denervated from today's treatment. Ms. Posadas's vital signs were stable throughout the procedure and were as recorded in the docflowsheet by the nursing staff. If given, dosages of intravenous drugs for anxiolysis and analgesia were documented in the Medication Administration Record (MAR). Follow up plans and appointments were discussed with Kayce Posadas. Post procedure instruction was given as documented in the nursing documentation and having met discharge criteria, she was discharged from the Pain Management Center. COMMENTS: No complications. Fentanyl 75 mcg IV given for procedure. I personally performed the entire procedure. Joann Boudreaux DO, MPH [facility]-subspecialty board certification in Pain Medicine Attending Physician-Pain Management CC: Annita Quiñones APRN [address] [place] [address] documented in this encounter Plan of Treatment Not on filedocumented as of this encounter Procedures Procedure Name Priority Date/Time Associated Diagnosis Comme nts RADIOFREQUENCY-LUM Routine 01/22/2015 9:22 AM Spondylosis of l umbar Results for this BAR/SACRAL EST region without procedure are in myelopathy or the results radiculopathy section. documented in this encounter Results RADIOFREQUENCY-LUMBAR/SACRAL (01/22/2015 9:22 AM EST) Joann Ryder V, DO - 01/22/2015 9:22 AM E Joann Brown V, DO ? 01/22/2015 ??9:22 AM LUMBAR/SACRAL MEDIAL BRANCH RADIOFREQUEN CY Date of Service: ??01/22/2015 Patient: ??Kayce Posadas ?? MRN: ??[id number] Provider: ??JOANN BOUDREAUX DO Kayce Posadas has been referred to [facility] for radiofrequency treatment of chronic axial back pain. ??Ms. Posadas has had long standing back pain which is facet joint generated and which has been refractory to other therapies. ?? Local anesthetic medial branch blocks re sulted in Ms. Posadas reporting a significant reduction of the usual axial component of pain for at least the duration of the lo francisco javier anesthetic effect. ?? COMMENTS: Bilateral lower back pain Ms. Posadas was interviewed and the [facility] record reviewed. ?? There were no medical, pharmacologic, ra diographic or other structural contraindications to attempti ng fluoroscopically guided radiofrequency treatment. ??Risks and expected side effects as well as potential benefit of the proc edure were reviewed with Ms. Posadas, and she voiced concerns ad dressed. ??The printed consent form was signed and witnessed. ? ?Standard time-out procedure was performed. Ms. Posadas was placed in the prone pos ition on the fluoroscopy table and automated blood pressure cuff and pulse oximeter applied. ??The skin entry points for spencer roaching the anatomic target points of the segmental medial br anches of bilateral L3, L4 and L5-DR were identified with ??fluo roscopy and marked. ?? Following thorough Chlorhexadine prepara tion of the skin and draping and 1% lidocaine infiltration of the skin entry points and subcutaneous tissues, a single 10 cm 18 guage curved needle with a 10mm active tip radiofrequency ca nnula was placed under fluoroscopic guidance along or across [facility] anatomic course of each respective segmental medial branch. ??Ea ch placement was stimulated at 2Hz ??without any evidence of distal myotomal stimulation. ??At each placement a rupa nuous mode radiofrequency treatment was done at 80 degrees C for 9 0 secs and then rotated 180degrees and then repeated. This radiofrequency treatment should res ult in the denervation of the bilateral L4-L5 and L5-S1. ??A total of 4 facets were expected to be denervated from today's treatment. Ms. Posadas's vital signs were stable t hroughout the procedure and were as recorded in the docflowsheet by the nursing staff. ?? If given, dosages of intravenous drugs f or anxiolysis and analgesia were documented in the Medicat ion Administration Record (MAR). Follow up plans and appointments were di scussed with Kayce Posadas. ??Post procedure instruction w as given as documented in the nursing documentation and having met discharge criteria, she was discharged from the Pain Management Center. COMMENTS: No complications. Fentanyl 75 mcg IV given for procedure. I personally performed the entire proced ure. Joann Boudreaux DO, MPH [facility]-subspecialty board certification i n Pain Medicine Attending Physician-Pain Management CC: Annita Quiñones APRN [address] [place] [address] Joann Wolf DO PROCEDURE/MINOR SURGICAL ORD ERABLES documented in this encounter Visit Diagnoses Diagnosis Spondylosis of lumbar region without mye lopathy or radiculopathy Lumbosacral spondylosis without myelopat hy documented in this encounter Administered Medications Inactive Administered Medications - up to 3 most recent administrations Medication Order MAR Action Action Date Dose Rate Site fentaNYL 50mcg/mL injection Given 01/22/2015 9:15 AM EST 75 mcg 75 mcg, Intravenous, ONCE, 1 dose, On Tue01/22/15 at 0915, Routine lactated ringers infusion 100 mL New Bag 01/22/2015 9:15 AM EST 100 mLs 100 mL, Intravenous, ONCE, 1 dose, On Tue01/22/15 at 0915 lidocaine (PF) (XYLOCAINE) 10 mg/mL (1 %) Given 01/22/2015 9:15 AM EST 100 mg injection 100 mg 100 mg, Subcutaneous, ONCE, 1 dose, On Tue01/22/15 at 0915, Wasted 20ml, Routine documented in this encounter Care Teams Toy Electric Train Repairer Relationship Specialty Start Date End Date Annita Quiñones APRN PCP - General 11/5/14 [address] [place] [address] documented as of this encounter
--- OUTSIDE RECORDS SUMMARY | 2021-09-23 00:48 | XMS_ITS | Encounter Summary ---
:1965 Author Organization [facility] [place] [address] Care Team Providers Name Role Phone Annita Quiñones Rory GLEZ Primary Care Provider [phone] Encounter Details Date Type Department Care Team Description 12/05/2014 Hospital Encounter MRI at [facility] Feroz Blackmon, Chronic LBP [facility] [place] [address] [place] [address] [place] [address] (Wo rk) Social History Tobacco Use Types [...] as needed. documented as of this encounter Plan of [...] foramina. Procedure Note Johnson Montemayor MD - 01/07/2015Format ting of this note might be different [...] context of the clinical situation (Re gian- Helenk et al, Spine 2001). Findings: (Prevalence in patients withou t low back pain), disc degeneration (decreased T2 signal, height loss, bulge ) (91%), disc T2-signal loss (83%), disc height loss (56%), disc bulge (64%), dis c protrusion (32%), annular fissure (38%). Feroz Blackmon MD IMG MRI ORDERABLES documented in this encounter Visit Diagnoses Diagnosis Chronic LBP Lumbago documented in this encounter Care Teams Nitroglycerin Neutralizer Relationship Specialty Start Date End Date Annita Quiñones APRN PCP - General 01/09/14 [address] [place] [address] documented as of this encounter
--- OUTSIDE RECORDS SUMMARY | 2021-09-23 00:48 | XMS_ITS | Encounter Summary ---
:1965 Author Organization [facility] [place] [address] Care Team Providers Name Role Phone Annita Quiñones AMARIS Primary Care Provider [phone] Encounter Details Date Type Department Care Team Description 07/28/2018 Ancillary Procedure Radiology Library at Don Arizmendi MD [facility] [place] [address] [place] [address] [phone] (Wo rk) Social History Tobacco Use Types [...] place to sleep or slept in a correction (including now)? Sex Assigned at Date Recorded Not on file documented as of this encounter Plan of Treatment Not on filedocumented as of this encounter Procedures Procedure Name Priority Date/Time Associated Comments Diagnosis FILM LIBRARY STORAGE Routine 07/28/2018 12:00 AM Results for this ONLY ULTRASOUND EDT procedure ar e in STUDY the results section. documented in this encounter Results Film Library- Storage Only Ultrasound Study (07/28/2018 12:00 AM EDT) Specimen (Source) Anatomical Location Collection Method / Collectio n Time Received Time / Laterality Volume Narrative ELIDA POPE - 08/24/2018 3:20 PM EDT This exam is auto-finalizing. It's purpo se is for storage only. Don Arizmendi MD IMRadha FILM LIBRARY ORDERABLES Performing Organization Address City/State/ZIP Code Phon e Number NIKO NIKO [place], [place] documented in this encounter Visit Diagnoses Not on filedocumented in this encounter Care Teams Aircraft Air Conditioning Mechanic Relationship Specialty Start Date End Date Annita Quiñones APRN PCP - General 01/09/14 [address] [place] [address] documented as of this encounter
--- OUTSIDE RECORDS SUMMARY | 2021-09-23 00:48 | XMS_ITS | Encounter Summary ---
:1965 Author Organization [facility] [place] [address] Care Team Providers Name Role Phone Yolanda Moran GEAR NICKER Primary Care Provider [phone] Encounter Details Date Type Department Care Team Description 07/02/2013 [facility], [facility] GEAR NICKER [facility] [address] [place] [address] [place] [address] [phone] Social History Tobacco Use Types Packs/Day Years [...] Date/Time Associated Diagnosis Comme nts FILM Routine 07/02/2013 12:00 AM Results for this LIBRARY-STORAGE EDT procedure ar e in ONLY US BREAST the results section. documented in this encounter Results Film Library Storage Only US Breast (07/02/2013 12:00 AM EDT) Specimen (Source) Anatomical Location Collection Method / Collectio n Time Received Time / Laterality Volume Narrative [facility] - 08/27/2020 2:10 PM EDT This exam is auto-finalizing. It's purpo se is for storage only. Annita Quiñones APRN IMRadha FILM LIBRARY ORDERABLES Performing Organization Address City/State/ZIP Code Phon e Number [facility] [place] documented in this encounter Visit Diagnoses Not on filedocumented in this encounter Care Teams Life Specialist Relationship Specialty Start Date End Date Yolanda Moran APRN PCP - General 09/06/12 01/08/14 documented as of this encounter
--- OUTSIDE RECORDS SUMMARY | 2021-09-23 00:48 | XMS_ITS | Encounter Summary ---
:1965 Author Organization [facility] [place] [address] Care Team Providers Name Role Phone Annita Quiñones GAUGER CHIEF DELIVERY Primary Care Provider [phone] Reason for Visit Consultation (Routine) - Specialty Diagnoses / Procedures Referred By Contact Refer red To Contact Pain Management Diagnoses Back pain Annita Quiñones, [facility] 3d GAUGER CHIEF DELIVERY [facility] [address] [place] [address] [place] [address] Referral ID Status Reason Start Date Expiration Date Visits V isits Requested Authorized [id number] Consult, 08/25/2015 08/24/2016 1 1 Test & Treat Connection Center Encounter Details Date Type Department Care Team Description 10/16/2015 Office Visit Pain Management at Joann Boudreaux DO Spondylosis of lumbar [address] [facility] region without [facility] myelsmith or [facility] radiculopathy [place], [place] [address] Social History Tobacco Use Types Packs/Day Years [...] Sign Reading Time Taken Comments Blood Pressure 107/66 10/16/2015 3:04 PM EDT Pulse 81 10/16/2015 3:04 PM EDT Temperature - - Respiratory Rate - - Oxygen Saturation 97% 10/16/2015 3:04 PM EDT Inhaled Oxygen Concentration - - Weight 65.1 kg (143 lb 9.6 oz) 10/16/2015 3:04 PM EDT Height 165.1 cm (5' 5) 10/16/2015 3:04 PM EDT Body Mass Index 23.9 10/16/2015 3:04 PM EDT documented in this encounter Progress Notes Joann Boudreaux V, - 10/16/2015 3:30 PM EDT This is a very pleasant 50 year old female. She presents for follow up evaluation. She complains of low back pain. She states that this is similar to the pain she had before the lumbar RFA at the bilateral L3-L5DR on 01/23/16. She states that she had great pain relief with this procedure until mid-August. I discussed this with her as length. She received 7 months of relief from the RFA and was able to do just about any physical activity that she desired during this time. She is a candidate for repeating the RFA to the same medial branches. She did consent to this procedure after we discussed the risks/benefits/indications. JOANN BOUDREAUX DO, MPH Service Observer Chief of Anesthesiology/[place] [facility] Transfer Knitter, Pain Medicine Fellowship [employer] - Subspecialty board certification in Pain Medicine documented in this encounter Plan of Treatment Not on filedocumented as of this encounter Visit Diagnoses Diagnosis Spondylosis of lumbar region without mye lopathy or radiculopathy Lumbosacral spondylosis without myelopat hy documented in this encounter Care Teams Veterans' Coordinator Relationship Specialty Start Date End Date Annita Quiñones, GAUGER CHIEF DELIVERY PCP - General 01/09/14 [address] [place] [address] documented as of this encounter
--- OUTSIDE RECORDS SUMMARY | 2021-09-23 00:48 | XMS_ITS | Encounter Summary ---
:1965 Author Organization [facility] [place] [address] Care Team Providers Name Role Phone IshmaelAnnita loera Rory GLEZ Primary Care Provider [phone] Encounter Details Date Type Department Care Team Description 10/09/2018 Hospital Encounter Ultrasound at [facility] Eleuterio Miller, Cyst of ovary, [facility] MD unspecified [facility] [id number] OBSTETRICS & [phone] [place] [address] Social History Tobacco Use Types Packs/Day Years [...] Dispensed Refills Start Date End Date ibuprofen Take 1 tablet by mouth 0 11/01/2018 (ADVIL;MOTRIN) 600 mg every 6 hours as Tablet needed for Pain. acetaminophen (TYLENOL) Take 2 tablets by 30 tablet 1 11/01 325 mg Tablet mouth every 6 hours as needed for Pain. omeprazole (PRILOSEC) TAKE ONE CAPSULE BY 3 07/20 20 mg Capsule, Delayed MOUTH EVERY DAY Release(E.C.) loratadine (CLARITIN) daily. 0 10/07/2015 10 mg Tablet albuterol (PROVENTIL Inhale 2 puffs into 0 HFA;VENTOLIN HFA) 90 the lungs every 4 mcg/actuation HFA hours as needed. Use Aerosol Inhaler with spacer oxyCODONE (ROXICODONE) Take 1 tablet by mouth 10 tablet 0 0 11/01/2018 10/01/2020 5 mg Tablet every 4 hours as needed for Pain. diclofenac (CATAFLAM) take 1 tablet by mouth 0 10/31/2018 50 mg Tablet twice a day gabapentin (NEURONTIN) TAKE 1 CAPSULE BY 0 201810/31/2018 100 mg Capsule MOUTH AT BEDTIME FOR 3 DAYS THEN INCREASE TO 1 ... (REFER TO PRESCRIPTION NOTES). ibuprofen TAKE 1 TABLET BY MOUTH 0 09/29/2018 (ADVIL;MOTRIN) 800 mg EVERY 8 HOURS Tablet NEEDED ranitidine (ZANTAC) 150 TAKE ONE TABLET BY 3 07/0510/01/2020 mg Tablet MOUTH EVERY DAY venlafaxine daily. 0 10/07/2015 08/31/2021 (EFFEXOR-XR) 75 mg Capsule, Sust. Release 24 hr documented as of this encounter Plan of Treatment Not on filedocumented as of this encounter Procedures Procedure Name Priority Date/Time Associated Diagnosis Comme nts US TRANSVAGINAL NON Routine 10/09/2018 9:23 AM Cyst of ovary, Results for this OB EDT unspecified procedure are i n laterality the results section. documented in this encounter Results US Transvaginal Non OB (10/09/2018 9:23 AM EDT) Anatomical Region Laterality Modality Ultrasound Specimen (Source) Anatomical Collection Method Collection Time Re ceived Time Location / / Volume Laterality 10/09/2018 8:51 AM EDT Impressions 10/09/2018 9:48 AM EDT 1. Complex fat-containing mass on CT sc an, outside 10/03/2018. Patient status post hysterectomy. 2. Right ovary difficult to distinguish from the complex right adnexal mass. There is an approximately 4.0 x 4.8 x 3 cm complex, heterogeneous, right adnexal mass. Fat and obtaining heterogeneous a nd echogenic areas , suggestive of an ovarian dermoid. No increased color aleah w. 3. Left ovary normal in size, with a do minant follicle. No free fluid. Thank you for letting us participate in the care of this patient. For questions regarding this report, please contact t he number below. Other Pertinent Information^s/p hyst ?Vanna Hager, Staff Physician Electronically Signed Final Report ?? 09:48 am Narrative 10/09/2018 9:48 AM EDT Gynecological Report ?(Signed Final 10/09/2018 09:48 am) PATIENT INFO: ID #: ? [id number] ?: ??[birth year] (53 yrs) Name: ? KAYCE Escobar SAUL ? Visit Date: 10/09/2018 08:51 am PERFORMED BY: Performed By: ? Audra Hong RDMS Attending: ?Madan MARINELLI, There J. Referred By: ?ELEUTERIO MILLER Location: ? [place] SERVICE(S) PROVIDED: ??UTV - Transvaginal - [id number] ?[id number] INDICATIONS: ??f/u ovarian cyst, ?dermoid on recent CT TECHNIQUE/SCAN QUALITY: Technique: ?Transducer ID#: [id number]: Prior CT : 07/18/18. Per patient had ria or transvaginal ultrasound one week prior at [facility]. -------- HISTORY: -------- Age: ?? 53 Menses: ?N/A ------- UTERUS: ------- Uterus: ? S/p Hysterectomy ENDOMETRIUM: Endometrium: ?Surgically a bsent ------- CERVIX: ------- Surgically absent CUL-DE-SAC: No fluid is visualized. RIGHT OVARY: Status: ?? Visualized Size (cm) ?L: ??4.0 ? W: ?? 5.0 ?H: ??3.5 Vol (ml): ?36.7 Morphology: ?See below Type: ?? Dermoid Size (cm) ?L: ??4.0 ? W: ?? 4.5 ?H: ??2.9 Vol (ml): ?27.3 LEFT OVARY: Status: ?? Visualized Size (cm) ?L: ??3.4 ? W: ?? 2.2 ?H: ??1.3 Vol (ml): ?5.2 Morphology: ?Normal appearance Type: ?? Dominant follicle vs cyst Size (cm) ?L: ??2.5 ? W: ?? 1.7 ?H: ??1.0 Vol (ml): ?2.2 Procedure Note Vanna Hager MD - 10/09/2018Forma tting of this note might be different from the original. Gynecological Report (Signed Final 07/2018 09:48 am) PATIENT INFO: ID #: [id number] : [birth year] (53 y rs) Name: KAYCE POSADAS Visit Date: 07/2018 08:51 am PERFORMED BY: Performed By: Amisha Hong RDMS Attending: Vanna Hager MD Referred By: ELEUTERIO MILLER Location: [place] SERVICE(S) PROVIDED: UTV - Transvaginal - [id number] INDICATIONS: f/u ovarian cyst, ?dermoid on recent CT TECHNIQUE/SCAN QUALITY: Technique: Transducer ID#: [id number]: Prior CT : 07/18/18. Per patient had ria or transvaginal ultrasound one week prior at [facility]. -------- HISTORY: -------- Age: 53 Menses: N/A ------- UTERUS: ------- Uterus: S/p Hysterectomy ENDOMETRIUM: Endometrium: Surgically absent ------- CERVIX: ------- Surgically absent CUL-DE-SAC: No fluid is visualized. RIGHT OVARY: Status: Visualized Size (cm) L: 4.0 W: 5.0 H: 3.5 Vol (ml): 36.7 Morphology: See below Type: Dermoid Size (cm) L: 4.0 W: 4.5 H: 2.9 Vol (ml): 27.3 LEFT OVARY: Status: Visualized Size (cm) L: 3.4 W: 2.2 H: 1.3 Vol (ml): 5.2 Morphology: Normal appearance Type: Dominant follicle vs cyst Size (cm) L: 2.5 W: 1.7 H: 1.0 Vol (ml): 2.2 IMPRESSION 1. Complex fat-containing mass on CT sc an, outside 10/03/2018. Patient status post hysterectomy. 2. Right ovary difficult to distinguish from the complex right adnexal mass. There is an approximately 4.0 x 4.8 x 3 cm complex, heterogeneous, right adnexal mass. Fat and obtaining heterogeneous a nd echogenic areas , suggestive of an ovarian dermoid. No increased color aleah w. 3. Left ovary normal in size, with a do minant follicle. No free fluid. Thank you for letting us participate in the care of this patient. For questions regarding this report, please contact t he number below. Other Pertinent Information^s/p hyst Vanna Hager, Staff Physician Electronically Signed Final Report 10/09 09:48 am Eleuterio Miller MD IMG US PELVIC ORDERABLES documented in this encounter Visit Diagnoses Diagnosis Cyst of ovary, unspecified laterality documented in this encounter Care Teams Cardiovascular Operating Room Nurse Relationship Specialty Start Date End Date Annita Quiñones APRN PCP - General 01/09/14 [address] [place] [address] documented as of this encounter
--- OUTSIDE RECORDS SUMMARY | 2021-09-23 00:48 | XMS_ITS | Encounter Summary ---
:1965 Author Organization [facility] [place] [address] Care Team Providers Name Role Phone Annita Quiñones APRN Primary Care Provider Reason for Referral Diagnostic Test (Routine) - Closed Specialty Diagnoses / Procedures Referred By Contact Refer red To Contact Diagnoses Chest pain, unspecified type Orthopnea Annita Quiñones APRN [facility] Non-Inv Card Lab Procedures Echocardiogram Stress (Treadmill) [address] [address] Fax: Referral ID Status Reason Start Date Expiration Date Visits V isits Requested Authorized [id number] Closed Specialty 11/02/2017 11/02/2018 1 1 Service Requested Reason for Visit Diagnostic Test (Routine) - Closed Specialty Diagnoses / Procedures Referred By Contact Refer red To Contact Diagnoses Chest pain, unspecified type Orthopnea Annita Quiñones APRN [facility] Non-Inv Card Lab Procedures Echocardiogram Stress (Treadmill) [address] [address] Fax: Referral ID Status Reason Start Date Expiration Date Visits V isits Requested Authorized [id number] Closed Specialty 11/02/2017 11/02/2018 1 1 Service Requested Encounter Details Date Type Department Care Team Description 11/17/2017 Hospital Encounter Non-Invasive Annita Quiñones Chest pain, unspecified type; Cardiology Lab Kerri Valadez APRN Orthopnea [facility] [address] [place] [address] [phone] [place], [place] (Work) [phone] Social History Tobacco Use Types Packs/Day Years [...] Sig Dispensed Refills Start Date End Date loratadine (CLARITIN) 10 daily. 0 10/07/2015 mg Tablet albuterol (PROVENTIL Inhale 2 puffs into 0 HFA;VENTOLIN HFA) 90 the lungs every 4 mcg/actuation HFA Aerosol hours as needed. Use Inhaler with spacer venlafaxine (EFFEXOR-XR) daily. 0 10/07/2015 08/31/2021 75 mg Capsule, Sust. Release 24 hr documented as of this encounter Plan of Treatment Not on filedocumented as of this encounter Procedures Procedure Name Priority Date/Time Associated Comments Diagnosis STRESS ECHOCARDIOGRAM W Routine 11/17/2017 9:13 Chest pain, R esults for this CONTRAST LMTD SPEC AM EDT unspecified t ype procedure are in DOPP,COLOR DOPP Orthopnea the results section. documented in this encounter Results STRESS ECHOCARDIOGRAM W CONTRAST LMTD SPEC DOPP,COLOR DOPP (11/17/2017 9:13 AM EDT) P athologist Signature EF 60 HEARTLAB SYSTEM Specimen (Source) Anatomical Location Collection Method / Collectio n Time Received Time / Laterality Volume 11/17/2017 Narrative HEARTLAB SYSTEM - 11/17/2017 11:58 AM ED T Procedure: ?Stress Echocardiogram Patient: ?SAUL Escobar ?(Age): 1965(52y) Med Rec#: ? [id number] ?Sex: ?F ? Site Loc: ? [facility] ?Ht / Wt: ??163(cm)/66(kg) Pt. Loc: ?Echo Lab ?BSA: ?1.72 Study Date: ?? 11/17/2017 ?Pt. Type: Tape: ? Referring: Annita Quiñones Referring: BRENNA Reading: Nik Casillas ([id number]) Rn Quality: Lelo Headley Supervisor Plate Pasting: Jodie Owens Interpreting Fellow: ALBERT BLACKBURN ([id number]) Diagnosis: *Chest pain, unspecified (R07.9) Stage ? BP ?HR ? Rest ?122/94 ?76 ? Peak ?160/94 ?146 ? Recovery ?120/90 ?82 ? SUMMARY: 1. This is a negative echocardiographic stress test. 2. CLINICAL: The patient exercised per B ruce Protocol into Stage 3 (8:09), reaching peak exertion of 10 MET S. ??Peak HR was 146 bpm (87% MPHR). ??The patient had no angina; test was stopped for lightheadedness. Normal blood pressure and heart rate re sponse. 3. EKG: Baseline rhythm is normal sinus, becoming sinus tachycardia appropriately with exertion. ??Very rare premature beats noted. ??There were no diagnostic changes during exerti on; sub-millimeter horizontal ST-depression in leads with dominant R w aves observed in recovery. 4. ECHO: At rest, there is normal global and regional biventricular function, with visually estimated LVEF o f 60%. ??There are no hemodynamically significant valve issues . ??At peak exertion, all aceves equally augment vigorously. Findings Rest: Left Ventricle: ? There is normal gl obal left ventricular systolic function. ??Ejection fraction is estimat ed to be 60%. ?There are no left ventricular segm ental wall motion abnormalities. Right Ventricle: ? The right ventric le is probably normal in size. ?Right ventricular global systolic function is probably normal. Aortic Valve: ? The aortic valve is tricuspid. ?Systolic excursion of the aortic v alve is normal. ?There is no evidence of aortic wei ve stenosis. ?There is no evidence of aortic reg urgitation. Mitral Valve: ? The mitral valve whit flets appear normal. ?There is trace mitral regurgitatio n present. Tricuspid Valve: ? The tricuspid wei ve leaflets are morphologically normal. ?There is trace tricuspid regurgita tion present. Pericardium: ? The pericardium appea rs normal and there is no evidence of a pericardial effusion. Aorta: ? The aortic arch is normal i n size. Stress: ? EKG: normal sinus rhythm. ?The patient's oxygen saturation wa s 96% ?The patient is on no cardiac or bl ood pressure medications. Findings Peak: Predicted Values:The patient achieved a maximum heart rate of 146 which is 87% of the maximum predicted heart ra te (167 beats/min). ??The target heart rate was achieved. Left Ventricle: ? Global left ventri cular systolic function appears hyperdynamic. ?There are no left ventricular segm ental wall motion abnormalities. Stress: ? Patient followed a Flip p rotocol. ?The patient exercised into stage 3 . ?The total exercise duration was:8: 09 minutes. ?The study was terminated because o f ??lightheadedness. ?The patient did not express feelin gs of chest discomfort. ?The blood pressure response was no rmal. Initial recovery BP was 172/100 mmHg. ?Exercise capacity was good. ?The patient achieved a level of 10 METS. ?There were rare ventricular premat ure beats. ?There was ST segment depression no kike.In recovery, there was less than 1.[address] depression, in leads with dominant R waves ?This was an equivocal electrocardi ographic stress test. ?This was a negative echocardiograp hic stress test. ?There is no echocardiographic evid ence of myocardial ischemia at this level of stress. ?Echocardiographic findings consist ent with normal left ventricular function. ?EKG: sinus tachycardia. ?The patient's oxygen saturation wa s 97%. Misc: ? Definity contrast (one 1.5 m l vial)was used to enhance endocardial definition. Excess contrast was discarded. ?Stress echo, limited spectral Dopp ler, color Doppler and ECG interpretation performed. Findings Recovery: Stress: ? EKG: normal sinus rhythm. Chambers 2D ?Value ?Units (Range) ? Ascending Ao ?3 ?cm (2 - 3.5) ? Diastolic/Systolic Function ?Value ?Units (Range) ? MV E-wave Vmax ?0.8 ?m/sec ? MV deceleration kpae272.3 ? msec ? MV A-wave Vmax ?0.8 ?m/sec ? MV E:A ratio ?1 ?ratio ? Wall Motion: Segment Name ?Rest ? Peak ? Base-Anteroseptal ?? Normal ? Normal ? Base-Anterior ? Normal ? Normal ? Base-Anterolateral ??Normal ? Normal ? Base-Posterolateral Normal ? N ormal ? Base-Inferior ? Normal ? Normal ? Base-Inferoseptal ?? Normal ? Normal ? Mid-Anteroseptal ?Normal ? Normal ? Mid-Anterior ?Normal ? Normal ? Mid-Anterolateral ?? Normal ? Normal ? Mid-Posterolateral ??Normal ? Normal ? Mid-Inferior ?Normal ? Normal ? Mid-Inferoseptal ?Normal ? Normal ? [place]-Septal ? Normal ? Normal ? [place]-Anterior ? Normal ? Normal ? [place]-Lateral ?Normal ? Normal ? [place]-Inferior ? Normal ? Normal ? [place]-Tip ?Normal ? Normal ? This report has been electronically sign ed by: _ Nik Casillas M.D. ? 11/17/2017 11:58:06 Images reviewed and interpretation yung banks [facility] Cardiac Ultrasound Laboratory Procedure Note Nik Casillas MD - 11/17/2017Format ting of this note might be different from the original. Procedure: Stress Echocardiogram Patient: SAUL RESTREPO(Age): 04/1965(52y) Med Rec#: [id number] Sex: F Site Loc: [facility] Ht / Wt: 163(cm)/66(kg) Pt. Loc: Echo Lab BSA: 1.72 Study Date: 11/17/2017 Pt. Type: Tape: Referring: Annita Quiñones Referring: BRENNA Reading: Nik Casillas ([id number]) Rn Quality: Lelo Headley Supervisor Plate Pasting: Jodie Owens Interpreting Fellow: ALBERT BLACKBURN ([id number]) Diagnosis: *Chest pain, unspecified (R07.9) Stage BP HR Rest 122/94 76 Peak 160/94 146 Recovery 120/90 82 SUMMARY: 1. This is a negative echocardiographic stress test. 2. CLINICAL: The patient exercised per B ruce Protocol into Stage 3 (8:09), reaching peak exertion of 10 MET S. Peak HR was 146 bpm (87% MPHR). The patient had no angina; test w as stopped for lightheadedness. Normal blood pressure and heart rate re sponse. 3. EKG: Baseline rhythm is normal sinus, becoming sinus tachycardia appropriately with exertion. Very rare p remature beats noted. There were no diagnostic changes during exerti on; sub-millimeter horizontal ST-depression in leads with dominant R w aves observed in recovery. 4. ECHO: At rest, there is normal global and regional biventricular function, with visually estimated LVEF o f 60%. There are no hemodynamically significant valve issues . At peak exertion, all aceves equally augment vigorously. Findings Rest: Left Ventricle: There is normal global l eft ventricular systolic function. Ejection fraction is estimated to be 60%. There are no left ventricular segmental wall motion abnormalities. Right Ventricle: The right ventricle is probably normal in size. Right ventricular global systolic funct ion is probably normal. Aortic Valve: The aortic valve is tricus pid. Systolic excursion of the aortic valve is normal. There is no evidence of aortic valve st enosis. There is no evidence of aortic regurgit ation. Mitral Valve: The mitral valve leaflets appear normal. There is trace mitral regurgitation pre sent. Tricuspid Valve: The tricuspid valve whit flets are morphologically normal. There is trace tricuspid regurgitation present. Pericardium: The pericardium appears nor mal and there is no evidence of a pericardial effusion. Aorta: The aortic arch is normal in size . Stress: EKG: normal sinus rhythm. The patient's oxygen saturation was 96% The patient is on no cardiac or blood p ressure medications. Findings Peak: Predicted Values:The patient achieved a maximum heart rate of 146 which is 87% of the maximum predicted heart ra te (167 beats/min). The target heart rate was achieved. Left Ventricle: Global left ventricular systolic function appears hyperdynamic. There are no left ventricular segmental wall motion abnormalities. Stress: Patient followed a Flip protoco l. The patient exercised into stage 3. The total exercise duration was:8:09 mi nutes. The study was terminated because of lig htheadedness. The patient did not express feelings of chest discomfort. The blood pressure response was normal. Initial recovery BP was 172/100 mmHg. Exercise capacity was good. The patient achieved a level of 10 METS . There were rare ventricular premature b eats. There was ST segment depression noted.I n recovery, there was less than 1.[address] depression, in leads with dominant R waves This was an equivocal electrocardiograp hic stress test. This was a negative echocardiographic s tress test. There is no echocardiographic evidence of myocardial ischemia at this level of stress. Echocardiographic findings consistent w ith normal left ventricular function. EKG: sinus tachycardia. The patient's oxygen saturation was 97% . Misc: Definity contrast (one 1.5 ml vial )was used to enhance endocardial definition. Excess contrast was discarded. Stress echo, limited spectral Doppler, color Doppler and ECG interpretation performed. Findings Recovery: Stress: EKG: normal sinus rhythm. Chambers 2D Value Units (Range) Ascending Ao 3 cm (2 - 3.5) Diastolic/Systolic Function Value Units (Range) MV E-wave Vmax 0.8 m/sec MV deceleration mion385.3 msec MV A-wave Vmax 0.8 m/sec MV E:A ratio 1 ratio Wall Motion: Segment Name Rest Peak Base-Anteroseptal Normal Normal Base-Anterior Normal Normal Base-Anterolateral Normal Normal Base-Posterolateral Normal Normal Base-Inferior Normal Normal Base-Inferoseptal Normal Normal Mid-Anteroseptal Normal Normal Mid-Anterior Normal Normal Mid-Anterolateral Normal Normal Mid-Posterolateral Normal Normal Mid-Inferior Normal Normal Mid-Inferoseptal Normal Normal [place]-Septal Normal Normal [place]-Anterior Normal Normal [place]-Lateral Normal Normal [place]-Inferior Normal Normal [place]-Tip Normal Normal This report has been electronically sign ed by: _ Nik Casillas M.D. 11/17/2017 11:58: 06 Images reviewed and interpretation yugn banks [facility] Cardiac Ultrasound Laboratory Annita Quiñones APRN ECHO ORDERABLES Performing Organization Address City/State/ZIP Code Phon e Number HEARTLAB SYSTEM documented in this encounter Visit Diagnoses Diagnosis Chest pain, unspecified type Orthopnea documented in this encounter Administered Medications Inactive Administered Medications - up to 3 most recent administrations Medication Order MAR Action Action Date Dose Rate Site perflutren lipid microspheres Given 11/17/2017 8:30 AM EDT 0.5 m Ls (DEFINITY) injection 0.5 mL 0.5 mL, Intravenous, ONCE PRN, 1 dose, Starting on Susanne 11/17/17 at 0913, Until Susanne 11/17/17 at 0830, Other, for enhancement of sub-optimal echo images, Echo Lab (Intra-Procedure), Routine documented in this encounter Care Teams Card Assembler Relationship Specialty Start Date End Date Annita Quiñones APRN PCP - General 01/09/14 [address] [place] [address] documented as of this encounter
--- OUTSIDE RECORDS SUMMARY | 2021-09-23 00:48 | XMS_ITS | Encounter Summary ---
:1965 Author Organization [facility] Address [address] [place] [address] Care Team Providers Name Role Phone Annita Quiñones Rory GLEZ Primary Care Provider [phone] Reason for Visit Reason Comments Left Foot Pain Encounter Details Date Type Department Care Team Description 10/28/2014 Office Visit Orthopaedics at [facility] Anthony Fontaine, Peroneal tendonitis, left (P rimary Dx); [facility] DPM [place] [address] CENTER [phone] ORTHOPAEDIC SURGERY [place], [place] [address] Social History Tobacco Use Types [...] Sign Reading Time Taken Comments Blood Pressure 106/55 10/28/2014 2:37 PM EDT Pulse 67 10/28/2014 2:37 PM EDT Temperature - - Respiratory Rate - - Oxygen Saturation - - Inhaled Oxygen Concentration - - Weight 63.5 kg (140 lb) 10/28/2014 2:37 PM EDT Height 162.6 cm (5' 4) 10/28/2014 2:37 PM EDT Body Mass Index 24.03 10/28/2014 2:37 PM EDT documented in this encounter Patient Instructions Patient InstructionsToAnthony kang DPM - 10/28/2014 3:07 PM EDT Walk in boot left foot. Try oral anti-inflammatory medication. Follow up in 6-8 weeks. documented in this encounter Progress Notes Anthony Fontaine DPM - 10/28/2014 3:10 PM EDT Outpatient Podiatry Clinic Note Name: Kayce Posadas Age:49 y.o. MR#: [id number] Date of Service: 10/28/2014 Chief Complaint: left foot pain HPI: Kayce Posadas is a 49 y.o. year old relatively healthy female who presents today for furtherevaluation and treatment of left foot/ankle pain. Patient states she has noticed pain in the left 5th toe and outside aspect of her left foot for the past 3 years or so. Patient states she notices the d iscomfort when she is standing/walking at work and that this is when she feels this pain started. Patient states that her pain is improved when she is able to wear flip flops and nothing rubs on the fifth toe. Patient did present today in sneakers. Patient states her pain gets worse the longer she wears closed toed shoes and she notices swelling, pain, burning, stinging sensations to the toe and she is also noticing some shooting sensations up the leg. She rates her pain at 5/10 today. Patient denies any specific traumatic event initiating this injury. ROS: Denies F/C/N/V/CP/SOB/cough. + left 5th toe pain. + history of steroid injections to left foot. Outside reports reviewed: historical medical records. Past Medical History Diagnosis Date ??? Asthma ??? Allergic state ??? Anxiety ??? Depression ??? Headache(784.0) Patient Active Problem List Diagnosis Date Noted ??? Peroneal tendonitis 10/28/2014 ??? Left foot pain 10/28/2014 ??? Asthma 11/08/2013 ??? Superficial peroneal nerve neuropathy 11/02/2012 Past Surgical History Procedure Laterality Date ??? Abdominal exploration surgery Midline ??? Hysterectomy Family History Problem Relation Age of Onset ??? Colorectal Cancer Father History Social History ??? Marital Status: Spouse Name: N/A Number of Children: N/A ??? Years of Education: N/A Social History Main Topics ??? Smoking status: Current Every Day Smoker -- 0.50 packs/day for 25 years Types: Cigarettes ??? Smokeless tobacco: None ??? Alcohol Use: 3.0 oz/week 5 Cans of beer per week ??? Drug Use: No ??? Sexual Activity: Partners: Male Other Topics Concern ??? None Social History Narrative Current Outpatient Prescriptions Medication Sig Dispense Refill ??? hydrOXYzine (ATARAX) 25 mg Tablet 50 mg every 8 hours as needed. ??? diclofenac (VOLTAREN) 75 mg Tablet, Delayed Release (E.C.) Take 1 tablet by mouth 2 times daily.60 tablet 3 ??? methocarbamol (ROBAXIN) 750 mg Tablet Take 1 tablet by mouth 4 times daily as needed. 20 tablet 3 ??? albuterol (PROVENTIL HFA;VENTOLIN HFA) 90 mcg/actuation HFA Aerosol Inhaler Inhale 2 puffs into the lungs every 4 hours as needed. Use with spacer ??? naproxen (EC NAPROSYN) 500 mg Tablet, Delayed Release (E.C.) Take 1 tablet by mouth 2 times daily (with meals). 20 tablet 0 No current facility-administered medications for this visit. Allergies Allergen Reactions ??? Percocet [Oxycodone-Acetaminophen] Itching ??? Sulfa (Sulfonamide Antibiotics) Itching Physical Exam: Vitals: Blood pressure 106/55, pulse 67, height 162.6 cm (5' 4), weight 63.504 kg (140 lb). Gen: WD, alert, oriented. NAD. Derm: Skin is warm, dry and supple. No interdigital macerations, open lesions, ecchymosis or erythema noted. Vasc: DP/PT pulses palpable. CFT < 3 seconds digits 1-5 bilateral. Hair present to digits bilateral. Feet warm to touch. No appreciable edema. Neuro: Epicritic sensation intact to light touch bilateral. MSK: No gross deformities noted. + Pain with direct palpation to the plantar and lateral aspect of the fifth metatarsal phalangeal joint/metatarsal head. Some pain with direct palpation of the anteriortalofibular ligament as well as along the course of peroneal tendons, especially at the base of the fifth metatarsal. There is also pain with active eversion against resistance. No pain with active or passive ROM of AJ or 1st MPJ. No pain to Achilles or posterior tibial tendons. Muscle strength 5/5 all groups bilateral. Muscle mass WNL bilateral. Radiologic/Vascular Studies: None to review Assessment/Plan: Kayce Posadas is a 49 y.o. year old relatively healthy female who presents todaywith probable peroneal tendinitis of the left foot. Performed history and physical. Discussed condition and treatment options with the patient. It appears as though patient is experiencing pain/discomfort along the lateral aspect of her left foot due to peroneal tendinitis. I discussed with the patient we can start with oral anti-inflammatories and a prescription for naproxen has been provided. We will also start with a tall walking boot for immobilization and the patient is to wear this for the next 4 weeks for any and all ambulation. After 4 weeks the patient can transition away from the boot into stable shoe gear as she tolerates. She can remove her lower extremity to perform range of motion exercises of her left foot. We will see if this will also calm any of the pain down at the fifth MPJ and fifth toe. I discussed with the patient we can also get physical therapy involved to assist at any point in time. She would like to hold off on PT at this time but will consider this. After patient isweaned from the boot we can further address any issues at the fifth MPJ/fifth toe if they should arise when she goes back to regular shoe gear. Patient relates understanding and will follow-up in 6-8 weeks. documented in this encounter Plan of Treatment Not on filedocumented as of this encounter Visit Diagnoses Diagnosis Peroneal tendonitis, left - Primary Left foot pain Pain in limb documented in this encounter Care Teams Health Aide Relationship Specialty Start Date End Date Annita Quiñones APRN PCP - General 01/09/14 [address] [place] [address] documented as of this encounter
--- OUTSIDE RECORDS SUMMARY | 2021-09-23 00:48 | XMS_ITS | Encounter Summary ---
:1965 Author Organization [facility] Address [facility] [place] [address] Care Team Providers Name Role Phone Yolanda Moran APRN Primary Care Provider [phone] Encounter Details Date Type Department Care Team Description 10/01/2012 External Results XRay at [facility] Provider, [address] [place] [address] Social History Tobacco Use Types Packs/Day [...] Name Priority Date/Time Associated Diagnosis Comme nts MRI/MRA SCAN Routine 07/11/2012 DIAGNOSTIC RADIOLOGY SCAN Routine 05/23/2012 DIAGNOSTIC RADIOLOGY SCAN Routine 11/25/2011 DIAGNOSTIC RADIOLOGY SCAN Routine 06/22/2011 documented in this encounter Results Scan Doc: MRI/MRA (07/11/2012) Anatomical Region Laterality Modality Other Narrative This result has an attachment that is no t available. Scanning Provider MEDIA MGR SCAN EXT ORDR/RSLT Scan Doc: Diagnostic Radiology (05/23/2012) Anatomical Region Laterality Modality Other Narrative This result has an attachment that is no t available. Scanning Provider MEDIA MGR SCAN EXT ORDR/RSLT Scan Doc: Diagnostic Radiology (11/25/2011) Anatomical Region Laterality Modality Other Narrative This result has an attachment that is no t available. Scanning Provider MEDIA MGR SCAN EXT ORDR/RSLT Scan Doc: Diagnostic Radiology (06/22/2011) Anatomical Region Laterality Modality Other Narrative This result has an attachment that is no t available. Scanning Provider MEDIA MGR SCAN EXT ORDR/RSLT documented in this encounter Visit Diagnoses Not on filedocumented in this encounter Care Teams Patient Access Associate Relationship Specialty Start Date End Date Yolanda Moran APRN PCP - General 09/06/12 01/08/14 documented as of this encounter
--- OUTSIDE RECORDS SUMMARY | 2021-09-23 00:48 | XMS_ITS | Encounter Summary ---
:1965 Author Organization [facility] [place] [address] Care Team Providers Name Role Phone Annita Mckinnon Rory GLEZ Primary Care Provider [phone] Reason for Visit Reason Onset Date Comments Referral 07/18/2014 Encounter Details Date Type Department Care Team Description 07/18/2014 Telephone Orthopaedics at [facility] Neva Zarate Referral [facility] [place] [address] Social History Tobacco Use Types Packs/Day [...] this encounter Miscellaneous Notes Telephone Encounter - Emma Pisano - 08/02/2014 1:07 PM EDT Received 8 pages of office notes from [facility], for the patients upcoming appointment. List what was rec'd. OFFICE NOTES Telephone Encounter - Emma Pisano - 08/02/2014 8:44 AM EDT Received Release of Information Telephone Encounter - Emma Pisano - 07/18/2014 1:28 PM EDT Ask the patient to verify the following: Full Name: Kayce Posadas : 1965 Phone number: There is no home phone number on file. Mailing [address]: [address] [place] [id number] Age: 49 y.o. Appointment date: TBD Appointment is with: 2ND OPINION Reason #1 Injury/Complaint: L FOOT PAIN/PINKY TOE Date of injury/complaint: NO DOI Is this a new injury? No Is this a 2nd opinion? Yes Appointment type: 18-100 Adult - Not sports related Is this Workers Comp? No How long have you had these symptoms? 2 years Records Retrieval Most recent physical exam: Yes - When? Where? Who? Notes: 01/[address] [facility] [address] MCKINNON X-rays: Yes - When? Where? Notes: 06/2014 DR MARIA ANTONIA GONGORA [facility] PH [phone] [place], [place] PH: [phone] FAX: [phone] IMG PUSH MRI: Yes - When? Where? Notes: SPRING 2013 [place], [place] PH: [phone] FAX: [phone] Scan: No Physical therapy: Yes - When? Where? Who? Notes: 02/2014 [facility] PH:[phone] [facility] Injection: Yes - When? Where? Who? Notes: ? 06/2014 [facility] PH:[phone] DR MARIA ANTONIA GONGORA [facility] PH [phone] DR KAYLIE GONGORA NOTES IN [facility] Other diagnostic studies: No Other therapies: No Other specialist(s): No If 2nd (+) opinion get info on previous: Yes - What? When? Where? Who? Notes: PODIATRY PODIATRY 05/2014 [facility] PH:[phone] DR MARIA ANTONIA GONGORA [facility] PH [phone] DR KAYLIE GONGORA NOTES IN [facility] Have you had any surgeries for this issue? No Did surgery include placement of implant/hardware or fixation of any kind? No Do you use any type of orthotics? No Additional injuries: Advanced Directive Do you have an Advanced Directive on file: No - Please bring a copy to your next appointment. Advance Directive pilot supervisor: N/A [facility] Do you have a [facility] account? Yes Telephone Encounter - Neva Handley - 07/18/2014 8:29 AM EDT Message left for patient to return my call. documented in this encounter Plan of Treatment Not on filedocumented as of this encounter Visit Diagnoses Not on filedocumented in this encounter Care Teams Passenger Car Inspector Relationship Specialty Start Date End Date Annita Mckinnon APRN PCP - General 01/09/14 [address] [place] [address] documented as of this encounter
--- OUTSIDE RECORDS SUMMARY | 2021-09-23 00:48 | XMS_ITS | Encounter Summary ---
:1965 Author Organization [facility] Address [address] [place] [address] Care Team Providers Name Role Phone Yolanda Moran APRN Primary Care Provider [phone] Reason for Visit Reason Comments Left Foot Pain Pain Management Encounter Details Date Type Department Care Team Description 11/02/2012 Office Visit Pain Management at [facility] erficial peronechristine Bishop MD nerve neuropathy [facility] (Pr imary Dx) Drive [facility] [place] [facility] [address] [place] [address] [phone] Social History Tobacco Use Types Packs/Day Years [...] Sign Reading Time Taken Comments Blood Pressure 107/70 11/02/2012 10:10 AM EDT Pulse 65 11/02/2012 10:10 AM EDT Temperature - - Respiratory Rate - - Oxygen Saturation 100% 11/02/2012 10:10 AM EDT Inhaled Oxygen Concentration - - Weight 59 kg (130 lb) 11/02/2012 10:10 AM EDT Height 165.1 cm (5' 5) 11/02/2012 10:10 AM EDT Body Mass Index 21.63 11/02/2012 10:10 AM EDT documented in this encounter Progress Notes Feroz Blackmon MD - 11/02/2012 11:04 AM EDT Ms. Valdez informs me that she is now and her new name is Kayce Posadas. I am seeing Ms. Posadas at the request of Dr. Donny Gil for recommendations regarding her left dorsal foot pain. Thank you so much Dr. Gil for getting me involved in the care of Kayce Posadas, who as you know, is a delightful 47-year-old woman with a chief complaint of pain in the dorsum of her left foot. It began approximately two years ago spontaneously. She does describe dropping a five-gallon drum full of pickles on the top of her foot about three years earlier, and I have advised her that, that could have contributed to her symptoms as well in a double crush phenomenon. In any case, she was diagnosed with what sounds like a Dickey's neuroma and she had a steroid injection, which relieved her pain for five to six months; a second injection relieved her pain for three months, but a more permanent solution was sought and she comes to see me now. Her pain during the day is virtually absent. When she gets up out of the bed in the morning, she has very severe pain in the dorsum of her foot, which lasts for about an hour. 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 When she gets home though, the pain starts getting worse and can be quite excruciating. Her pain at this time is a 7 or an 8 on a 0 to 10 verbal numeric scale on average. At its worst, she states it is a 20 and at its least, it will get down to a 2. It is absolutely worse when she sits and relaxes, she states. She has not really had spreading, although she describes some tenderness in her calf on the left as well. On physical examination, she very curiously has a white streak, which extends from a wound which is mostly healed over her tibia where she hit herself on a refrigerator and this white streak extends down to the dorsum of her foot, but does not involve the entirety of her painful area on the dorsum of her foot. There is a slight fullness evident in this area and a slight purplish hue to this area. On physical examination, she does not have allodynia, but she clearly has hyperalgesia and hyperesthesia in the lateral anterior aspect of her foot. She has taken ibuprofen 800 mg a day without relief and she was given a prescription by Dr. Gil, but she cannot remember what the name of it was. PAST MEDICAL HISTORY: Significant for depression. PAST SURGICAL HISTORY: She has had a hysterectomy. SOCIAL HISTORY: She lives in [place] with her , who accompanies her today. She has two late teenage-year children, who spend the weekends with her and the mccormick, and two cats. She has no prior history of alcoholism or drug abuse. She smokes half to one pack of cigarettes per day and both she and her were strongly counseled to stop smoking today and she is working full-time. REVIEW OF SYSTEMS: Twelve systems were reviewed in detail and were all negative except for her mood, which she endorsed occasional depression and the fact that she has some pain in her right elbow and she is left-hand dominant. PHYSICAL EXAMINATION: She is a fit-appearing, slender, young woman, who is articulate and clear-headed. She displays a range of emotion and normal affect during our visit. On examination of her right lower extremity, her posterior tibial and dorsalis pedis pulses are readily palpable and strong. Aside from the hue changes of her skin, there are no other abnormalities noted. There is no joint redness, tenderness, or swelling and she has normal strength of the extensor hallucis longus, but with some pain on the left. ASSESSMENT: Superficial peroneal neuralgia. I think it is quite clear that this is a neuropathic pain syndrome, not a somatic pain syndrome, based on both her history and physical exam findings. PLAN: She is going to be meeting either with Dr. Gil or Dr. Mckeon and discuss my recommendations. If she has already tried gabapentin and it sounds like she has, my recommendation is as follows. She should try 50 mg of pregabalin as soon as she gets out of bed and 50 mg at noon or 1 p.m. She usually finishes work about 3 o'clock she states, but it can be as early as 12 o'clock. I would like her to take the dose before she goes home and starts having this onset of pain with rest. She can take another 50 mg dose later in the evening if she needs it. If this is inadequate, this can be increased to 100 mg and it can be increased to 150 mg if she tolerates it for a total daily dose of 150 mg. She can also use it if she wants on a p.r.n. basis and it maybe that she can take 50 mg in the morning and 50 mg at noon or 1 o'clock and then she could take 100 mg or 150 mg even later in the evening if this is when her worse pain is and she can tailor her dosage to her needs. If this is inadequate, then I would recommend Cymbalta or duloxetine 30 mg to be taken when she comes home from work and two weeks later if it is still inadequate, I would try 60 mg. If she has an inadequate response to this, her other options would be treatment with opioids versus possible peripheral nerve stimulation and I did not discuss either of these with her today. I think it would be a long shot to try to stimulate the peripheral nerve, but it is possible that we could do spinal cord stimulation and get the neuropathic pain in her foot under better control. In any case, thanks so much Dr. Gil for your kind referral. Ms. Posadas is a paola woman and I hope that she gets some relief. documented in this encounter Plan of Treatment Not on filedocumented as of this encounter Visit Diagnoses Diagnosis Superficial peroneal nerve neuropathy - Primary Lesion of lateral popliteal nerve documented in this encounter Care Teams Food Cashier Relationship Specialty Start Date End Date Yolanda Moran APRN PCP - General 09/06/12 01/08/14 documented as of this encounter
--- OUTSIDE RECORDS SUMMARY | 2021-09-23 00:48 | XMS_ITS | Encounter Summary ---
:1965 Author Organization [facility] [place] [address] Care Team Providers Name Role Phone Annita Quiñones AMARIS Primary Care Provider [phone] Encounter Details Date Type Department Care Team Description 12/31/2013 Orders Only Radiology Rajan Werner MD [facility] [place] [address] DIAGNOSTIC RADIOLOGY [phone] [place], [place] [address] (Wo rk) Social History Tobacco Use Types Packs/Day Years Used Date Current Every Day Smoker Cigarettes 1 25 Alcohol Use Standard Drinks/Week Comments Yes 0 (1 standard drink = 0.6 oz pure alcoho l) Financial Resource Strain Answer Date Recorded How hard is it for you to pay for the very basics like Not v um hard 08/31/2021 food, housing, medical care, and [...] Associated Diagnosis Comme nts FILM LIBRARY Routine 12/31/2013 4:35 PM Results f or this STORAGE ONLY MAMMO EDT procedure are in the results section. documented in this encounter Results Film Library- Storage only Mammo (12/31/2013 4:35 PM EDT) Anatomical Region Laterality Modality Other Specimen (Source) Anatomical Collection Method Collection Time Re ceived Time Location / / Volume Laterality 12/31/2013 4:35 PM EDT Narrative 01/17/2014 4:56 PM EST This is a Non-reportable exam Procedure Note OTILIO, UNSIGNED REPORT - 01/17/2014Formatt ing of this note might be different from the original. This is a Non-reportable exam Rajan Werner MD [facility] FILM LIBRARY ORDERABLES documented in this encounter Visit Diagnoses Not on filedocumented in this encounter Care Teams Media Services Coordinator Relationship Specialty Start Date End Date Annita Quiñones APRN PCP - General 01/09/14 [address] [place] [address] documented as of this encounter
--- OUTSIDE RECORDS SUMMARY | 2021-09-23 00:48 | XMS_ITS | Encounter Summary ---
:1965 Author Organization [facility] [place] [address] Care Team Providers Name Role Phone Annita Quiñones APRN Primary Care Provider [phone] Encounter Details Date Type Department Care Team Description 11/30/2016 Ancillary Procedure Radiology Library at [place], [facility] ELIGIBILITY TECHNICIAN [facility] [address] [place] [address] [place] [address] [phone] Social History Tobacco Use Types Packs/Day Years [...] place to sleep or slept in a long-term (including now)? Sex Assigned at Date Recorded Not on file documented as of this encounter Plan of Treatment Not on filedocumented as of this encounter Procedures Procedure Name Priority Date/Time Associated Diagnosis Comme nts FILM LIBRARY Routine 11/30/2016 12:00 AM Results for this STORAGE ONLY MAMMO EDT procedure are in the results section. documented in this encounter Results Film Library- Storage Only Mammo (11/30/2016 12:00 AM EDT) Specimen (Source) Anatomical Location Collection Method / Collectio n Time Received Time / Laterality Volume Narrative ELIDA POPE - 08/27/2020 2:11 PM EDT This exam is auto-finalizing. It's purpo se is for storage only. Annita Quiñones APRN IMRadha FILM LIBRARY ORDERABLES Performing Organization Address City/State/ZIP Code Phon e Number [place], [place] documented in this encounter Visit Diagnoses Not on filedocumented in this encounter Care Teams Phlebotomy Support Tech Relationship Specialty Start Date End Date Annita Quiñones APRN PCP - General 01/09/14 [address] [place] [address] documented as of this encounter
--- OUTSIDE RECORDS SUMMARY | 2021-09-23 00:48 | XMS_ITS | Encounter Summary ---
:1965 Author Organization [facility] [place] [address] Care Team Providers Name Role Phone Annita Quiñones Rory GLEZ Primary Care Provider [phone] Reason for Visit Reason Comments Back Pain Encounter Details Date Type Department Care Team Description 01/07/2015 Emergency Emergency Department Alvaro Moore MD Chronic low back pain [facility] [place] [address] [place] [address] [phone] Social History Tobacco Use Types Packs/Day Years [...] Sign Reading Time Taken Comments Blood Pressure 103/78 01/07/2015 1:00 PM EST Pulse 63 01/07/2015 12:07 PM EST Temperature 36.6 ??C (97.9 ??F) 01/07/2015 12:07 PM EST Respiratory Rate 16 01/07/2015 12:07 PM EST Oxygen Saturation 97% 01/07/2015 1:00 PM EST Inhaled Oxygen Concentration - - Weight 65.8 kg (145 lb) 01/07/2015 12:07 PM EST Height - - Body Mass Index 24.13 12/26/2014 10:40 AM EDT documented in this encounter Discharge Instructions Discharge InstructionsEzio Moore MD - 01/07/2015 1:00 PM EST Images from the original note were not included. [facility] Learning About Relief for Back Pain What is back tension and strain? Back strain happens when you overstretch, or pull, a muscle in your back. You may hurt your back in an accident or when you exercise or lift something. Most back pain will get better with rest and time. You can take care of yourself at home to help your back heal. What can you do first to relieve back pain? When you first feel back pain, try these steps: ?? Walk. Take a short walk (10 to 20 minutes) on a level surface (no slopes, hills, or stairs) every2 to 3 hours. Walk only distances you can manage without pain, especially leg pain. ?? Relax. Find a comfortable position for rest. Some people are comfortable on the floor or a medium-firm bed with a small pillow under their head and another under their knees. Some people prefer to lie on their side with a pillow between their knees. Don't stay in one position for too long. ?? Try heat or ice. Try using a heating pad on a low or medium setting, or take a warm shower, for 15 to 20 minutes every 2 to 3 hours. Or you can buy single- use heat wraps that last up to 8 hours. Youcan also try an ice pack for 10 to 15 minutes every 2 to 3 hours. You can use an ice pack or a bag of frozen vegetables wrapped in a thin towel. There is not strong evidence that either heat or ice will help, but you can try them to see if they help. You may also want to try switching between heat andcold. ?? Take pain medicine exactly as directed. ?? If the doctor gave you a prescription medicine for pain, take it as prescribed. ?? If you are not taking a prescription pain medicine, ask your doctor if you can take an [id number] medicine. What else can you do? ?? Stretch and exercise. Exercises that increase flexibility may relieve your pain and make it easier for your muscles to keep your spine in a good, neutral position. And don't forget to keep walking. ?? Do self-massage. You can use self-massage to unwind after work or school or to energize yourself in the morning. You can easily massage your feet, hands, or neck. Self-massage works best if you are in comfortable clothes and are sitting or lying in a comfortable position. Use oil or lotion to massage bare skin. ?? Reduce stress. Back pain can lead to a vicious [place]: Distress about the pain tenses the musclesin your back, which in turn causes more pain. Learn how to relax your mind and your muscles to loweryour stress. Where can you learn more? Visit our health information library at [email or web address] You can also view health information on [employer], your personal patient account. Log in or sign up today. Enter Q517 in the search box to learn more about Learning About Relief for Back Pain. ?? [id number] [employer]. Care instructions adapted under license by [facility]. This care instruction is for use with your licensed healthcare professional. If you have questionsabout a medical condition or this instruction, always ask your healthcare professional. [employer] disclaims any warranty or liability for your use of this information. Content Version: 10.4.819321; Current as of: August 08, 2013 documented in this encounter Medications at Time of Discharge Medication Sig Dispensed Refills Start Date End Date albuterol (PROVENTIL Inhale 2 puffs into 0 HFA;VENTOLIN HFA) 90 the lungs every 4 mcg/actuation HFA Aerosol hours as needed. Use Inhaler with spacer DULoxetine (CYMBALTA) 60 Take 60 mg by mouth 0 10/16/2015 mg Capsule, Delayed daily. Release(E.C.) documented as of this encounter ED Notes Ezio Moore MD - 01/07/2015 1:01 PM EST Images from the original note were not included. Chief Complaint Patient presents with ??? Back Pain HPI Comments: This is the patient's third ED visit in the past 24 hours for back pain. Prior to visits were in a [place] emergency department. Given Toradol and a prescription for Soma. She has not filled the Soma prescription. Pain started while the patient was at work. 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 Denies any bending, lifting, twisting or traumatic mechanism. Has had similar back pain before, but not as severe. No fever. No incontinence. No difficulty with urination. Patient is a 49 y.o. female presenting with back pain. The history is provided by the patient and the spouse. Back Pain This is a recurrent problem. The current episode started more than 2 days ago. The problem occurs constantly. The problem has not changed since onset.The pain is associated with no known injury. The pain is present in the lumbar spine. The pain does not radiate. The pain is severe. Pertinent negativesinclude no chest pain, no fever, no numbness, no weight loss, no headaches, no abdominal pain, no abdominal swelling, no bowel incontinence, no perianal numbness, no bladder incontinence, no dysuria, no pelvic pain, no leg pain, no paresthesias, no paresis, no tingling and no weakness. She has tried NSAIDs and muscle relaxants for the symptoms. The treatment provided no relief. Allergies Allergen Reactions ??? Percocet [Oxycodone-Acetaminophen] Itching ??? Sulfa (Sulfonamide Antibiotics) Itching Review of Systems Constitutional: Negative for fever and weight loss. Cardiovascular: Negative for chest pain. Gastrointestinal: Negative for abdominal pain and bowel incontinence. Genitourinary: Negative for bladder incontinence, dysuria and pelvic pain. Musculoskeletal: Positive for back pain. Neurological: Negative for tingling, weakness, numbness, headaches and paresthesias. Physical Exam Constitutional: She is oriented to person, place, and time. She appears well- developed and well-nourished. HENT: Head: Normocephalic and atraumatic. Eyes: Conjunctivae are normal. Pupils are equal, round, and reactive to light. Neck: Normal range of motion. Cardiovascular: Normal rate. Pulmonary/Chest: No respiratory distress. Musculoskeletal: Normal range of motion. She exhibits no edema or tenderness. Cervical back: Normal. Thoracic back: Normal. Lumbar back: She exhibits no bony tenderness, no deformity and no spasm. Back: Neurological: She is alert and oriented to person, place, and time. No cranial nerve deficit. She exhibits normal muscle tone. Coordination normal. Skin: Skin is warm and dry. No rash noted. No erythema. Psychiatric: She is slowed. She exhibits a depressed mood. Nursing note and vitals reviewed. Procedures MDM Number of Diagnoses or Management Options Chronic low back pain: ED Course: In the Emergency Department, the patient remained afebrile and hemodynamically stable. Patient Vitals for the past 8 hrs: BP Temp Temp src Pulse Resp SpO2 Weight 01/07/15 1207 118/72 mmHg 36.6 ??C (97.9 ??F) Oral 63 16 99 % 65.772 kg (145 lb) I reviewed the patient's recent visits to the pain clinic. I reviewed her imaging. I spoke with Darion the pain clinic. She informs me that they are unable to see the patient today. Patient will be onthe cancellation list for an earlier appointment. She is currently scheduled to see the pain clinic and undergo procedure on January 22. Indications for return to the Emergency Department were discussed with the patient and/or guardian, who expressed an understanding. All questions were answered. Ezio Moore MD 01/07/15 1305 Lionel Hoang RN - 01/07/2015 12:33 PM EST Pt presents with acute low back pain. She was evaluated at [facility] ED last night, received IV toradol with relief x several hours but the pain returned this morning. She is scheduled for a nerve block through the pain clinic 01/22 but states her pain exacerbated acutely several days ago, now unable to tolerate. She denies falls, heavy lifting, or any trauma. documented in this encounter Miscellaneous Notes ED Triage - Iain Brice RN - 01/07/2015 12:09 PM EST Pt to triage in wheelchair in obvious distress, has Hx of back problems, last pain increased, worse yesterday, pt went to [facility] ED was seen there has gotten no relief, called pain clinic here, and was told to come to the ED. Scheduled for a medial block shot here on 01/22. Skin pwd, RRR, unlabored. documented in this encounter Plan of Treatment Not on filedocumented as of this encounter Visit Diagnoses Diagnosis Chronic low back pain Lumbago documented in this encounter Care Teams Remedial Teacher Relationship Specialty Start Date End Date Annita Quiñones APRN PCP - General 01/09/14 [address] [place] [address] documented as of this encounter
--- NOTE | 2021-09-23 08:30 | DI.NM_ITS ---
Exam(s) NM HEPATOBILIARY CCK GRP EXAM: NM HEPATOBILIARY CCK GRP CLINICAL HISTORY: POST PRANDIAL ABD PAIN AND NAUSEA, R10, K91.0. TECHNIQUE: Injected dose: 5.0 mCi Tc-99 mebrofenin Initial dynamic images: 60 minutes, 75 minutes delayed images Post-Gallbladder fillin.2mcg CCK intravenously over a 45min infusion with dynamic imaging during CCK administration. COMPARISON: US US ABDOMEN LIMITED from 09/23/2021 FINDINGS: Normal hepatic transit time. Prompt excretion into the small bowel. Prompt excretion into the gallbladder. Abnormally low ejection fraction of 29 percent. IMPRESSION: No evidence of acute cholecystitis. Low gallbladder ejection fraction of 29 percent. SNM guidelines: Gallbladder visualization should be present by 3 hours. Delayed ayasgzg-ow-thkxo jones sit beyond 60 min raises the suspicion for partial common bile duct (CBD) obstruction. Gallbladder ejection fraction <35% has a good correlation with acalculous disease (i.e., chronic acal culous cholecystitis, cystic duct syndrome, sphincter of Oddi disease).
[2021-09-23] MEDS: Sincalide 5 MCG VIAL 1.2 MCG IJ (11:31)
== END 2021-09-23 01:04 ==
LOC: DI 00:44
PROVIDERS: PCP Nurse Practitioner Family; Visit Provider Internal Medicine
DX: K91.0 Vomiting following gastrointestinal surgery (principal); R10.9 Unspecified abdominal pain; R11.0 Nausea
CPT/HCPCS: 78227; 76705